=== PATIENT | male | born 1945 | race Caucasian/White ===

== ENCOUNTER 2016-11-12 22:33 | Inpatient (IN) | payer MEDICARE, MEDICAID ==
[~2016-11-12] VITALS: Ht 182.9 cm; Wt 73.9 kg
[~2016-11-12 22:33] MED LIST: ASCORBIC ACID500 MG ORAL; ASPIR 8181 MG ORAL; BISACODYL5 MG RECTAL; CEPACOL SORE T1 EAC5 MM; COUMADIN2 MG ORAL; CRANBERRY500 M3 PO; CYCLOBENZAPRINE10 MG ORAL; DUONEB 0.5-3(2.53 ML HHN; FLOMAX0.4 MG ORAL; FLONASE1 SPRAYS NASAL; IBUPROFEN600 MG ORAL; IMODIUM2 MG ORAL; KLONOPIN0.5 MG ORAL; MIRALAX17 G2 ORAL; MOM30 ML ORAL; MYLANTA30 M1 PO; NIACIN ER500 M1 PO; NITROGLYCERIN0.4 MG SL; NORCO 5-325 TA1 EACH ORAL; OMEPRAZOLE20 M2 ORAL; PROSCAR5 MG ORAL; PROSTATE SR SO1 EAC1 PO; PROZAC20 MG ORAL; SENNA8.8 MG/5 M PO; SENOKOT1 TAB ORAL; SIMVASTATIN10 MG ORAL; SINGULAIR10 MG ORAL; TEMAZEPAM15 MG ORAL; THERA-M1 EACH PO; TYLENOL650 MG/20. ORAL; WARFARIN SODIUM1 MG ORAL
[2016-11-12 22:53] VITALS: BP 104/74
[2016-11-12 23:06] LABS: BASOPHILS % (AUTO) 1.7 % (0.0-2.0); EOSINOPHILS % (AUTO) 2.3 % (0.0-3.0); LYMPHOCYTES % (AUTO) 17.3 % (20.0-45.0); MEAN CORPUSCULAR HEMOGLOBIN 28.7 PG (27.0-31.0); MEAN CORPUSCULAR VOLUME 89 FL (80-99); MEAN PLATELET VOLUME 7.2 FL (6.5-10.1); MONOCYTES % (AUTO) 12.7 % (1.0-10.0); PLATELET COUNT 229 K/UL (150-450); RED BLOOD COUNT 4.85 M/UL (4.70-6.10); RED CELL DISTRIBUTION WIDTH 12.1 % (11.6-14.8); WHITE BLOOD COUNT 7.6 K/UL (4.8-10.8)
[2016-11-12 23:14] LABS: INR 2.4 (0.9-1.1); PROTHROMBIN TIME 24.7 SEC (9.30-11.50)
[2016-11-12 23:21] LABS: TROPONIN I < 0.30 ng/mL (<=0.30)
[2016-11-12 23:25] LABS: ALANINE AMINOTRANSFERASE 16 U/L (3-41); ALBUMIN/GLOBULIN RATIO 1.3 (1.0-2.7); ANION GAP 14 (5-15); ASPARTATE AMINO TRANSFERASE 20 U/L (5-40); CALCIUM 9.5 mg/dL (8.6-10.2); CARBON DIOXIDE 28 mEQ/L (20-30); CHLORIDE 96 mEQ/L (98-107); CREATININE 0.9 mg/dL (0.7-1.2); GLOMERULAR FILTRATION RATE > 60 mL/min (>60); HEMOLYSIS 8; LIPASE 36 U/L (< 60); POTASSIUM 3.9 mEQ/L (3.4-4.9); SODIUM 138 mEQ/L (135-145); TOTAL PROTEIN 7.4 g/dL (6.6-8.7)
[2016-11-12] MEDS ORDERED: ARTIFICIAL TEA1 EAC2 OP (23:28)
[2016-11-12] MEDS ORDERED: BENGAY113 GM TP (23:28)
[2016-11-12 23:35] LABS: CKMB 1.7 ng/mL (< 6.7)
--- NOTE | 2016-11-12 23:46 | Emergency Room Report ---
History of Present Illness General Chief Complaint: Chest Pain Source: Patient Present Illness HPI Patient presents with complaints of chest pain midsternal Denies any vomiting or diarrhea Denies any headache Denies any visual changes Her course the pain was earlier 10/30 heaviness midsternal At this time is pain-free Denies any fall or trauma denies any back or flank pain Allergies: Coded Allergies: NO KNOWN DRUG ALLERGIES (Unverified Allergy, Unknown, 11/12/14) Uncoded Allergies: Coconut (Allergy, Intermediate, Hives, 08/07/15) Patient History Past Medical History: see triage record Past Surgical History: none Reviewed Nursing Documentation: PMH: Agreed, PSxH: Agreed Nursing Documentation-PMH Hx Cardiac Problems: Yes - Chronic ischemic disease Hx Hypertension: Yes Hx Cancer: Yes - BPH Hx Gastrointestinal Problems: Yes - GERD Hx Neurological Problems: Yes - depression,anxiety Hx Cerebrovascular Accident: Yes - Left CVA Hx Dizziness: Yes Hx Headaches: Yes Hx Weakness: Yes Review of Systems All Other Systems: negative except mentioned in HPI Physical Exam Vital Signs Date Time Temp Pulse Resp B/P Pulse Ox O2 Delivery O2 Flow Rate FiO2 11/12/16 22:25 98.1 45 16 113/71 98 Room Air Sp02 EP Interpretation: reviewed, normal General Appearance: well appearing, no apparent distress Head: normocephalic, atraumatic Eyes: bilateral eye EOMI, bilateral eye PERRL ENT: hearing grossly normal, normal pharynx Neck: supple, thyroid normal Respiratory: chest non-tender, lungs clear Cardiovascular #1: regular rate, rhythm, no edema Gastrointestinal: non tender, soft Musculoskeletal: other - Patient appears chronically ill, there is no obvious focal deficit in the upper extremities Neurologic: alert, responsive Skin: no rash Lymphatic: no adenopathy Medical Decision Making Diagnostic Impression: Primary Impression: ACS (acute coronary syndrome) ER Course Patient is a fairly complex patient with multiple differential to consideration including but not limited to cardiac cardiopulmonary and vascular emergencies Patient's blood work and imaging is appropriate as far review of records shows the patient has coagulopathy Is on INR is unclear the specific reason for coagulation therapy however it does appear to be therapeutic at this time Labs Test 11/12/16 22:48 White Blood Count 7.6 K/UL (4.8-10.8) Red Blood Count 4.85 M/UL (4.70-6.10) Hemoglobin 13.9 G/DL (14.2-18.0) Hematocrit 43.4 % (42.0-52.0) Mean Corpuscular Volume 89 FL (80-99) Mean Corpuscular Hemoglobin 28.7 PG (27.0-31.0) Mean Corpuscular Hemoglobin Concent 32.0 G/DL (32.0-36.0) Red Cell Distribution Width 12.1 % (11.6-14.8) Platelet Count 229 K/UL (150-450) Mean Platelet Volume 7.2 FL (6.5-10.1) Neutrophils (%) (Auto) 66.0 % (45.0-75.0) Lymphocytes (%) (Auto) 17.3 % (20.0-45.0) Monocytes (%) (Auto) 12.7 % (1.0-10.0) Eosinophils (%) (Auto) 2.3 % (0.0-3.0) Basophils (%) (Auto) 1.7 % (0.0-2.0) Prothrombin Time 24.7 SEC (9.30-11.50) Prothromb Time International Ratio 2.4 (0.9-1.1) Activated Partial Thromboplast Time 36 SEC (23-33) Sodium Level 138 mEQ/L (135-145) Potassium Level 3.9 mEQ/L (3.4-4.9) Chloride Level 96 mEQ/L (98-107) Carbon Dioxide Level 28 mEQ/L (20-30) Anion Gap 14 (5-15) Blood Urea Nitrogen 8 mg/dL (7-23) Creatinine 0.9 mg/dL (0.7-1.2) Estimat Glomerular Filtration Rate > 60 mL/min (>60) Glucose Level 85 mg/dL (74-106) Calcium Level 9.5 mg/dL (8.6-10.2) Total Bilirubin 0.5 mg/dL (0.0-1.2) Aspartate Amino Transf (AST/SGOT) 20 U/L (5-40) Alanine Aminotransferase (ALT/SGPT) 16 U/L (3-41) Alkaline Phosphatase 77 U/L (40-129) Total Creatine Kinase 84 U/L (38-174) Creatine Kinase MB 1.7 ng/mL (< 6.7) Creatine Kinase MB Relative Index 2.0 Troponin I < 0.30 ng/mL (<=0.30) Total Protein 7.4 g/dL (6.6-8.7) Albumin 4.2 g/dL (3.5-5.2) Globulin 3.2 g/dL Albumin/Globulin Ratio 1.3 (1.0-2.7) Lipase 36 U/L (< 60) EKG Diagnostic Results Rate: normal Rhythm: NSR ST Segments: no acute changes Rhythm Strip Diag. Results EP Interpretation: yes Rate: 60 Rhythm: NSR, no PVC's, no ectopy Chest X-Ray Diagnostic Results EP Interpretation: Yes Findings: no pneumothorax, other - Left lower lobe scarring/effusion/ atelectasis, similar to previous x-ray, no acute bony abnormalities Number of Views: 1 Last Vital Signs Date Time Temp Pulse Resp B/P Pulse Ox O2 Delivery O2 Flow Rate FiO2 11/12/16 22:56 45 16 Room Air 11/12/16 22:53 98.1 104/74 100 Status: improved Disposition: ADMITTED INPATIENT Condition: Serious Referrals: DEENA BRAR (PCP) EMIL NELSON D.O. Nov 12, 2016 23:46
[2016-11-12] MEDS ORDERED: COUMADIN7.5 MG ORAL (23:48)
[2016-11-12] MEDS ORDERED: VITAMIN C500 M1 ORAL (23:48)
[2016-11-12] MEDS ORDERED: IBUPROFEN400 M1 PO (23:48)
[2016-11-12] MEDS ORDERED: CALCIUM CARBON200 M1 PO (23:48)
[2016-11-13] MEDS ORDERED: Miralax 17gm pkt ORAL PRN
[2016-11-13] MEDS ORDERED: Loperamide 2mg cap ORAL PRN
[2016-11-13] MEDS ORDERED: Ketorolac 30mg Inj IV PRN
[2016-11-13] MEDS ORDERED: Enalaprilat 2.5mg/2ml Inj IV PRN
[2016-11-13] MEDS ORDERED: DuoNeb 0.5-3(2.5)mg/3ml neb HHN PRN
[2016-11-13] MEDS ORDERED: Nitroglycerin Subl 0.4mg tab (Bottle Of 25) SL PRN
[2016-11-13] MEDS ORDERED: Diltiazem 25mg/5ml IV PRN
[2016-11-13] MEDS ORDERED: Morphine Sulfate 2mg/ml Inj IVP PRN
[2016-11-13] MEDS: Cyclobenzaprine 10mg Tab ORAL SCH ×5 (00:56→23:45)
[2016-11-13 02:18] VITALS: BP 94/61
[2016-11-13 04:59] VITALS: BP 106/67
[2016-11-13 06:36] VITALS: BP 108/68
[2016-11-13 07:15] LABS: INR 2.5 (0.9-1.1); PROTHROMBIN TIME 26.3 SEC (9.30-11.50)
[2016-11-13 07:19] LABS: BASOPHILS % (AUTO) 0.9 % (0.0-2.0); EOSINOPHILS % (AUTO) 3.1 % (0.0-3.0); LYMPHOCYTES % (AUTO) 19.3 % (20.0-45.0); MEAN CORPUSCULAR HEMOGLOBIN 28.9 PG (27.0-31.0); MEAN CORPUSCULAR HGB CONC 33.9 G/DL (32.0-36.0); MEAN CORPUSCULAR VOLUME 85 FL (80-99); MEAN PLATELET VOLUME 7.7 FL (6.5-10.1); MONOCYTES % (AUTO) 13.8 % (1.0-10.0); PLATELET COUNT 228 K/UL (150-450); RED BLOOD COUNT 5.06 M/UL (4.70-6.10); RED CELL DISTRIBUTION WIDTH 12.1 % (11.6-14.8); WHITE BLOOD COUNT 5.1 K/UL (4.8-10.8)
[2016-11-13 07:21] LABS: CHOLESTEROL 193 mg/dL (< 200); CHOLESTEROL/HDL RATIO 4.4 (3.3-4.4); CRP QUANT < 0.3 mg/dL (< 0.5); HEMOLYSIS 5; LDL CHOLESTEROL (CALC.) 133 mg/dL (60-99)
[2016-11-13] MEDS ORDERED: FLUOXETINE HCL10 MG ORAL (08:16)
[2016-11-13 08:28] VITALS: BP 109/58
[2016-11-13] MEDS: Tamsulosin 0.4mg cap ORAL SCH ×2 (08:47→17:47)
[2016-11-13] MEDS: FLUoxetine 10mg cap ORAL SCH (08:48)
[2016-11-13] MEDS: clonazePAM 0.5mg tab ORAL SCH ×3 (08:48→17:47)
[2016-11-13] MEDS: Aspirin EC 81mg tab ORAL SCH (08:50)
[2016-11-13] MEDS ORDERED: Norco 5mg/325mg tab ORAL PRN (09:00)
[2016-11-13] MEDS ORDERED: Heparin 5000 units/ml inj SUBQ SCH (09:00)
[2016-11-13] MEDS ORDERED: Aspirin Baby 81mg ORAL SCH (09:00)
--- NOTE | 2016-11-13 11:22 | Diagnostic Imaging Report ---
Indication: Chest pain Technique: One view of the chest Comparison: 11/13/2014 Findings: Patient is slightly rotated to the right. There is some crowding of vascular markings at the left lung base. There is slight blunting of left costophrenic sulcus appears unchanged from the prior exam, suspect chronic. Lungs and pleural spaces otherwise clear.. Impression: Stable left costophrenic angle blunting, may reflect scarring or trace left pleural fluid. No definite acute process otherwise. Findings as noted This agrees with the preliminary interpretation provided by the emergency room physician
[2016-11-13 11:33] VITALS: BP 105/71
--- NOTE | 2016-11-13 15:30 | Consultation ---
History of Present Illness General Date patient seen: Nov 13, 2016 Chief Complaint: Chest Pain Referring physician: Dr. Mackenzie Reason for Consultation: chest pain Present Illness Allergies: Coded Allergies: MONTELUKAST (Unverified Allergy, Unknown, 11/13/16) Uncoded Allergies: Coconut (Allergy, Intermediate, Hives, 08/07/15) Medication History Scheduled Al Hydroxide/mg Hydroxide (Mag-Al Liquid), 30 ML PO Q4HR, (Reported) Ascorbic Acid* (Ascorbic Acid*), 500 MG ORAL BID, (Reported) Ascorbic Acid* (Vitamin C*), 500 MG ORAL TWICE A DAY, (Reported) Aspirin* (Aspir 81*), 81 MG ORAL DAILY, (Reported) Benzocaine/Menthol (Cepacol Sore Throat Lozenge), 1 EACH MM PRN, (Reported) Bisacodyl* (Dulcolax*), 10 MG RECTAL DAILY, (Reported) Clonazepam* (Klonopin*), 0.5 MG ORAL TID, (Reported) Cranberry Fruit (Cranberry), 500 MG PO BID, (Reported) Cyclobenzaprine Hcl* (Flexeril*), 10 MG ORAL Q6HR, (Reported) Finasteride* (Proscar*), 5 MG ORAL DAILY, (Reported) Fluoxetine Hcl* (Fluoxetine Hcl*), 10 MG ORAL DAILY, (Reported) Fluticasone Propionate (Fluticasone Propionate), 2 SPRAYS NASAL DAILY, (Reported ) Magnesium Hydroxide (Milk of Magnesia), 30 ML ORAL Q6HR, (Reported) Montelukast Sodium* (Singulair*), 10 MG ORAL DAILY, (Reported) Multivits,-,Other Min (Thera-M), 1 EACH PO DAILY, (Reported) Niacin (Niacin ER), 500 MG PO QHS, (Reported) Omeprazole (Omeprazole), 20 MG ORAL DAILY, (Reported) Sennosides (Senna), 17.2 MG PO DAILY, (Reported) Sennosides (Senna-Gen), 2 TAB ORAL DAILY, (Reported) Simvastatin (Zocor), 10 MG ORAL BEDTIME, (Reported) Tamsulosin HCl (Flomax), 0.4 MG ORAL DAILY, (Reported) Tamsulosin HCl (Flomax), 0.4 MG ORAL BID, (Reported) Warfarin Sod (Coumadin*), 1.5 MG ORAL DAILY, (Reported) Warfarin Sod* (Warfarin Sod*), 1 MG ORAL DAILY Scheduled PRN Acetaminophen (Acetaminophen), 650 MG ORAL EVERY 4 HOURS PRN for Prn Headache/ Temp > 101, (Reported) Hydrocodone Bit/Acetaminophen 5-325* ([place] 5-325*), 1 TAB ORAL Q8HR PRN for For Pain, (Reported) Ibuprofen* (Motrin*), 600 MG ORAL Q8H PRN for For Pain, (Reported) Ipratropium/Albuterol Sulfate (DuoNeb 0.5-3(2.5)mg/3ml), 3 ML HHN EVERY 4 HOURS PRN for Shortness of Breath, (Reported) Nitroglycerin (Nitroglycerin), 0.4 MG SL Q5M X 3 DOSES PRN for CHEST PAIN AND NOTIFY MD, (Reported) Polyethylene Glycol 3350* (Miralax*), 17 GM ORAL BEDTIME PRN for CONSTIPATION, ( Reported) Temazepam (Temazepam*), 15 MG ORAL BEDTIME PRN for INSOMNIA, (Reported) Warfarin Sod* (Coumadin*), 2 MG ORAL DAILY PRN for PHARMACY TO DOSE, (Reported) Miscellaneous Medications Calcium Carbonate (Calcium Carbonate), 200 MG PO, (Reported) Dextran 70/Hypromellose (Artificial Tears), 1 EACH OP, (Reported) Ibuprofen (Ibuprofen), 400 MG PO, (Reported) Loperamide HCl (Loperamide), 2 MG ORAL, (Reported) Menthol (Bengay), 113 GM TP, (Reported) Saw [place] Xt/Phytosterol #2 (Prostate Sr Softgel), 1 EACH PO, (Reported) Discontinued Medications Fluoxetine Hcl* (Prozac*), 20 MG ORAL DAILY, (Reported) Discontinued Reason: Prescription changed Patient History Healthcare decision maker Resuscitation status Advanced Directive on File Past Medical/Surgical History Past Medical/Surgical History: (1) Cerebrovascular accident (CVA) (2) PE (pulmonary embolism) Review of Systems All Other Systems: negative except mentioned in HPI Physical Exam General Appearance: WD/WN Lines, tubes and drains: peripheral HEENT: normocephalic Neck: non-tender, normal alignment Respiratory/Chest: chest wall non-tender, lungs clear Cardiovascular/Chest: normal peripheral pulses, normal rate Abdomen: normal bowel sounds Genitourinary/Rectal: normal genital exam Extremities: normal range of motion Last 24 Hour Vital Signs Date Time Temp Pulse Resp B/P Pulse Ox O2 Delivery O2 Flow Rate FiO2 11/13/16 12:00 60 11/13/16 11:33 97.7 62 20 105/71 95 Room Air 11/13/16 08:28 97.3 62 18 109/58 95 Room Air 11/13/16 08:00 66 11/13/16 07:47 98.1 49 14 108/68 97 Room Air 11/13/16 07:35 98.1 11/13/16 07:08 98.1 49 14 108/68 97 Room Air 11/13/16 06:36 49 14 108/68 97 Room Air 11/13/16 04:59 98.1 54 13 106/67 95 Room Air 11/13/16 02:18 51 13 94/61 95 Room Air 11/12/16 22:56 45 16 Room Air 11/12/16 22:53 98.1 46 17 104/74 100 Room Air 11/12/16 22:25 98.1 45 16 113/71 98 Room Air Intake and Output 11/12/16 11/13/16 19:00 07:00 Intake Total 150 ml Output Total 350 ml Balance -200 ml Intake Oral 150 ml Output Urine Total 350 ml Laboratory Tests Test 11/12/16 22:48 11/13/16 06:36 White Blood Count 7.6 K/UL (4.8-10.8) 5.1 K/UL (4.8-10.8) Red Blood Count 4.85 M/UL (4.70-6.10) 5.06 M/UL (4.70-6.10) Hemoglobin 13.9 G/DL (14.2-18.0) L 14.6 G/DL (14.2-18.0) Hematocrit 43.4 % (42.0-52.0) 43.1 % (42.0-52.0) Mean Corpuscular Volume 89 FL (80-99) 85 FL (80-99) Mean Corpuscular Hemoglobin 28.7 PG (27.0-31.0) 28.9 PG (27.0-31.0) Mean Corpuscular Hemoglobin Concent 32.0 G/DL (32.0-36.0) 33.9 G/DL (32.0-36.0) Red Cell Distribution Width 12.1 % (11.6-14.8) 12.1 % (11.6-14.8) Platelet Count 229 K/UL (150-450) 228 K/UL (150-450) Mean Platelet Volume 7.2 FL (6.5-10.1) 7.7 FL (6.5-10.1) Neutrophils (%) (Auto) 66.0 % (45.0-75.0) 63.0 % (45.0-75.0) Lymphocytes (%) (Auto) 17.3 % (20.0-45.0) L 19.3 % (20.0-45.0) L Monocytes (%) (Auto) 12.7 % (1.0-10.0) H 13.8 % (1.0-10.0) H Eosinophils (%) (Auto) 2.3 % (0.0-3.0) 3.1 % (0.0-3.0) H Basophils (%) (Auto) 1.7 % (0.0-2.0) 0.9 % (0.0-2.0) Prothrombin Time 24.7 SEC (9.30-11.50) H 26.3 SEC (9.30-11.50) H Prothromb Time International Ratio 2.4 (0.9-1.1) H 2.5 (0.9-1.1) H Activated Partial Thromboplast Time 36 SEC (23-33) H 36 SEC (23-33) H Sodium Level 138 mEQ/L (135-145) Potassium Level 3.9 mEQ/L (3.4-4.9) Chloride Level 96 mEQ/L (98-107) L Carbon Dioxide Level 28 mEQ/L (20-30) Anion Gap 14 (5-15) Blood Urea Nitrogen 8 mg/dL (7-23) Creatinine 0.9 mg/dL (0.7-1.2) Estimat Glomerular Filtration Rate > 60 mL/min (>60) Glucose Level 85 mg/dL (74-106) Calcium Level 9.5 mg/dL (8.6-10.2) Total Bilirubin 0.5 mg/dL (0.0-1.2) Aspartate Amino Transf (AST/SGOT) 20 U/L (5-40) Alanine Aminotransferase (ALT/SGPT) 16 U/L (3-41) Alkaline Phosphatase 77 U/L (40-129) Total Creatine Kinase 84 U/L (38-174) Creatine Kinase MB 1.7 ng/mL (< 6.7) Creatine Kinase MB Relative Index 2.0 Troponin I < 0.30 ng/mL (<=0.30) Total Protein 7.4 g/dL (6.6-8.7) Albumin 4.2 g/dL (3.5-5.2) Globulin 3.2 g/dL Albumin/Globulin Ratio 1.3 (1.0-2.7) Lipase 36 U/L (< 60) C-Reactive Protein, Quantitative < 0.3 mg/dL (< 0.5) Triglycerides Level 79 mg/dL (< 150) Cholesterol Level 193 mg/dL (< 200) LDL Cholesterol 133 mg/dL (60-99) H HDL Cholesterol 44 mg/dL (> 60) Cholesterol/HDL Ratio 4.4 (3.3-4.4) Thyroid Stimulating Hormone (TSH) 1.700 uIU/mL (0.300-4.500) Height (Feet): 6 Height (Inches): 0.00 Weight (Pounds): 163 Medications Current Medications Medications (Trade) Dose Ordered Sig/Vadim Route PRN Reason Start Time Stop Time Status Last Admin Dose Admin Acetaminophen (Tylenol) 650 mg Q4H PRN ORAL FEVER 11/13/16 00:00 12/13/16 00:00 Acetaminophen/ Hydrocodone Bitart ([place] 5/325) 1 tab Q8H PRN ORAL Moderate Pain (Pain Scale 4-6) 11/13/16 09:00 11/20/16 08:59 Albuterol/ Ipratropium (DuoNeb 0.5-3(2.5)mg/3ml) 3 ml Q4H PRN HHN Shortness of Breath 11/13/16 00:00 11/18/16 00:00 Aspirin (Ecotrin) 81 mg DAILY ORAL 11/13/16 09:00 12/13/16 08:59 11/13/16 08:50 Clonazepam (KlonoPIN) 0.5 mg TID ORAL 11/13/16 09:00 11/20/16 08:59 11/13/16 12:13 Cyclobenzaprine HCl (Flexeril) 10 mg Q6HR ORAL 11/13/16 00:00 12/13/16 00:00 11/13/16 12:13 Diltiazem HCl (Cardizem) 10 mg Q1H PRN IV heart rate more than 120, 11/13/16 00:00 12/13/16 00:00 Enalaprilat (Vasotec) 2.5 mg Q6H PRN IV sbp more than 160 11/13/16 00:00 12/13/16 00:00 Finasteride (Proscar) 5 mg DAILY ORAL 11/13/16 09:00 12/13/16 08:59 11/13/16 08:47 Fluoxetine HCl (PROzac) 10 mg DAILY ORAL 11/13/16 09:00 12/13/16 08:59 11/13/16 08:48 Loperamide HCl (Imodium) 2 mg DAILY PRN ORAL Diarrhea 11/13/16 00:00 12/13/16 00:00 Morphine Sulfate (Morphine Sulfate) 2 mg Q4H PRN IVP severe Pain (Pain Scale 7-10) 11/13/16 00:00 11/20/16 00:00 Nitroglycerin (Ntg) 0.4 mg Q5M PRN SL Prn Chest Pain 11/13/16 00:00 12/13/16 00:00 Ondansetron HCl (Zofran) 4 mg Q6H PRN IVP Nausea & Vomiting 11/13/16 00:00 12/13/16 00:00 Pantoprazole (Protonix) 40 mg DAILY ORAL 11/13/16 09:00 12/13/16 08:59 11/13/16 08:48 Polyethylene Glycol (Miralax) 17 gm DAILYPRN PRN ORAL Constipation 11/13/16 00:00 12/13/16 00:00 Sennosides (Senokot) 17.2 mg DAILY ORAL 11/14/16 09:00 12/14/16 08:59 Tamsulosin HCl (Flomax) 0.4 mg BID ORAL 11/13/16 09:00 12/13/16 08:59 11/13/16 08:47 Temazepam (Restoril) 15 mg HSPRN PRN ORAL Insomnia 11/13/16 00:00 11/20/16 00:00 Warfarin Sodium (Coumadin per pharmacy) 1 ea DAILY PRN MISC PER RX PROTOCOL 11/13/16 10:45 12/13/16 10:44 Warfarin Sodium (Coumadin) 1.5 mg COUMADIN ORAL 11/13/16 17:00 11/18/16 16:59 Assessment/Plan Problem List: (1) ACS (acute coronary syndrome) ICD Codes: I24.9 - Acute ischemic heart disease, unspecified SNOMED: 608063303 (2) Costochondritis ICD Codes: M94.0 - Chondrocostal junction syndrome [[place]] SNOMED: 36497534 (3) GERD (gastroesophageal reflux disease) ICD Codes: K21.9 - Gastro-esophageal reflux disease without esophagitis SNOMED: 013350959 Assessment/Plan serial ekg troponin echo cardio evaluation continue coumadin for hx of PE. Pharmacy to follow inr ED MANRIQUE Nov 13, 2016 15:30
[2016-11-13 16:00] VITALS: BP 102/63
[2016-11-13] MEDS: Warfarin Sodium 3mg ORAL SCH (17:47)
[2016-11-14 00:30] VITALS: BP 96/58
[2016-11-14 04:00] VITALS: BP 106/77
[2016-11-14] MEDS: Cyclobenzaprine 10mg Tab ORAL SCH ×4 (05:28→23:42)
--- NOTE | 2016-11-14 05:48 | Consultation ---
DATE OF CONSULTATION: 11/13/2016 NOTE: BAD AUDIO. CONSULTING PHYSICIAN: Reji Ricardo M.D. ATTENDING PHYSICIAN: Jaime Mackenzie M.D. REFERRING PHYSICIAN: Jaime Mackenzie M.D. HISTORY OF PRESENT ILLNESS: The patient is a 70-year-old male with coronary syndrome. The patient states that he has a history of anxiety, does take psychotropic medications for his anxiety. At this time, he denies suicidal or homicidal thoughts of ideation. Denies auditory or visual hallucinations. He is about how his chest pain . He reports . PAST MEDICAL HISTORY: History of pulmonary embolism and CVA. ALLERGIES: The patient is allergic to montelukast and . SUBSTANCE ABUSE HISTORY: The patient denies any history of alcohol or illicit drug use. PSYCHIATRIC HISTORY: The patient has been taking Prozac. The patient states that he medications of anxiety. SOCIAL HISTORY: The patient is a 70-year-old male. The patient is facility. Financially sustained through Medicare. MENTAL STATUS EXAMINATION: The patient is alert and oriented to person. Mood is anxious. Affect is congruent. Thought process is disorganized. Thought content . The patient has poor attention and concentration. Poor insight, judgment, and impulse control. Denies suicidal or homicidal ideation. Denies auditory or visual hallucinations. PLAN: This clinician assessed the patient and provided the patient with supportive psychotherapy and reality orientation and coping skills. Continue with medication management and behavioral management. This clinician has reviewed the patient's chart. Discussed the treatment with nursing staff. Reji Ricardo PsyD. DR: BARRON JOB#: [id number] CC:
[2016-11-14 06:50] LABS: INR 2.6 (0.9-1.1); PROTHROMBIN TIME 26.9 SEC (9.30-11.50)
[2016-11-14 06:56] LABS: ANION GAP 12 (5-15); CALCIUM 8.9 mg/dL (8.6-10.2); CARBON DIOXIDE 29 mEQ/L (20-30); CHLORIDE 101 mEQ/L (98-107); CREATININE 0.9 mg/dL (0.7-1.2); GLOMERULAR FILTRATION RATE > 60 mL/min (>60); HEMOLYSIS 5; POTASSIUM 3.8 mEQ/L (3.4-4.9); SODIUM 142 mEQ/L (135-145)
[2016-11-14 07:03] LABS: BASOPHILS % (AUTO) 0.9 % (0.0-2.0); EOSINOPHILS % (AUTO) 2.2 % (0.0-3.0); LYMPHOCYTES % (AUTO) 17.6 % (20.0-45.0); MEAN CORPUSCULAR HEMOGLOBIN 28.2 PG (27.0-31.0); MEAN CORPUSCULAR HGB CONC 32.5 G/DL (32.0-36.0); MEAN CORPUSCULAR VOLUME 87 FL (80-99); MEAN PLATELET VOLUME 7.8 FL (6.5-10.1); MONOCYTES % (AUTO) 13.1 % (1.0-10.0); NEUTROPHILS % (AUTO) 66.3 % (45.0-75.0); PLATELET COUNT 255 K/UL (150-450); RED BLOOD COUNT 4.98 M/UL (4.70-6.10); RED CELL DISTRIBUTION WIDTH 12.7 % (11.6-14.8); WHITE BLOOD COUNT 5.8 K/UL (4.8-10.8)
[2016-11-14] MEDS: Aspirin EC 81mg tab ORAL SCH (08:28)
[2016-11-14] MEDS: clonazePAM 0.5mg tab ORAL SCH ×3 (08:29→17:58)
[2016-11-14] MEDS: FLUoxetine 10mg cap ORAL SCH (08:30)
[2016-11-14] MEDS: Tamsulosin 0.4mg cap ORAL SCH ×2 (08:30→17:59)
--- NOTE | 2016-11-14 08:40 | General Progress Note ---
Assessment/Plan Problem List: (1) HTN (hypertension) ICD Codes: I10 - Essential (primary) hypertension SNOMED: 87469284 (2) BPH (benign prostatic hyperplasia) ICD Codes: N40.0 - Benign prostatic hyperplasia without lower urinary tract symptoms SNOMED: 188785328, 485198217 (3) Anxiety ICD Codes: F41.9 - Anxiety disorder, unspecified SNOMED: 29772373 (4) Constipation ICD Codes: K59.00 - Constipation, unspecified SNOMED: 40508930 (5) ACS (acute coronary syndrome) ICD Codes: I24.9 - Acute ischemic heart disease, unspecified SNOMED: 902068236 (6) PE (pulmonary embolism) ICD Codes: I26.99 - Other pulmonary embolism without acute cor pulmonale SNOMED: 48802531 Status: stable, progressing, tolerating diet Assessment/Plan ot pt diet cardio f/u cbc bmp am Subjective Constitutional: Reports: weakness Allergies: Coded Allergies: MONTELUKAST (Unverified Allergy, Unknown, 11/13/16) Uncoded Allergies: Coconut (Allergy, Intermediate, Hives, 08/07/15) All Systems: reviewed and negative except above Subjective calm in bed eating Objective Last 24 Hour Vital Signs Date Time Temp Pulse Resp B/P Pulse Ox O2 Delivery O2 Flow Rate FiO2 11/14/16 04:30 96 11/14/16 04:00 98.0 96 20 106/77 Room Air 11/14/16 03:59 48 11/14/16 00:30 97.0 53 20 96/58 94 Room Air 11/13/16 23:43 57 11/13/16 20:00 67 16 Room Air 11/13/16 19:56 51 11/13/16 16:00 56 11/13/16 16:00 97.3 55 18 102/63 94 Room Air 11/13/16 12:00 60 11/13/16 11:33 97.7 62 20 105/71 95 Room Air Intake and Output 11/13/16 11/14/16 19:00 07:00 Intake Total 120 ml Output Total 450 ml 550 ml Balance -330 ml -550 ml Intake Oral 120 ml Output Urine Total 450 ml 550 ml Laboratory Tests 11/14/16 05:10: White Blood Count 5.8, Red Blood Count 4.98, Hemoglobin 14.1L, Hematocrit 43.3, Mean Corpuscular Volume 87, Mean Corpuscular Hemoglobin 28.2, Mean Corpuscular Hemoglobin Concent 32.5, Red Cell Distribution Width 12.7, Platelet Count 255, Mean Platelet Volume 7.8, Neutrophils (%) (Auto) 66.3, Lymphocytes (%) (Auto) 17.6L, Monocytes (%) (Auto) 13.1H, Eosinophils (%) (Auto) 2.2, Basophils (%) ( Auto) 0.9, Prothrombin Time 26.9H, Prothromb Time International Ratio 2.6H, Sodium Level 142, Potassium Level 3.8, Chloride Level 101, Carbon Dioxide Level 29, Anion Gap 12, Blood Urea Nitrogen 9, Creatinine 0.9, Estimat Glomerular Filtration Rate > 60, Glucose Level 94, Calcium Level 8.9 Height (Feet): 6 Height (Inches): 0.00 Weight (Pounds): 163 General Appearance: alert EENT: normal ENT inspection Neck: normal alignment Cardiovascular: normal peripheral pulses, normal rate, regular rhythm Respiratory/Chest: chest wall non-tender, lungs clear, normal breath sounds Abdomen: normal bowel sounds, non tender, soft Extremities: normal inspection Edema: no edema noted Arm (L), no edema noted Arm (R), no edema noted Leg (L), no edema noted Leg (R), no edema noted Pedal (L), no edema noted Pedal (R), no edema noted Generalized Neurologic: responsive, motor weakness Skin: normal pigmentation, warm/dry DEENA BRAR Nov 14, 2016 08:40
--- NOTE | 2016-11-14 11:38 | Pulmonology Progress Note ---
Assessment/Plan Problems: (1) ACS (acute coronary syndrome) (2) Costochondritis (3) GERD (gastroesophageal reflux disease) Assessment/Plan echo noted, EF 55% awaiting Cardio consult serial enzymes optimize cardiac meds. Subjective ROS Limited/Unobtainable: No Interval Events: asymptomatic Allergies: Coded Allergies: MONTELUKAST (Unverified Allergy, Unknown, 11/13/16) Uncoded Allergies: Coconut (Allergy, Intermediate, Hives, 08/07/15) Objective Last 24 Hour Vital Signs Date Time Temp Pulse Resp B/P Pulse Ox O2 Delivery O2 Flow Rate FiO2 11/14/16 09:55 72 16 Room Air 11/14/16 08:00 51 11/14/16 04:30 96 11/14/16 04:00 98.0 96 20 106/77 Room Air 11/14/16 03:59 48 11/14/16 00:30 97.0 53 20 96/58 94 Room Air 11/13/16 23:43 57 11/13/16 20:00 67 16 Room Air 11/13/16 19:56 51 11/13/16 16:00 56 11/13/16 16:00 97.3 55 18 102/63 94 Room Air 11/13/16 12:00 60 Intake and Output 11/13/16 11/14/16 19:00 07:00 Intake Total 120 ml Output Total 450 ml 550 ml Balance -330 ml -550 ml Intake Oral 120 ml Output Urine Total 450 ml 550 ml General Appearance: cachetic HEENT: normocephalic, atraumatic Respiratory/Chest: chest wall non-tender, lungs clear Cardiovascular: normal peripheral pulses, normal rate Abdomen: normal bowel sounds, soft, non tender Genitourinary: normal external genitalia 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 Lymphatic: no neck adenopathy Laboratory Tests 11/14/16 05:10: White Blood Count 5.8, Red Blood Count 4.98, Hemoglobin 14.1L, Hematocrit 43.3, Mean Corpuscular Volume 87, Mean Corpuscular Hemoglobin 28.2, Mean Corpuscular Hemoglobin Concent 32.5, Red Cell Distribution Width 12.7, Platelet Count 255, Mean Platelet Volume 7.8, Neutrophils (%) (Auto) 66.3, Lymphocytes (%) (Auto) 17.6L, Monocytes (%) (Auto) 13.1H, Eosinophils (%) (Auto) 2.2, Basophils (%) ( Auto) 0.9, Prothrombin Time 26.9H, Prothromb Time International Ratio 2.6H, Sodium Level 142, Potassium Level 3.8, Chloride Level 101, Carbon Dioxide Level 29, Anion Gap 12, Blood Urea Nitrogen 9, Creatinine 0.9, Estimat Glomerular Filtration Rate > 60, Glucose Level 94, Calcium Level 8.9 Current Medications Medications (Trade) Dose Ordered Sig/Vadim Route PRN Reason Start Time Stop Time Status Last Admin Dose Admin Acetaminophen (Tylenol) 650 mg Q4H PRN ORAL FEVER 11/13/16 00:00 12/13/16 00:00 Acetaminophen/ Hydrocodone Bitart ([place] 5/325) 1 tab Q8H PRN ORAL Moderate Pain (Pain Scale 4-6) 11/13/16 09:00 11/20/16 08:59 Albuterol/ Ipratropium (DuoNeb 0.5-3(2.5)mg/3ml) 3 ml Q4H PRN HHN Shortness of Breath 11/13/16 00:00 11/18/16 00:00 Aspirin (Ecotrin) 81 mg DAILY ORAL 11/13/16 09:00 12/13/16 08:59 11/14/16 08:28 Clonazepam (KlonoPIN) 0.5 mg TID ORAL 11/13/16 09:00 11/20/16 08:59 11/14/16 08:29 Cyclobenzaprine HCl (Flexeril) 10 mg Q6HR ORAL 11/13/16 00:00 12/13/16 00:00 11/14/16 05:28 Diltiazem HCl (Cardizem) 10 mg Q1H PRN IV heart rate more than 120, 11/13/16 00:00 12/13/16 00:00 Enalaprilat (Vasotec) 2.5 mg Q6H PRN IV sbp more than 160 11/13/16 00:00 12/13/16 00:00 Finasteride (Proscar) 5 mg DAILY ORAL 11/13/16 09:00 12/13/16 08:59 11/14/16 08:29 Fluoxetine HCl (PROzac) 10 mg DAILY ORAL 11/13/16 09:00 12/13/16 08:59 11/14/16 08:30 Loperamide HCl (Imodium) 2 mg DAILY PRN ORAL Diarrhea 11/13/16 00:00 12/13/16 00:00 Morphine Sulfate (Morphine Sulfate) 2 mg Q4H PRN IVP severe Pain (Pain Scale 7-10) 11/13/16 00:00 11/20/16 00:00 Nitroglycerin (Ntg) 0.4 mg Q5M PRN SL Prn Chest Pain 11/13/16 00:00 12/13/16 00:00 Ondansetron HCl (Zofran) 4 mg Q6H PRN IVP Nausea & Vomiting 11/13/16 00:00 12/13/16 00:00 Pantoprazole (Protonix) 40 mg DAILY ORAL 11/13/16 09:00 12/13/16 08:59 11/14/16 08:29 Polyethylene Glycol (Miralax) 17 gm DAILYPRN PRN ORAL Constipation 11/13/16 00:00 12/13/16 00:00 Sennosides (Senokot) 17.2 mg DAILY ORAL 11/14/16 09:00 12/14/16 08:59 11/14/16 08:29 Tamsulosin HCl (Flomax) 0.4 mg BID ORAL 11/13/16 09:00 12/13/16 08:59 11/14/16 08:30 Temazepam (Restoril) 15 mg HSPRN PRN ORAL Insomnia 11/13/16 00:00 11/20/16 00:00 Warfarin Sodium (Coumadin per pharmacy) 1 ea DAILY PRN MISC PER RX PROTOCOL 11/13/16 10:45 12/13/16 10:44 Warfarin Sodium (Coumadin) 1.5 mg COUMADIN ORAL 11/13/16 17:00 11/18/16 16:59 11/13/16 17:47 ED [facility] Nov 14, 2016 11:38
[2016-11-14 12:00] VITALS: BP 103/61
[2016-11-14] MEDS ORDERED: Sorbitol Solution UD 30ml ORAL ONE (12:55)
[2016-11-14 15:01] LABS: TROPONIN I < 0.30 ng/mL (<=0.30)
[2016-11-14 16:00] VITALS: BP 95/65
[2016-11-14] MEDS: Warfarin Sodium 3mg ORAL SCH (17:58)
--- NOTE | 2016-11-14 18:22 | Cardiology Report ---
APPROVED REPORT EXAM: Two-dimensional and M-mode echocardiogram with Doppler and color Doppler. INDICATION Left Ventricular Function M-Mode DIMENSIONS IVSd1.0 (0.7-1.1cm)Left Atrium (MM)3.0 (1.6-4.0cm) LVDd4.7 (3.5-5.6cm)Aortic Root2.9 (2.0-3.7cm) PWd0.8 (0.7-1.1cm)Aortic Cusp Exc.2.0 (1.5-2.0cm) LVDs2.4 (2.5-4.0cm) PWs1.2 cm Technically difficult study due to poor acoustic windows. Study quality precludes accurate assessment of regional wall motion. Normal left ventricular chamber size, systolic function and wall motion. Left ventricular ejection fraction estimated to be 55 %. No evidence of left ventricular hypertrophy. Anterior Echo-free space, may be due to pericardial fat or effusion. All other cardiac chamber sizes are within normal limits. Mild focal aortic valve sclerosis with adequate cusp excursion. Mildly thickened mitral valve leaflets with normal excursion. Mild mitral annulus and aortic root calcification. Pulmonic valve not well visualized. Normal tricuspid valve structure. IVC dilated at 2.0 cm with physiologic collapse. A color flow and spectral Doppler study was performed and revealed: No aortic regurgitation. Trace mitral regurgitation. Mitral diastolic velocities suggest normal left ventricular diastolic function. Trace tricuspid regurgitation. Tricuspid systolic velocities suggests peak right ventricular systolic pressure of 15 mmHg. Trace pulmonic regurgitation present.
--- NOTE | 2016-11-14 18:51 | Cardiology Report ---
APPROVED REPORT EKG Measurement Heart [id number] Sinus bradycardia Otherwise normal ECG
[2016-11-14 20:00] VITALS: BP 112/68
[2016-11-14] MEDS ORDERED: Magnesium Citrate Liq Btl ORAL PRN (22:15)
[2016-11-14] MEDS ORDERED: Fleet's Enema 133ml RECTAL PRN (22:15)
--- NOTE | 2016-11-14 23:28 | Consultation ---
DATE OF CONSULTATION: 11/14/2016 NOTE: BAD AUDIO GASTROENTEROLOGY CONSULTATION: CONSULTING PHYSICIAN: Julio Colvin M.D. REFERRING PHYSICIAN: Jaime Mackenzie M.D. CHIEF COMPLAINT: I was asked to see this patient for evaluation for chest pain. HISTORY OF PRESENT ILLNESS: The patient is a pleasant 70-year-old chest pain . The patient does complain of constipation and has not had a bowel movement for two days. He also has poor appetite and complained of in the hospital. The patient wants to have a laxative on a trial basis. He has not had any significant . PAST MEDICAL HISTORY: History of stroke with left-sided hemiparesis, history of benign prostatic hypertrophy, history of thrombotic stroke, history of pulmonary embolism, costochondritis, gastroesophageal reflux disease, constipation, anxiety, and hypertension. SOCIAL HISTORY: The patient lives in [facility] and denies smoking or drinking. FAMILY HISTORY: Noncontributory. REVIEW OF SYSTEMS: Otherwise negative. PHYSICAL EXAMINATION: GENERAL: Anxious white man, seen in his room. HEENT: Normocephalic and atraumatic. Sclerae are anicteric. Oropharynx is clear. NECK: Supple. CHEST: Clear to auscultation. CARDIOVASCULAR: Revealed regular rate. ABDOMEN: Soft with good bowel sounds. There were no masses. EXTREMITIES: No edema. LABORATORY DATA: Noted. ASSESSMENT: This patient presents with constipation and symptoms of gastroesophageal reflux disease. He does have some atypical chest pain evaluate from a cardiac status. I will give the patient a bowel regimen to have constipated stools. Should his gastrointestinal symptoms are persistent then further workup with endoscopy and colonoscopy can be considered. RECOMMENDATIONS: 1. Laxative trial. 2. Histamine-2 timur . 3. Follow laboratory parameters and symptoms. 4. Cardiology workup. Thank you for asking me to participate in the care of this patient. Julio Colvin M.D. DR: ALF/harleen JOB#: [id number] CC:
[2016-11-15] VITALS: BP 113/71
--- NOTE | 2016-11-15 00:18 | Consultation ---
DATE OF CONSULTATION: 11/14/2016 CARDIOLOGY CONSULTATION CONSULTING PHYSICIAN: Miko Quiroz M.D. REFERRING PHYSICIAN: Jaime Mackenzie D.O. REASON FOR CONSULTATION: Management of chest pain. HISTORY OF PRESENT ILLNESS: The patient is a very pleasant 70-year-old gentleman resident of , who [facility] for evaluation of chest pain. Pain is felt in the upper left precordial with radiation to the midsternal, sharp, constant, and reproducible to palpation. The patient states that the pain has gotten better ever since his arrival. According to the emergency department physician, the patient's pain was 3/10 in the emergency department. The patient did not have any shortness of breath. He had a few steps with the physical therapist today. He did not have any exertional chest pain or shortness of breath. At the time of arrival to the hospital, his blood pressure was 113/71 and his heart rate was 45. He denies any complaints of dizziness, lightheadedness, fatigue or nausea. PAST MEDICAL HISTORY: 1. Hypertension. 2. History of gastroesophageal reflux disease. 3. History of depression. 4. History of anxiety. 5. History of cerebrovascular accident with left hemiparesis. 6. History of chronic coronary artery disease, the detail of which is unknown. 7. History of pulmonary embolism. PAST SURGICAL HISTORY: None. LIST OF MEDICATIONS: 1. Acetaminophen 600 mg q.4 hours. p.r.n. headache and temperature above 101. 2. Mylanta 30 mL p.o. q.4 hours. 3. Ascorbic acid 500 mg twice daily. 4. Aspirin 81 mg daily. 5. Bisacodyl 10 mg subcutaneous daily. 6. Calcium carbonate 200 mg p.o. daily. 7. Clonazepam 0.5 mg three times daily. 8. Cranberry 500 mg p.o. twice daily. 9. Flexeril 10 mg p.o. q.6 hours p.r.n. muscle spasm. 10. Artificial Tears. 11. Proscar 5 mg p.o. daily. 12. Fluoxetine 10 mg p.o. daily. 13. Fluticasone propionate 2 sprays nasal. 14. Perkins 5/325 mg one tablet q.8 hours p.r.n. pain. 15. Ibuprofen 400 mg p.o. q.8 hours p.r.n. pain. 16. DuoNeb 3 mL HHN every four hours. p.r.n. shortness of breath. 17. Loperamide 2 mg p.o. daily. 18. Magnesium hydroxide 30 mL q.6 hours p.r.n. constipation. 19. Menthol 113 g TP. 20. Singular 10 mg p.o. daily. 21. Multivitamin 1000 mg p.o. daily. 22. Niacin ER 500 mg at bedtime. 23. Nitroglycerin 0.4 mg subcutaneous every five minutes p.r.n. chest pain. 24. Omeprazole 20 mg p.o. daily. 25. MiraLAX 17 g at bedtime p.r.n. constipation. 26. Prostate SR softgel one tablet daily. 27. Senna 17.2 mg p.o. daily. 28. Simvastatin 10 mg p.o. at bedtime. 29. Flomax 0.4 mg twice daily. 30. Temazepam 10 mg at bedtime. 31. Warfarin 2 mg/1 mg alternate basis. REVIEW OF SYSTEMS: HEENT: Denies any headache, diplopia, or blurred vision. Constitutional: Denies any fever, chills, night sweats, or weight loss. Cardiovascular: Chest pain as mentioned above. No associated shortness of breath. No PND, orthopnea, or leg swelling. Pulmonary: Denies any cough, hemoptysis, or wheezing. Gastrointestinal: Denies any nausea, vomiting, diarrhea, constipation, abdominal pain, or GI bleed. Genitourinary: Denies any hematuria, dysuria, or incontinence. Neurology: There is some weakness in the left upper and lower extremities. LABORATORY FINDINGS: WBC 7.6, hemoglobin of 13.9, hematocrit of 43.4, and platelet count is 229,000. Sodium is 138, potassium is 3.9, chloride 96, bicarbonate 28, BUN of 18, creatinine 0.9, glucose is 85 and calcium is 9.5. Troponin I was less than 0.3. Lipid panel, triglycerides 79, cholesterol is 193, LDL is 133, and HDL is 44. INR is 2.4. Chest x-ray showed stable left costophrenic angle blunting reflect scarring with trace left pleural fluid. No acute cardiopulmonary disease. A 12-lead electrocardiogram shows sinus rhythm at a rate of 60 with occasional single ventricular premature complexes. No ST and T-wave abnormalities. 2D echocardiography reviewed essentially shows normal LV systolic function with LVEF of about 65% to 70%. There is grade 1 LV diastolic dysfunction. Right ventricle systolic pressure measured about 15 mmHg. ASSESSMENT AND PLAN: The patient is a very unfortunate 70-year-old gentleman, who is a resident of [facility] seen in Cardiology consultation at request of Dr. Mackenzie. 1. Chest pain, per history is noncardiac in origin, reproducible, sharp and not associated with any shortness of breath. A 12-lead electrocardiogram shows no evidence of ischemia. A 2D echocardiography is extensively reviewed and shows normal LV systolic function and LVEF of about 55%. In view of the nature of the chest pain reproducibility with palpation is considered to be noncardiac, the patient would not require any further cardiac testing. 2. Sinus bradycardia, which is reactive. The patient's heart rate with minimal exertion and that shirley to 58. The patient in fact does not have any symptoms of dizziness or lightheadedness with this heart rate. 3. History of CVA with left hemiparesis. I would consider continuation of aspirin. 4. History of pulmonary embolism, on warfarin. INR is in intermittent therapeutic level 5. Psychiatric disorder. I would like to thank, Dr. Mackenzie for allowing me to participate in care of this patient. Miko Quiroz M.D. DR: NIKHIL JOB#: [id number] CC:
[2016-11-15 04:00] VITALS: BP 127/66
[2016-11-15] MEDS: Cyclobenzaprine 10mg Tab ORAL SCH ×3 (05:52→17:23)
[2016-11-15 07:34] LABS: BASOPHILS % (AUTO) 0.8 % (0.0-2.0); EOSINOPHILS % (AUTO) 1.8 % (0.0-3.0); LYMPHOCYTES % (AUTO) 14.2 % (20.0-45.0); MEAN CORPUSCULAR HEMOGLOBIN 29.4 PG (27.0-31.0); MEAN CORPUSCULAR HGB CONC 33.6 G/DL (32.0-36.0); MEAN CORPUSCULAR VOLUME 87 FL (80-99); MEAN PLATELET VOLUME 7.4 FL (6.5-10.1); MONOCYTES % (AUTO) 11.4 % (1.0-10.0); NEUTROPHILS % (AUTO) 71.8 % (45.0-75.0); PLATELET COUNT 232 K/UL (150-450); RED CELL DISTRIBUTION WIDTH 12.5 % (11.6-14.8); WHITE BLOOD COUNT 6.7 K/UL (4.8-10.8)
[2016-11-15 07:50] LABS: ANION GAP 9 (5-15); CALCIUM 8.9 mg/dL (8.6-10.2); CARBON DIOXIDE 31 mEQ/L (20-30); CHLORIDE 101 mEQ/L (98-107); CREATININE 0.8 mg/dL (0.7-1.2); GLOMERULAR FILTRATION RATE > 60 mL/min (>60); HEMOLYSIS 3; POTASSIUM 4.1 mEQ/L (3.4-4.9); SODIUM 141 mEQ/L (135-145)
[2016-11-15 07:52] LABS: INR 3.1 (0.9-1.1); PROTHROMBIN TIME 32.8 SEC (9.30-11.50)
--- NOTE | 2016-11-15 08:13 | General Progress Note ---
Assessment/Plan Problem List: (1) HTN (hypertension) ICD Codes: I10 - Essential (primary) hypertension SNOMED: 76414736 (2) BPH (benign prostatic hyperplasia) ICD Codes: N40.0 - Benign prostatic hyperplasia without lower urinary tract symptoms SNOMED: 159456010, 039648920 (3) Anxiety ICD Codes: F41.9 - Anxiety disorder, unspecified SNOMED: 31857144 (4) Constipation ICD Codes: K59.00 - Constipation, unspecified SNOMED: 98756449 (5) ACS (acute coronary syndrome) ICD Codes: I24.9 - Acute ischemic heart disease, unspecified SNOMED: 060763541 (6) PE (pulmonary embolism) ICD Codes: I26.99 - Other pulmonary embolism without acute cor pulmonale SNOMED: 58125235 Status: stable, progressing, tolerating diet Assessment/Plan ot pt diet cardio f/u dc plan Subjective Constitutional: Reports: weakness Allergies: Coded Allergies: MONTELUKAST (Unverified Allergy, Unknown, 11/13/16) Uncoded Allergies: Coconut (Allergy, Intermediate, Hives, 08/07/15) All Systems: reviewed and negative except above Subjective calm in bed eating Objective Last 24 Hour Vital Signs Date Time Temp Pulse Resp B/P Pulse Ox O2 Delivery O2 Flow Rate FiO2 11/15/16 04:00 97.0 77 18 127/66 99 2.0 11/15/16 00:00 97.9 58 16 113/71 95 Room Air 11/14/16 20:00 97.5 68 21 112/68 95 Room Air 11/14/16 19:55 62 16 Room Air 11/14/16 16:00 97.7 55 21 95/65 98 Room Air 11/14/16 12:00 51 11/14/16 12:00 97.0 53 17 103/61 97 Room Air 11/14/16 09:55 72 16 Room Air Intake and Output 11/14/16 11/15/16 19:00 07:00 Intake Total 640 ml 300 ml Output Total 680 ml 500 ml Balance -40 ml -200 ml Intake Oral 640 ml 300 ml Output Urine Total 680 ml 500 ml # Voids 3 Laboratory Tests 11/14/16 14:30: Troponin I < 0.30 11/15/16 06:35: White Blood Count 6.7, Red Blood Count 4.90, Hemoglobin 14.4, Hematocrit 42.8, Mean Corpuscular Volume 87, Mean Corpuscular Hemoglobin 29.4, Mean Corpuscular Hemoglobin Concent 33.6, Red Cell Distribution Width 12.5, Platelet Count 232, Mean Platelet Volume 7.4, Neutrophils (%) (Auto) 71.8, Lymphocytes (%) (Auto) 14.2L, Monocytes (%) (Auto) 11.4H, Eosinophils (%) (Auto) 1.8, Basophils (%) ( Auto) 0.8, Prothrombin Time 32.8H, Prothromb Time International Ratio 3.1H, Sodium Level 141, Potassium Level 4.1, Chloride Level 101, Carbon Dioxide Level 31H, Anion Gap 9, Blood Urea Nitrogen 7, Creatinine 0.8, Estimat Glomerular Filtration Rate > 60, Glucose Level 91, Calcium Level 8.9 Height (Feet): 6 Height (Inches): 0.00 Weight (Pounds): 163 General Appearance: alert EENT: normal ENT inspection Neck: normal alignment Cardiovascular: normal peripheral pulses, normal rate, regular rhythm Respiratory/Chest: chest wall non-tender, lungs clear, normal breath sounds Abdomen: normal bowel sounds, non tender, soft Extremities: normal inspection Edema: no edema noted Arm (L), no edema noted Arm (R), no edema noted Leg (L), no edema noted Leg (R), no edema noted Pedal (L), no edema noted Pedal (R), no edema noted Generalized Neurologic: responsive, motor weakness Skin: normal pigmentation, warm/dry DEENA BRAR Nov 15, 2016 08:13
[2016-11-15] MEDS: Tamsulosin 0.4mg cap ORAL SCH ×2 (08:20→17:23)
[2016-11-15] MEDS: FLUoxetine 10mg cap ORAL SCH (08:21)
[2016-11-15] MEDS: Aspirin EC 81mg tab ORAL SCH (08:21)
[2016-11-15] MEDS: clonazePAM 0.5mg tab ORAL SCH ×3 (08:21→17:23)
[2016-11-15 12:00] VITALS: BP 110/70
[2016-11-15] MEDS ORDERED: Sorbitol Solution UD 30ml ORAL ONE (12:30)
[2016-11-15 16:00] VITALS: BP 104/56
--- NOTE | 2016-11-15 16:55 | General Progress Note ---
Assessment/Plan Assessment/Plan Assessment/Plan Problem List: (1) HTN (hypertension) ICD Codes: I10 - Essential (primary) hypertension SNOMED: 31370119 (2) BPH (benign prostatic hyperplasia) ICD Codes: N40.0 - Benign prostatic hyperplasia without lower urinary tract symptoms SNOMED: 686830136, 680367254 (3) Anxiety ICD Codes: F41.9 - Anxiety disorder, unspecified SNOMED: 62298375 (4) Constipation ICD Codes: K59.00 - Constipation, unspecified SNOMED: 67517001 (5) ACS (acute coronary syndrome) ICD Codes: I24.9 - Acute ischemic heart disease, unspecified SNOMED: 555488940 (6) PE (pulmonary embolism) ICD Codes: I26.99 - Other pulmonary embolism without acute cor pulmonale SNOMED: 92974148 Status: stable, progressing, tolerating diet Assessment/Plan more laxative push po d.c planning Subjective Allergies: Coded Allergies: MONTELUKAST (Unverified Allergy, Unknown, 11/13/16) Uncoded Allergies: Coconut (Allergy, Intermediate, Hives, 08/07/15) Subjective feels OK no BM yet no chest pain or abd pain Objective Last 24 Hour Vital Signs Date Time Temp Pulse Resp B/P Pulse Ox O2 Delivery O2 Flow Rate FiO2 11/15/16 16:00 97.7 59 20 104/56 96 Room Air 11/15/16 12:00 96.4 56 17 110/70 98 Room Air 11/15/16 07:35 51 16 Room Air 11/15/16 04:00 97.0 77 18 127/66 99 2.0 11/15/16 00:00 97.9 58 16 113/71 95 Room Air 11/14/16 20:00 97.5 68 21 112/68 95 Room Air 11/14/16 19:55 62 16 Room Air Intake and Output 11/14/16 11/15/16 19:00 07:00 Intake Total 640 ml 300 ml Output Total 680 ml 500 ml Balance -40 ml -200 ml Intake Oral 640 ml 300 ml Output Urine Total 680 ml 500 ml # Voids 3 Laboratory Tests 11/15/16 06:35: White Blood Count 6.7, Red Blood Count 4.90, Hemoglobin 14.4, Hematocrit 42.8, Mean Corpuscular Volume 87, Mean Corpuscular Hemoglobin 29.4, Mean Corpuscular Hemoglobin Concent 33.6, Red Cell Distribution Width 12.5, Platelet Count 232, Mean Platelet Volume 7.4, Neutrophils (%) (Auto) 71.8, Lymphocytes (%) (Auto) 14.2L, Monocytes (%) (Auto) 11.4H, Eosinophils (%) (Auto) 1.8, Basophils (%) ( Auto) 0.8, Prothrombin Time 32.8H, Prothromb Time International Ratio 3.1H, Sodium Level 141, Potassium Level 4.1, Chloride Level 101, Carbon Dioxide Level 31H, Anion Gap 9, Blood Urea Nitrogen 7, Creatinine 0.8, Estimat Glomerular Filtration Rate > 60, Glucose Level 91, Calcium Level 8.9 Height (Feet): 6 Height (Inches): 0.00 Weight (Pounds): 163 Objective WDWN WM NCAT supple CTA RRR Soft NT ND no edema ISSA FITZPATRICK Nov 15, 2016 16:55
--- NOTE | 2016-11-15 18:48 | Cardiology Report ---
APPROVED REPORT EKG Measurement Heart [id number] Sinus bradycardia Otherwise normal ECG
[2016-11-15 20:00] VITALS: BP 96/58
--- NOTE | 2016-11-15 22:25 | Pulmonology Progress Note ---
Assessment/Plan Problems: (1) ACS (acute coronary syndrome) (2) Costochondritis (3) GERD (gastroesophageal reflux disease) Assessment/Plan echo noted, EF 55% awaiting Cardio consult serial enzymes optimize cardiac meds. Subjective ROS Limited/Unobtainable: No Constitutional: Reports: anorexia, fatigue Respiratory: Reports: dry cough, shortness of breath Cardiovascular: Reports: chest pain Allergies: Coded Allergies: MONTELUKAST (Unverified Allergy, Unknown, 11/13/16) Uncoded Allergies: Coconut (Allergy, Intermediate, Hives, 08/07/15) Objective Last 24 Hour Vital Signs Date Time Temp Pulse Resp B/P Pulse Ox O2 Delivery O2 Flow Rate FiO2 11/15/16 21:10 61 16 Room Air 11/15/16 20:00 97.8 61 21 96/58 97 Room Air 11/15/16 16:00 97.7 59 20 104/56 96 Room Air 11/15/16 12:00 96.4 56 17 110/70 98 Room Air 11/15/16 07:35 51 16 Room Air 11/15/16 04:00 97.0 77 18 127/66 99 2.0 11/15/16 00:00 97.9 58 16 113/71 95 Room Air Intake and Output 11/14/16 11/15/16 19:00 07:00 Intake Total 640 ml 300 ml Output Total 680 ml 500 ml Balance -40 ml -200 ml Intake Oral 640 ml 300 ml Output Urine Total 680 ml 500 ml # Voids 3 General Appearance: no acute distress HEENT: normocephalic, atraumatic, PERRL Respiratory/Chest: chest wall tender, decreased breath sounds, accessory muscle use Cardiovascular: normal peripheral pulses, normal rate, regular rhythm, no JVD Abdomen: normal bowel sounds, soft, non tender, no organomegaly Genitourinary: normal external genitalia Extremities: no cyanosis Skin: lesions Neurologic/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 Complete 11/13/16 06:36 Rectum VRE Culture - Final Complete Laboratory Tests 11/15/16 06:35: White Blood Count 6.7, Red Blood Count 4.90, Hemoglobin 14.4, Hematocrit 42.8, Mean Corpuscular Volume 87, Mean Corpuscular Hemoglobin 29.4, Mean Corpuscular Hemoglobin Concent 33.6, Red Cell Distribution Width 12.5, Platelet Count 232, Mean Platelet Volume 7.4, Neutrophils (%) (Auto) 71.8, Lymphocytes (%) (Auto) 14.2L, Monocytes (%) (Auto) 11.4H, Eosinophils (%) (Auto) 1.8, Basophils (%) ( Auto) 0.8, Prothrombin Time 32.8H, Prothromb Time International Ratio 3.1H, Sodium Level 141, Potassium Level 4.1, Chloride Level 101, Carbon Dioxide Level 31H, Anion Gap 9, Blood Urea Nitrogen 7, Creatinine 0.8, Estimat Glomerular Filtration Rate > 60, Glucose Level 91, Calcium Level 8.9 Current Medications Medications (Trade) Dose Ordered Sig/Vadim Route PRN Reason Start Time Stop Time Status Last Admin Dose Admin Acetaminophen (Tylenol) 650 mg Q4H PRN ORAL FEVER 11/13/16 00:00 12/13/16 00:00 Acetaminophen/ Hydrocodone Bitart ([place] 5/325) 1 tab Q8H PRN ORAL Moderate Pain (Pain Scale 4-6) 11/13/16 09:00 11/20/16 08:59 Albuterol/ Ipratropium (DuoNeb 0.5-3(2.5)mg/3ml) 3 ml Q4H PRN HHN Shortness of Breath 11/13/16 00:00 11/18/16 00:00 Aspirin (Ecotrin) 81 mg DAILY ORAL 11/13/16 09:00 12/13/16 08:59 11/15/16 08:21 Clonazepam (KlonoPIN) 0.5 mg TID ORAL 11/13/16 09:00 11/20/16 08:59 11/15/16 17:23 Cyclobenzaprine HCl (Flexeril) 10 mg Q6HR ORAL 11/13/16 00:00 12/13/16 00:00 11/15/16 17:23 Diltiazem HCl (Cardizem) 10 mg Q1H PRN IV heart rate more than 120, 11/13/16 00:00 12/13/16 00:00 Enalaprilat (Vasotec) 2.5 mg Q6H PRN IV sbp more than 160 11/13/16 00:00 12/13/16 00:00 Finasteride (Proscar) 5 mg DAILY ORAL 11/13/16 09:00 12/13/16 08:59 11/15/16 08:21 Fluoxetine HCl (PROzac) 10 mg DAILY ORAL 11/13/16 09:00 12/13/16 08:59 11/15/16 08:21 Loperamide HCl (Imodium) 2 mg DAILY PRN ORAL Diarrhea 11/13/16 00:00 12/13/16 00:00 Magnesium Citrate (Citrate Of Magnesia) 300 ml BID PRN ORAL CONSTIPATION 11/14/16 22:15 12/14/16 22:14 11/14/16 23:45 Morphine Sulfate (Morphine Sulfate) 2 mg Q4H PRN IVP severe Pain (Pain Scale 7-10) 11/13/16 00:00 11/20/16 00:00 Nitroglycerin (Ntg) 0.4 mg Q5M PRN SL Prn Chest Pain 11/13/16 00:00 12/13/16 00:00 Ondansetron HCl (Zofran) 4 mg Q6H PRN IVP Nausea & Vomiting 11/13/16 00:00 12/13/16 00:00 Pantoprazole (Protonix) 40 mg DAILY ORAL 11/13/16 09:00 12/13/16 08:59 11/15/16 08:21 Polyethylene Glycol (Miralax) 17 gm DAILYPRN PRN ORAL Constipation 11/13/16 00:00 12/13/16 00:00 11/14/16 19:11 Sennosides (Senokot) 17.2 mg DAILY ORAL 11/14/16 09:00 12/14/16 08:59 11/15/16 08:21 Sodium Phosphate (Fleet's Sodium Phosl Enema) 133 ml BID PRN RECTAL CONSTIPATION 11/14/16 22:15 12/14/16 22:14 Tamsulosin HCl (Flomax) 0.4 mg BID ORAL 11/13/16 09:00 12/13/16 08:59 11/15/16 08:20 Temazepam (Restoril) 15 mg HSPRN PRN ORAL Insomnia 11/13/16 00:00 11/20/16 00:00 Warfarin Sodium (Coumadin per pharmacy) 1 ea DAILY PRN MISC PER RX PROTOCOL 11/13/16 10:45 12/13/16 10:44 Warfarin Sodium (Coumadin) 1.5 mg COUMADIN ORAL 11/16/16 17:00 11/21/16 16:59 ED MANRIQUE Nov 15, 2016 22:25
--- NOTE | 2016-11-15 23:50 | Cardiology Progress Note ---
Assessment/Plan Assessment/Plan 1. Non-cardiac chest pain, reproducible, sharp and not associated with any shortness of breath. A 12-lead electrocardiogram shows no evidence of ischemia. A 2D echocardiography is extensively reviewed and shows normal LV systolic function and LVEF of about 55%. 2. Sinus bradycardia, which is reactive. The patient's heart rate with minimal exertion and that shirley to 58. The patient in fact does not have any symptoms of dizziness or lightheadedness with this heart rate. 3. History of CVA with left hemiparesis. I would consider continuation of aspirin. 4. History of pulmonary embolism, on warfarin. INR is in within the therapeutic level 5. Psychiatric disorder. Subjective Subjective Sinus rhythm at 62. Objective Last 24 Hour Vital Signs Date Time Temp Pulse Resp B/P Pulse Ox O2 Delivery O2 Flow Rate FiO2 11/15/16 21:10 61 16 Room Air 11/15/16 20:00 97.8 61 21 96/58 97 Room Air 11/15/16 16:00 97.7 59 20 104/56 96 Room Air 11/15/16 12:00 96.4 56 17 110/70 98 Room Air 11/15/16 07:35 51 16 Room Air 11/15/16 04:00 97.0 77 18 127/66 99 2.0 11/15/16 00:00 97.9 58 16 113/71 95 Room Air Intake and Output 11/14/16 11/15/16 19:00 07:00 Intake Total 640 ml 300 ml Output Total 680 ml 500 ml Balance -40 ml -200 ml Intake Oral 640 ml 300 ml Output Urine Total 680 ml 500 ml # Voids 3 2D Echo: EF 55%, Grade I LVDD Laboratory Tests Test 11/15/16 06:35 White Blood Count 6.7 K/UL (4.8-10.8) Red Blood Count 4.90 M/UL (4.70-6.10) Hemoglobin 14.4 G/DL (14.2-18.0) Hematocrit 42.8 % (42.0-52.0) Mean Corpuscular Volume 87 FL (80-99) Mean Corpuscular Hemoglobin 29.4 PG (27.0-31.0) Mean Corpuscular Hemoglobin Concent 33.6 G/DL (32.0-36.0) Red Cell Distribution Width 12.5 % (11.6-14.8) Platelet Count 232 K/UL (150-450) Mean Platelet Volume 7.4 FL (6.5-10.1) Neutrophils (%) (Auto) 71.8 % (45.0-75.0) Lymphocytes (%) (Auto) 14.2 % (20.0-45.0) L Monocytes (%) (Auto) 11.4 % (1.0-10.0) H Eosinophils (%) (Auto) 1.8 % (0.0-3.0) Basophils (%) (Auto) 0.8 % (0.0-2.0) Prothrombin Time 32.8 SEC (9.30-11.50) H Prothromb Time International Ratio 3.1 (0.9-1.1) H Sodium Level 141 mEQ/L (135-145) Potassium Level 4.1 mEQ/L (3.4-4.9) Chloride Level 101 mEQ/L (98-107) Carbon Dioxide Level 31 mEQ/L (20-30) H Anion Gap 9 (5-15) Blood Urea Nitrogen 7 mg/dL (7-23) Creatinine 0.8 mg/dL (0.7-1.2) Estimat Glomerular Filtration Rate > 60 mL/min (>60) Glucose Level 91 mg/dL (74-106) Calcium Level 8.9 mg/dL (8.6-10.2) Microbiology Date/Time Source Procedure Growth Status 11/13/16 06:36 Nasal Nares MRSA Culture - Final NO METHICILLIN RESISTANT STAPH AUREUS... Complete 11/13/16 06:36 Rectum VRE Culture - Final Complete Objective HEENT: Normocephalic and atraumatic. Sclerae are anicteric, PERRLA, EOMI NECK: No JVD, carotid upstroke 2+ B/L with no bruit CHEST: Clear to auscultation. CARDIOVASCULAR: Regular, rate, rhythm, normal S1S2, no murmur, gallops or rubs. ABDOMEN: Soft with good bowel sounds. no hepatosplenomegaly, there were no masses. EXTREMITIES: No edema, clubbing or cyanosis. YENI SORTO Nov 15, 2016 23:50
[2016-11-16] VITALS: BP 106/67
[2016-11-16] MEDS: Cyclobenzaprine 10mg Tab ORAL SCH ×3 (00:42→12:00)
[2016-11-16] MEDS ORDERED: Nitroglycerin Subl 0.4mg tab (Bottle Of 25) SL PRN (01:45)
[2016-11-16] MEDS ORDERED: Diltiazem 25mg/5ml IV PRN (02:00)
[2016-11-16 04:00] VITALS: BP 109/67
[2016-11-16] MEDS ORDERED: Morphine Sulfate 2mg/ml Inj IVP PRN (04:00)
[2016-11-16] MEDS ORDERED: DuoNeb 0.5-3(2.5)mg/3ml neb HHN PRN (04:00)
[2016-11-16 06:00] VITALS: BP 104/62
[2016-11-16] MEDS ORDERED: Enalaprilat 2.5mg/2ml Inj IV PRN (06:00)
[2016-11-16 08:00] VITALS: BP 114/67
[2016-11-16] MEDS ORDERED: Aspirin EC 81mg tab ORAL SCH (09:00)
[2016-11-16] MEDS ORDERED: Tamsulosin 0.4mg cap ORAL SCH (09:00)
[2016-11-16] MEDS ORDERED: Norco 5mg/325mg tab ORAL PRN (09:00)
[2016-11-16] MEDS ORDERED: Fleet's Enema 133ml RECTAL PRN (09:00)
[2016-11-16] MEDS ORDERED: Loperamide 2mg cap ORAL PRN (09:00)
[2016-11-16] MEDS ORDERED: Magnesium Citrate Liq Btl ORAL PRN (09:00)
[2016-11-16] MEDS ORDERED: FLUoxetine 10mg cap ORAL SCH (09:00)
[2016-11-16] MEDS ORDERED: clonazePAM 0.5mg tab ORAL SCH (09:00)
[2016-11-16 09:04] LABS: BASOPHILS % (AUTO) 1.7 % (0.0-2.0); EOSINOPHILS % (AUTO) 2.5 % (0.0-3.0); LYMPHOCYTES % (AUTO) 16.9 % (20.0-45.0); MEAN CORPUSCULAR HEMOGLOBIN 28.9 PG (27.0-31.0); MEAN CORPUSCULAR VOLUME 88 FL (80-99); MEAN PLATELET VOLUME 7.6 FL (6.5-10.1); MONOCYTES % (AUTO) 8.9 % (1.0-10.0); NEUTROPHILS % (AUTO) 69.9 % (45.0-75.0); PLATELET COUNT 239 K/UL (150-450); RED BLOOD COUNT 5.11 M/UL (4.70-6.10); RED CELL DISTRIBUTION WIDTH 12.6 % (11.6-14.8)
[2016-11-16 09:19] LABS: PROTHROMBIN TIME 31.4 SEC (9.30-11.50)
[2016-11-16 09:42] LABS: ALANINE AMINOTRANSFERASE 16 U/L (3-41); ALBUMIN/GLOBULIN RATIO 1.3 (1.0-2.7); ANION GAP 10 (5-15); ASPARTATE AMINO TRANSFERASE 19 U/L (5-40); CALCIUM 9.1 mg/dL (8.6-10.2); CARBON DIOXIDE 30 mEQ/L (20-30); CHLORIDE 99 mEQ/L (98-107); CREATININE 0.9 mg/dL (0.7-1.2); GLOMERULAR FILTRATION RATE > 60 mL/min (>60); HEMOLYSIS 4; POTASSIUM 4.1 mEQ/L (3.4-4.9); SODIUM 139 mEQ/L (135-145); TOTAL PROTEIN 6.8 g/dL (6.6-8.7)
--- NOTE | 2016-11-16 10:08 | History and Physical Report ---
DATE OF ADMISSION: 11/12/2016 TIME: 1 p.m. CONSULTANTS: 1. Ancelmo Ghosh M.D. 2. Miko Quiroz M.D. 3. Sean Sterling M.D. 4. Eleni Winston M.D. CHIEF COMPLAINT: Constipation, ACS, and shortness of breath. BRIEF HISTORY: This is a 70-year-old male from presenting with increasing shortness of breath and slight chest pain x2 days, substernal, no radiation, no loss of consciousness. The patient came to [place] and diagnosed with ACS and admitted to telemetry for further care. Currently, calm, resting in bed, feeling better, no complaint otherwise. PAST MEDICAL HISTORY: History of hypertension, anxiety, and PE. PAST SURGICAL HISTORY: Unknown. MEDICATIONS: Benicar, Coumadin, Ecotrin, Klonopin, Proscar, Prozac, Grahn, Flomax, Flexeril, Duo-Neb, and nitroglycerin. ALLERGIES: Montelukast. SOCIAL HISTORY: No smoking, no alcohol, and no intravenous drug use. FAMILY HISTORY: Noncontributory. REVIEW OF SYSTEMS: Slight chest pain. Slight shortness of breath. No nausea, vomiting, or diarrhea. PHYSICAL EXAMINATION: GENERAL: The patient is calm in bed, alert and oriented x3, no acute distress. VITAL SIGNS: Temperature 97 degrees, pulse 62, respiratory rate 20, and blood pressure 105/71. CARDIOVASCULAR: No murmur. LUNGS: Distant and clear. ABDOMEN: Positive bowel sounds. Nontender. Nondistended. EXTREMITIES: No cyanosis, clubbing, or edema. NEUROLOGIC: The patient moves all extremities with slight lower extremity weakness noted. LABORATORY AND DIAGNOSTIC DATA: CBC is normal. BMP shows chloride 96, otherwise normal. Troponin less than 0.3. INR is 2.5. ASSESSMENT: 1. Acute coronary syndrome. 2. Constipation. 3. History of pulmonary embolism. 4. Hypertension. 5. Anxiety. 6. Benign prostatic hypertrophy. PLAN: Continue pre-medications. Troponin q.8 h. x3. EKG in the morning. Pain control. Blood pressure control. Resume home medications. OT/PT and dietary evaluation. CBC and BMP in the morning. Dr. Quiroz, Dr. Ghosh, Dr. Winston, and Dr. Sterling to consult. Jaime Mackenzie D.O. DR: KIRSTEN JOB#: [id number] CC:
--- NOTE | 2016-11-16 13:05 | General Progress Note ---
Assessment/Plan Problem List: (1) BPH (benign prostatic hyperplasia) ICD Codes: N40.0 - Benign prostatic hyperplasia without lower urinary tract symptoms SNOMED: 092909986, 501002382 (2) HTN (hypertension) ICD Codes: I10 - Essential (primary) hypertension SNOMED: 64125904 (3) Anxiety ICD Codes: F41.9 - Anxiety disorder, unspecified SNOMED: 99110160 (4) Constipation ICD Codes: K59.00 - Constipation, unspecified SNOMED: 38510992 (5) GERD (gastroesophageal reflux disease) ICD Codes: K21.9 - Gastro-esophageal reflux disease without esophagitis SNOMED: 496971220 Assessment/Plan laxatives doing better pending dc Subjective ROS Limited/Unobtainable: Yes Allergies: Coded Allergies: MONTELUKAST (Unverified Allergy, Unknown, 11/13/16) Uncoded Allergies: Coconut (Allergy, Intermediate, Hives, 08/07/15) Subjective no event Objective Last 24 Hour Vital Signs Date Time Temp Pulse Resp B/P Pulse Ox O2 Delivery O2 Flow Rate FiO2 11/16/16 10:20 60 16 Room Air 11/16/16 08:00 97.0 62 20 114/67 98 Room Air 11/16/16 06:00 98.0 53 20 104/62 96 Room Air 11/16/16 04:00 96.8 50 18 109/67 94 Room Air 11/16/16 01:41 97.9 11/16/16 00:00 97.9 81 20 106/67 96 Room Air 11/15/16 21:10 61 16 Room Air 11/15/16 20:00 97.8 61 21 96/58 97 Room Air 11/15/16 16:00 97.7 59 20 104/56 96 Room Air Intake and Output 11/15/16 11/16/16 19:00 07:00 Intake Total 680 ml 380 ml Output Total 860 ml 700 ml Balance -180 ml -320 ml Intake Oral 680 ml 380 ml Output Urine Total 860 ml 700 ml # Voids 6 3 # Bowel Movements 2 Laboratory Tests 11/16/16 08:20: White Blood Count 6.0, Red Blood Count 5.11, Hemoglobin 14.8, Hematocrit 44.8, Mean Corpuscular Volume 88, Mean Corpuscular Hemoglobin 28.9, Mean Corpuscular Hemoglobin Concent 33.0, Red Cell Distribution Width 12.6, Platelet Count 239, Mean Platelet Volume 7.6, Neutrophils (%) (Auto) 69.9, Lymphocytes (%) (Auto) 16.9L, Monocytes (%) (Auto) 8.9, Eosinophils (%) (Auto) 2.5, Basophils (%) (Auto ) 1.7, Prothrombin Time 31.4H, Prothromb Time International Ratio 3.0H, Sodium Level 139, Potassium Level 4.1, Chloride Level 99, Carbon Dioxide Level 30, Anion Gap 10, Blood Urea Nitrogen 7, Creatinine 0.9, Estimat Glomerular Filtration Rate > 60, Glucose Level 130H, Calcium Level 9.1, Total Bilirubin 0.6 , Aspartate Amino Transf (AST/SGOT) 19, Alanine Aminotransferase (ALT/SGPT) 16, Alkaline Phosphatase 75, Pro-B-Type Natriuretic Peptide 33, Total Protein 6.8, Albumin 3.9, Globulin 2.9, Albumin/Globulin Ratio 1.3 Height (Feet): 6 Height (Inches): 0.00 Weight (Pounds): 163 General Appearance: alert EENT: normal ENT inspection Neck: supple Cardiovascular: normal rate Respiratory/Chest: decreased breath sounds Abdomen: normal bowel sounds, non tender, soft Extremities: non-tender SMITH NIELSON Nov 16, 2016 13:05
--- NOTE | 2016-11-16 13:33 | Diagnostic Imaging Report ---
Indication: DYSPNEA Technique: One view of the chest Comparison: 10/15/2016 Findings: Patient's chin through the upper mediastinum. There is some atelectasis at the left lateral lung base. Triangular opacity the right lung base may reflect hazy infiltrate, atelectasis, overlying soft tissue opacity. There may be some blunting of left costophrenic angle, also evident previously. The right costophrenic angle is clear. The heart size is upper limits of normal Impression: Triangular opacity at the right lung base, may reflect infiltrate, atelectasis, or overlying soft tissue artifact Increasing left basilar atelectasis
[2016-11-16] MEDS ORDERED: Warfarin Sodium 1mg ORAL SCH (17:00)
[2016-11-16] MEDS ORDERED: Warfarin Sodium 3mg ORAL SCH ×2 (17:00)
[2016-11-17] MEDS ORDERED: Miralax 17gm pkt ORAL PRN
--- NOTE | 2016-11-18 11:52 | Discharge Summary ---
Discharge Summary Hospital Course Date of Admission Nov 12, 2016 at 23:30 Date of Discharge Nov 16, 2016 at 12:48 Admitting Diagnosis acute coronary syndrome HPI Agusto Mansfield is a 70 year old male who was admitted on Nov 12, 2016 at 23: 30 for Acute Coronary Syndrome Hospital Course dc summary #[id number] Discharge Medications Continued Medications: Acetaminophen (Acetaminophen) 650 Mg/20.3 Ml Soln 650 MG ORAL EVERY 4 HOURS PRN for Prn Headache/Temp > 101, ML 0 Refills Al Hydroxide/mg Hydroxide (Mag-Al Liquid) 30 Ml Susp 30 ML PO Q4HR for GI distress prn Ascorbic Acid* (Vitamin C*) 500 Mg Tablet 500 MG ORAL TWICE A DAY, TAB Aspirin* (Aspir 81*) 81 Mg Tablet.dr 81 MG ORAL DAILY, TAB Bisacodyl* (Dulcolax*) 5 Mg Tablet.dr 10 MG RECTAL DAILY, #10 TAB 0 Refills daily prn constipation Calcium Carbonate (Calcium Carbonate) 200 Mg Tab.chew 200 MG PO, TAB Clonazepam* (Klonopin*) 0.5 Mg Tablet 0.5 MG ORAL TID, #15 TAB 0 Refills Cranberry Fruit (Cranberry) 500 Mg Tab.chew 500 MG PO BID, TAB Cyclobenzaprine Hcl* (Flexeril*) 10 Mg Tablet 10 MG ORAL Q6HR, TAB q6hrs prn muscle spasm Dextran 70/Hypromellose (Artificial Tears) 1 Each Droperette 1 EACH OP Finasteride* (Proscar*) 5 Mg Tablet 5 MG ORAL DAILY, #30 TAB 0 Refills Fluoxetine Hcl* (Fluoxetine Hcl*) 10 Mg Capsule 10 MG ORAL DAILY, CAP Fluticasone Propionate (Fluticasone Propionate) 1 Sprays Naspr 2 SPRAYS NASAL DAILY, #16 GM per nostril Hydrocodone Bit/Acetaminophen 5-325* ([place] 5-325*) 1 Each Tablet 1 TAB ORAL Q8HR PRN for For Pain, TAB 0 Refills Ibuprofen* (Motrin*) 600 Mg Tablet 600 MG ORAL Q8H PRN for For Pain, #30 TAB 0 Refills Ipratropium/Albuterol Sulfate (DuoNeb 0.5-3(2.5)mg/3ml) 3 Ml Ampul.neb 3 ML HHN EVERY 4 HOURS PRN for Shortness of Breath, EA Loperamide HCl (Loperamide) 2 Mg Cap 2 MG ORAL, #20 CAP 0 Refills Magnesium Hydroxide (Milk of Magnesia) 30 Ml Susp 30 ML ORAL Q6HR for prn constipation Menthol (Bengay) 113 Gm Gel..gram. 113 GM TP, GM Montelukast Sodium* (Singulair*) 10 Mg Tablet 10 MG ORAL DAILY, TAB Multivits,Th W-Fe,Other Min (Thera-M) 1 Each Tablet 1 EACH PO DAILY, TAB Niacin (Niacin ER) 500 Mg Tab.er.24h 500 MG PO QHS, TAB Nitroglycerin (Nitroglycerin) 0.4 Mg Tab.subl 0.4 MG SL Q5M X 3 DOSES PRN for CHEST PAIN AND NOTIFY MD, TAB Omeprazole (Omeprazole) 20 Mg Capsule.dr 20 MG ORAL DAILY, CAP Polyethylene Glycol 3350* (Miralax*) 17 Gm Powd.pack 17 GM ORAL BEDTIME PRN for CONSTIPATION, PACKET Saw [place] Xt/Phytosterol #2 (Prostate Sr Softgel) 1 Each Capsule 1 EACH PO, CAP Sennosides (Senna) 8.8 Mg/5 Ml Syrup 17.2 MG PO DAILY, ML hold for loose stool Simvastatin (Zocor) 10 Mg Tablet 10 MG ORAL BEDTIME, TAB Tamsulosin HCl (Flomax) 0.4 Mg Cap 0.4 MG ORAL DAILY, CAP Temazepam (Temazepam*) 15 Mg Capsule 15 MG ORAL BEDTIME PRN for INSOMNIA, #30 CAP 0 Refills Warfarin Sod (Coumadin*) 7.5 Mg Tablet 1.5 MG ORAL DAILY, TAB Discharge Condition Upon Discharge: stable Discharge Disposition Patient was discharged to SNF/Subacute Facility(03) Discharge Diagnoses: Discharge Instructions Discharge Instructions Special Instructions I have been assigned to complete a D/C Summary on this account. I was not involved in the patient management Yaa Ruiz NP (Vanchtein) Nov 18, 2016 11:52
--- NOTE | 2016-11-19 06:02 | Discharge Summary 2 SIG ---
DATE OF ADMISSION: 11/12/2016 DATE OF DISCHARGE: 11/16/2016 REASON FOR ADMISSION: 60-year-old male presented to emergency room from retirement facility with complaint of substernal chest pain. No shortness of breath. No palpitations. No dizziness. No lightheadedness. No blackouts. He denied headaches. Denied visual changes. No nausea. No vomiting. No diarrhea. No history of bleeding. The patient with a history of CVA with left-sided hemiparesis, hypertension, history of pulmonary emboli (on Coumadin), and anxiety disorder. First troponin was negative. EKG revealed sinus bradycardia. No ischemic changes.. Laboratory workup unremarkable. Chest x- ray revealed stable left costophrenic angle blunting, possibly scarring versus trace left pleural fluid, but no definite acute process otherwise. ADMITTING DIAGNOSES: Chest pain Rule out acute coronary syndrome Sinus bradycardia. HISTORY OF STAY: The patient was admitted on telemetry floor. Cardiology consults was requested. Per Cardiology, chest pain was noncardiac. It was reproducible on palpation and not associated with shortness of breath. Per Cardiology, no further cardiac testing was necessary. Serial troponin were negative. EKG showed sinus bradycardia, no ischemic changes. Thus, the patient was ruled out for acute coronary syndrome. Echocardiogram revealed ejection fraction of 55%, left ventricular systolic pressure of 15. Again, chest pain was noncardiac, possibly combination of costochondritis and GERD. GI consult was requested. Bowel regimen instituted. PPI added to existing regimen. Coumadin was resumed to keep INR in therapeutic range 2 to 3. INR is 3 prior to discharge. The patient with a history of CVA with left-sided hemiparesis. Continue antiplatelet therapy. No evidence of urinary retention. Proscar and Flomax were continued. The patient with evidence of psychiatric disorder. Resume psychiatric medications from the retirement facility. The patient was stable for discharge. DISCHARGE DIAGNOSES: 1. Costochondritis. 2. Gastroesophageal reflux disease. 3. Sinus bradycardia. 4. Hypertension. 5. History of PE. 6. History of cerebrovascular accident with left hemiparesis. 7. Benign prostatic hypertrophy. 8. Anxiety disorder. 9. Constipation. DISCHARGE MEDICATIONS: See medication reconciliation list. DISCHARGE INSTRUCTIONS: The patient was discharged to retirement facility.Follow up with medical doctor at the facility. Jaime Mackenzie D.O. I have been assigned to dictate discharge summary on this account and I was not involved in the patient's management. Yaa Rioslenny NAustinPAustin DR: CATHERINE JOB#: [id number] CC: HAO
== END 2016-11-16 12:48 | DRG 206 ==
LOC: EDBD 22:33 → EMR 22:45 → 2E 23:30 → EDBEDREQ 11-13 06:04 → 3E 11-16 01:22
DX: M94.0 Chondrocostal junction syndrome [Tietze] (principal); I69.354 Hemiplegia and hemiparesis following cerebral infarction affecting left non-dominant side; K21.9 Gastro-esophageal reflux disease without esophagitis; F99 Mental disorder, not otherwise specified; R00.1 Bradycardia, unspecified; I10 Essential (primary) hypertension; Z86.711 Personal history of pulmonary embolism; N40.0 Benign prostatic hyperplasia without lower urinary tract symptoms; F41.9 Anxiety disorder, unspecified; K59.00 Constipation, unspecified; Z88.8 Allergy status to other drugs, medicaments and biological substances; Z79.01 Long term (current) use of anticoagulants
CPT/HCPCS: 36415; 71010; 80048; 80053; 80061; 82550; 82553; 83690; 83880; 84443; 84484; 85025; 85610; 85730; 86140; 87081; 93005; 93306; 94664

== ENCOUNTER 2017-09-26 22:31 | Inpatient (IN) | payer MEDICARE, MEDICAID ==
[~2017-09-26] VITALS: Ht 182.9 cm; Wt 72.6 kg
[~2017-09-26 22:31] MED LIST changes: +ARTIFICIAL TEA1 EAC2 OP; +BENGAY113 GM TP; +CALCIUM CARBON200 M1 PO; +COUMADIN7.5 MG ORAL; +FLUOXETINE HCL10 MG ORAL; +IBUPROFEN400 M1 PO; +VITAMIN C500 M1 ORAL
--- NOTE | 2017-09-26 22:59 | Emergency Room Report ---
History of Present Illness General Chief Complaint: Multiple Trauma/Fall Source: Patient, Medical Record, EMS Present Illness HPI Is a 71-year-old male who resides in a retirement. He has a history of CVA with left-sided weakness. Also left foot drop. He uses a wheelchair. He is able to transfer himself to the bathroom. Tonight as he was transferred himself to use the restroom, he fell and hurt both ankles. No head injury. No nausea no vomiting. Does have some mild increasing urination. Denies any other complaint. Allergies: Coded Allergies: MONTELUKAST (Unverified Allergy, Unknown, 11/13/16) Uncoded Allergies: Coconut (Allergy, Intermediate, Hives, 08/07/15) Patient History Past Medical History: see triage record, old chart reviewed, CVA/TIA Past Surgical History: other Pertinent Family History: none Social History: Denies: smoking Immunizations: other Reviewed Nursing Documentation: PMH: Agreed, PSxH: Agreed Nursing Documentation-PMH Hx Cardiac Problems: Yes - Chronic ischemic disease Hx Hypertension: Yes Hx Cancer: No Hx Gastrointestinal Problems: Yes - GERD Hx Neurological Problems: Yes Hx Cerebrovascular Accident: Yes - CVA Hx Dizziness: Yes Hx Headaches: Yes Hx Weakness: Yes Review of Systems Eye: Denies: eye pain, blurred vision ENT: Denies: ear pain, nose congestion, throat swelling Respiratory: Denies: cough, shortness of breath Cardiovascular: Denies: chest pain, palpitations Gastrointestinal: Denies: abdominal pain, diarrhea, nausea, vomiting Musculoskeletal: Reports: joint pain, Denies: back pain Skin: Denies: rash Neurological: Denies: headache, numbness Endocrine: Denies: increased thirst, increased urine Hematologic/Lymphatic: Denies: easy bruising All Other Systems: negative except mentioned in HPI Physical Exam Vital Signs Date Time Temp Pulse Resp B/P (MAP) Pulse Ox O2 Delivery O2 Flow Rate FiO2 09/26/17 22:40 99.5 89 20 120/64 93 Room Air vitals with low-grade fever Sp02 EP Interpretation: reviewed, normal General Appearance: well appearing, no apparent distress, alert Head: normocephalic, atraumatic Eyes: bilateral eye PERRL, bilateral eye EOMI ENT: hearing grossly normal, normal pharynx Neck: full range of motion, supple, no meningismus Respiratory: chest non-tender, lungs clear, normal breath sounds Cardiovascular #1: regular rate, rhythm, no murmur Gastrointestinal: normal bowel sounds, non tender, no mass, no organomegaly, no bruit, non-distended Musculoskeletal: back normal, other - No deformity to the ankles. Left foot drop. Neurologic: alert, oriented x3, other - Left-sided weakness, chronic Psychiatric: mood/affect normal Skin: warm/dry, other - Warm to the touch Medical Decision Making Diagnostic Impression: Primary Impression: Sepsis Qualified Codes: A41.9 - Sepsis, unspecified organism Additional Impressions: UTI (urinary tract infection) Qualified Codes: N30.00 - Acute cystitis without hematuria Ankle sprain Qualified Codes: S93.409A - Sprain of unspecified ligament of unspecified ankle, initial encounter ER Course Patient initially presents with a fall with ankle injury. No fracture to the ankle. I noticed that he felt hot to the touch. Rectal temperature was 102. He does have a urinary tract infection. His been saying that he has urinary frequency and urgency for about a week now. No nausea no vomiting. Will admit for IV antibiotics and fluids. Sepsis recheck Time: 1:18 AM Vitals: Temperature 98, heart rate 78, respiratory rate 16, blood pressure 99/49 , oxygenation 93% on room air. Mental status: Alert oriented x3 Cardiovascular: Regular rate and rhythm, Cap refill less than 2 seconds Lungs: Clear Abdomen: Soft Extremity: No edema Skin: No mottling Lab Results Impression labs with high white count Rhythm Strip Diag. Results Rhythm Strip Time: 01:19 EP Interpretation: yes Rate: 79 Rhythm: NSR, no PVC's, no ectopy Chest X-Ray Diagnostic Results Chest X-Ray Diagnostic Results : Chest X-Ray Ordered: Yes # of Views/Limited/Complete: 1 View Indication: Shortness of Breath EP Interpretation: Yes Interpretation: no consolidation, no effusion, no pneumothorax, no acute cardiopulmonary disease Impression: No acute disease Electronically Signed by: Ernie Love MD Last Vital Signs Date Time Temp Pulse Resp B/P (MAP) Pulse Ox O2 Delivery O2 Flow Rate FiO2 09/26/17 22:40 99.5 89 20 120/64 93 Room Air Status: improved Disposition: ADMITTED INPATIENT Condition: Serious ERNIE LOVE M.D. Sep 26, 2017 22:59
[2017-09-26 23:00] VITALS: BP 120/64
[2017-09-26 23:35] LABS: BILIRUBIN, URINE NEGATIVE (NEGATIVE); COLOR,URINE PALE YELLOW; GLUCOSE, URINE (UA) NEGATIVE (NEGATIVE); KETONES,URINE NEGATIVE (NEGATIVE); LEUKOCYTE ESTERASE ,URINE 3+ (NEGATIVE); NITRITE,URINE NEGATIVE (NEGATIVE); PH,URINE 7 (4.5-8.0); PROTEIN,URINE NEGATIVE (NEGATIVE); UROBILINOGEN,URINE NORMAL MG/DL (0.0-1.0)
[2017-09-26 23:37] LABS: HEMOGLOBIN 15.3 G/DL (14.2-18.0); MEAN CORPUSCULAR VOLUME 85 FL (80-99); PLATELET COUNT 203 K/UL (150-450); RED BLOOD COUNT 5.15 M/UL (4.70-6.10); WHITE BLOOD COUNT 19.5 K/UL (4.8-10.8)
[2017-09-26 23:40] VITALS: BP_SYST 122; BP_SYST 22; BP_DIAS 55
[2017-09-26 23:47] LABS: APPEARANCE,URINE SLIGHTLY CLOUDY
[2017-09-26 23:49] LABS: ANION GAP 6 mmol/L (5-15); BLOOD UREA NITROGEN 7 mg/dL (7-18); CALCIUM 8.9 MG/DL (8.5-10.1); CARBON DIOXIDE 28 MMOL/L (21-32); CHLORIDE 101 MMOL/L (98-107); CREATININE 1.1 MG/DL (0.55-1.30); POTASSIUM 3.4 MMOL/L (3.5-5.1); SODIUM 135 MMOL/L (136-145)
[2017-09-26 23:54] LABS: ALANINE AMINOTRANSFERASE 7 U/L (12-78); ALBUMIN 3.5 G/DL (3.4-5.0); ALBUMIN/GLOBULIN RATIO 0.9 (1.0-2.7); ALKALINE PHOSPHATASE 82 U/L (46-116); ASPARTATE AMINO TRANSFERASE 17 U/L (15-37); BILIRUBIN,TOTAL 0.8 MG/DL (0.2-1.0)
[2017-09-27] VITALS (9 sets, daily range): BP systolic 88–106; BP diastolic 51–96
[2017-09-27] MEDS ORDERED: cefTRIAXone 1 GM in NS 55 ML IVPB ONE (00:30)
--- NOTE | 2017-09-27 08:53 | Diagnostic Imaging Report ---
Indication: Chest pain Technique: One view of the chest Comparison: 11/16/2016 Findings: Again demonstrated is slight blunting of left costophrenic sulcus. Similarity to the prior exam suggests this could be chronic. The remainder the lungs and pleural spaces are clear. Heart size is upper limits of normal. Impression: Left costophrenic angle blunting; suspect chronic but small effusion not completely excludable. No acute process otherwise
--- NOTE | 2017-09-27 08:59 | Diagnostic Imaging Report ---
Indication: Reason For Exam: TRAUMA Technique: 3 views of the right ankle Comparison: none Findings: Bones are osteoporotic. No acute fractures. No dislocations. Joint spaces are preserved. There are vascular calcifications Impression: No acute process
--- NOTE | 2017-09-27 09:23 | Diagnostic Imaging Report ---
Indication: Reason For Exam: TRAUMA Technique: 3 views of the left ankle Comparison: none Findings: Positioning is suboptimal. There is an osseous fragment seen at the anterior aspect of the tibiotalar joint on the lateral view, equivocally corticated. No other evidence of fracture or dislocation. There are vascular calcifications. Impression: Ossific density projected at the anterior aspect of the tibiotalar joint on the lateral view. Could represent a fracture fragment of indeterminate age, versus accessory ossicle. Correlate with clinical findings Findings discussed by phone with Dr. Jaime Mackenzie
[2017-09-27] MEDS ORDERED: Miralax 17gm pkt ORAL PRN (10:00)
[2017-09-27] MEDS ORDERED: Morphine Sulfate 2mg/ml Inj IVP PRN (10:00)
[2017-09-27] MEDS ORDERED: Albuterol/Ipratropium 3ml neb HHN PRN (10:00)
[2017-09-27 10:23] LABS: INR 4.7 (0.9-1.1)
[2017-09-27] MEDS ORDERED: Vancomycin 1gm in D5W 275ml IVPB ONE (11:00)
[2017-09-27] MEDS: clonazePAM 0.5mg tab ORAL SCH ×2 (13:07→18:00)
[2017-09-27] MEDS ORDERED: Piperacillin/Tazobactam 3.375 GM in NS 110 ML IVPB SCH (14:00)
[2017-09-27] MEDS: Piperacillin/Tazobactam 3.375 GM in NS 110 ML IVPB SCH (16:09)
[2017-09-27 18:16] LABS: APPEARANCE,URINE CLEAR; BILIRUBIN, URINE NEGATIVE (NEGATIVE); COLOR,URINE BROWN; GLUCOSE, URINE (UA) NEGATIVE (NEGATIVE); KETONES,URINE 2+ (NEGATIVE); LEUKOCYTE ESTERASE ,URINE 3+ (NEGATIVE); NITRITE,URINE POSITIVE (NEGATIVE); PH,URINE 6 (4.5-8.0); PROTEIN,URINE 2+ (NEGATIVE); UROBILINOGEN,URINE 1 MG/DL (0.0-1.0)
--- NOTE | 2017-09-27 18:56 | Consultation ---
History of Present Illness General Date patient seen: Sep 27, 2017 Chief Complaint: Multiple Trauma/Fall Present Illness HPI 71-year-old male with hx of psychosis, anxiety, PE, COPD, CVA with left-sided weakness, intermediate resident. Also left foot drop. He uses a wheelchair. he was transferring himself to use the restroom, he fell and hurt both ankles. No head injury. No nausea no vomiting. He brought in to intractable pain. I was asked to evaluate his COPD and hx of pulmonary embolism Allergies: Coded Allergies: MONTELUKAST (Unverified Allergy, Unknown, 11/13/16) Uncoded Allergies: Coconut (Allergy, Intermediate, Hives, 08/07/15) Medication History Scheduled Al Hydroxide/mg Hydroxide (Mag-Al Liquid), 30 ML PO Q4HR, (Reported) Ascorbic Acid* (Vitamin C*), 500 MG ORAL TWICE A DAY, (Reported) Aspirin* (Aspir 81*), 81 MG ORAL DAILY, (Reported) Bisacodyl* (Dulcolax*), 10 MG RECTAL DAILY, (Reported) Clonazepam* (Klonopin*), 0.5 MG ORAL TID, (Reported) Cranberry Fruit (Cranberry), 500 MG PO BID, (Reported) Cyclobenzaprine Hcl* (Flexeril*), 10 MG ORAL Q6HR, (Reported) Finasteride* (Proscar*), 5 MG ORAL DAILY, (Reported) Fluoxetine Hcl* (Fluoxetine Hcl*), 10 MG ORAL DAILY, (Reported) Fluticasone Propionate (Fluticasone Propionate), 2 SPRAYS NASAL DAILY, (Reported ) Magnesium Hydroxide (Milk of Magnesia), 30 ML ORAL Q6HR, (Reported) Montelukast Sodium* (Singulair*), 10 MG ORAL DAILY, (Reported) Multivits, W-,Other Min (Thera-M), 1 EACH PO DAILY, (Reported) Niacin (Niacin ER), 500 MG PO QHS, (Reported) Omeprazole (Omeprazole), 20 MG ORAL DAILY, (Reported) Sennosides (Senna), 17.2 MG PO DAILY, (Reported) Simvastatin (Zocor), 10 MG ORAL BEDTIME, (Reported) Tamsulosin HCl (Flomax), 0.4 MG ORAL DAILY, (Reported) Warfarin Sod (Coumadin*), 1.5 MG ORAL DAILY, (Reported) Scheduled PRN Acetaminophen (Acetaminophen), 650 MG ORAL EVERY 4 HOURS PRN for Prn Headache/ Temp > 101, (Reported) Hydrocodone Bit/Acetaminophen 5-325* ([place] 5-325*), 1 TAB ORAL Q8HR PRN for For Pain, (Reported) Ibuprofen* (Motrin*), 600 MG ORAL Q8H PRN for For Pain, (Reported) Ipratropium/Albuterol Sulfate (DuoNeb 0.5-3(2.5)mg/3ml), 3 ML HHN EVERY 4 HOURS PRN for Shortness of Breath, (Reported) Nitroglycerin (Nitroglycerin), 0.4 MG SL Q5M X 3 DOSES PRN for CHEST PAIN AND NOTIFY MD, (Reported) Polyethylene Glycol 3350* (Miralax*), 17 GM ORAL BEDTIME PRN for CONSTIPATION, ( Reported) Temazepam (Temazepam*), 15 MG ORAL BEDTIME PRN for INSOMNIA, (Reported) Miscellaneous Medications Calcium Carbonate (Calcium Carbonate), 200 MG PO, (Reported) Dextran 70/Hypromellose (Artificial Tears), 1 EACH OP, (Reported) Loperamide HCl (Loperamide), 2 MG ORAL, (Reported) Menthol (Bengay), 113 GM TP, (Reported) Saw Felt Xt/Phytosterol #2 (Prostate Sr Softgel), 1 EACH PO, (Reported) Patient History Healthcare decision maker Resuscitation status Advanced Directive on File No Past Medical/Surgical History Past Medical/Surgical History: (1) BPH (benign prostatic hyperplasia) (2) HTN (hypertension) (3) Anxiety (4) GERD (gastroesophageal reflux disease) (5) Cerebrovascular accident (CVA) (6) PE (pulmonary embolism) Review of Systems All Other Systems: negative except mentioned in HPI Physical Exam General Appearance: cachetic Lines, tubes and drains: peripheral HEENT: normocephalic, atraumatic Neck: non-tender, normal alignment Respiratory/Chest: chest wall non-tender, lungs clear Breasts: no masses Cardiovascular/Chest: normal peripheral pulses Abdomen: normal bowel sounds Genitourinary/Rectal: normal genital exam Extremities: normal range of motion, non-tender Skin Exam: normal pigmentation, warm/dry 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, no motor/sensory deficits Last 24 Hour Vital Signs Date Time Temp Pulse Resp B/P (MAP) Pulse Ox O2 Delivery O2 Flow Rate FiO2 09/27/17 16:26 98.2 76 18 106/52 93 Room Air 09/27/17 14:43 98.2 09/27/17 13:44 98.2 09/27/17 12:12 102.2 94 18 99/54 95 Room Air 09/27/17 12:12 Room Air 09/27/17 11:00 76 18 Room Air 21 09/27/17 10:12 102.0 09/27/17 08:24 98.2 79 18 104/64 96 Room Air 09/27/17 04:00 98.2 76 18 105/64 95 09/27/17 04:00 98.2 76 18 105/64 95 Room Air 09/27/17 04:00 98.2 76 18 105/64 95 09/27/17 03:10 98.3 78 17 98/96 96 Room Air 09/27/17 02:07 98.2 76 17 101/51 94 Room Air 09/27/17 01:00 98.1 92 20 104/55 95 Room Air 09/27/17 00:31 98.1 09/26/17 23:40 100.1 92 20 122/55 95 Room Air 09/26/17 23:00 102.6 88 20 120/64 94 Room Air 09/26/17 22:40 99.5 89 20 120/64 93 Room Air Intake and Output 09/26/17 09/27/17 19:00 07:00 Intake Total 1055 ml Output Total 250 ml Balance 805 ml IV Total 1055 ml Output Urine Total 250 ml Laboratory Tests Test 09/26/17 23:15 09/27/17 00:25 09/27/17 09:35 09/27/17 16:30 White Blood Count 19.5 K/UL (4.8-10.8) H Red Blood Count 5.15 M/UL (4.70-6.10) Hemoglobin 15.3 G/DL (14.2-18.0) Hematocrit 44.0 % (42.0-52.0) Mean Corpuscular Volume 85 FL (80-99) Mean Corpuscular Hemoglobin 29.8 PG (27.0-31.0) Mean Corpuscular Hemoglobin Concent 34.9 G/DL (32.0-36.0) Red Cell Distribution Width 12.0 % (11.6-14.8) Platelet Count 203 K/UL (150-450) Mean Platelet Volume 7.0 FL (6.5-10.1) Neutrophils (%) (Auto) % (45.0-75.0) Lymphocytes (%) (Auto) % (20.0-45.0) Monocytes (%) (Auto) % (1.0-10.0) Eosinophils (%) (Auto) % (0.0-3.0) Basophils (%) (Auto) % (0.0-2.0) Urine Color Pale yellow Brown Urine Appearance Slightly cloudy Clear Urine pH 7 (4.5-8.0) 6 (4.5-8.0) Urine Specific [place] 1.010 (1.005-1.035) 1.010 (1.005-1.035) Urine Protein Negative (NEGATIVE) 2+ (NEGATIVE) H Urine Glucose (UA) Negative (NEGATIVE) Negative (NEGATIVE) Urine Ketones Negative (NEGATIVE) 2+ (NEGATIVE) H Urine Occult Blood 2+ (NEGATIVE) H 2+ (NEGATIVE) H Urine Nitrite Negative (NEGATIVE) Positive (NEGATIVE) H Urine Bilirubin Negative (NEGATIVE) Negative (NEGATIVE) Urine Urobilinogen Normal MG/DL (0.0-1.0) 1 MG/DL (0.0-1.0) H Urine Leukocyte Esterase 3+ (NEGATIVE) H 3+ (NEGATIVE) H Urine RBC 2-4 /HPF (0 - 0) H 5-10 /HPF (0 - 0) H Urine WBC Tntc /HPF (0 - 0) H 20-30 /HPF (0 - 0) H Urine Squamous Epithelial Cells None /LPF (NONE/OCC) None /LPF (NONE/OCC) Urine Bacteria Many /HPF (NONE) H Moderate /HPF (NONE) H Sodium Level 135 MMOL/L (136-145) L Potassium Level 3.4 MMOL/L (3.5-5.1) L Chloride Level 101 MMOL/L (98-107) Carbon Dioxide Level 28 MMOL/L (21-32) Anion Gap 6 mmol/L (5-15) Blood Urea Nitrogen 7 mg/dL (7-18) Creatinine 1.1 MG/DL (0.55-1.30) Estimat Glomerular Filtration Rate > 60 mL/min (>60) Glucose Level 112 MG/DL (74-106) H Lactic Acid Level 2.20 mmol/L (0.66-2.22) 1.30 mmol/L (0.66-2.22) Calcium Level 8.9 MG/DL (8.5-10.1) Total Bilirubin 0.8 MG/DL (0.2-1.0) Aspartate Amino Transf (AST/SGOT) 17 U/L (15-37) Alanine Aminotransferase (ALT/SGPT) 7 U/L (12-78) L Alkaline Phosphatase 82 U/L (46-116) Total Protein 7.2 G/DL (6.4-8.2) Albumin 3.5 G/DL (3.4-5.0) Globulin 3.7 g/dL Albumin/Globulin Ratio 0.9 (1.0-2.7) L Prothrombin Time 50.3 SEC (9.30-11.50) H Prothromb Time International Ratio 4.7 (0.9-1.1) H Activated Partial Thromboplast Time 44 SEC (23-33) H Urine Amorphous Sediment Few /LPF (NONE) H Microbiology Date/Time Source Procedure Growth Status 09/26/17 23:15 Nasal Nares Influenza Types A,B Antigen ([place]) - Final Complete Height (Feet): 6 Height (Inches): 0.00 Weight (Pounds): 160 Medications Current Medications Medications (Trade) Dose Ordered Sig/Vadim Route PRN Reason Start Time Stop Time Status Last Admin Dose Admin Acetaminophen (Tylenol) 650 mg Q4H PRN ORAL fever>100.5 09/27/17 10:00 10/27/17 09:59 09/27/17 10:13 Albuterol/ Ipratropium (Albuterol/ Ipratropium) 3 ml Q4H PRN HHN Shortness of Breath 09/27/17 10:00 10/02/17 09:59 Aspirin (Ecotrin) 81 mg DAILY ORAL 09/28/17 09:00 10/28/17 08:59 Clonazepam (KlonoPIN) 0.5 mg TID ORAL 09/27/17 13:00 10/04/17 12:59 09/27/17 13:07 Fluoxetine HCl (PROzac) 10 mg DAILY ORAL 09/28/17 09:00 10/28/17 08:59 Morphine Sulfate (Morphine Sulfate) 2 mg Q4H PRN IVP Moderate Pain (Pain Scale 4-6) 09/27/17 10:00 10/04/17 09:59 Ondansetron HCl (Zofran) 4 mg Q6H PRN IVP Nausea & Vomiting 09/27/17 10:00 10/27/17 09:59 Phenazopyridine HCl (Pyridium) 100 mg DAILY PRN ORAL dysuria 09/27/17 10:00 10/27/17 09:59 Piperacillin Sod/ Tazobactam Sod 3.375 gm/Sodium Chloride 110 ml @ 27.5 mls/hr Q8HR@0000,0800,1600 IVPB 09/27/17 16:15 10/04/17 16:14 09/27/17 16:09 Polyethylene Glycol (Miralax) 17 gm DAILYPRN PRN ORAL Constipation 09/27/17 10:00 10/27/17 09:59 Tamsulosin HCl (Flomax) 0.4 mg DAILY ORAL 09/28/17 09:00 10/28/17 08:59 Temazepam (Restoril) 15 mg HSPRN PRN ORAL Insomnia 09/27/17 21:00 10/04/17 20:59 Warfarin Sodium (Coumadin per pharmacy) 1 ea DAILY PRN MISC Per RX Protocol 09/27/17 16:15 10/27/17 16:14 Assessment/Plan Problem List: (1) PE (pulmonary embolism) ICD Codes: I26.99 - Other pulmonary embolism without acute cor pulmonale SNOMED: 59707856 (2) COPD (chronic obstructive pulmonary disease) ICD Codes: J44.9 - Chronic obstructive pulmonary disease, unspecified SNOMED: 95426602 (3) Cerebrovascular accident (CVA) ICD Codes: I63.9 - Cerebral infarction, unspecified SNOMED: 481667646 (4) BPH (benign prostatic hyperplasia) ICD Codes: N40.0 - Benign prostatic hyperplasia without lower urinary tract symptoms SNOMED: 417495049, 732231089 (5) GERD (gastroesophageal reflux disease) ICD Codes: K21.9 - Gastro-esophageal reflux disease without esophagitis SNOMED: 640088365 (6) HTN (hypertension) ICD Codes: I10 - Essential (primary) hypertension SNOMED: 61524511 Assessment/Plan pain management venous doppler of legs obtain records from previous hospitalization coumadin by pharmacy ED MANRIQUE Sep 27, 2017 18:55
--- NOTE | 2017-09-27 19:30 | History and Physical Report ---
DATE OF ADMISSION: 09/27/2017 TIME: 1 p.m. CONSULTANTS: 1. Ancelmo Ghosh M.D. 2. Dr. Gilliland. 3. Dr. Fernández. 4. Eleni Winston M.D. CHIEF COMPLAINT: Fever, weakness, lethargy, UTI and sepsis. BRIEF HISTORY: This is a 71-year-old male from [facility] presented with above-mentioned diagnosis, fever up to 102, and lethargic. The patient in the ER was diagnosed UTI, sepsis, admitted to medical floor for further treatment. Currently, slightly anxious in bed, oriented x2, no acute distress. PAST MEDICAL HISTORY: Hypertension, PE, CVA, GERD and BPH. PAST SURGICAL HISTORY: None. MEDICATIONS: Ecotrin, Prozac, Flomax, Coumadin, Restoril, Zosyn, Klonopin, albuterol, Tylenol, morphine, MiraLAX, Zofran and Pyridium. ALLERGIES: Montelukast. SOCIAL HISTORY: No smoking. No alcohol. No intravenous drug abuse. FAMILY HISTORY: Noncontributory. REVIEW OF SYSTEMS: No chest pain. Slight short of breath. No nausea, vomiting, or diarrhea. PHYSICAL EXAMINATION: GENERAL: Slightly anxious in bed, oriented x2, no acute distress. VITAL SIGNS: Temperature is 102.3 degrees, pulse 94, respiratory rate 18, blood pressure 99/54. CARDIOVASCULAR: No murmur. LUNGS: Poor air exchange. ABDOMEN: Bowel sounds distant. EXTREMITIES: No cyanosis, clubbing or edema. NEUROLOGIC: The patient moves all extremities slightly weak. LABORATORY AND DIAGNOSTIC DATA: White count 19, otherwise CBC is normal. BMP shows sodium 135, potassium 3.4 and glucose 112, otherwise normal. INR is 1.7 and PTT is 44. Urinalysis, 3+ leukocyte esterase. ASSESSMENT: 1. Urinary tract infection. 2. Sepsis. 3. Fever. 4. Leukocytosis. 5. Hypertension. 6. Gastroesophageal reflux disease. 7. Benign prostatic hypertrophy. 8. Weakness. 9. Pulmonary emboli history and cerebrovascular accident. 10. Possible left ankle fracture. PLAN: 1. OT/PT. 2. Dietary evaluation. 3. Hematology evaluation. 4. Dr. Morgan to titrate INR. 5. Dr. Ghosh, Dr. Gilliland, Dr. Fernández and Dr. Winston to consult. 6. CBC and BMP in the morning. 7. Resume home medications. 8. Antibiotics per Infectious Disease. Jaime Mackenzie D.O. DR: KIRSTEN JOB#: [id number] CC:
--- NOTE | 2017-09-27 19:30 | Consultation ---
DATE OF CONSULTATION: 09/27/2017 INFECTIOUS DISEASE CONSULTATION PRIMARY ATTENDING PHYSICIAN: Jaime Mackenzie D.O. REASON FOR CONSULT: Sepsis, UTI. HISTORY OF PRESENT ILLNESS: This 71-year-old white male who is a intermediate resident, admitted today after having a fall from wheelchair. He had pain in the ankle. In hospital, it was noticed the patient had fever and leukocytosis, T-max was 102.6 degrees. The patient did not have any other symptoms. PAST MEDICAL HISTORY: Significant for CVA and left-sided hemiplegia, hypertension, prostatic hypertrophy, contracture of left upper and lower extremity, and pulmonary emboli. SOCIAL HISTORY: [facility] resident. No history of alcohol, drug abuse or smoking. Single. ALLERGIES: Allergic to . MEDICATIONS: Getting aspirin, Flomax, Coumadin, vancomycin, cefepime, Zosyn, albuterol, ipratropium, Tylenol, morphine, MiraLAX, Zofran and Pyridium. REVIEW OF SYSTEMS: Fever. No nausea. No vomiting. No diarrhea. No coughing. Denies any problem passing urine. PHYSICAL EXAMINATION: VITAL SIGNS: Temperature 102.2, pulse 94, and blood pressure 99/54. GENERAL APPEARANCE: No acute distress. Awake, alert and oriented. HEAD AND NECK: [place] conjunctivae. HEART: S1 and S2. Regular. Normal rate. LUNGS: Clear. ABDOMEN: Soft and nontender. EXTREMITIES: He has very mild ankle edema. No open wounds. LABORATORY AND DIAGNOSTIC DATA: UA showed wbc too numerous to count. Sodium 135, potassium 3.4, chloride 101, bicarbonate 28, BUN 7, creatinine 1.1 and glucose 112. WBC 19.5, hemoglobin 15.3, hematocrit 44 and platelets 203. IMPRESSION: Sepsis likely secondary to urinary tract infection. The patient has a history of prostatic hypertrophy, pulmonary emboli, history of cerebrovascular accident with left hemiplegia. RECOMMENDATION: We will continue with Zosyn. We will discontinue vancomycin and cefepime. We will follow up the cultures. At the end of my exam, I thank Dr. Jaime Mackenzie, for involving me in the care of this patient. Seun Royal M.D. DR: HECTOR JOB#: [id number] CC: HAO
[2017-09-27] MEDS ORDERED: Cefepime HCl 2 GM in NS 110 ML IV SCH (21:00)
[2017-09-27] MEDS ORDERED: Vancomycin 750mg/NS 250ml IVPB SCH (23:00)
[2017-09-27] MEDS ORDERED: Zosyn 3.375gm inj ONE (23:51)
[2017-09-28] VITALS (8 sets, daily range): BP systolic 81–123; BP diastolic 30–72
[2017-09-28] MEDS ORDERED: Vancomycin 1 GM in D5W 275 ML IV SCH (00:30)
[2017-09-28] MEDS: clonazePAM 0.5mg tab ORAL SCH ×3 (00:50→17:33)
[2017-09-28] MEDS: Piperacillin/Tazobactam 3.375 GM in NS 110 ML IVPB SCH ×3 (00:51→16:25)
[2017-09-28] MEDS ORDERED: LORazepam 1mg tab ORAL PRN ×2 (04:00→19:30)
[2017-09-28 07:27] LABS: HEMATOCRIT 36.8 % (42.0-52.0); HEMOGLOBIN 12.6 G/DL (14.2-18.0); MEAN CORPUSCULAR VOLUME 87 FL (80-99); PLATELET COUNT 175 K/UL (150-450); RED BLOOD COUNT 4.21 M/UL (4.70-6.10); RED CELL DISTRIBUTION WIDTH 12.8 % (11.6-14.8)
[2017-09-28 07:40] LABS: PHOSPHORUS 2.1 MG/DL (2.5-4.9)
[2017-09-28 07:43] LABS: WHITE BLOOD COUNT 25.6 K/UL (4.8-10.8)
[2017-09-28 07:59] LABS: ALANINE AMINOTRANSFERASE 18 U/L (12-78); ALBUMIN 2.5 G/DL (3.4-5.0); ALBUMIN/GLOBULIN RATIO 0.7 (1.0-2.7); ALKALINE PHOSPHATASE 66 U/L (46-116); ANION GAP 10 mmol/L (5-15); ASPARTATE AMINO TRANSFERASE 27 U/L (15-37); BLOOD UREA NITROGEN 11 mg/dL (7-18); CALCIUM 8.1 MG/DL (8.5-10.1); CARBON DIOXIDE 22 MMOL/L (21-32); CHLORIDE 105 MMOL/L (98-107); CREATININE 0.9 MG/DL (0.55-1.30); POTASSIUM 3.5 MMOL/L (3.5-5.1); SODIUM 137 MMOL/L (136-145)
[2017-09-28 08:05] LABS: INR 3.7 (0.9-1.1)
[2017-09-28] MEDS ORDERED: Warfarin Sodium 7.5mg ORAL SCH (09:00)
[2017-09-28] MEDS ORDERED: Aspirin EC 81mg tab ORAL SCH (09:00)
[2017-09-28] MEDS ORDERED: FLUoxetine 10mg cap ORAL SCH (09:00)
[2017-09-28] MEDS ORDERED: Tamsulosin 0.4mg cap ORAL SCH (09:00)
--- NOTE | 2017-09-28 10:53 | Pulmonology Progress Note ---
Assessment/Plan Problems: (1) Sepsis (2) COPD (chronic obstructive pulmonary disease) (3) PE (pulmonary embolism) (4) Cerebrovascular accident (CVA) (5) BPH (benign prostatic hyperplasia) (6) GERD (gastroesophageal reflux disease) (7) HTN (hypertension) (8) UTI (urinary tract infection) Assessment/Plan IV abx BP better with NS check urine cultures start IV fluids to support BP afebrile now on Coumadin for hx of PE. Subjective ROS Limited/Unobtainable: No Interval Events: pt was transferred to ANT because of persistent hypotension Allergies: Coded Allergies: MONTELUKAST (Unverified Allergy, Unknown, 11/13/16) Uncoded Allergies: Coconut (Allergy, Intermediate, Hives, 08/07/15) Objective Last 24 Hour Vital Signs Date Time Temp Pulse Resp B/P (MAP) Pulse Ox O2 Delivery O2 Flow Rate FiO2 09/28/17 08:00 73 09/28/17 08:00 97.2 71 20 100/38 95 09/28/17 05:50 98.1 66 20 121/30 95 09/28/17 05:00 69 09/28/17 04:26 98.2 62 18 81/43 94 09/28/17 00:07 98.2 70 18 85/51 94 09/27/17 20:30 79 18 Room Air 21 09/27/17 20:22 98.0 71 18 88/56 94 09/27/17 18:30 72 88/53 09/27/17 16:26 98.2 76 18 106/52 93 Room Air 09/27/17 14:43 98.2 09/27/17 13:44 98.2 09/27/17 12:12 102.2 94 18 99/54 95 Room Air 09/27/17 12:12 Room Air 09/27/17 11:00 76 18 Room Air 21 Intake and Output 09/27/17 09/28/17 19:00 07:00 Intake Total 600 ml Output Total 125 ml Balance 600 ml -125 ml Intake Oral 600 ml Output Urine Total 125 ml # Voids 5 2 General Appearance: cachetic HEENT: normocephalic Respiratory/Chest: chest wall non-tender, normal breath sounds Cardiovascular: normal peripheral pulses Abdomen: normal bowel sounds, soft, non tender Genitourinary: normal external genitalia Extremities: no cyanosis Skin: no rash 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, no motor/sensory deficits Lymphatic: no neck adenopathy Microbiology Date/Time Source Procedure Growth Status 09/26/17 23:15 Blood Blood Culture - Preliminary NO GROWTH AFTER 24 HOURS Resulted 09/26/17 23:00 Blood Blood Culture - Preliminary NO GROWTH AFTER 24 HOURS Resulted 09/26/17 23:15 Nasal Nares Influenza Types A,B Antigen ([place]) - Final Complete 09/27/17 16:30 Urine,Clean Catch Urine Culture - Preliminary NO GROWTH Resulted 09/26/17 23:15 Urine,Clean Catch Urine Culture - Preliminary Gram Negative Bacillus 1 Resulted Laboratory Tests 09/27/17 16:30: Urine Color Brown, Urine Appearance Clear, Urine pH 6, Urine Specific [place] 1.010, Urine Protein 2+H, Urine Glucose (UA) Negative, Urine Ketones 2+H, Urine Occult Blood 2+H, Urine Nitrite PositiveH, Urine Bilirubin Negative, Urine Urobilinogen 1H, Urine Leukocyte Esterase 3+H, Urine RBC 5-10H, Urine WBC 20-30H , Urine Squamous Epithelial Cells None, Urine Amorphous Sediment FewH, Urine Bacteria ModerateH 09/28/17 06:45: White Blood Count 25.6*H, Red Blood Count 4.21L, Hemoglobin 12.6L, Hematocrit 36.8L, Mean Corpuscular Volume 87, Mean Corpuscular Hemoglobin 29.9, Mean Corpuscular Hemoglobin Concent 34.2, Red Cell Distribution Width 12.8, Platelet Count 175, Mean Platelet Volume 7.6, Neutrophils (%) (Auto) , Lymphocytes (%) ( Auto) , Monocytes (%) (Auto) , Eosinophils (%) (Auto) , Basophils (%) (Auto) , Differential Total Cells Counted 100, Neutrophils % (Manual) 90H, Lymphocytes % (Manual) 3L, Monocytes % (Manual) 6, Eosinophils % (Manual) 0, Basophils % ( Manual) 0, Band Neutrophils 1, Platelet Estimate Adequate, Platelet Morphology Normal, Red Blood Cell Morphology Normal, Prothrombin Time 39.6H, Prothromb Time International Ratio 3.7H, Activated Partial Thromboplast Time 45H, Sodium Level 137, Potassium Level 3.5, Chloride Level 105, Carbon Dioxide Level 22, Anion Gap 10, Blood Urea Nitrogen 11, Creatinine 0.9, Estimat Glomerular Filtration Rate > 60, Glucose Level 83, Calcium Level 8.1L, Phosphorus Level 2.1L, Magnesium Level 1.7L, Total Bilirubin 1.0, Aspartate Amino Transf (AST/ SGOT) 27, Alanine Aminotransferase (ALT/SGPT) 18, Alkaline Phosphatase 66, Total Protein 6.0L, Albumin 2.5L, Globulin 3.5, Albumin/Globulin Ratio 0.7L Current Medications Medications (Trade) Dose Ordered Sig/Vadim Route PRN Reason Start Time Stop Time Status Last Admin Dose Admin Acetaminophen (Tylenol) 650 mg Q4H PRN ORAL fever>100.5 09/27/17 10:00 10/27/17 09:59 09/27/17 10:13 Albuterol/ Ipratropium (Albuterol/ Ipratropium) 3 ml Q4H PRN HHN Shortness of Breath 09/27/17 10:00 10/02/17 09:59 Aspirin (Ecotrin) 81 mg DAILY ORAL 09/28/17 09:00 10/28/17 08:59 09/28/17 08:55 Clonazepam (KlonoPIN) 0.5 mg TID ORAL 09/27/17 13:00 10/04/17 12:59 09/28/17 00:50 Fluoxetine HCl (PROzac) 10 mg DAILY ORAL 09/28/17 09:00 10/28/17 08:59 09/28/17 08:55 Lorazepam (Ativan) 1 mg Q6H PRN ORAL For Anxiety 09/28/17 04:00 10/05/17 03:59 Morphine Sulfate (Morphine Sulfate) 2 mg Q4H PRN IVP Moderate Pain (Pain Scale 4-6) 09/27/17 10:00 10/04/17 09:59 Ondansetron HCl (Zofran) 4 mg Q6H PRN IVP Nausea & Vomiting 09/27/17 10:00 10/27/17 09:59 Phenazopyridine HCl (Pyridium) 100 mg DAILY PRN ORAL dysuria 09/27/17 10:00 10/27/17 09:59 Piperacillin Sod/ Tazobactam Sod 3.375 gm/Sodium Chloride 110 ml @ 27.5 mls/hr Q8HR@0000,0800,1600 IVPB 09/27/17 16:15 10/04/17 16:14 09/28/17 09:40 Polyethylene Glycol (Miralax) 17 gm DAILYPRN PRN ORAL Constipation 09/27/17 10:00 10/27/17 09:59 Tamsulosin HCl (Flomax) 0.4 mg DAILY ORAL 09/28/17 09:00 10/28/17 08:59 09/28/17 08:55 Temazepam (Restoril) 15 mg HSPRN PRN ORAL Insomnia 09/27/17 21:00 10/04/17 20:59 Warfarin Sodium (Coumadin per pharmacy) 1 ea DAILY PRN MISC Per RX Protocol 09/27/17 16:15 10/27/17 16:14 ED MANRIQUE Sep 28, 2017 10:52
--- NOTE | 2017-09-28 11:54 | Infectious Diseases Prog Note ---
Assessment/Plan Assessment/Plan A; Sepsis UTI BPH s/p CVA & left hemiplegia P; Continue Zosyn Will f/u cultures Subjective ROS Limited/Unobtainable: Yes Constitutional: Reports: no symptoms, other - afebrile since yesterday Respiratory: Reports: no symptoms Gastrointestinal/Abdominal: Reports: no symptoms Genitourinary: Reports: no symptoms Allergies: Coded Allergies: MONTELUKAST (Unverified Allergy, Unknown, 11/13/16) Uncoded Allergies: Coconut (Allergy, Intermediate, Hives, 08/07/15) Objective Vital Signs Last 24 Hour Vital Signs Date Time Temp Pulse Resp B/P (MAP) Pulse Ox O2 Delivery O2 Flow Rate FiO2 09/28/17 08:00 73 09/28/17 08:00 97.2 71 20 100/38 95 09/28/17 05:50 98.1 66 20 121/30 95 09/28/17 05:00 69 09/28/17 04:26 98.2 62 18 81/43 94 09/28/17 00:07 98.2 70 18 85/51 94 09/27/17 20:30 79 18 Room Air 21 09/27/17 20:22 98.0 71 18 88/56 94 09/27/17 18:30 72 88/53 09/27/17 16:26 98.2 76 18 106/52 93 Room Air 09/27/17 14:43 98.2 09/27/17 13:44 98.2 09/27/17 12:12 102.2 94 18 99/54 95 Room Air 09/27/17 12:12 Room Air Height (Feet): 6 Height (Inches): 0.00 Weight (Pounds): 160 General Appearance: no acute distress HEENT: mucous membranes moist Respiratory/Chest: lungs clear Cardiovascular: normal rate Abdomen: soft, non tender Extremities: no edema Neurologic/Psychiatric: alert, oriented x 3, responsive, other - left hemiplegia Microbiology Date/Time Source Procedure Growth Status 09/26/17 23:15 Blood Blood Culture - Preliminary NO GROWTH AFTER 24 HOURS Resulted 09/26/17 23:00 Blood Blood Culture - Preliminary NO GROWTH AFTER 24 HOURS Resulted 09/26/17 23:15 Nasal Nares Influenza Types A,B Antigen ([place]) - Final Complete 09/27/17 16:30 Urine,Clean Catch Urine Culture - Preliminary NO GROWTH Resulted 09/26/17 23:15 Urine,Clean Catch Urine Culture - Preliminary Gram Negative Bacillus 1 Resulted Laboratory Tests Test 09/27/17 16:30 09/28/17 06:45 Urine Color Brown Urine Appearance Clear Urine pH 6 (4.5-8.0) Urine Specific [place] 1.010 (1.005-1.035) Urine Protein 2+ (NEGATIVE) H Urine Glucose (UA) Negative (NEGATIVE) Urine Ketones 2+ (NEGATIVE) H Urine Occult Blood 2+ (NEGATIVE) H Urine Nitrite Positive (NEGATIVE) H Urine Bilirubin Negative (NEGATIVE) Urine Urobilinogen 1 MG/DL (0.0-1.0) H Urine Leukocyte Esterase 3+ (NEGATIVE) H Urine RBC 5-10 /HPF (0 - 0) H Urine WBC 20-30 /HPF (0 - 0) H Urine Squamous Epithelial Cells None /LPF (NONE/OCC) Urine Amorphous Sediment Few /LPF (NONE) H Urine Bacteria Moderate /HPF (NONE) H White Blood Count 25.6 K/UL (4.8-10.8) *H Red Blood Count 4.21 M/UL (4.70-6.10) L Hemoglobin 12.6 G/DL (14.2-18.0) L Hematocrit 36.8 % (42.0-52.0) L Mean Corpuscular Volume 87 FL (80-99) Mean Corpuscular Hemoglobin 29.9 PG (27.0-31.0) Mean Corpuscular Hemoglobin Concent 34.2 G/DL (32.0-36.0) Red Cell Distribution Width 12.8 % (11.6-14.8) Platelet Count 175 K/UL (150-450) Mean Platelet Volume 7.6 FL (6.5-10.1) Neutrophils (%) (Auto) % (45.0-75.0) Lymphocytes (%) (Auto) % (20.0-45.0) Monocytes (%) (Auto) % (1.0-10.0) Eosinophils (%) (Auto) % (0.0-3.0) Basophils (%) (Auto) % (0.0-2.0) Differential Total Cells Counted 100 Neutrophils % (Manual) 90 % (45-75) H Lymphocytes % (Manual) 3 % (20-45) L Monocytes % (Manual) 6 % (1-10) Eosinophils % (Manual) 0 % (0-3) Basophils % (Manual) 0 % (0-2) Band Neutrophils 1 % (0-8) Platelet Estimate Adequate Platelet Morphology Normal Red Blood Cell Morphology Normal Prothrombin Time 39.6 SEC (9.30-11.50) H Prothromb Time International Ratio 3.7 (0.9-1.1) H Activated Partial Thromboplast Time 45 SEC (23-33) H Sodium Level 137 MMOL/L (136-145) Potassium Level 3.5 MMOL/L (3.5-5.1) Chloride Level 105 MMOL/L (98-107) Carbon Dioxide Level 22 MMOL/L (21-32) Anion Gap 10 mmol/L (5-15) Blood Urea Nitrogen 11 mg/dL (7-18) Creatinine 0.9 MG/DL (0.55-1.30) Estimat Glomerular Filtration Rate > 60 mL/min (>60) Glucose Level 83 MG/DL (74-106) Calcium Level 8.1 MG/DL (8.5-10.1) L Phosphorus Level 2.1 MG/DL (2.5-4.9) L Magnesium Level 1.7 MG/DL (1.8-2.4) L Total Bilirubin 1.0 MG/DL (0.2-1.0) Aspartate Amino Transf (AST/SGOT) 27 U/L (15-37) Alanine Aminotransferase (ALT/SGPT) 18 U/L (12-78) Alkaline Phosphatase 66 U/L (46-116) Total Protein 6.0 G/DL (6.4-8.2) L Albumin 2.5 G/DL (3.4-5.0) L Globulin 3.5 g/dL Albumin/Globulin Ratio 0.7 (1.0-2.7) L Current Medications Medications (Trade) Dose Ordered Sig/Vadim Route PRN Reason Start Time Stop Time Status Last Admin Dose Admin Acetaminophen (Tylenol) 650 mg Q4H PRN ORAL fever>100.5 09/27/17 10:00 10/27/17 09:59 09/27/17 10:13 Albuterol/ Ipratropium (Albuterol/ Ipratropium) 3 ml Q4H PRN HHN Shortness of Breath 09/27/17 10:00 10/02/17 09:59 Aspirin (Ecotrin) 81 mg DAILY ORAL 09/28/17 09:00 10/28/17 08:59 09/28/17 08:55 Clonazepam (KlonoPIN) 0.5 mg TID ORAL 09/27/17 13:00 10/04/17 12:59 09/28/17 00:50 Fluoxetine HCl (PROzac) 10 mg DAILY ORAL 09/28/17 09:00 10/28/17 08:59 09/28/17 08:55 Lorazepam (Ativan) 1 mg Q6H PRN ORAL For Anxiety 09/28/17 04:00 10/05/17 03:59 Morphine Sulfate (Morphine Sulfate) 2 mg Q4H PRN IVP Moderate Pain (Pain Scale 4-6) 09/27/17 10:00 10/04/17 09:59 Ondansetron HCl (Zofran) 4 mg Q6H PRN IVP Nausea & Vomiting 09/27/17 10:00 10/27/17 09:59 Phenazopyridine HCl (Pyridium) 100 mg DAILY PRN ORAL dysuria 09/27/17 10:00 10/27/17 09:59 Piperacillin Sod/ Tazobactam Sod 3.375 gm/Sodium Chloride 110 ml @ 27.5 mls/hr Q8HR@0000,0800,1600 IVPB 09/27/17 16:15 10/04/17 16:14 09/28/17 09:40 Polyethylene Glycol (Miralax) 17 gm DAILYPRN PRN ORAL Constipation 09/27/17 10:00 10/27/17 09:59 Potassium Chloride 20 meq/ Dextrose/Sodium Chloride 1,010 ml @ 75 mls/hr [id number] IV 09/28/17 12:00 10/28/17 11:59 Tamsulosin HCl (Flomax) 0.4 mg DAILY ORAL 09/28/17 09:00 10/28/17 08:59 09/28/17 08:55 Temazepam (Restoril) 15 mg HSPRN PRN ORAL Insomnia 09/27/17 21:00 10/04/17 20:59 Warfarin Sodium (Coumadin per pharmacy) 1 ea DAILY PRN MISC Per RX Protocol 09/27/17 16:15 10/27/17 16:14 LILY SMILEYb 6, 2018 11:54
--- NOTE | 2017-09-28 13:08 | General Progress Note ---
Assessment/Plan Problem List: (1) Supratherapeutic INR ICD Codes: R79.1 - Abnormal coagulation profile SNOMED: 005881099 (2) UTI (urinary tract infection) ICD Codes: N39.0 - Urinary tract infection, site not specified SNOMED: 85334113 Qualifiers: Qualified Codes: N30.00 - Acute cystitis without hematuria (3) Sepsis ICD Codes: A41.9 - Sepsis, unspecified organism SNOMED: 55047723 Qualifiers: Qualified Codes: A41.9 - Sepsis, unspecified organism (4) Cerebrovascular accident (CVA) ICD Codes: I63.9 - Cerebral infarction, unspecified SNOMED: 634765647 (5) HTN (hypertension) ICD Codes: I10 - Essential (primary) hypertension SNOMED: 87150966 (6) GERD (gastroesophageal reflux disease) ICD Codes: K21.9 - Gastro-esophageal reflux disease without esophagitis SNOMED: 341659395 (7) PE (pulmonary embolism) ICD Codes: I26.99 - Other pulmonary embolism without acute cor pulmonale SNOMED: 20213651 (8) Anxiety ICD Codes: F41.9 - Anxiety disorder, unspecified SNOMED: 97424586 Status: unchanged Assessment/Plan ot pt fdiet abx anticoag cbc bmp am hrmr f/u Subjective Constitutional: Reports: weakness Allergies: Coded Allergies: MONTELUKAST (Unverified Allergy, Unknown, 11/13/16) Uncoded Allergies: Coconut (Allergy, Intermediate, Hives, 08/07/15) All Systems: reviewed and negative except above Subjective sl agitated in bed Objective Last 24 Hour Vital Signs Date Time Temp Pulse Resp B/P (MAP) Pulse Ox O2 Delivery O2 Flow Rate FiO2 09/28/17 12:00 97.7 70 20 123/52 97 09/28/17 08:00 73 09/28/17 08:00 97.2 71 20 100/38 95 09/28/17 05:50 98.1 66 20 121/30 95 09/28/17 05:00 69 09/28/17 04:26 98.2 62 18 81/43 94 09/28/17 00:07 98.2 70 18 85/51 94 09/27/17 20:30 79 18 Room Air 21 09/27/17 20:22 98.0 71 18 88/56 94 09/27/17 18:30 72 88/53 09/27/17 16:26 98.2 76 18 106/52 93 Room Air 09/27/17 14:43 98.2 09/27/17 13:44 98.2 Intake and Output 09/27/17 09/28/17 19:00 07:00 Intake Total 600 ml Output Total 125 ml Balance 600 ml -125 ml Intake Oral 600 ml Output Urine Total 125 ml # Voids 5 2 Laboratory Tests 09/27/17 16:30: Urine Color Brown, Urine Appearance Clear, Urine pH 6, Urine Specific [place] 1.010, Urine Protein 2+H, Urine Glucose (UA) Negative, Urine Ketones 2+H, Urine Occult Blood 2+H, Urine Nitrite PositiveH, Urine Bilirubin Negative, Urine Urobilinogen 1H, Urine Leukocyte Esterase 3+H, Urine RBC 5-10H, Urine WBC 20-30H , Urine Squamous Epithelial Cells None, Urine Amorphous Sediment FewH, Urine Bacteria ModerateH 09/28/17 06:45: White Blood Count 25.6*H, Red Blood Count 4.21L, Hemoglobin 12.6L, Hematocrit 36.8L, Mean Corpuscular Volume 87, Mean Corpuscular Hemoglobin 29.9, Mean Corpuscular Hemoglobin Concent 34.2, Red Cell Distribution Width 12.8, Platelet Count 175, Mean Platelet Volume 7.6, Neutrophils (%) (Auto) , Lymphocytes (%) ( Auto) , Monocytes (%) (Auto) , Eosinophils (%) (Auto) , Basophils (%) (Auto) , Differential Total Cells Counted 100, Neutrophils % (Manual) 90H, Lymphocytes % (Manual) 3L, Monocytes % (Manual) 6, Eosinophils % (Manual) 0, Basophils % ( Manual) 0, Band Neutrophils 1, Platelet Estimate Adequate, Platelet Morphology Normal, Red Blood Cell Morphology Normal, Prothrombin Time 39.6H, Prothromb Time International Ratio 3.7H, Activated Partial Thromboplast Time 45H, Sodium Level 137, Potassium Level 3.5, Chloride Level 105, Carbon Dioxide Level 22, Anion Gap 10, Blood Urea Nitrogen 11, Creatinine 0.9, Estimat Glomerular Filtration Rate > 60, Glucose Level 83, Calcium Level 8.1L, Phosphorus Level 2.1L, Magnesium Level 1.7L, Total Bilirubin 1.0, Aspartate Amino Transf (AST/ SGOT) 27, Alanine Aminotransferase (ALT/SGPT) 18, Alkaline Phosphatase 66, Total Protein 6.0L, Albumin 2.5L, Globulin 3.5, Albumin/Globulin Ratio 0.7L Height (Feet): 6 Height (Inches): 0.00 Weight (Pounds): 160 General Appearance: confused EENT: normal ENT inspection Neck: normal alignment Cardiovascular: normal peripheral pulses, normal rate, regular rhythm Respiratory/Chest: chest wall non-tender, lungs clear, normal breath sounds Abdomen: normal bowel sounds, non tender, soft Extremities: normal inspection Edema: no edema noted Arm (L), no edema noted Arm (R), no edema noted Leg (L), no edema noted Leg (R), no edema noted Pedal (L), no edema noted Pedal (R), no edema noted Generalized Neurologic: motor weakness Skin: normal pigmentation, warm/dry DEENA BRAR Sep 28, 2017 13:08
[2017-09-28] MEDS ORDERED: Morphine Sulfate 2mg/ml Inj IVP PRN (19:30)
[2017-09-28] MEDS ORDERED: Miralax 17gm pkt ORAL PRN (19:30)
[2017-09-28] MEDS ORDERED: Albuterol/Ipratropium 3ml neb HHN PRN (19:30)
--- NOTE | 2017-09-28 22:00 | Consultation ---
DATE OF CONSULTATION: 09/28/2017 NOTE: POOR AUDIO INITIAL PSYCHIATRIC EVALUATION CONSULTING PHYSICIAN: Eleni Winston M.D. REQUESTING PHYSICIAN: Jaime Mackenzie D.O. HISTORY OF PRESENT ILLNESS: This is a 71-year-old male patient, who was admitted to [facility] for the reasons of weakness, lethargy, urinary tract infection, and sepsis. He is transferred from his skilled nursing because he had his medical illnesses, his cognition has declined below baseline and that is why there was a psychiatric consultation requested for this patient. He was seen and assessed at bedside. At bedside, he was very anxious and irritable. He lot of mood liability, wants psychotropic medication regimen, which is Klonopin 0.5 mg two times a day and Prozac 10 mg daily. He started yelling out "they don't know what they are doing or what they talking about." Apparently, his cognition has declined below his baseline, secondary to the progression of his medical illness, attending has requested daily psychiatric consultation. MEDICAL HISTORY: Hypertension, status post pulmonary emboli, CVA, GERD, and BPH. ALLERGIES: To montelukast. SOCIAL HISTORY: He lives in [facility]. Financially supported by [employer] and Medicare. SUBSTANCE ABUSE HISTORY: Denies drug or alcohol use. MENTAL STATUS EXAMINATION: This is a 71-year-old male with psychomotor retardation. Mood is irritable and agitated. Affect is guarded and restricted. Thought process is disorganized and illogical. No signs of any suicidal or homicidal thoughts. Insight and judgment is poor. He has paranoid delusions. Orientation x2. Speech is loud and pressured. DIAGNOSIS: Major depressive disorder, severe, recurrent, rule out bipolar II. Medical stressors include hypertension, leukocytosis, fever, sepsis, GERD, BPH, status post pulmonary emboli with CVA, psychosocial stressors, financial stressors. PLAN: Plan for this patient, I am going to continue 10 mg daily and Klonopin 0.5 mg three times a day. Provide 15 to 20 minutes of supportive therapy. In addition to that, I am also going to add Ativan a dose of 1 mg every six hours p.r.n. anxiety and agitation and encourage him to interact appropriately with staff and other patients. Chart was reviewed and discussed with staff. The patient was seen and assessed at bedside. I am also going to get a consult with Dr. Ricardo to see this patient for psychology consult. I would like to thank, Dr. Jaime Mackenzie, for this interesting consultation. I will be happy to follow this patient with you throughout his hospital course. Eleni Winston M.D. DR: MARK JOB#: [id number] CC:
--- NOTE | 2017-09-28 22:00 | Consultation ---
DATE OF CONSULTATION: 09/27/2017 HEMATOLOGY/ONCOLOGY CONSULTATION CONSULTING PHYSICIAN: Aren Morgan M.D. REQUESTING PHYSICIAN: Jaime Mackenzie D.O. REASON FOR CONSULTATION: Evaluation of coagulopathy. IDENTIFICATION: Dear Dr. Jaime Mackenzie, The patient is a pleasant 71-year-old male with past medical history significant for chronic obstructive pulmonary disease, pulmonary embolism, anxiety, psychosis, [facility] resident, wheelchair bound, left foot drop, transferring himself to the rest room. No head injury. No nausea. No vomiting. The patient has been seen by Pulmonary team, noted to be with coagulopathy. Therefore, Hematology Service consulted for further evaluation and treatment. PAST MEDICAL HISTORY: As noted above, chronic obstructive pulmonary disease, CVA, PE, [facility] resident. ALLERGIES: Montelukast. MEDICATIONS: , multivitamin, , Zocor, . REVIEW OF SYSTEMS: A 12-point review of systems was completed and is otherwise negative. PHYSICAL EXAMINATION: GENERAL: No acute distress. VITAL SIGNS: Reviewed. PULMONARY: Decreased breath sounds. CARDIOVASCULAR: Regular rate. No S3 or S4. ABDOMEN: Soft, nontender, and nondistended. EXTREMITIES: No cyanosis, swelling, or edema. LABORATORY AND DIAGNOSTIC DATA: WBC is 19.5, hemoglobin , and platelet count 230,000. Imaging, chest x-ray no acute process noted. . ASSESSMENT AND PLAN: 1. Coagulopathy due to underlying use of Coumadin, likely the patient is supratherapeutic, decreasing the dose. Continue to closely monitor. Will need to have INR between 2 and 3. 2. Pulmonary embolism. Maintain INR between 2 and 3. 3. Cerebrovascular accident history with left-sided hemiplegia. Continue the patient on at this time. 4. Benign prostatic hypertrophy. Closely monitor. 5. Urinary tract infection and sepsis. Continue to trend broad-spectrum antibiotics. He has been seen by Infectious Disease Service. Aren Morgan M.D. DR: FARAZ JOB#: [id number] CC:
--- NOTE | 2017-09-28 23:44 | General Progress Note ---
Assessment/Plan Assessment/Plan #. Coagulopathy due to underlying use of Coumadin, --> likely the patient is supratherapeutic, recommend decreasing the dose to decrease INR. --> Continue to closely monitor. --> Will need to have INR between 2 and 3, currently 3.7 #. Pulmonary embolism. --> Maintain INR between 2 and 3. #. Leukocytosis, likely due to infection and sepsis. --> On antibiotics, ID following. --> Monitor closely. #. Urinary tract infection and sepsis. --> Continue to trend broad-spectrum antibiotics. --> He has been seen by Infectious Disease Service. #. Cerebrovascular accident history with left-sided hemiplegia. #. Benign prostatic hypertrophy. Closely monitor. Subjective Date patient seen: Sep 28, 2017 Constitutional: Denies: no symptoms, chills, diaphoresis, fever, malaise, weakness, other HEENT: Denies: no symptoms, eye pain, blurred vision, tearing, double vision, ear pain, ear discharge, nose pain, nose congestion, throat pain, throat swelling, mouth pain, mouth swelling, other Cardiovascular: Denies: no symptoms, chest pain, edema, irregular heart rate, lightheadedness, palpitations, syncope, other Respiratory: Denies: no symptoms, cough, orthopnea, shortness of breath, SOB with excertion, SOB at rest, sputum, stridor, wheezing, other Gastrointestinal/Abdominal: Denies: no symptoms, abdomen distended, abdominal pain, black stools, tarry stools, blood in stool, constipated, diarrhea, difficulty swallowing, nausea, poor appetite, poor fluid intake, rectal bleeding , vomiting, other Genitourinary: Denies: no symptoms, burning, discharge, frequency, flank pain, hematuria, incontinence, pain, urgency, other Hematologic/Lymphatic: Reports: anemia, other - leukocytosis. Allergies: Coded Allergies: MONTELUKAST (Unverified Allergy, Unknown, 11/13/16) Uncoded Allergies: Coconut (Allergy, Intermediate, Hives, 08/07/15) Subjective On anticoagulation measures and abx. Leukocytosis. Objective Last 24 Hour Vital Signs Date Time Temp Pulse Resp B/P (MAP) Pulse Ox O2 Delivery O2 Flow Rate FiO2 09/28/17 20:41 75 18 Room Air 21 09/28/17 20:16 Room Air 09/28/17 20:03 98.8 73 18 115/58 95 09/28/17 16:25 69 09/28/17 16:00 98.8 63 20 123/72 95 09/28/17 12:00 71 09/28/17 12:00 97.7 70 20 123/52 97 09/28/17 08:00 73 09/28/17 08:00 97.2 71 20 100/38 95 09/28/17 05:50 98.1 66 20 121/30 95 09/28/17 05:00 69 09/28/17 04:26 98.2 62 18 81/43 94 09/28/17 00:07 98.2 70 18 85/51 94 Intake and Output 09/27/17 09/28/17 19:00 07:00 Intake Total 600 ml Output Total 125 ml Balance 600 ml -125 ml Intake Oral 600 ml Output Urine Total 125 ml # Voids 5 2 Laboratory Tests 09/28/17 06:45: White Blood Count 25.6*H, Red Blood Count 4.21L, Hemoglobin 12.6L, Hematocrit 36.8L, Mean Corpuscular Volume 87, Mean Corpuscular Hemoglobin 29.9, Mean Corpuscular Hemoglobin Concent 34.2, Red Cell Distribution Width 12.8, Platelet Count 175, Mean Platelet Volume 7.6, Neutrophils (%) (Auto) , Lymphocytes (%) ( Auto) , Monocytes (%) (Auto) , Eosinophils (%) (Auto) , Basophils (%) (Auto) , Differential Total Cells Counted 100, Neutrophils % (Manual) 90H, Lymphocytes % (Manual) 3L, Monocytes % (Manual) 6, Eosinophils % (Manual) 0, Basophils % ( Manual) 0, Band Neutrophils 1, Platelet Estimate Adequate, Platelet Morphology Normal, Red Blood Cell Morphology Normal, Prothrombin Time 39.6H, Prothromb Time International Ratio 3.7H, Activated Partial Thromboplast Time 45H, Sodium Level 137, Potassium Level 3.5, Chloride Level 105, Carbon Dioxide Level 22, Anion Gap 10, Blood Urea Nitrogen 11, Creatinine 0.9, Estimat Glomerular Filtration Rate > 60, Glucose Level 83, Calcium Level 8.1L, Phosphorus Level 2.1L, Magnesium Level 1.7L, Total Bilirubin 1.0, Aspartate Amino Transf (AST/ SGOT) 27, Alanine Aminotransferase (ALT/SGPT) 18, Alkaline Phosphatase 66, Total Protein 6.0L, Albumin 2.5L, Globulin 3.5, Albumin/Globulin Ratio 0.7L Height (Feet): 6 Height (Inches): 0.00 Weight (Pounds): 160 General Appearance: confused Respiratory/Chest: decreased breath sounds Abdomen: soft Edema: trace edema Skin: warm/dry Aren Morgan Sep 28, 2017 23:44
[2017-09-29] VITALS: BP 115/59
[2017-09-29] MEDS: Piperacillin/Tazobactam 3.375 GM in NS 110 ML IVPB SCH ×2 (00:34→08:39)
[2017-09-29 04:00] VITALS: BP 128/76
--- NOTE | 2017-09-29 04:00 | Consultation ---
DATE OF CONSULTATION: 09/28/2017 ORTHOPEDIC CONSULTATION CONSULTING PHYSICIAN: Cheikh Fernández M.D. CHIEF COMPLAINT: Right ankle pain. HISTORY OF PRESENT ILLNESS: This is a pleasant gentleman, who reportedly has complaints of right ankle pain, although he was having initial complaints of bilateral ankle pain. The patient reports primarily pain in the right ankle. He had imaging studies, both the right and left ankle, which showed a possible nondisplaced fracture along the left ankle. He has pain mostly on the right ankle on examination. Denies numbness or tingling. He does have some underlying stroke. PAST MEDICAL HISTORY: Reviewed from the intake chart. PAST SURGICAL HISTORY: Reviewed from the intake chart. MEDICATIONS: Reviewed from the intake chart. PHYSICAL EXAMINATION: EXTREMITIES: Right ankle, which is symptomatic shows no ecchymosis, no swelling. Neurovascular is normal. Dorsalis pedis +2. Left ankle examination shows tenderness over the medial malleolus. No ecchymosis, no swelling. DIAGNOSTIC DATA: Three views of right ankle reviewed and showed mild osteopenia, but no obvious fracture or dislocation no soft tissue abnormalities. Three views of the left ankle reviewed and showed a possible fracture on the lateral view along the anterior tibia-fibular joint consistent with possible ossification of loose bodies. ASSESSMENT: Right ankle sprain. DISCUSSION: At this point, the patient reports that his primary complaint is right ankle issue. His left ankle is fine. The imaging studies of the left ankle showed a possible fracture where I think this is incidental finding. He does not have any obvious injury to the medial lateral malleolus. Joint space is well maintained. At this point, we recommend pt with weightbearing as tolerated, although he still has underlying stroke and some functional issues as a result of that. Thank you for allowing me to participate in your patient. Cheikh Fernández M.D. DR: CLIF JOB#: [id number] CC: HAO
[2017-09-29 08:00] VITALS: BP 144/79
[2017-09-29] MEDS: Aspirin EC 81mg tab ORAL SCH (08:39)
[2017-09-29] MEDS: clonazePAM 0.5mg tab ORAL SCH ×3 (08:39→17:28)
[2017-09-29] MEDS: Tamsulosin 0.4mg cap ORAL SCH (08:40)
[2017-09-29] MEDS: FLUoxetine 10mg cap ORAL SCH (08:41)
--- NOTE | 2017-09-29 11:00 | Progress Note ---
DATE: 09/29/2017 SUBJECTIVE: This is a 71-year-old male patient. The patient has a history of sepsis and he urinary tract infection, but as a result of that his cognition continues to decline below baseline. He continued to have mood lability. That is why, his attending physician has requested daily psychiatric consultation for this patient. Seen and assessed at bedside. He is still confused and disorganized. Cognition continues to have declined below baseline. That is why, his attending continues to require daily psychiatric consultation for this patient. MENTAL STATUS EXAMINATION: This is a 71-year-old male. He is very irritable, psychomotor agitation. Mood is irritable and agitated. Affect is guarded and restricted. Thought process is disorganized and illogical. No signs of any suicidal or homicidal thoughts. His insight and judgment is poor. DIAGNOSIS: Major depressive disorder, severe, recurrent without psychotic features. PLAN: I am going to continue on Prozac 10 mg daily to reduce impulsivity and anxiety and Ativan 1 mg every 6 hours p.r.n. anxiety and encouraged him to interact appropriately with staff and other patients. He also continue on Klonopin 0.5 mg three times a day to reduce anxiety and agitation as well. A 15 and 20 minutes supportive therapy provided. Chart reviewed. Discussed with staff. Seen and assessed at bedside. Eleni Winston M.D. DR: PARTHA JOB#: [id number] CC:
[2017-09-29 11:20] LABS: HEMOGLOBIN 13.2 G/DL (14.2-18.0); MEAN CORPUSCULAR VOLUME 87 FL (80-99); PLATELET COUNT 210 K/UL (150-450); RED BLOOD COUNT 4.47 M/UL (4.70-6.10); RED CELL DISTRIBUTION WIDTH 12.5 % (11.6-14.8); WHITE BLOOD COUNT 11.3 K/UL (4.8-10.8)
[2017-09-29 11:33] LABS: INR 1.7 (0.9-1.1)
[2017-09-29 11:37] LABS: ALANINE AMINOTRANSFERASE 19 U/L (12-78); ALBUMIN 2.8 G/DL (3.4-5.0); ALBUMIN/GLOBULIN RATIO 0.7 (1.0-2.7); ALKALINE PHOSPHATASE 63 U/L (46-116); ANION GAP 8 mmol/L (5-15); ASPARTATE AMINO TRANSFERASE 23 U/L (15-37); BILIRUBIN,TOTAL 0.8 MG/DL (0.2-1.0); BLOOD UREA NITROGEN 8 mg/dL (7-18); CALCIUM 8.6 MG/DL (8.5-10.1); CARBON DIOXIDE 26 MMOL/L (21-32); CHLORIDE 107 MMOL/L (98-107); CREATININE 0.8 MG/DL (0.55-1.30); PHOSPHORUS 1.7 MG/DL (2.5-4.9); POTASSIUM 3.4 MMOL/L (3.5-5.1); SODIUM 141 MMOL/L (136-145)
[2017-09-29 11:39] VITALS: BP 122/72
--- NOTE | 2017-09-29 11:48 | Infectious Diseases Prog Note ---
Assessment/Plan Assessment/Plan A; Sepsis UTI with E.coli BPH s/p CVA & left hemiplegia Ankle sprain P; Change Zosyn to Rocephin Will f/u cultures Subjective ROS Limited/Unobtainable: No Constitutional: Reports: no symptoms Respiratory: Reports: no symptoms Cardiovascular: Reports: no symptoms Gastrointestinal/Abdominal: Reports: no symptoms Genitourinary: Reports: no symptoms Allergies: Coded Allergies: MONTELUKAST (Unverified Allergy, Unknown, 11/13/16) Uncoded Allergies: Coconut (Allergy, Intermediate, Hives, 08/07/15) Objective Vital Signs Last 24 Hour Vital Signs Date Time Temp Pulse Resp B/P (MAP) Pulse Ox O2 Delivery O2 Flow Rate FiO2 09/29/17 11:39 97.7 61 19 122/72 95 09/29/17 08:20 73 18 Room Air 21 09/29/17 08:00 97.0 73 20 144/79 97 09/29/17 04:34 Room Air 09/29/17 04:00 97.7 61 16 128/76 95 09/29/17 00:48 Room Air 09/29/17 00:00 98.0 65 18 115/59 95 09/28/17 20:41 75 18 Room Air 21 09/28/17 20:16 Room Air 09/28/17 20:03 98.8 73 18 115/58 95 09/28/17 16:25 69 09/28/17 16:00 98.8 63 20 123/72 95 09/28/17 12:00 71 09/28/17 12:00 97.7 70 20 123/52 97 Height (Feet): 6 Height (Inches): 0.00 Weight (Pounds): 160 General Appearance: no acute distress HEENT: mucous membranes moist Respiratory/Chest: lungs clear Cardiovascular: normal rate Abdomen: soft, non tender Extremities: no edema Neurologic/Psychiatric: alert, responsive Microbiology Date/Time Source Procedure Growth Status 09/27/17 09:50 Blood Blood Culture - Preliminary NO GROWTH AFTER 24 HOURS Resulted 09/27/17 09:35 Blood Blood Culture - Preliminary NO GROWTH AFTER 24 HOURS Resulted 09/26/17 23:15 Blood Blood Culture - Preliminary NO GROWTH AFTER 48 HOURS Resulted 09/26/17 23:00 Blood Blood Culture - Preliminary NO GROWTH AFTER 48 HOURS Resulted 09/26/17 23:18 Nasal Nares MRSA Culture - Final NO METHICILLIN RESISTANT STAPH AUREUS... Complete 09/26/17 23:15 Nasal Nares Influenza Types A,B Antigen ([place]) - Final Complete 09/27/17 16:30 Urine,Clean Catch Urine Culture - Preliminary NO GROWTH AFTER 24 HOURS Resulted 09/26/17 23:15 Urine,Clean Catch Urine Culture - Final Escherichia Coli Complete 09/26/17 23:18 Rectum VRE Culture - Final NO VANCOMYCIN RESISTANT ENTEROCOCCUS ... Complete Laboratory Tests Test 09/29/17 10:20 White Blood Count 11.3 K/UL (4.8-10.8) #H Red Blood Count 4.47 M/UL (4.70-6.10) L Hemoglobin 13.2 G/DL (14.2-18.0) L Hematocrit 39.0 % (42.0-52.0) L Mean Corpuscular Volume 87 FL (80-99) Mean Corpuscular Hemoglobin 29.6 PG (27.0-31.0) Mean Corpuscular Hemoglobin Concent 33.9 G/DL (32.0-36.0) Red Cell Distribution Width 12.5 % (11.6-14.8) Platelet Count 210 K/UL (150-450) Mean Platelet Volume 7.8 FL (6.5-10.1) Neutrophils (%) (Auto) % (45.0-75.0) Lymphocytes (%) (Auto) % (20.0-45.0) Monocytes (%) (Auto) % (1.0-10.0) Eosinophils (%) (Auto) % (0.0-3.0) Basophils (%) (Auto) % (0.0-2.0) Neutrophils % (Manual) Pending Lymphocytes % (Manual) Pending Platelet Estimate Pending Platelet Morphology Pending Erythrocyte Sedimentation Rate Pending Prothrombin Time 18.3 SEC (9.30-11.50) H Prothromb Time International Ratio 1.7 (0.9-1.1) H Sodium Level 141 MMOL/L (136-145) Potassium Level 3.4 MMOL/L (3.5-5.1) L Chloride Level 107 MMOL/L (98-107) Carbon Dioxide Level 26 MMOL/L (21-32) Anion Gap 8 mmol/L (5-15) Blood Urea Nitrogen 8 mg/dL (7-18) Creatinine 0.8 MG/DL (0.55-1.30) Estimat Glomerular Filtration Rate > 60 mL/min (>60) Glucose Level 107 MG/DL (74-106) H Calcium Level 8.6 MG/DL (8.5-10.1) Phosphorus Level 1.7 MG/DL (2.5-4.9) L Magnesium Level 1.9 MG/DL (1.8-2.4) Total Bilirubin 0.8 MG/DL (0.2-1.0) Aspartate Amino Transf (AST/SGOT) 23 U/L (15-37) Alanine Aminotransferase (ALT/SGPT) 19 U/L (12-78) Alkaline Phosphatase 63 U/L (46-116) C-Reactive Protein, Quantitative 12.6 mg/dL (0.00-0.90) H Total Protein 6.6 G/DL (6.4-8.2) Albumin 2.8 G/DL (3.4-5.0) L Globulin 3.8 g/dL Albumin/Globulin Ratio 0.7 (1.0-2.7) L Current Medications Medications (Trade) Dose Ordered Sig/Vadim Route PRN Reason Start Time Stop Time Status Last Admin Dose Admin Acetaminophen (Tylenol) 650 mg Q4H PRN ORAL fever>100.5 09/28/17 19:30 10/27/17 19:29 Albuterol/ Ipratropium (Albuterol/ Ipratropium) 3 ml Q4H PRN HHN Shortness of Breath 09/28/17 19:30 10/02/17 19:29 Aspirin (Ecotrin) 81 mg DAILY ORAL 09/29/17 09:00 10/28/17 08:59 09/29/17 08:39 Clonazepam (KlonoPIN) 0.5 mg TID ORAL 09/29/17 09:00 10/04/17 12:59 09/29/17 08:39 Fluoxetine HCl (PROzac) 10 mg DAILY ORAL 09/29/17 09:00 10/28/17 08:59 Lorazepam (Ativan) 1 mg Q6H PRN ORAL For Anxiety 09/28/17 19:30 10/05/17 19:29 Morphine Sulfate (Morphine Sulfate) 2 mg Q4H PRN IVP Moderate Pain (Pain Scale 4-6) 09/28/17 19:30 10/04/17 19:29 Ondansetron HCl (Zofran) 4 mg Q6H PRN IVP Nausea & Vomiting 09/28/17 19:30 10/27/17 19:29 Phenazopyridine HCl (Pyridium) 100 mg DAILYPRN PRN ORAL dysuria 09/28/17 19:30 10/28/17 19:29 Piperacillin Sod/ Tazobactam Sod 3.375 gm/Sodium Chloride 110 ml @ 27.5 mls/hr Q8HR@0000,0800,1600 IVPB 09/29/17 00:00 10/05/17 23:59 09/29/17 08:39 Polyethylene Glycol (Miralax) 17 gm DAILYPRN PRN ORAL Constipation 09/28/17 19:30 10/28/17 19:29 Potassium Chloride 20 meq/ Dextrose/Sodium Chloride 1,010 ml @ 75 mls/hr [id number] IV 09/28/17 19:30 10/28/17 19:29 09/29/17 05:36 Tamsulosin HCl (Flomax) 0.4 mg DAILY ORAL 09/29/17 09:00 10/28/17 08:59 09/29/17 08:40 Temazepam (Restoril) 15 mg HSPRN PRN ORAL Insomnia 09/28/17 21:00 10/04/17 20:59 Warfarin Sodium (Coumadin per pharmacy) 1 ea DAILY PRN MISC Per RX Protocol 09/28/17 19:30 10/28/17 19:29 LILY SMILEY Sep 29, 2017 11:48
--- NOTE | 2017-09-29 12:39 | General Progress Note ---
Assessment/Plan Problem List: (1) Supratherapeutic INR ICD Codes: R79.1 - Abnormal coagulation profile SNOMED: 524589642 (2) UTI (urinary tract infection) ICD Codes: N39.0 - Urinary tract infection, site not specified SNOMED: 68891098 Qualifiers: Qualified Codes: N30.00 - Acute cystitis without hematuria (3) Sepsis ICD Codes: A41.9 - Sepsis, unspecified organism SNOMED: 07952364 Qualifiers: Qualified Codes: A41.9 - Sepsis, unspecified organism (4) Cerebrovascular accident (CVA) ICD Codes: I63.9 - Cerebral infarction, unspecified SNOMED: 828518712 (5) HTN (hypertension) ICD Codes: I10 - Essential (primary) hypertension SNOMED: 99591870 (6) GERD (gastroesophageal reflux disease) ICD Codes: K21.9 - Gastro-esophageal reflux disease without esophagitis SNOMED: 495745962 (7) PE (pulmonary embolism) ICD Codes: I26.99 - Other pulmonary embolism without acute cor pulmonale SNOMED: 52812191 (8) Anxiety ICD Codes: F41.9 - Anxiety disorder, unspecified SNOMED: 72106324 Status: stable, progressing, tolerating diet Assessment/Plan ot pt fdiet abx anticoag cbc bmp am dc plan Subjective Constitutional: Reports: weakness Allergies: Coded Allergies: MONTELUKAST (Unverified Allergy, Unknown, 11/13/16) Uncoded Allergies: Coconut (Allergy, Intermediate, Hives, 08/07/15) All Systems: reviewed and negative except above Subjective sl agitated in bed Objective Last 24 Hour Vital Signs Date Time Temp Pulse Resp B/P (MAP) Pulse Ox O2 Delivery O2 Flow Rate FiO2 09/29/17 11:39 97.7 61 19 122/72 95 09/29/17 08:20 73 18 Room Air 21 09/29/17 08:00 97.0 73 20 144/79 97 09/29/17 04:34 Room Air 09/29/17 04:00 97.7 61 16 128/76 95 09/29/17 00:48 Room Air 09/29/17 00:00 98.0 65 18 115/59 95 09/28/17 20:41 75 18 Room Air 21 09/28/17 20:16 Room Air 09/28/17 20:03 98.8 73 18 115/58 95 09/28/17 16:25 69 09/28/17 16:00 98.8 63 20 123/72 95 Intake and Output 09/28/17 09/29/17 19:00 07:00 Intake Total 540 ml 335.0 ml Output Total 210 ml Balance 330 ml 335.0 ml Intake Oral 540 ml IV Total 335.0 ml Output Urine Total 210 ml # Voids 4 Laboratory Tests 09/29/17 10:20: White Blood Count 11.3#H, Red Blood Count 4.47L, Hemoglobin 13.2L, Hematocrit 39.0L, Mean Corpuscular Volume 87, Mean Corpuscular Hemoglobin 29.6, Mean Corpuscular Hemoglobin Concent 33.9, Red Cell Distribution Width 12.5, Platelet Count 210, Mean Platelet Volume 7.8, Neutrophils (%) (Auto) , Lymphocytes (%) ( Auto) , Monocytes (%) (Auto) , Eosinophils (%) (Auto) , Basophils (%) (Auto) , Differential Total Cells Counted 100, Neutrophils % (Manual) 88H, Lymphocytes % (Manual) 5L, Monocytes % (Manual) 6, Eosinophils % (Manual) 1, Basophils % ( Manual) 0, Band Neutrophils 0, Platelet Estimate Adequate, Platelet Morphology Normal, Red Blood Cell Morphology Normal, Erythrocyte Sedimentation Rate 57H, Prothrombin Time 18.3H, Prothromb Time International Ratio 1.7H, Sodium Level 141, Potassium Level 3.4L, Chloride Level 107, Carbon Dioxide Level 26, Anion Gap 8, Blood Urea Nitrogen 8, Creatinine 0.8, Estimat Glomerular Filtration Rate > 60, Glucose Level 107H, Calcium Level 8.6, Phosphorus Level 1.7L, Magnesium Level 1.9, Total Bilirubin 0.8, Aspartate Amino Transf (AST/SGOT) 23, Alanine Aminotransferase (ALT/SGPT) 19, Alkaline Phosphatase 63, C-Reactive Protein, Quantitative 12.6H, Total Protein 6.6, Albumin 2.8L, Globulin 3.8, Albumin/Globulin Ratio 0.7L Height (Feet): 6 Height (Inches): 0.00 Weight (Pounds): 160 General Appearance: alert EENT: normal ENT inspection Neck: normal alignment Cardiovascular: normal peripheral pulses, normal rate, regular rhythm Respiratory/Chest: chest wall non-tender, lungs clear, normal breath sounds Abdomen: normal bowel sounds, non tender, soft Extremities: normal inspection Edema: no edema noted Arm (L), no edema noted Arm (R), no edema noted Leg (L), no edema noted Leg (R), no edema noted Pedal (L), no edema noted Pedal (R), no edema noted Generalized Neurologic: responsive, motor weakness Skin: normal pigmentation, warm/dry DEENA BRAR Sep 29, 2017 12:39
[2017-09-29] MEDS: cefTRIAXone 1 GM in NS 55 ML IVPB SCH (14:12)
[2017-09-29 16:00] VITALS: BP 132/75
[2017-09-29] MEDS ORDERED: Warfarin Sodium 1mg ORAL ONE (17:00)
--- NOTE | 2017-09-29 17:16 | Pulmonology Progress Note ---
Assessment/Plan Problems: (1) Sepsis (2) COPD (chronic obstructive pulmonary disease) (3) PE (pulmonary embolism) (4) Cerebrovascular accident (CVA) (5) BPH (benign prostatic hyperplasia) (6) GERD (gastroesophageal reflux disease) (7) HTN (hypertension) (8) UTI (urinary tract infection) Assessment/Plan IV abx BP better with NS check urine cultures start IV fluids to support BP afebrile now on Coumadin for hx of PE. on Rocephine now dc planning Subjective ROS Limited/Unobtainable: No Interval Events: comfortable Allergies: Coded Allergies: MONTELUKAST (Unverified Allergy, Unknown, 11/13/16) Uncoded Allergies: Coconut (Allergy, Intermediate, Hives, 08/07/15) Objective Last 24 Hour Vital Signs Date Time Temp Pulse Resp B/P (MAP) Pulse Ox O2 Delivery O2 Flow Rate FiO2 09/29/17 16:00 98.1 60 19 132/75 97 09/29/17 11:39 97.7 61 19 122/72 95 09/29/17 08:20 73 18 Room Air 21 09/29/17 08:00 97.0 73 20 144/79 97 09/29/17 04:34 Room Air 09/29/17 04:00 97.7 61 16 128/76 95 09/29/17 00:48 Room Air 09/29/17 00:00 98.0 65 18 115/59 95 09/28/17 20:41 75 18 Room Air 21 09/28/17 20:16 Room Air 09/28/17 20:03 98.8 73 18 115/58 95 Intake and Output 09/28/17 09/29/17 19:00 07:00 Intake Total 540 ml 335.0 ml Output Total 210 ml Balance 330 ml 335.0 ml Intake Oral 540 ml IV Total 335.0 ml Output Urine Total 210 ml # Voids 4 Objective General Appearance: WD/WN HEENT: normocephalic, atraumatic Respiratory/Chest: chest wall non-tender, lungs clear Cardiovascular: normal peripheral pulses, normal rate Genitourinary: normal external genitalia Extremities: no clubbing Neurologic/Psychiatric: director II-XII grossly normal, abnormal gait Microbiology Date/Time Source Procedure Growth Status 09/27/17 09:50 Blood Blood Culture - Preliminary NO GROWTH AFTER 24 HOURS Resulted 09/27/17 09:35 Blood Blood Culture - Preliminary NO GROWTH AFTER 24 HOURS Resulted 09/26/17 23:15 Blood Blood Culture - Preliminary NO GROWTH AFTER 48 HOURS Resulted 09/26/17 23:00 Blood Blood Culture - Preliminary NO GROWTH AFTER 48 HOURS Resulted 09/26/17 23:18 Nasal Nares MRSA Culture - Final NO METHICILLIN RESISTANT STAPH AUREUS... Complete 09/26/17 23:15 Nasal Nares Influenza Types A,B Antigen ([place]) - Final Complete 09/27/17 16:30 Urine,Clean Catch Urine Culture - Preliminary NO GROWTH AFTER 24 HOURS Resulted 09/26/17 23:15 Urine,Clean Catch Urine Culture - Final Escherichia Coli Complete 09/26/17 23:18 Rectum VRE Culture - Final NO VANCOMYCIN RESISTANT ENTEROCOCCUS ... Complete Laboratory Tests 09/29/17 10:20: White Blood Count 11.3#H, Red Blood Count 4.47L, Hemoglobin 13.2L, Hematocrit 39.0L, Mean Corpuscular Volume 87, Mean Corpuscular Hemoglobin 29.6, Mean Corpuscular Hemoglobin Concent 33.9, Red Cell Distribution Width 12.5, Platelet Count 210, Mean Platelet Volume 7.8, Neutrophils (%) (Auto) , Lymphocytes (%) ( Auto) , Monocytes (%) (Auto) , Eosinophils (%) (Auto) , Basophils (%) (Auto) , Differential Total Cells Counted 100, Neutrophils % (Manual) 88H, Lymphocytes % (Manual) 5L, Monocytes % (Manual) 6, Eosinophils % (Manual) 1, Basophils % ( Manual) 0, Band Neutrophils 0, Platelet Estimate Adequate, Platelet Morphology Normal, Red Blood Cell Morphology Normal, Erythrocyte Sedimentation Rate 57H, Prothrombin Time 18.3H, Prothromb Time International Ratio 1.7H, Sodium Level 141, Potassium Level 3.4L, Chloride Level 107, Carbon Dioxide Level 26, Anion Gap 8, Blood Urea Nitrogen 8, Creatinine 0.8, Estimat Glomerular Filtration Rate > 60, Glucose Level 107H, Calcium Level 8.6, Phosphorus Level 1.7L, Magnesium Level 1.9, Total Bilirubin 0.8, Aspartate Amino Transf (AST/SGOT) 23, Alanine Aminotransferase (ALT/SGPT) 19, Alkaline Phosphatase 63, C-Reactive Protein, Quantitative 12.6H, Total Protein 6.6, Albumin 2.8L, Globulin 3.8, Albumin/Globulin Ratio 0.7L Current Medications Medications (Trade) Dose Ordered Sig/Vadim Route PRN Reason Start Time Stop Time Status Last Admin Dose Admin Acetaminophen (Tylenol) 650 mg Q4H PRN ORAL fever>100.5 09/28/17 19:30 10/27/17 19:29 Albuterol/ Ipratropium (Albuterol/ Ipratropium) 3 ml Q4H PRN HHN Shortness of Breath 09/28/17 19:30 10/02/17 19:29 Aspirin (Ecotrin) 81 mg DAILY ORAL 09/29/17 09:00 10/28/17 08:59 09/29/17 08:39 Ceftriaxone Sodium 1 gm/ Sodium Chloride 55 ml @ 110 mls/hr Q24H IVPB 09/29/17 14:00 10/06/17 13:59 09/29/17 14:12 Clonazepam (KlonoPIN) 0.5 mg TID ORAL 09/29/17 09:00 10/04/17 12:59 09/29/17 14:12 Fluoxetine HCl (PROzac) 10 mg DAILY ORAL 09/29/17 09:00 10/28/17 08:59 Lorazepam (Ativan) 1 mg Q6H PRN ORAL For Anxiety 09/28/17 19:30 10/05/17 19:29 Morphine Sulfate (Morphine Sulfate) 2 mg Q4H PRN IVP Moderate Pain (Pain Scale 4-6) 09/28/17 19:30 10/04/17 19:29 Ondansetron HCl (Zofran) 4 mg Q6H PRN IVP Nausea & Vomiting 09/28/17 19:30 10/27/17 19:29 Phenazopyridine HCl (Pyridium) 100 mg DAILYPRN PRN ORAL dysuria 09/28/17 19:30 10/28/17 19:29 Polyethylene Glycol (Miralax) 17 gm DAILYPRN PRN ORAL Constipation 09/28/17 19:30 10/28/17 19:29 Potassium Chloride 20 meq/ Dextrose/Sodium Chloride 1,010 ml @ 75 mls/hr [id number] IV 09/28/17 19:30 10/28/17 19:29 09/29/17 05:36 Tamsulosin HCl (Flomax) 0.4 mg DAILY ORAL 09/29/17 09:00 3/8/18 08:59 09/29/17 08:40 Temazepam (Restoril) 15 mg HSPRN PRN ORAL Insomnia 09/28/17 21:00 10/04/17 20:59 Warfarin Sodium (Coumadin per pharmacy) 1 ea DAILY PRN MISC Per RX Protocol 09/28/17 19:30 10/28/17 19:29 ED MANRIQUE Sep 29, 2017 17:16
[2017-09-29] MEDS ORDERED: Potassium Phosphate 30 MM in NS 275 ML IV ONE (19:30)
[2017-09-29 20:36] VITALS: BP 122/72
--- NOTE | 2017-09-29 22:21 | Wound Care Consultation ---
Wound Assessment Wound Assessment : Wound Number: 1 Wound Present on Admission: Yes New Wound: No Status Change of Wound: No Wound Location Body Site: perineal area Wound Type: chemical burn Varsha Test: Does not Varsha Percent of Wound [place]/Red: 100 Wound Drainage Amount: None Wound Drainage Odor: None/Absent Tissue Surrounding Wound: Erythemic Wound General Appearance: Reddened Wound Comment #1 Perineal area chemical burn Recommendation -Local wound care per protocol -Keep clean and dry -Turn and reposition -Offload both heels -Heel protector on both heels -Optimize nutrition -Assess and f/u accordingly for any changes CHARO TEE RN Sep 29, 2017 22:21
--- NOTE | 2017-09-29 23:46 | General Progress Note ---
Assessment/Plan Assessment/Plan #. Coagulopathy due to underlying use of Coumadin, --> likely the patient is supratherapeutic, recommend decreasing the dose to decrease INR. --> Continue to closely monitor. --> Will need to have INR between 2 and 3, Improved, now at 1.7. #. Pulmonary embolism. --> Maintain INR between 2 and 3. --> Monitor closely, INR currently at 1.7 #. Leukocytosis, likely due to infection and sepsis. --> On antibiotics, ID following. --> Monitor closely. --> Improved. #. Urinary tract infection and sepsis. --> Continue to trend broad-spectrum antibiotics. --> He has been seen by Infectious Disease Service. #. Cerebrovascular accident history with left-sided hemiplegia. #. Benign prostatic hypertrophy. Closely monitor. Subjective Date patient seen: Sep 29, 2017 Constitutional: Denies: no symptoms, chills, diaphoresis, fever, malaise, weakness, other HEENT: Denies: no symptoms, eye pain, blurred vision, tearing, double vision, ear pain, ear discharge, nose pain, nose congestion, throat pain, throat swelling, mouth pain, mouth swelling, other Cardiovascular: Denies: no symptoms, chest pain, edema, irregular heart rate, lightheadedness, palpitations, syncope, other Respiratory: Denies: no symptoms, cough, orthopnea, shortness of breath, SOB with excertion, SOB at rest, sputum, stridor, wheezing, other Gastrointestinal/Abdominal: Denies: no symptoms, abdomen distended, abdominal pain, black stools, tarry stools, blood in stool, constipated, diarrhea, difficulty swallowing, nausea, poor appetite, poor fluid intake, rectal bleeding , vomiting, other Genitourinary: Denies: no symptoms, burning, discharge, frequency, flank pain, hematuria, incontinence, pain, urgency, other Hematologic/Lymphatic: Reports: anemia Allergies: Coded Allergies: MONTELUKAST (Unverified Allergy, Unknown, 11/13/16) Uncoded Allergies: Coconut (Allergy, Intermediate, Hives, 08/07/15) Subjective Leukocytosis improved. Patient on coumadin. Feeling better. Objective Last 24 Hour Vital Signs Date Time Temp Pulse Resp B/P (MAP) Pulse Ox O2 Delivery O2 Flow Rate FiO2 09/29/17 20:36 98.1 60 20 122/72 96 Room Air 09/29/17 16:00 98.1 60 19 132/75 97 09/29/17 11:39 97.7 61 19 122/72 95 09/29/17 08:20 73 18 Room Air 21 09/29/17 08:00 97.0 73 20 144/79 97 09/29/17 04:34 Room Air 09/29/17 04:00 97.7 61 16 128/76 95 09/29/17 00:48 Room Air 09/29/17 00:00 98.0 65 18 115/59 95 Intake and Output 09/28/17 09/29/17 19:00 07:00 Intake Total 540 ml 335.0 ml Output Total 210 ml Balance 330 ml 335.0 ml Intake Oral 540 ml IV Total 335.0 ml Output Urine Total 210 ml # Voids 4 Laboratory Tests 09/29/17 10:20: White Blood Count 11.3#H, Red Blood Count 4.47L, Hemoglobin 13.2L, Hematocrit 39.0L, Mean Corpuscular Volume 87, Mean Corpuscular Hemoglobin 29.6, Mean Corpuscular Hemoglobin Concent 33.9, Red Cell Distribution Width 12.5, Platelet Count 210, Mean Platelet Volume 7.8, Neutrophils (%) (Auto) , Lymphocytes (%) ( Auto) , Monocytes (%) (Auto) , Eosinophils (%) (Auto) , Basophils (%) (Auto) , Differential Total Cells Counted 100, Neutrophils % (Manual) 88H, Lymphocytes % (Manual) 5L, Monocytes % (Manual) 6, Eosinophils % (Manual) 1, Basophils % ( Manual) 0, Band Neutrophils 0, Platelet Estimate Adequate, Platelet Morphology Normal, Red Blood Cell Morphology Normal, Erythrocyte Sedimentation Rate 57H, Prothrombin Time 18.3H, Prothromb Time International Ratio 1.7H, Sodium Level 141, Potassium Level 3.4L, Chloride Level 107, Carbon Dioxide Level 26, Anion Gap 8, Blood Urea Nitrogen 8, Creatinine 0.8, Estimat Glomerular Filtration Rate > 60, Glucose Level 107H, Calcium Level 8.6, Phosphorus Level 1.7L, Magnesium Level 1.9, Total Bilirubin 0.8, Aspartate Amino Transf (AST/SGOT) 23, Alanine Aminotransferase (ALT/SGPT) 19, Alkaline Phosphatase 63, C-Reactive Protein, Quantitative 12.6H, Total Protein 6.6, Albumin 2.8L, Globulin 3.8, Albumin/Globulin Ratio 0.7L Height (Feet): 6 Height (Inches): 0.00 Weight (Pounds): 160 General Appearance: confused Cardiovascular: normal rate Respiratory/Chest: decreased breath sounds Aren Morgan Sep 29, 2017 23:46
[2017-09-30] MEDS ORDERED: Sodium Phosphate 20 MM in NS 275 ML IVPB ONE (01:30)
[2017-09-30 07:56] LABS: BASOPHILS % (AUTO) 0.5 % (0.0-2.0); EOSINOPHILS % (AUTO) 2.4 % (0.0-3.0); HEMATOCRIT 38.2 % (42.0-52.0); HEMOGLOBIN 13.5 G/DL (14.2-18.0); LYMPHOCYTES % (AUTO) 14.6 % (20.0-45.0); MEAN CORPUSCULAR VOLUME 87 FL (80-99); MONOCYTES % (AUTO) 9.1 % (1.0-10.0); NEUTROPHILS % (AUTO) 73.4 % (45.0-75.0); PLATELET COUNT 258 K/UL (150-450); RED BLOOD COUNT 4.37 M/UL (4.70-6.10); RED CELL DISTRIBUTION WIDTH 12.8 % (11.6-14.8); WHITE BLOOD COUNT 7.2 K/UL (4.8-10.8)
[2017-09-30 08:00] VITALS: BP_SYST 106; BP_SYST 158; BP_DIAS 60; BP_DIAS 76
[2017-09-30 08:08] LABS: INR 1.4 (0.9-1.1)
[2017-09-30 08:27] LABS: ANION GAP 10 mmol/L (5-15); BLOOD UREA NITROGEN 5 mg/dL (7-18); CALCIUM 8.7 MG/DL (8.5-10.1); CARBON DIOXIDE 25 MMOL/L (21-32); CHLORIDE 106 MMOL/L (98-107); CREATININE 0.8 MG/DL (0.55-1.30); POTASSIUM 3.5 MMOL/L (3.5-5.1); SODIUM 141 MMOL/L (136-145)
[2017-09-30] MEDS: Tamsulosin 0.4mg cap ORAL SCH (08:45)
[2017-09-30] MEDS: FLUoxetine 10mg cap ORAL SCH ×2 (08:45→08:52)
[2017-09-30] MEDS: clonazePAM 0.5mg tab ORAL SCH ×3 (08:45→17:20)
[2017-09-30] MEDS: Aspirin EC 81mg tab ORAL SCH (08:45)
--- NOTE | 2017-09-30 12:25 | Infectious Diseases Prog Note ---
Assessment/Plan Assessment/Plan A; Sepsis UTI with E.coli BPH s/p CVA & left hemiplegia Ankle sprain P; Change Zosyn to Rocephin Will f/u cultures Subjective ROS Limited/Unobtainable: No Constitutional: Reports: no symptoms Respiratory: Reports: no symptoms Cardiovascular: Reports: no symptoms Gastrointestinal/Abdominal: Reports: no symptoms Genitourinary: Reports: no symptoms Allergies: Coded Allergies: MONTELUKAST (Unverified Allergy, Unknown, 11/13/16) Uncoded Allergies: Coconut (Allergy, Intermediate, Hives, 08/07/15) Objective Vital Signs Last 24 Hour Vital Signs Date Time Temp Pulse Resp B/P (MAP) Pulse Ox O2 Delivery O2 Flow Rate FiO2 09/30/17 08:00 98.1 107 20 106/60 99 09/30/17 08:00 97.1 67 20 158/76 96 09/29/17 20:36 98.1 60 20 122/72 96 Room Air 09/29/17 19:24 71 20 Room Air 21 09/29/17 16:00 98.1 60 19 132/75 97 Height (Feet): 6 Height (Inches): 0.00 Weight (Pounds): 160 General Appearance: no acute distress HEENT: mucous membranes moist Respiratory/Chest: lungs clear Cardiovascular: normal rate Abdomen: soft, non tender Extremities: no edema Neurologic/Psychiatric: alert, responsive Microbiology Date/Time Source Procedure Growth Status 09/27/17 16:30 Urine,Clean Catch Urine Culture - Final NO GROWTH AFTER 48 HOURS Complete Laboratory Tests Test 09/30/17 05:45 White Blood Count 7.2 K/UL (4.8-10.8) Red Blood Count 4.37 M/UL (4.70-6.10) L Hemoglobin 13.5 G/DL (14.2-18.0) L Hematocrit 38.2 % (42.0-52.0) L Mean Corpuscular Volume 87 FL (80-99) Mean Corpuscular Hemoglobin 30.8 PG (27.0-31.0) Mean Corpuscular Hemoglobin Concent 35.3 G/DL (32.0-36.0) Red Cell Distribution Width 12.8 % (11.6-14.8) Platelet Count 258 K/UL (150-450) Mean Platelet Volume 7.5 FL (6.5-10.1) Neutrophils (%) (Auto) 73.4 % (45.0-75.0) Lymphocytes (%) (Auto) 14.6 % (20.0-45.0) L Monocytes (%) (Auto) 9.1 % (1.0-10.0) Eosinophils (%) (Auto) 2.4 % (0.0-3.0) Basophils (%) (Auto) 0.5 % (0.0-2.0) Prothrombin Time 14.7 SEC (9.30-11.50) H Prothromb Time International Ratio 1.4 (0.9-1.1) H Sodium Level 141 MMOL/L (136-145) Potassium Level 3.5 MMOL/L (3.5-5.1) Chloride Level 106 MMOL/L (98-107) Carbon Dioxide Level 25 MMOL/L (21-32) Anion Gap 10 mmol/L (5-15) Blood Urea Nitrogen 5 mg/dL (7-18) L Creatinine 0.8 MG/DL (0.55-1.30) Estimat Glomerular Filtration Rate > 60 mL/min (>60) Glucose Level 76 MG/DL (74-106) Calcium Level 8.7 MG/DL (8.5-10.1) Current Medications Medications (Trade) Dose Ordered Sig/Vadim Route PRN Reason Start Time Stop Time Status Last Admin Dose Admin Acetaminophen (Tylenol) 650 mg Q4H PRN ORAL fever>100.5 09/28/17 19:30 10/27/17 19:29 Albuterol/ Ipratropium (Albuterol/ Ipratropium) 3 ml Q4H PRN HHN Shortness of Breath 09/28/17 19:30 10/02/17 19:29 Aspirin (Ecotrin) 81 mg DAILY ORAL 09/29/17 09:00 10/28/17 08:59 09/30/17 08:45 Ceftriaxone Sodium 1 gm/ Sodium Chloride 55 ml @ 110 mls/hr Q24H IVPB 09/29/17 14:00 10/06/17 13:59 09/29/17 14:12 Clonazepam (KlonoPIN) 0.5 mg TID ORAL 09/29/17 09:00 10/04/17 12:59 2/8/18 08:45 Fluoxetine HCl (PROzac) 10 mg DAILY ORAL 09/29/17 09:00 10/28/17 08:59 09/30/17 08:45 Lorazepam (Ativan) 1 mg Q6H PRN ORAL For Anxiety 09/28/17 19:30 10/05/17 19:29 Morphine Sulfate (Morphine Sulfate) 2 mg Q4H PRN IVP Moderate Pain (Pain Scale 4-6) 09/28/17 19:30 10/04/17 19:29 Ondansetron HCl (Zofran) 4 mg Q6H PRN IVP Nausea & Vomiting 09/28/17 19:30 10/27/17 19:29 Phenazopyridine HCl (Pyridium) 100 mg DAILYPRN PRN ORAL dysuria 09/28/17 19:30 10/28/17 19:29 Polyethylene Glycol (Miralax) 17 gm DAILYPRN PRN ORAL Constipation 09/28/17 19:30 10/28/17 19:29 Potassium Chloride 20 meq/ Dextrose/Sodium Chloride 1,010 ml @ 75 mls/hr [id number] IV 09/28/17 19:30 10/28/17 19:29 09/29/17 05:36 Tamsulosin HCl (Flomax) 0.4 mg DAILY ORAL 09/29/17 09:00 10/28/17 08:59 09/30/17 08:45 Temazepam (Restoril) 15 mg HSPRN PRN ORAL Insomnia 09/28/17 21:00 10/04/17 20:59 Warfarin Sodium (Coumadin per pharmacy) 1 ea DAILY PRN MISC Per RX Protocol 09/28/17 19:30 10/28/17 19:29 Warfarin Sodium (Coumadin) 2 mg COUMADIN ONCE ORAL 09/30/17 17:00 09/30/17 17:01 LILY SMILEY Sep 30, 2017 12:25
[2017-09-30] MEDS: cefTRIAXone 1 GM in NS 55 ML IVPB SCH (13:26)
--- NOTE | 2017-09-30 13:48 | General Progress Note ---
Assessment/Plan Problem List: (1) Supratherapeutic INR ICD Codes: R79.1 - Abnormal coagulation profile SNOMED: 688663344 (2) UTI (urinary tract infection) ICD Codes: N39.0 - Urinary tract infection, site not specified SNOMED: 48879300 Qualifiers: Qualified Codes: N30.00 - Acute cystitis without hematuria (3) Sepsis ICD Codes: A41.9 - Sepsis, unspecified organism SNOMED: 87065106 Qualifiers: Qualified Codes: A41.9 - Sepsis, unspecified organism (4) Cerebrovascular accident (CVA) ICD Codes: I63.9 - Cerebral infarction, unspecified SNOMED: 106716117 (5) HTN (hypertension) ICD Codes: I10 - Essential (primary) hypertension SNOMED: 47128140 (6) GERD (gastroesophageal reflux disease) ICD Codes: K21.9 - Gastro-esophageal reflux disease without esophagitis SNOMED: 839287223 (7) PE (pulmonary embolism) ICD Codes: I26.99 - Other pulmonary embolism without acute cor pulmonale SNOMED: 72316129 (8) Anxiety ICD Codes: F41.9 - Anxiety disorder, unspecified SNOMED: 11520446 Status: stable Assessment/Plan ot pt fdiet abx anticoag dc if clear Subjective Allergies: Coded Allergies: MONTELUKAST (Unverified Allergy, Unknown, 11/13/16) Uncoded Allergies: Coconut (Allergy, Intermediate, Hives, 08/07/15) All Systems: reviewed and negative except above Subjective sl agitated in bed Objective Last 24 Hour Vital Signs Date Time Temp Pulse Resp B/P (MAP) Pulse Ox O2 Delivery O2 Flow Rate FiO2 09/30/17 08:00 98.1 107 20 106/60 99 09/30/17 08:00 97.1 67 20 158/76 96 09/29/17 20:36 98.1 60 20 122/72 96 Room Air 09/29/17 19:24 71 20 Room Air 21 09/29/17 16:00 98.1 60 19 132/75 97 Intake and Output 09/29/17 09/30/17 19:00 07:00 Intake Total 720 ml 425.832 ml Output Total 1550 ml Balance -830 ml 425.832 ml Intake Oral 720 ml IV Total 425.832 ml Output Urine Total 1550 ml # Voids 3 Laboratory Tests 2/8/18 05:45: White Blood Count 7.2, Red Blood Count 4.37L, Hemoglobin 13.5L, Hematocrit 38.2L , Mean Corpuscular Volume 87, Mean Corpuscular Hemoglobin 30.8, Mean Corpuscular Hemoglobin Concent 35.3, Red Cell Distribution Width 12.8, Platelet Count 258, Mean Platelet Volume 7.5, Neutrophils (%) (Auto) 73.4, Lymphocytes (% ) (Auto) 14.6L, Monocytes (%) (Auto) 9.1, Eosinophils (%) (Auto) 2.4, Basophils (%) (Auto) 0.5, Prothrombin Time 14.7H, Prothromb Time International Ratio 1.4H , Sodium Level 141, Potassium Level 3.5, Chloride Level 106, Carbon Dioxide Level 25, Anion Gap 10, Blood Urea Nitrogen 5L, Creatinine 0.8, Estimat Glomerular Filtration Rate > 60, Glucose Level 76, Calcium Level 8.7 Height (Feet): 6 Height (Inches): 0.00 Weight (Pounds): 160 General Appearance: alert EENT: normal ENT inspection Neck: normal alignment Cardiovascular: normal peripheral pulses, normal rate, regular rhythm Respiratory/Chest: chest wall non-tender, lungs clear, normal breath sounds Abdomen: normal bowel sounds, non tender, soft Extremities: normal inspection Edema: no edema noted Arm (L), no edema noted Arm (R), no edema noted Leg (L), no edema noted Leg (R), no edema noted Pedal (L), no edema noted Pedal (R), no edema noted Generalized Neurologic: responsive, motor weakness Skin: normal pigmentation, warm/dry DEENA BRAR Sep 30, 2017 13:48
[2017-09-30] MEDS ORDERED: ATIVAN1 MG ORAL (14:52)
[2017-09-30] MEDS ORDERED: ZOFRAN4 M3 ORAL (14:53)
[2017-09-30] MEDS ORDERED: PHENAZOPYRIDIN100 MG ORAL (14:54)
[2017-09-30] MEDS ORDERED: MIRALAX17 G2 ORAL (14:55)
[2017-09-30] MEDS ORDERED: BACTRIM DS TAB1 EAC1 ORAL (14:58)
[2017-09-30 16:00] VITALS: BP 151/72
[2017-09-30] MEDS ORDERED: Tubing IV Secondary IV ONE ×2 (16:49→17:10)
[2017-09-30] MEDS ORDERED: NS 275ml ONE (16:49)
[2017-09-30] MEDS ORDERED: Warfarin Sodium 2mg ORAL ONE (17:00)
--- NOTE | 2017-09-30 18:47 | Pulmonology Progress Note ---
Assessment/Plan Problems: (1) Sepsis (2) COPD (chronic obstructive pulmonary disease) (3) PE (pulmonary embolism) (4) Cerebrovascular accident (CVA) (5) BPH (benign prostatic hyperplasia) (6) GERD (gastroesophageal reflux disease) (7) HTN (hypertension) (8) UTI (urinary tract infection) Assessment/Plan IV abx BP better with NS check urine cultures start IV fluids to support BP afebrile now on Coumadin for hx of PE. on Rocephine now dc planning Subjective Allergies: Coded Allergies: MONTELUKAST (Unverified Allergy, Unknown, 11/13/16) Uncoded Allergies: Coconut (Allergy, Intermediate, Hives, 08/07/15) Objective Last 24 Hour Vital Signs Date Time Temp Pulse Resp B/P (MAP) Pulse Ox O2 Delivery O2 Flow Rate FiO2 09/30/17 16:00 97.5 62 20 151/72 95 09/30/17 14:21 67 18 Room Air 21 09/30/17 08:00 98.1 107 20 106/60 99 09/30/17 08:00 97.1 67 20 158/76 96 09/29/17 20:36 98.1 60 20 122/72 96 Room Air 09/29/17 19:24 71 20 Room Air 21 Intake and Output 09/29/17 09/30/17 19:00 07:00 Intake Total 720 ml 425.832 ml Output Total 1550 ml Balance -830 ml 425.832 ml Intake Oral 720 ml IV Total 425.832 ml Output Urine Total 1550 ml # Voids 3 Objective General Appearance: WD/WN HEENT: normocephalic, atraumatic Respiratory/Chest: chest wall non-tender, lungs clear Cardiovascular: normal peripheral pulses, normal rate Genitourinary: normal external genitalia Extremities: no clubbing 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, abnormal gait Laboratory Tests 09/30/17 05:45: White Blood Count 7.2, Red Blood Count 4.37L, Hemoglobin 13.5L, Hematocrit 38.2L , Mean Corpuscular Volume 87, Mean Corpuscular Hemoglobin 30.8, Mean Corpuscular Hemoglobin Concent 35.3, Red Cell Distribution Width 12.8, Platelet Count 258, Mean Platelet Volume 7.5, Neutrophils (%) (Auto) 73.4, Lymphocytes (% ) (Auto) 14.6L, Monocytes (%) (Auto) 9.1, Eosinophils (%) (Auto) 2.4, Basophils (%) (Auto) 0.5, Prothrombin Time 14.7H, Prothromb Time International Ratio 1.4H , Sodium Level 141, Potassium Level 3.5, Chloride Level 106, Carbon Dioxide Level 25, Anion Gap 10, Blood Urea Nitrogen 5L, Creatinine 0.8, Estimat Glomerular Filtration Rate > 60, Glucose Level 76, Calcium Level 8.7 Current Medications Medications (Trade) Dose Ordered Sig/Vadim Route PRN Reason Start Time Stop Time Status Last Admin Dose Admin Acetaminophen (Tylenol) 650 mg Q4H PRN ORAL fever>100.5 09/28/17 19:30 10/27/17 19:29 Albuterol/ Ipratropium (Albuterol/ Ipratropium) 3 ml Q4H PRN HHN Shortness of Breath 09/28/17 19:30 10/02/17 19:29 Aspirin (Ecotrin) 81 mg DAILY ORAL 09/29/17 09:00 10/28/17 08:59 09/30/17 08:45 Clonazepam (KlonoPIN) 0.5 mg TID ORAL 09/29/17 09:00 10/04/17 12:59 09/30/17 17:20 Fluoxetine HCl (PROzac) 10 mg DAILY ORAL 09/29/17 09:00 10/28/17 08:59 09/30/17 08:45 Lorazepam (Ativan) 1 mg Q6H PRN ORAL For Anxiety 09/28/17 19:30 10/05/17 19:29 Morphine Sulfate (Morphine Sulfate) 2 mg Q4H PRN IVP Moderate Pain (Pain Scale 4-6) 09/28/17 19:30 10/04/17 19:29 Ondansetron HCl (Zofran) 4 mg Q6H PRN IVP Nausea & Vomiting 09/28/17 19:30 10/27/17 19:29 Phenazopyridine HCl (Pyridium) 100 mg DAILYPRN PRN ORAL dysuria 09/28/17 19:30 10/28/17 19:29 Polyethylene Glycol (Miralax) 17 gm DAILYPRN PRN ORAL Constipation 09/28/17 19:30 10/28/17 19:29 09/30/17 16:42 Potassium Chloride 20 meq/ Dextrose/Sodium Chloride 1,010 ml @ 75 mls/hr [id number] IV 09/28/17 19:30 10/28/17 19:29 09/30/17 12:50 Tamsulosin HCl (Flomax) 0.4 mg DAILY ORAL 09/29/17 09:00 10/28/17 08:59 09/30/17 08:45 Temazepam (Restoril) 15 mg HSPRN PRN ORAL Insomnia 09/28/17 21:00 10/04/17 20:59 Trimethoprim/ Sulfamethoxazole (Bactrim-DS) 1 tab Q12HR ORAL 09/30/17 21:00 10/07/17 20:59 Warfarin Sodium (Coumadin per pharmacy) 1 ea DAILY PRN MISC Per RX Protocol 09/28/17 19:30 10/28/17 19:29 ED MANRIQUE Sep 30, 2017 18:47
[2017-09-30] MEDS ORDERED: D5NS 1000ml IV ONE (19:34)
[2017-09-30] MEDS ORDERED: Bactrim-DS 1 tab ORAL SCH (21:00)
--- NOTE | 2017-09-30 23:38 | General Progress Note ---
Assessment/Plan Assessment/Plan #. Coagulopathy due to underlying use of Coumadin, --> likely the patient is supratherapeutic, recommend decreasing the dose to decrease INR. --> Continue to closely monitor. --> Will need to have INR between 2 and 3, has improved. #. Pulmonary embolism. --> Maintain INR between 2 and 3. --> Monitor closely, INR currently at 1.7 #. Leukocytosis, likely due to infection and sepsis. --> On antibiotics, ID following. --> Monitor closely. --> Resolved. #. Urinary tract infection and sepsis. --> Continue to trend broad-spectrum antibiotics. --> He has been seen by Infectious Disease Service. #. Cerebrovascular accident history with left-sided hemiplegia. #. Benign prostatic hypertrophy. Closely monitor. Subjective Date patient seen: Sep 30, 2017 Constitutional: Denies: no symptoms, chills, diaphoresis, fever, malaise, weakness, other HEENT: Denies: no symptoms, eye pain, blurred vision, tearing, double vision, ear pain, ear discharge, nose pain, nose congestion, throat pain, throat swelling, mouth pain, mouth swelling, other Cardiovascular: Denies: no symptoms, chest pain, edema, irregular heart rate, lightheadedness, palpitations, syncope, other Respiratory: Denies: no symptoms, cough, orthopnea, shortness of breath, SOB with excertion, SOB at rest, sputum, stridor, wheezing, other Gastrointestinal/Abdominal: Denies: no symptoms, abdomen distended, abdominal pain, black stools, tarry stools, blood in stool, constipated, diarrhea, difficulty swallowing, nausea, poor appetite, poor fluid intake, rectal bleeding , vomiting, other Genitourinary: Denies: no symptoms, burning, discharge, frequency, flank pain, hematuria, incontinence, pain, urgency, other Allergies: Coded Allergies: MONTELUKAST (Unverified Allergy, Unknown, 11/13/16) Uncoded Allergies: Coconut (Allergy, Intermediate, Hives, 08/07/15) Subjective On anticoag. No major events. Stable. Objective Last 24 Hour Vital Signs Date Time Temp Pulse Resp B/P (MAP) Pulse Ox O2 Delivery O2 Flow Rate FiO2 09/30/17 16:00 97.5 62 20 151/72 95 09/30/17 14:21 67 18 Room Air 21 09/30/17 08:00 98.1 107 20 106/60 99 09/30/17 08:00 97.1 67 20 158/76 96 Intake and Output 09/29/17 09/30/17 19:00 07:00 Intake Total 720 ml 425.832 ml Output Total 1550 ml Balance -830 ml 425.832 ml Intake Oral 720 ml IV Total 425.832 ml Output Urine Total 1550 ml # Voids 3 Laboratory Tests 09/30/17 05:45: White Blood Count 7.2, Red Blood Count 4.37L, Hemoglobin 13.5L, Hematocrit 38.2L , Mean Corpuscular Volume 87, Mean Corpuscular Hemoglobin 30.8, Mean Corpuscular Hemoglobin Concent 35.3, Red Cell Distribution Width 12.8, Platelet Count 258, Mean Platelet Volume 7.5, Neutrophils (%) (Auto) 73.4, Lymphocytes (% ) (Auto) 14.6L, Monocytes (%) (Auto) 9.1, Eosinophils (%) (Auto) 2.4, Basophils (%) (Auto) 0.5, Prothrombin Time 14.7H, Prothromb Time International Ratio 1.4H , Sodium Level 141, Potassium Level 3.5, Chloride Level 106, Carbon Dioxide Level 25, Anion Gap 10, Blood Urea Nitrogen 5L, Creatinine 0.8, Estimat Glomerular Filtration Rate > 60, Glucose Level 76, Calcium Level 8.7 Height (Feet): 6 Height (Inches): 0.00 Weight (Pounds): 160 General Appearance: no apparent distress Neck: supple Respiratory/Chest: decreased breath sounds Abdomen: non tender, soft Aren Morgan Sep 30, 2017 23:38
--- NOTE | 2017-10-01 01:45 | Progress Note ---
DATE: 09/30/2017 NOTE: POOR AUDIO SUBJECTIVE: The patient is a 71-year-old male with sepsis and urinary tract infection. He is very irritable, confused, and disorganized. He has got no logical plan for self-care, but he has also had no insight. He states "people don't know interview. Very irritable, unpredictable, makes nonsensical statements, and his cognition has declined below baseline. sepsis, urinary tract infection, and decline in cognition. That is why the attending has requested daily psychiatric consultation. MENTAL STATUS EXAMINATION: This is a 71-year-old male with psychomotor agitation. Mood is irritable and agitated. Affect is guarded and restricted. Intellect poor. Mood is depressed and anxious. Motor activity, psychomotor agitation. Attention span is poor. Orientation x2. Speech is pressured. Insight and judgment is poor. DIAGNOSIS: Paranoid schizophrenia with acute exacerbation, rule out depression with psychotic features. PLAN: Continue titrating up on his medications to reduce agitation and irritability. A 15 to 20 minutes of supportive therapy. Seen and assessed at bedtime. Chart was reviewed and discussed with staff. Eleni Winston M.D. : PARTHA JOB#: [id number] CC:
--- NOTE | 2017-10-01 12:32 | Discharge Summary ---
Discharge Summary Hospital Course Date of Admission Sep 27, 2017 at 01:05 Date of Discharge Sep 30, 2017 at 19:35 Admitting Diagnosis SEPSIS, UTI HPI Agusto Mansfield is a 71 year old male who was admitted on Sep 27, 2017 at 01:05 for Sepsis/Urinary Tract Infection Hospital Course [id number] Discharge Discharge Disposition Patient was discharged to SNF/Subacute Facility(03) Discharge Diagnoses: Enid Brand NP Oct 01, 2017 12:32
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
--- NOTE | 2017-10-05 13:17 | Diagnostic Imaging Report ---
APPROVED REPORT CPT Code: 37723 Present Symptoms Comments: R/O DVT BILATERAL: Imaging reveals a patent deep venous system bilaterally. There is no evidence of thrombus within the femoral, popliteal or tibial segments. The greater saphenous veins are also within normal limits. Doppler indicates normal spontaneous flow within these segments.
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
== END 2017-09-30 19:35 | DRG 872 ==
LOC: EDUNIT# 22:31 → EDBD 22:31 → EMR 22:50 → 4W 09-27 01:05 → EDBEDREQ 09-27 01:57 → 4W 09-27 12:44 → 2W 09-28 05:17 → 4W 09-28 18:57
DX: A41.9 Sepsis, unspecified organism (principal); D68.9 Coagulation defect, unspecified; I69.354 Hemiplegia and hemiparesis following cerebral infarction affecting left non-dominant side; N39.0 Urinary tract infection, site not specified; F33.9 Major depressive disorder, recurrent, unspecified; S93.401A Sprain of unspecified ligament of right ankle, initial encounter; W19.XXXA Unspecified fall, initial encounter; Y92.121 Bathroom in nursing home as the place of occurrence of the external cause; I10 Essential (primary) hypertension; K21.9 Gastro-esophageal reflux disease without esophagitis; N40.0 Benign prostatic hyperplasia without lower urinary tract symptoms; Z79.01 Long term (current) use of anticoagulants; B96.20 Unspecified Escherichia coli [E. coli] as the cause of diseases classified elsewhere; Z88.8 Allergy status to other drugs, medicaments and biological substances; Z86.711 Personal history of pulmonary embolism; I69.398 Other sequelae of cerebral infarction; M21.372 Foot drop, left foot; I25.9 Chronic ischemic heart disease, unspecified
CPT/HCPCS: 36415; 71045; 80048; 80053; 81001; 81003; 83605; 83735; 84100; 85007; 85025; 85610; 85651; 85730; 86140; 86710; 87040; 87081; 87086; 87181; 93970; 94664; 97803; 99285

== ENCOUNTER 2018-11-03 21:40 | Inpatient (IN) | payer MEDICARE, MEDICAID ==
[~2018-11-03] VITALS: Ht 182.9 cm; Wt 77.8 kg
[~2018-11-03 21:40] MED LIST changes: +ATIVAN1 MG ORAL; +BACTRIM DS TAB1 EAC1 ORAL; +PHENAZOPYRIDIN100 MG ORAL; +ZOFRAN4 M3 ORAL
[2018-11-03 21:45] VITALS: BP 120/72
--- NOTE | 2018-11-03 21:45 | NUR ---
ED Nurse Note: Pt BIBA for abnormal lab results taken in SNF. Pt is A/Ox4, has history of stroke in 1994 and anxiety. Pt unable to recall any other medical hx. VSS. Will continue to monitor.
--- NOTE | 2018-11-03 21:51 | Emergency Room Report ---
History of Present Illness General Chief Complaint: Abnormal Labs Source: Patient Present Illness HPI Patient is a 72-year-old male sent in by primary care physician for elevated INR. Patient had prior history of anticoagulant use. Patient was noted to have INR greater than 5.Patient prior history of DVT as well as prior stroke with left-sided weakness. He was noted to have persistent elevated INR despite holding his Coumadin. Patient was noted to have some prior generalized weakness to his left upper and lower extremities. He had stated he had prior CVA. He denies prior history of atrial fibrillation. Allergies: Uncoded Allergies: Coconut (Allergy, Intermediate, Hives, 08/07/15) Patient History Reviewed Nursing Documentation: PMH: Agreed; PSxH: Agreed Nursing Documentation-PMH Hx Cardiac Problems: No Hx Hypertension: Yes Hx Cancer: No Hx Gastrointestinal Problems: Yes - GERD Hx Neurological Problems: No Hx Cerebrovascular Accident: Yes - CVA Hx Dizziness: Yes Hx Headaches: Yes Hx Weakness: Yes Review of Systems All Other Systems: negative except mentioned in HPI Physical Exam Vital Signs Date Time Temp Pulse Resp B/P (MAP) Pulse Ox O2 Delivery O2 Flow Rate FiO2 11/03/18 21:43 97.5 60 18 120/72 96 Room Air Sp02 EP Interpretation: reviewed, normal General Appearance: normal inspection, alert, GCS 15, Chronically Ill Head: atraumatic ENT: normal ENT inspection, hearing grossly normal, normal voice Neck: normal inspection, full range of motion, supple, no bony tend Respiratory: normal inspection, lungs clear, normal breath sounds, no respiratory distress, no retraction, no wheezing Cardiovascular #1: regular rate, rhythm, no edema Gastrointestinal: normal inspection, normal bowel sounds, non tender, soft, no guarding, no hernia Genitourinary: no CVA tenderness Musculoskeletal: normal inspection, back normal, normal range of motion Neurologic: normal inspection, alert, responsive, no Babinski, motor weakness - left upper and lower extremity Psychiatric: normal inspection, judgement/insight normal, mood/affect normal Skin: normal inspection, normal color, no rash Medical Decision Making Diagnostic Impression: Primary Impression: Supratherapeutic INR 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 Patient presented for elevated INR. Differential diagnosis include was not limited to liver disease, malnutrition, dietary indiscretion among others. Because of complexity of patient's case laboratory testing and imaging studies were ordered. Patient was noted to have normal mental status and denies any active bleeding. He was noted to have INR greater than 5. Patient states his Coumadin has been held. He is being anticoagulated for DVT. Patient had prior left-sided weakness from CVA and patient states he has been doing well in this regard. Patient is able to pilot with his left hand and is also able to move his left foot.Dr. Jaime Mackenzie was contacted for inpatient management. Labs Test 11/03/18 22:10 White Blood Count 6.4 K/UL (4.8-10.8) Red Blood Count 4.62 M/UL (4.70-6.10) Hemoglobin 14.1 G/DL (14.2-18.0) Hematocrit 41.8 % (42.0-52.0) Mean Corpuscular Volume 90 FL (80-99) Mean Corpuscular Hemoglobin 30.4 PG (27.0-31.0) Mean Corpuscular Hemoglobin Concent 33.7 G/DL (32.0-36.0) Red Cell Distribution Width 11.9 % (11.6-14.8) Platelet Count 272 K/UL (150-450) Mean Platelet Volume 5.7 FL (6.5-10.1) Neutrophils (%) (Auto) 61.5 % (45.0-75.0) Lymphocytes (%) (Auto) 20.9 % (20.0-45.0) Monocytes (%) (Auto) 14.0 % (1.0-10.0) Eosinophils (%) (Auto) 2.1 % (0.0-3.0) Basophils (%) (Auto) 1.6 % (0.0-2.0) Prothrombin Time 33.7 SEC (9.30-11.50) Prothromb Time International Ratio 3.4 (0.9-1.1) Activated Partial Thromboplast Time 45 SEC (23-33) Sodium Level 138 MMOL/L (136-145) Potassium Level 4.1 MMOL/L (3.5-5.1) Chloride Level 104 MMOL/L (98-107) Carbon Dioxide Level 31 MMOL/L (21-32) Anion Gap 3 mmol/L (5-15) Blood Urea Nitrogen 14 mg/dL (7-18) Creatinine 1.0 MG/DL (0.55-1.30) Estimat Glomerular Filtration Rate mL/min (>60) Glucose Level 88 MG/DL (74-106) Calcium Level 9.4 MG/DL (8.5-10.1) Total Bilirubin 0.5 MG/DL (0.2-1.0) Aspartate Amino Transf (AST/SGOT) 22 U/L (15-37) Alanine Aminotransferase (ALT/SGPT) 24 U/L (12-78) Alkaline Phosphatase 64 U/L (46-116) Troponin I 0.000 ng/mL (0.000-0.056) Total Protein 7.8 G/DL (6.4-8.2) Albumin 4.0 G/DL (3.4-5.0) Globulin 3.8 g/dL Albumin/Globulin Ratio 1.1 (1.0-2.7) Thyroid Stimulating Hormone (TSH) 2.390 uiU/mL (0.358-3.740) EKG Diagnostic Results Rate: bradycardiac - 50 Rhythm: NSR ST Segments: no acute changes Rhythm Strip Diag. Results EP Interpretation: yes Rhythm: NSR, no PVC's, no ectopy Last Vital Signs Date Time Temp Pulse Resp B/P (MAP) Pulse Ox O2 Delivery O2 Flow Rate FiO2 11/03/18 21:43 97.5 60 18 120/72 96 Room Air Status: improved Disposition: ADMITTED INPATIENT Condition: Jake Chow MD Nov 03, 2018 21:51
[2018-11-03 22:23] LABS: BASOPHILS % (AUTO) 1.6 % (0.0-2.0); EOSINOPHILS % (AUTO) 2.1 % (0.0-3.0); HEMATOCRIT 41.8 % (42.0-52.0); HEMOGLOBIN 14.1 G/DL (14.2-18.0); LYMPHOCYTES % (AUTO) 20.9 % (20.0-45.0); MEAN CORPUSCULAR VOLUME 90 FL (80-99); NEUTROPHILS % (AUTO) 61.5 % (45.0-75.0); PLATELET COUNT 272 K/UL (150-450); RED BLOOD COUNT 4.62 M/UL (4.70-6.10); RED CELL DISTRIBUTION WIDTH 11.9 % (11.6-14.8); WHITE BLOOD COUNT 6.4 K/UL (4.8-10.8)
[2018-11-03 22:36] LABS: ANION GAP 3 mmol/L (5-15); BLOOD UREA NITROGEN 14 mg/dL (7-18); CALCIUM 9.4 MG/DL (8.5-10.1); CARBON DIOXIDE 31 MMOL/L (21-32); CHLORIDE 104 MMOL/L (98-107); POTASSIUM 4.1 MMOL/L (3.5-5.1); SODIUM 138 MMOL/L (136-145)
[2018-11-03 22:43] LABS: INR 3.4 (0.9-1.1)
[2018-11-03 22:49] LABS: ALANINE AMINOTRANSFERASE 24 U/L (12-78); ALBUMIN/GLOBULIN RATIO 1.1 (1.0-2.7); ALKALINE PHOSPHATASE 64 U/L (46-116); ASPARTATE AMINO TRANSFERASE 22 U/L (15-37); BILIRUBIN,TOTAL 0.5 MG/DL (0.2-1.0)
[2018-11-03] MEDS ORDERED: VITAMIN C500 M1 ORAL (23:12)
--- NOTE | 2018-11-04 00:50 | NUR ---
ED Nurse Note: Pt transferred to Med/Surg unit. All belongings taken with patient to floor. VSS. Shows no signs of distress.
[2018-11-04 01:31] VITALS: BP 134/82
--- NOTE | 2018-11-04 02:22 | NUR ---
NURSE NOTES: Pt is admitted from ER with Dx of coagulopathy. Pt is in stable condition, vitals are stable. Pt is awake, alert and oriented. Report received from Eden BOGGS RN. Pt is on room air. Pt complaints of no pain. No bleeding noted. Pt's current INR 3.4 and PT 33.7. Pt has a small bulge in the umbilical region, pt states no pain there. Bowel sounds present in all quadrants. No SOB. Pt's belongings checked. Pt oriented to the unit. Physical assessment done. Skin intact. Pt states that he ambulate with walker. Bed low in position,side rails up and call light within reach. Pt is instructed to call before getting out of bed. Dr. Mackenzie's exchange is called for admission order, spoke to Stacey. Awaiting call back.
--- NOTE | 2018-11-04 02:40 | NUR ---
NURSE NOTES: Pt states he is not allergic to Montelukast, allergy list updated.
[2018-11-04 04:00] VITALS: BP 108/62
[2018-11-04] MEDS ORDERED: LORazepam 1mg tab ORAL PRN ×2 (04:45→06:45)
[2018-11-04] MEDS ORDERED: HYDROcodone/Acetamin 5/325 tab ORAL PRN ×2 (04:45→06:45)
[2018-11-04] MEDS ORDERED: Nitroglycerin Subl 0.4mg tab SL PRN (04:45)
[2018-11-04] MEDS ORDERED: Acetaminophen 650mg/20.3ml ORAL PRN (04:45)
[2018-11-04] MEDS ORDERED: Milk of Magnesia 30ml Ud ORAL SCH (06:00)
--- NOTE | 2018-11-04 06:00 | NUR ---
NURSE NOTES: Dr. Mackenzie called back with admission orders, orders acknowledged. Dr. Winston saw the patient.
[2018-11-04] MEDS: D5 1/2NS 1,000 ML IV SCH ×2 (06:23→20:22)
[2018-11-04 06:32] LABS: BASOPHILS % (AUTO) 1.5 % (0.0-2.0); EOSINOPHILS % (AUTO) 3.1 % (0.0-3.0); HEMATOCRIT 40.9 % (42.0-52.0); HEMOGLOBIN 13.8 G/DL (14.2-18.0); LYMPHOCYTES % (AUTO) 22.7 % (20.0-45.0); MEAN CORPUSCULAR VOLUME 91 FL (80-99); MONOCYTES % (AUTO) 12.8 % (1.0-10.0); NEUTROPHILS % (AUTO) 59.9 % (45.0-75.0); PLATELET COUNT 255 K/UL (150-450); RED BLOOD COUNT 4.48 M/UL (4.70-6.10); RED CELL DISTRIBUTION WIDTH 12.4 % (11.6-14.8); WHITE BLOOD COUNT 5.4 K/UL (4.8-10.8)
[2018-11-04 06:48] LABS: ANION GAP 3 mmol/L (5-15); BLOOD UREA NITROGEN 14 mg/dL (7-18); CALCIUM 9.1 MG/DL (8.5-10.1); CARBON DIOXIDE 30 MMOL/L (21-32); CHLORIDE 106 MMOL/L (98-107); CREATININE 0.9 MG/DL (0.55-1.30); POTASSIUM 3.9 MMOL/L (3.5-5.1); SODIUM 139 MMOL/L (136-145)
[2018-11-04 06:56] LABS: INR 2.6 (0.9-1.1)
[2018-11-04] MEDS ORDERED: Milk of Magnesia 30ml Ud ORAL PRN (07:00)
--- NOTE | 2018-11-04 07:20 | NUR ---
HAND-OFF: Report given to WALTER Givens.
--- NOTE | 2018-11-04 07:30 | NUR ---
NURSE NOTES: Received pt from RN RICHELLE. Pt is alert and orient x4. Pt is in RA, No SOB or acute respiratory distress noted. pt has intact iv access LAC 20g is running well. all needs attended, bed is locked and is in the lowest position, call light within easy reach. will continue to monitor.
[2018-11-04 08:00] VITALS: BP 124/64
--- NOTE | 2018-11-04 08:22 | NUR ---
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
[2018-11-04] MEDS: clonazePAM 0.5mg tab ORAL SCH ×3 (09:40→17:44)
[2018-11-04] MEDS: Tamsulosin 0.4mg cap ORAL SCH (09:41)
[2018-11-04] MEDS: Ascorbic Acid 500mg tab ORAL SCH ×2 (09:41→17:44)
[2018-11-04] MEDS: Sennosides 8.6mg tab ORAL SCH (09:41)
[2018-11-04] MEDS: Montelukast 10mg tablet ORAL SCH (09:41)
[2018-11-04] MEDS: Aspirin EC 81mg tab ORAL SCH (09:41)
[2018-11-04] MEDS: Multivitamin w/Minerals tab ORAL SCH (09:41)
[2018-11-04] MEDS: Flonase Nasal Inhaler 16gm NASAL SCH (09:56)
[2018-11-04] MEDS: Artificial Tears 1.4% Op Soln BOTH EYES SCH ×2 (11:03→17:58)
[2018-11-04 12:00] VITALS: BP 104/61
--- NOTE | 2018-11-04 15:01 | Consultation ---
History of Present Illness General Date patient seen: Nov 04, 2018 Chief Complaint: Abnormal Labs Present Illness HPI 72-year-old male with prior hx of CVA, HTN, PE on Coumadin sent in from [facility] by primary care physician for elevated INR. He had an INR greater than 5.Patient prior history of DVT as well as prior stroke with left- sided weakness. He was noted to have persistent elevated INR despite holding his Coumadin. Pt is admitted for further treatment. Allergies: Uncoded Allergies: Coconut (Allergy, Intermediate, Hives, 08/07/15) Medication History Scheduled Al Hydroxide/mg Hydroxide (Mag-Al Liquid), 30 ML PO Q4HR, (Reported) Ascorbic Acid* (Vitamin C*), 500 MG ORAL TWICE A DAY, (Reported) Ascorbic Acid* (Vitamin C*), 500 MG ORAL DAILY, (Reported) Aspirin* (Aspir 81*), 81 MG ORAL DAILY, (Reported) Bisacodyl* (Dulcolax*), 10 MG RECTAL DAILY, (Reported) Clonazepam* (Klonopin*), 0.5 MG ORAL TID, (Reported) Cranberry Fruit (Cranberry), 500 MG PO BID, (Reported) Cyclobenzaprine Hcl* (Flexeril*), 10 MG ORAL Q6HR, (Reported) Finasteride* (Proscar*), 5 MG ORAL DAILY, (Reported) Fluoxetine Hcl* (Fluoxetine Hcl*), 10 MG ORAL DAILY, (Reported) Fluticasone Propionate (Fluticasone Propionate), 2 SPRAYS NASAL DAILY, (Reported ) Magnesium Hydroxide (Milk of Magnesia), 30 ML ORAL Q6HR, (Reported) Montelukast Sodium* (Singulair*), 10 MG ORAL DAILY, (Reported) Multivits,-,Other Min (Thera-M), 1 EACH PO DAILY, (Reported) Niacin (Niacin ER), 500 MG PO QHS, (Reported) Omeprazole (Omeprazole), 20 MG ORAL DAILY, (Reported) Sennosides (Senna), 17.2 MG PO DAILY, (Reported) Simvastatin (Zocor), 10 MG ORAL BEDTIME, (Reported) Tamsulosin HCl (Flomax), 0.4 MG ORAL DAILY, (Reported) Trimethoprim/Sulfamethoxazole 160/800* (Bactrim Ds Tablet*), 1 TAB ORAL Q12HR, ( Reported) Warfarin Sod (Coumadin*), 1.5 MG ORAL DAILY, (Reported) Scheduled PRN Acetaminophen (Acetaminophen), 650 MG ORAL EVERY 4 HOURS PRN for Prn Headache/ Temp > 101, (Reported) Hydrocodone Bit/Acetaminophen 5-325* ([place] 5-325*), 1 TAB ORAL Q8HR PRN for For Pain, (Reported) Ibuprofen* (Motrin*), 600 MG ORAL Q8H PRN for For Pain, (Reported) Ipratropium/Albuterol Sulfate (DuoNeb 0.5-3(2.5)mg/3ml), 3 ML HHN EVERY 4 HOURS PRN for Shortness of Breath, (Reported) Lorazepam* (Ativan*), 1 MG ORAL Q6HR PRN for prn, (Reported) Nitroglycerin (Nitroglycerin), 0.4 MG SL Q5M X 3 DOSES PRN for CHEST PAIN AND NOTIFY MD, (Reported) Ondansetron* (Zofran*), 4 MG ORAL Q6H PRN for Nausea & Vomiting, (Reported) Phenazopyridine Hcl* (Pyridium*), 100 MG ORAL DAILY PRN for prn, (Reported) Polyethylene Glycol 3350* (Miralax*), 17 GM ORAL BEDTIME PRN for CONSTIPATION, ( Reported) Polyethylene Glycol 3350* (Miralax*), 17 GM ORAL DAILY PRN for prn, (Reported) Temazepam (Temazepam*), 15 MG ORAL BEDTIME PRN for INSOMNIA, (Reported) Miscellaneous Medications Calcium Carbonate (Calcium Carbonate), 200 MG PO, (Reported) Dextran 70/Hypromellose (Artificial Tears), 1 EACH OP, (Reported) Loperamide HCl (Loperamide), 2 MG ORAL, (Reported) Menthol (Bengay), 113 GM TP, (Reported) Saw [place] Xt/Phytosterol #2 (Prostate Sr Softgel), 1 EACH PO, (Reported) Patient History Healthcare decision maker Resuscitation status Full Code Advanced Directive on File Past Medical/Surgical History Past Medical/Surgical History: (1) COPD (chronic obstructive pulmonary disease) (2) Cerebrovascular accident (CVA) (3) BPH (benign prostatic hyperplasia) (4) GERD (gastroesophageal reflux disease) (5) HTN (hypertension) (6) Anxiety (7) PE (pulmonary embolism) Review of Systems All Other Systems: negative except mentioned in HPI Physical Exam General Appearance: WD/WN Lines, tubes and drains: peripheral HEENT: normocephalic, mucous membranes moist Neck: non-tender, normal inspection Respiratory/Chest: chest wall non-tender, lungs clear Breasts: no masses Cardiovascular/Chest: normal rate Abdomen: normal bowel sounds, non tender Genitourinary/Rectal: normal genital exam Extremities: no calf tenderness Neurologic: warp dyeing vat tender II-XII grossly normal Last 24 Hour Vital Signs Date Time Temp Pulse Resp B/P (MAP) Pulse Ox O2 Delivery O2 Flow Rate FiO2 11/04/18 12:00 98.8 51 17 104/61 (75) 96 11/04/18 11:37 98.5 11/04/18 08:00 98.5 60 14 124/64 (84) 96 11/04/18 04:00 97.8 52 16 108/62 (77) 94 11/04/18 02:13 Room Air 11/04/18 01:31 97.2 59 16 134/82 (99) 98 11/04/18 00:50 98.4 60 16 149/98 99 Room Air 11/03/18 21:45 97.5 60 18 120/72 96 Room Air 11/03/18 21:43 97.5 60 18 120/72 96 Room Air Intake and Output 11/03/18 11/04/18 19:00 07:00 Intake Total 240 ml Balance 240 ml Intake Oral 240 ml # Voids 2 # Bowel Movements 1 Laboratory Tests Test 11/03/18 22:10 11/04/18 06:17 White Blood Count 6.4 K/UL (4.8-10.8) 5.4 K/UL (4.8-10.8) Red Blood Count 4.62 M/UL (4.70-6.10) L 4.48 M/UL (4.70-6.10) L Hemoglobin 14.1 G/DL (14.2-18.0) L 13.8 G/DL (14.2-18.0) L Hematocrit 41.8 % (42.0-52.0) L 40.9 % (42.0-52.0) L Mean Corpuscular Volume 90 FL (80-99) 91 FL (80-99) Mean Corpuscular Hemoglobin 30.4 PG (27.0-31.0) 30.7 PG (27.0-31.0) Mean Corpuscular Hemoglobin Concent 33.7 G/DL (32.0-36.0) 33.6 G/DL (32.0-36.0) Red Cell Distribution Width 11.9 % (11.6-14.8) 12.4 % (11.6-14.8) Platelet Count 272 K/UL (150-450) 255 K/UL (150-450) Mean Platelet Volume 5.7 FL (6.5-10.1) L 6.6 FL (6.5-10.1) Neutrophils (%) (Auto) 61.5 % (45.0-75.0) 59.9 % (45.0-75.0) Lymphocytes (%) (Auto) 20.9 % (20.0-45.0) 22.7 % (20.0-45.0) Monocytes (%) (Auto) 14.0 % (1.0-10.0) H 12.8 % (1.0-10.0) H Eosinophils (%) (Auto) 2.1 % (0.0-3.0) 3.1 % (0.0-3.0) H Basophils (%) (Auto) 1.6 % (0.0-2.0) 1.5 % (0.0-2.0) Prothrombin Time 33.7 SEC (9.30-11.50) H 25.7 SEC (9.30-11.50) H Prothromb Time International Ratio 3.4 (0.9-1.1) H 2.6 (0.9-1.1) H Activated Partial Thromboplast Time 45 SEC (23-33) H Sodium Level 138 MMOL/L (136-145) 139 MMOL/L (136-145) Potassium Level 4.1 MMOL/L (3.5-5.1) 3.9 MMOL/L (3.5-5.1) Chloride Level 104 MMOL/L (98-107) 106 MMOL/L (98-107) Carbon Dioxide Level 31 MMOL/L (21-32) 30 MMOL/L (21-32) Anion Gap 3 mmol/L (5-15) L 3 mmol/L (5-15) L Blood Urea Nitrogen 14 mg/dL (7-18) 14 mg/dL (7-18) Creatinine 1.0 MG/DL (0.55-1.30) 0.9 MG/DL (0.55-1.30) Estimat Glomerular Filtration Rate mL/min (>60) mL/min (>60) Glucose Level 88 MG/DL (74-106) 82 MG/DL (74-106) Calcium Level 9.4 MG/DL (8.5-10.1) 9.1 MG/DL (8.5-10.1) Total Bilirubin 0.5 MG/DL (0.2-1.0) Aspartate Amino Transf (AST/SGOT) 22 U/L (15-37) Alanine Aminotransferase (ALT/SGPT) 24 U/L (12-78) Alkaline Phosphatase 64 U/L (46-116) Troponin I 0.000 ng/mL (0.000-0.056) Total Protein 7.8 G/DL (6.4-8.2) Albumin 4.0 G/DL (3.4-5.0) Globulin 3.8 g/dL Albumin/Globulin Ratio 1.1 (1.0-2.7) Thyroid Stimulating Hormone (TSH) 2.390 uiU/mL (0.358-3.740) Height (Feet): 6 Height (Inches): 0.00 Weight (Pounds): 168 Medications Current Medications Medications (Trade) Dose Ordered Sig/Vadim Route PRN Reason Start Time Stop Time Status Last Admin Dose Admin Acetaminophen (Tylenol) 650 mg Q4H PRN ORAL Mild Pain/Temp > 100.5 11/04/18 10:45 12/04/18 10:44 11/04/18 11:07 Acetaminophen/ Hydrocodone Bitart ([place] 5/325) 1 tab Q8H PRN ORAL Severe Pain (Pain Scale 7-10) 11/04/18 06:45 11/11/18 06:44 Artificial Tears (Akwa-Tears) 1 drop BID BOTH EYES 11/04/18 11:00 12/04/18 10:59 11/04/18 11:03 Ascorbic Acid (Vitamin C) 500 mg TWICE A DAY ORAL 11/04/18 09:00 12/04/18 08:59 11/04/18 09:41 Aspirin (Ecotrin) 81 mg DAILY ORAL 11/04/18 09:00 12/04/18 08:59 11/04/18 09:41 Clonazepam (KlonoPIN) 0.5 mg TID ORAL 11/04/18 09:00 11/11/18 08:59 11/04/18 14:03 Dextrose/Sodium Chloride 1,000 ml @ 60 mls/hr [id number] IV 11/04/18 04:30 12/04/18 04:29 11/04/18 06:23 Escitalopram Oxalate (Lexapro) 10 mg DAILY ORAL 11/04/18 09:00 12/04/18 08:59 11/04/18 09:40 Finasteride (Proscar) 5 mg DAILY ORAL 11/04/18 09:00 12/04/18 08:59 11/04/18 09:41 Fluticasone Propionate (Flonase) 1 spray DAILY NASAL 11/04/18 09:00 12/04/18 08:59 11/04/18 09:56 Gabapentin (Neurontin) 300 mg THREE TIMES A DAY ORAL 11/04/18 09:00 12/04/18 08:59 11/04/18 14:04 Ibuprofen (Advil) 600 mg Q8H PRN ORAL Pain Scale (3-5) 11/04/18 12:45 12/04/18 04:44 Lorazepam (Ativan) 1 mg Q6H PRN ORAL For Anxiety 11/04/18 06:45 11/11/18 06:44 Magnesium Hydroxide (Mom) 30 ml DAILY PRN ORAL Constipation 11/04/18 07:00 12/04/18 05:59 Montelukast Sodium (Singulair) 10 mg DAILY ORAL 11/04/18 09:00 12/04/18 08:59 11/04/18 09:41 Multivitamins Therapeutic (Therapeutic Multivitamin) 1 ea DAILY ORAL 11/04/18 09:00 12/04/18 08:59 11/04/18 09:41 Nitroglycerin (Ntg) 0.4 mg ADJUST PER PROTOCOL PRN SL CHEST PAIN AND NOTIFY 11/04/18 04:45 12/04/18 04:44 Sennosides (Senokot) 17.2 mg DAILY ORAL 11/04/18 09:00 12/04/18 08:59 11/04/18 09:41 Tamsulosin HCl (Flomax) 0.4 mg DAILY ORAL 11/04/18 09:00 12/04/18 08:59 11/04/18 09:41 Assessment/Plan Problem List: (1) Coagulopathy ICD Codes: D68.9 - Coagulation defect, unspecified SNOMED: 76096365 (2) COPD (chronic obstructive pulmonary disease) ICD Codes: J44.9 - Chronic obstructive pulmonary disease, unspecified SNOMED: 38594028 (3) Cerebrovascular accident (CVA) ICD Codes: I63.9 - Cerebral infarction, unspecified SNOMED: 666880837 (4) BPH (benign prostatic hyperplasia) ICD Codes: N40.0 - Benign prostatic hyperplasia without lower urinary tract symptoms SNOMED: 173947599, 868161339 (5) HTN (hypertension) ICD Codes: I10 - Essential (primary) hypertension SNOMED: 56007835 (6) GERD (gastroesophageal reflux disease) ICD Codes: K21.9 - Gastro-esophageal reflux disease without esophagitis SNOMED: 635266017 (7) Anxiety ICD Codes: F41.9 - Anxiety disorder, unspecified SNOMED: 63585660 Assessment/Plan [facility]FP prn check INR daily respiratory treatment symptomatic treatment check electrolytes dvt prophylaxis. Ancelmo Ghosh MD Nov 04, 2018 15:00
[2018-11-04 16:00] VITALS: BP 102/56
--- NOTE | 2018-11-04 16:43 | Consultation ---
History of Present Illness General Chief Complaint: Abnormal Labs Present Illness Allergies: Uncoded Allergies: Coconut (Allergy, Intermediate, Hives, 08/07/15) Medication History Scheduled Al Hydroxide/mg Hydroxide (Mag-Al Liquid), 30 ML PO Q4HR, (Reported) Ascorbic Acid* (Vitamin C*), 500 MG ORAL TWICE A DAY, (Reported) Ascorbic Acid* (Vitamin C*), 500 MG ORAL DAILY, (Reported) Aspirin* (Aspir 81*), 81 MG ORAL DAILY, (Reported) Bisacodyl* (Dulcolax*), 10 MG RECTAL DAILY, (Reported) Clonazepam* (Klonopin*), 0.5 MG ORAL TID, (Reported) Cranberry Fruit (Cranberry), 500 MG PO BID, (Reported) Cyclobenzaprine Hcl* (Flexeril*), 10 MG ORAL Q6HR, (Reported) Finasteride* (Proscar*), 5 MG ORAL DAILY, (Reported) Fluoxetine Hcl* (Fluoxetine Hcl*), 10 MG ORAL DAILY, (Reported) Fluticasone Propionate (Fluticasone Propionate), 2 SPRAYS NASAL DAILY, (Reported ) Magnesium Hydroxide (Milk of Magnesia), 30 ML ORAL Q6HR, (Reported) Montelukast Sodium* (Singulair*), 10 MG ORAL DAILY, (Reported) Multivits,,Other Min (Thera-M), 1 EACH PO DAILY, (Reported) Niacin (Niacin ER), 500 MG PO QHS, (Reported) Omeprazole (Omeprazole), 20 MG ORAL DAILY, (Reported) Sennosides (Senna), 17.2 MG PO DAILY, (Reported) Simvastatin (Zocor), 10 MG ORAL BEDTIME, (Reported) Tamsulosin HCl (Flomax), 0.4 MG ORAL DAILY, (Reported) Trimethoprim/Sulfamethoxazole 160/800* (Bactrim Ds Tablet*), 1 TAB ORAL Q12HR, ( Reported) Warfarin Sod (Coumadin*), 1.5 MG ORAL DAILY, (Reported) Scheduled PRN Acetaminophen (Acetaminophen), 650 MG ORAL EVERY 4 HOURS PRN for Prn Headache/ Temp > 101, (Reported) Hydrocodone Bit/Acetaminophen 5-325* ([place] 5-325*), 1 TAB ORAL Q8HR PRN for For Pain, (Reported) Ibuprofen* (Motrin*), 600 MG ORAL Q8H PRN for For Pain, (Reported) Ipratropium/Albuterol Sulfate (DuoNeb 0.5-3(2.5)mg/3ml), 3 ML HHN EVERY 4 HOURS PRN for Shortness of Breath, (Reported) Lorazepam* (Ativan*), 1 MG ORAL Q6HR PRN for prn, (Reported) Nitroglycerin (Nitroglycerin), 0.4 MG SL Q5M X 3 DOSES PRN for CHEST PAIN AND NOTIFY MD, (Reported) Ondansetron* (Zofran*), 4 MG ORAL Q6H PRN for Nausea & Vomiting, (Reported) Phenazopyridine Hcl* (Pyridium*), 100 MG ORAL DAILY PRN for prn, (Reported) Polyethylene Glycol 3350* (Miralax*), 17 GM ORAL BEDTIME PRN for CONSTIPATION, ( Reported) Polyethylene Glycol 3350* (Miralax*), 17 GM ORAL DAILY PRN for prn, (Reported) Temazepam (Temazepam*), 15 MG ORAL BEDTIME PRN for INSOMNIA, (Reported) Miscellaneous Medications Calcium Carbonate (Calcium Carbonate), 200 MG PO, (Reported) Dextran 70/Hypromellose (Artificial Tears), 1 EACH OP, (Reported) Loperamide HCl (Loperamide), 2 MG ORAL, (Reported) Menthol (Bengay), 113 GM TP, (Reported) Saw [place] Xt/Phytosterol #2 (Prostate Sr Softgel), 1 EACH PO, (Reported) Patient History Healthcare decision maker Resuscitation status Full Code Advanced Directive on File Physical Exam Last 24 Hour Vital Signs Date Time Temp Pulse Resp B/P (MAP) Pulse Ox O2 Delivery O2 Flow Rate FiO2 11/04/18 16:00 99.1 53 17 102/56 (71) 96 11/04/18 12:00 98.8 51 17 104/61 (75) 96 11/04/18 11:37 98.5 11/04/18 09:00 Room Air 11/04/18 08:00 98.5 60 14 124/64 (84) 96 11/04/18 04:00 97.8 52 16 108/62 (77) 94 3/15/19 02:13 Room Air 11/04/18 01:31 97.2 59 16 134/82 (99) 98 11/04/18 00:50 98.4 60 16 149/98 99 Room Air 11/03/18 21:45 97.5 60 18 120/72 96 Room Air 11/03/18 21:43 97.5 60 18 120/72 96 Room Air Intake and Output 11/03/18 11/04/18 19:00 07:00 Intake Total 240 ml Balance 240 ml Intake Oral 240 ml # Voids 2 # Bowel Movements 1 Laboratory Tests Test 11/03/18 22:10 11/04/18 06:17 White Blood Count 6.4 K/UL (4.8-10.8) 5.4 K/UL (4.8-10.8) Red Blood Count 4.62 M/UL (4.70-6.10) L 4.48 M/UL (4.70-6.10) L Hemoglobin 14.1 G/DL (14.2-18.0) L 13.8 G/DL (14.2-18.0) L Hematocrit 41.8 % (42.0-52.0) L 40.9 % (42.0-52.0) L Mean Corpuscular Volume 90 FL (80-99) 91 FL (80-99) Mean Corpuscular Hemoglobin 30.4 PG (27.0-31.0) 30.7 PG (27.0-31.0) Mean Corpuscular Hemoglobin Concent 33.7 G/DL (32.0-36.0) 33.6 G/DL (32.0-36.0) Red Cell Distribution Width 11.9 % (11.6-14.8) 12.4 % (11.6-14.8) Platelet Count 272 K/UL (150-450) 255 K/UL (150-450) Mean Platelet Volume 5.7 FL (6.5-10.1) L 6.6 FL (6.5-10.1) Neutrophils (%) (Auto) 61.5 % (45.0-75.0) 59.9 % (45.0-75.0) Lymphocytes (%) (Auto) 20.9 % (20.0-45.0) 22.7 % (20.0-45.0) Monocytes (%) (Auto) 14.0 % (1.0-10.0) H 12.8 % (1.0-10.0) H Eosinophils (%) (Auto) 2.1 % (0.0-3.0) 3.1 % (0.0-3.0) H Basophils (%) (Auto) 1.6 % (0.0-2.0) 1.5 % (0.0-2.0) Prothrombin Time 33.7 SEC (9.30-11.50) H 25.7 SEC (9.30-11.50) H Prothromb Time International Ratio 3.4 (0.9-1.1) H 2.6 (0.9-1.1) H Activated Partial Thromboplast Time 45 SEC (23-33) H Sodium Level 138 MMOL/L (136-145) 139 MMOL/L (136-145) Potassium Level 4.1 MMOL/L (3.5-5.1) 3.9 MMOL/L (3.5-5.1) Chloride Level 104 MMOL/L (98-107) 106 MMOL/L (98-107) Carbon Dioxide Level 31 MMOL/L (21-32) 30 MMOL/L (21-32) Anion Gap 3 mmol/L (5-15) L 3 mmol/L (5-15) L Blood Urea Nitrogen 14 mg/dL (7-18) 14 mg/dL (7-18) Creatinine 1.0 MG/DL (0.55-1.30) 0.9 MG/DL (0.55-1.30) Estimat Glomerular Filtration Rate mL/min (>60) mL/min (>60) Glucose Level 88 MG/DL (74-106) 82 MG/DL (74-106) Calcium Level 9.4 MG/DL (8.5-10.1) 9.1 MG/DL (8.5-10.1) Total Bilirubin 0.5 MG/DL (0.2-1.0) Aspartate Amino Transf (AST/SGOT) 22 U/L (15-37) Alanine Aminotransferase (ALT/SGPT) 24 U/L (12-78) Alkaline Phosphatase 64 U/L (46-116) Troponin I 0.000 ng/mL (0.000-0.056) Total Protein 7.8 G/DL (6.4-8.2) Albumin 4.0 G/DL (3.4-5.0) Globulin 3.8 g/dL Albumin/Globulin Ratio 1.1 (1.0-2.7) Thyroid Stimulating Hormone (TSH) 2.390 uiU/mL (0.358-3.740) Height (Feet): 6 Height (Inches): 0.00 Weight (Pounds): 168 Medications Current Medications Medications (Trade) Dose Ordered Sig/Vadim Route PRN Reason Start Time Stop Time Status Last Admin Dose Admin Acetaminophen (Tylenol) 650 mg Q4H PRN ORAL Mild Pain/Temp > 100.5 11/04/18 10:45 12/04/18 10:44 11/04/18 11:07 Acetaminophen/ Hydrocodone Bitart ([place] 5/325) 1 tab Q8H PRN ORAL Severe Pain (Pain Scale 7-10) 11/04/18 06:45 11/11/18 06:44 Artificial Tears ([place]-Tears) 1 drop BID BOTH EYES 11/04/18 11:00 12/04/18 10:59 11/04/18 11:03 Ascorbic Acid (Vitamin C) 500 mg TWICE A DAY ORAL 11/04/18 09:00 12/04/18 08:59 11/04/18 09:41 Aspirin (Ecotrin) 81 mg DAILY ORAL 11/04/18 09:00 12/04/18 08:59 11/04/18 09:41 Clonazepam (KlonoPIN) 0.5 mg TID ORAL 11/04/18 09:00 11/11/18 08:59 11/04/18 14:03 Dextrose/Sodium Chloride 1,000 ml @ 60 mls/hr [id number] IV 11/04/18 04:30 12/04/18 04:29 11/04/18 06:23 Escitalopram Oxalate (Lexapro) 10 mg DAILY ORAL 11/04/18 09:00 12/04/18 08:59 11/04/18 09:40 Finasteride (Proscar) 5 mg DAILY ORAL 11/04/18 09:00 12/04/18 08:59 11/04/18 09:41 Fluticasone Propionate (Flonase) 1 spray DAILY NASAL 11/04/18 09:00 12/04/18 08:59 11/04/18 09:56 Gabapentin (Neurontin) 300 mg THREE TIMES A DAY ORAL 11/04/18 09:00 12/04/18 08:59 11/04/18 14:04 Ibuprofen (Advil) 600 mg Q8H PRN ORAL Pain Scale (3-5) 11/04/18 12:45 12/04/18 04:44 Lorazepam (Ativan) 1 mg Q6H PRN ORAL For Anxiety 11/04/18 06:45 11/11/18 06:44 Magnesium Hydroxide (Mom) 30 ml DAILY PRN ORAL Constipation 11/04/18 07:00 12/04/18 05:59 Montelukast Sodium (Singulair) 10 mg DAILY ORAL 11/04/18 09:00 12/04/18 08:59 11/04/18 09:41 Multivitamins Therapeutic (Therapeutic Multivitamin) 1 ea DAILY ORAL 11/04/18 09:00 12/04/18 08:59 11/04/18 09:41 Nitroglycerin (Ntg) 0.4 mg ADJUST PER PROTOCOL PRN SL CHEST PAIN AND NOTIFY MD 11/04/18 04:45 12/04/18 04:44 Sennosides (Senokot) 17.2 mg DAILY ORAL 11/04/18 09:00 12/04/18 08:59 11/04/18 09:41 Tamsulosin HCl (Flomax) 0.4 mg DAILY ORAL 11/04/18 09:00 12/04/18 08:59 11/04/18 09:41 Assessment/Plan Assessment/Plan Hematology Oncology Consultation REQ MD: Gurdeep Islas Chief Complaint: Abnormal Labs RFC: DVT and coagulopathy DOS: 11/04/18 HPI Patient is a 72-year-old male sent in by primary care physician for elevated INR. Patient had prior history of anticoagulant use. Patient was noted to have INR greater than 5.Patient prior history of DVT as well as prior stroke with left-sided weakness. He was noted to have persistent elevated INR despite holding his Coumadin. Patient was noted to have some prior generalized weakness to his left upper and lower extremities. He had stated he had prior CVA. He denies prior history of atrial fibrillation. Allergies: Uncoded Allergies: Coconut (Allergy, Intermediate, Hives, 08/07/15) Patient History Reviewed Nursing Documentation: PMH: Agreed; PSxH: Agreed Nursing Documentation-PMH Hx Cardiac Problems: No Hx Hypertension: Yes Hx Cancer: No Hx Gastrointestinal Problems: Yes - GERD Hx Neurological Problems: No Hx Cerebrovascular Accident: Yes - CVA Hx Dizziness: Yes Hx Headaches: Yes Hx Weakness: Yes Review of Systems All Other Systems: negative except mentioned in HPI Physical Exam Vital Signs Date Time Temp Pulse Resp B/P (MAP) Pulse Ox O2 Delivery O2 Flow Rate FiO2 11/03/18 21:43 97.5 60 18 120/72 96 Room Air ROS: Constitutional: No fever, no chills, no night sweats, no fatigue Skin: No rashes, lumps, itchiness, dryness HEENT: No AVILA, ear ache, visual changes, double vision, nosebleeds, sore throat, lumps, swollen glands Breasts: No lumps, pain, discharge Pulmonary: No cough, sputum, shortness of breath, coughing up blood, hemoptysis Cardiovascular: No chest pain, tightness, palpitations, syncope, claudication, orthopnea, PND GI: No nausea, vomiting, diarrhea, melena, hematochezia, change in appetite, abdominal pain : No dysuria, frequency, urgency, urinary incontinence, foamy urine Musculoskeletal: No joint swelling or muscle pain, trauma, back pain Neurologic: No dizziness, fainting, seizures, changes in smell or taste Psychiatric: No nervousness, stress, or depression, anxiety, hallucinations Endocrine: No weight change, heat or cold intolerance, tremor, insomnia Physical Exam General Appearance: A+O x3, NAD HEENT: normocephalic, atraumatic Neck: non-tender, normal alignment Respiratory/Chest: chest wall non-tender, lungs clear Cardiovascular/Chest: normal peripheral pulses, normal rate Abdomen: normal bowel sounds, non tender Extremities: normal range of motion Labs Test 11/03/18 22:10 White Blood Count 6.4 K/UL (4.8-10.8) Red Blood Count 4.62 M/UL (4.70-6.10) Hemoglobin 14.1 G/DL (14.2-18.0) Hematocrit 41.8 % (42.0-52.0) Mean Corpuscular Volume 90 FL (80-99) Mean Corpuscular Hemoglobin 30.4 PG (27.0-31.0) Mean Corpuscular Hemoglobin Concent 33.7 G/DL (32.0-36.0) Red Cell Distribution Width 11.9 % (11.6-14.8) Platelet Count 272 K/UL (150-450) Mean Platelet Volume 5.7 FL (6.5-10.1) Neutrophils (%) (Auto) 61.5 % (45.0-75.0) Lymphocytes (%) (Auto) 20.9 % (20.0-45.0) Monocytes (%) (Auto) 14.0 % (1.0-10.0) Eosinophils (%) (Auto) 2.1 % (0.0-3.0) Basophils (%) (Auto) 1.6 % (0.0-2.0) Prothrombin Time 33.7 SEC (9.30-11.50) Prothromb Time International Ratio 3.4 (0.9-1.1) Activated Partial Thromboplast Time 45 SEC (23-33) Sodium Level 138 MMOL/L (136-145) Potassium Level 4.1 MMOL/L (3.5-5.1) Chloride Level 104 MMOL/L (98-107) Carbon Dioxide Level 31 MMOL/L (21-32) Anion Gap 3 mmol/L (5-15) Blood Urea Nitrogen 14 mg/dL (7-18) Creatinine 1.0 MG/DL (0.55-1.30) Estimat Glomerular Filtration Rate mL/min (>60) Glucose Level 88 MG/DL (74-106) Calcium Level 9.4 MG/DL (8.5-10.1) Total Bilirubin 0.5 MG/DL (0.2-1.0) Aspartate Amino Transf (AST/SGOT) 22 U/L (15-37) Alanine Aminotransferase (ALT/SGPT) 24 U/L (12-78) Alkaline Phosphatase 64 U/L (46-116) Troponin I 0.000 ng/mL (0.000-0.056) Total Protein 7.8 G/DL (6.4-8.2) Albumin 4.0 G/DL (3.4-5.0) Globulin 3.8 g/dL Albumin/Globulin Ratio 1.1 (1.0-2.7) Thyroid Stimulating Hormone (TSH) 2.390 uiU/mL (0.358-3.740) Assessment and Recs #. Supertherapeutic INR -- presents with Coagulopathy due to underlying use of Coumadin, INR >5, but most likely is due to patient not taking the right dose of coumadin, as in the past I have seen him and he has been subtherapeutic --> likely the patient is supratherapeutic, recommend decreasing the dose to decrease INR. per pharmacy dosing --> Continue to closely monitor VITK and FFP if doesn't improve --> Will need to have INR between 2 and 3 #. Pulmonary embolism. --> Maintain INR between 2 and 3. --> Monitor closely, INR currently at 2.4 #. Leukocytosis, likely due to infection and sepsis. --> On antibiotics, ID following. --> Monitor closely. --> Resolved. #. Urinary tract infection and sepsis. --> historical, review cultures and imaging --> He has been seen by Infectious Disease Service. #. Cerebrovascular accident history with left-sided hemiplegia. #. Benign prostatic hypertrophy. Closely monitor. Greatly appreciate consultation! Aren Morgan MD Nov 04, 2018 16:43
--- NOTE | 2018-11-04 17:00 | Consultation ---
DATE OF CONSULTATION: 11/04/2018 CONSULTING PHYSICIAN: Eleni Winston M.D. HISTORY OF PRESENT ILLNESS: This is a 72-year-old male patient who has coagulopathy, hypertension, GERD, BPH, but he was also complaining of high levels of anxiety and mood lability worsened by stress of his medical illness. That is why, his attending has requested daily psychiatric consultation. I saw and assessed this patient in his room today. He states he has multiple panic attacks of anxiety. It is very severe and difficult for him to control. MEDICAL PROBLEMS: He has a history of hypertension, GERD, BPH. ALLERGIES: No known drug allergies. MEDICATIONS: Psychotropic medications on admission, normally takes Klonopin 0.5 mg 3 times a day, Ativan 1 mg every 6 hours p.r.n. He also takes Lexapro 10 mg daily. SUBSTANCE ABUSE HISTORY: Denies drug and alcohol use. PAIN ASSESSMENT: 10/30 pain. DEVELOPMENTAL PROBLEMS: Denies. SOCIAL HISTORY: This patient is currently living at [facility]. Financially supported by [facility] and Medicare. PSYCHIATRIC HISTORY: Major depressive disorder, mild, recurrent, rule out generalized anxiety disorder. STRENGTHS: He is motivated to get better. He is healthy. WEAKNESSES: He is impulsive and no support system. MENTAL STATUS EXAMINATION: This is a 72-year-old male. Appearance is disheveled. Attitude, irritable and agitated. Affect, guarded and restricted. Intellect poor. Mood depressed and anxious. Motor activity, psychomotor agitation. Attention span is poor. Orientation x2. Speech is low, volume slow. Thought process, disorganized and illogical. Insight and judgment is poor. DIAGNOSES: 1. Major depressive disorder, severe, recurrent without psychotic features. 2. Medical includes coagulopathy, hypertension, GERD, BPH. 3. Psychosocial stressors, financial. 4. Functional impairment is moderate. PLAN: My plan for this patient is add Lexapro 10 mg daily to reduce depression, anxiety and also Neurontin 300 mg 3 times a day for thoughts to help him with reduction of anxiety in addition to the Klonopin 0.5 mg 3 times a day and Ativan 1 every 6 hours p.r.n. anxiety and agitation. Provide him with 20 minutes of reality-based supportive psychotherapy. Chart reviewed. Discussed with staff. 20 minutes of cognitive behavioral therapy session for the patient to identify his automatic negative thoughts help him convert those negative thoughts to more positive thinking to reduce depression, anxiety, mood lability, and help him have more adaptive behavior pattern. Thank you, Dr. Jaime Mackenzie, for this interesting consultation. Eleni Winston M.D. DR: DAYNA JOB#: [id number] CC:
--- NOTE | 2018-11-04 19:49 | NUR ---
NURSE NOTES: Pt is in bed, awake and alert. No acute distress noted. D5 1/2 NS running at 60ml/hr. Bed low in position,side rails up and call light within reach.
--- NOTE | 2018-11-04 19:54 | NUR ---
HAND-OFF: Report given to RN RICHELLE.
[2018-11-04 20:00] VITALS: BP 93/64
--- NOTE | 2018-11-04 20:15 | History and Physical Report ---
DATE OF ADMISSION: 11/03/2018 CONSULTANTS: 1. Ancelmo Ghosh M.D. 2. Aren Morgan M.D. 3. Eleni Winston M.D. CHIEF COMPLAINT: Hyper-anticoagulable anxiety. BRIEF HISTORY: This is a 72-year-old male from [facility] presents with hyper-anticoagulable. Over the past 3 days, his INR has increased from 4 to 4.5 to 5 despite holding Coumadin. The patient became very anxious insisting on coming to [place], diagnosed with the above, and admitted to medical floor for further treatment. Currently, feeling better, in bed. No complaints. REVIEW OF SYSTEMS: No chest pain. No shortness of breath. No nausea, vomiting, or diarrhea. PAST MEDICAL HISTORY: Cerebrovascular accident with left-sided weakness, anxiety, gastroesophageal reflux disease, chronic obstructive pulmonary disease, and hypertension. PAST SURGICAL HISTORY: None. MEDICATIONS: Advil, ascorbic acid, aspirin, clonazepam, finasteride, fluticasone, montelukast, tamsulosin, and gabapentin. ALLERGIES: None. SOCIAL HISTORY: No smoking. No alcohol. No intravenous drug abuse. FAMILY HISTORY: Noncontributory. PHYSICAL EXAMINATION: GENERAL: Calm in bed, oriented x3, and in no acute distress. VITAL SIGNS: Temperature is 98 degrees, pulse 51, respirations 17, and blood pressure 104/61. CARDIOVASCULAR: No murmurs. LUNGS: Distant and clear. ABDOMEN: Bowel sounds positive. Nontender. Nondistended. EXTREMITIES: No cyanosis, clubbing, or edema. NEUROLOGIC: The patient moves all extremities, slightly weak. LABORATORY AND DIAGNOSTIC DATA: Labs, at this time, show hemoglobin 13.8, otherwise CBC is normal. BMP is normal. INR is 2.6 today and PTT is 45. ASSESSMENT: 1. Hyper-anticoagulable anxiety. 2. Gastroesophageal reflux disease. 3. Chronic obstructive pulmonary disease. 4. Cerebrovascular accident with left-sided weakness. 5. Hypertension. PLAN: 1. Titrate INR. 2. Blood pressure control. 3. PT and dietary evaluation. 4. Resume home medications. 5. CBC and BMP in the morning. 6. We will continue to follow this patient. Jaime Mackenzie D.O. DR: CARON JOB#: [id number] CC:
[2018-11-05] VITALS: BP 94/54
[2018-11-05 04:00] VITALS: BP 106/58
[2018-11-05 07:13] LABS: BASOPHILS % (AUTO) 1.3 % (0.0-2.0); EOSINOPHILS % (AUTO) 2.5 % (0.0-3.0); HEMATOCRIT 40.5 % (42.0-52.0); HEMOGLOBIN 13.4 G/DL (14.2-18.0); LYMPHOCYTES % (AUTO) 19.3 % (20.0-45.0); MEAN CORPUSCULAR VOLUME 92 FL (80-99); MONOCYTES % (AUTO) 13.5 % (1.0-10.0); NEUTROPHILS % (AUTO) 63.4 % (45.0-75.0); PLATELET COUNT 237 K/UL (150-450); RED BLOOD COUNT 4.42 M/UL (4.70-6.10); RED CELL DISTRIBUTION WIDTH 12.7 % (11.6-14.8); WHITE BLOOD COUNT 6.7 K/UL (4.8-10.8)
[2018-11-05 07:22] LABS: ANION GAP 4 mmol/L (5-15); BLOOD UREA NITROGEN 11 mg/dL (7-18); CALCIUM 8.5 MG/DL (8.5-10.1); CARBON DIOXIDE 28 MMOL/L (21-32); CHLORIDE 106 MMOL/L (98-107); CREATININE 0.8 MG/DL (0.55-1.30); POTASSIUM 3.8 MMOL/L (3.5-5.1); SODIUM 138 MMOL/L (136-145)
--- NOTE | 2018-11-05 07:30 | NUR ---
HAND-OFF: Report given to Leesa Romero RN.
[2018-11-05 08:00] VITALS: BP 111/67
--- NOTE | 2018-11-05 08:17 | NUR ---
NURSE NOTES: Pt eating breakfast. Able to verbalize known needs. Current plan of care will be followed
--- NOTE | 2018-11-05 08:29 | General Progress Note ---
Assessment/Plan Problem List: (1) Anxiety ICD Codes: F41.9 - Anxiety disorder, unspecified SNOMED: 94407130 (2) GERD (gastroesophageal reflux disease) ICD Codes: K21.9 - Gastro-esophageal reflux disease without esophagitis SNOMED: 288812391 (3) HTN (hypertension) ICD Codes: I10 - Essential (primary) hypertension SNOMED: 22752458 (4) Cerebrovascular accident (CVA) ICD Codes: I63.9 - Cerebral infarction, unspecified SNOMED: 757917336 (5) Supratherapeutic INR ICD Codes: R79.1 - Abnormal coagulation profile SNOMED: 296368082 Status: stable, progressing Assessment/Plan pt diet psyc tx heme f/u cbc bmp am Subjective Constitutional: Reports: weakness Allergies: Uncoded Allergies: Coconut (Allergy, Intermediate, Hives, 08/07/15) All Systems: reviewed and negative except above Subjective sl anxious, no bleeding or bruizing Objective Last 24 Hour Vital Signs Date Time Temp Pulse Resp B/P (MAP) Pulse Ox O2 Delivery O2 Flow Rate FiO2 11/05/18 04:00 98.3 74 18 106/58 (74) 98 11/05/18 00:00 98.6 62 18 94/54 (67) 96 11/04/18 21:00 Room Air 11/04/18 20:00 99.1 60 18 93/64 (74) 96 11/04/18 16:00 99.1 53 17 102/56 (71) 96 11/04/18 12:00 98.8 51 17 104/61 (75) 96 11/04/18 11:37 98.5 11/04/18 09:00 Room Air Intake and Output 11/04/18 11/05/18 19:00 07:00 Intake Total 1200 ml 720 ml Output Total 650 ml 600 ml Balance 550 ml 120 ml Intake Oral 480 ml IV Total 720 ml 720 ml Output Urine Total 650 ml 600 ml # Bowel Movements 1 Laboratory Tests 11/05/18 06:35: White Blood Count 6.7, Red Blood Count 4.42L, Hemoglobin 13.4L, Hematocrit 40.5L , Mean Corpuscular Volume 92, Mean Corpuscular Hemoglobin 30.3, Mean Corpuscular Hemoglobin Concent 33.1, Red Cell Distribution Width 12.7, Platelet Count 237, Mean Platelet Volume 6.8, Neutrophils (%) (Auto) 63.4, Lymphocytes (% ) (Auto) 19.3L, Monocytes (%) (Auto) 13.5H, Eosinophils (%) (Auto) 2.5, Basophils (%) (Auto) 1.3, Sodium Level 138, Potassium Level 3.8, Chloride Level 106, Carbon Dioxide Level 28, Anion Gap 4L, Blood Urea Nitrogen 11, Creatinine 0.8, Estimat Glomerular Filtration Rate , Glucose Level 88, Calcium Level 8.5 Height (Feet): 6 Height (Inches): 0.00 Weight (Pounds): 168 General Appearance: lethargic EENT: normal ENT inspection Neck: normal alignment Cardiovascular: normal peripheral pulses, normal rate, regular rhythm Respiratory/Chest: chest wall non-tender, lungs clear, normal breath sounds Abdomen: normal bowel sounds, non tender, soft Extremities: normal inspection Edema: no edema noted Arm (L), no edema noted Arm (R), no edema noted Leg (L), no edema noted Leg (R), no edema noted Pedal (L), no edema noted Pedal (R), no edema noted Generalized Neurologic: responsive, motor weakness Skin: normal pigmentation, warm/dry Jaime Mackenzie DO Nov 05, 2018 08:29
[2018-11-05] MEDS: Artificial Tears 1.4% Op Soln BOTH EYES SCH ×2 (09:36→17:13)
[2018-11-05] MEDS: clonazePAM 0.5mg tab ORAL SCH ×3 (09:36→17:13)
[2018-11-05] MEDS: Flonase Nasal Inhaler 16gm NASAL SCH (09:36)
[2018-11-05] MEDS: Multivitamin w/Minerals tab ORAL SCH (09:37)
[2018-11-05] MEDS: Montelukast 10mg tablet ORAL SCH (09:37)
[2018-11-05] MEDS: Ascorbic Acid 500mg tab ORAL SCH ×2 (09:37→17:13)
[2018-11-05] MEDS: Sennosides 8.6mg tab ORAL SCH (09:37)
[2018-11-05] MEDS: Tamsulosin 0.4mg cap ORAL SCH (09:37)
[2018-11-05] MEDS: Aspirin EC 81mg tab ORAL SCH (09:38)
[2018-11-05 10:29] LABS: INR 1.4 (0.9-1.1)
[2018-11-05 12:00] VITALS: BP 110/59
[2018-11-05] MEDS: D5 1/2NS 1,000 ML IV SCH (12:53)
[2018-11-05] MEDS ORDERED: D5 1/2NS 1000ml IV ONE ×2 (15:47→15:56)
[2018-11-05 16:00] VITALS: BP 112/62
--- NOTE | 2018-11-05 17:22 | Pulmonology Progress Note ---
Assessment/Plan Problems: (1) Coagulopathy (2) COPD (chronic obstructive pulmonary disease) (3) Cerebrovascular accident (CVA) (4) BPH (benign prostatic hyperplasia) (5) HTN (hypertension) (6) GERD (gastroesophageal reflux disease) (7) Anxiety Assessment/Plan feeling better monitor BP check INR check electroltyes titrate fio2 to sat of 92% Subjective ROS Limited/Unobtainable: No Constitutional: Reports: no symptoms Allergies: Uncoded Allergies: Coconut (Allergy, Intermediate, Hives, 08/07/15) Objective Last 24 Hour Vital Signs Date Time Temp Pulse Resp B/P (MAP) Pulse Ox O2 Delivery O2 Flow Rate FiO2 11/05/18 16:00 98.0 77 18 112/62 (79) 98 11/05/18 12:00 98.6 61 16 110/59 (76) 95 11/05/18 09:00 Room Air 11/05/18 08:00 98.2 78 16 111/67 (82) 97 11/05/18 04:00 98.3 74 18 106/58 (74) 98 11/05/18 00:00 98.6 62 18 94/54 (67) 96 11/04/18 21:00 Room Air 11/04/18 20:00 99.1 60 18 93/64 (74) 96 Intake and Output 11/04/18 11/05/18 19:00 07:00 Intake Total 1200 ml 720 ml Output Total 650 ml 600 ml Balance 550 ml 120 ml Intake Oral 480 ml IV Total 720 ml 720 ml Output Urine Total 650 ml 600 ml # Bowel Movements 1 General Appearance: WD/WN HEENT: normocephalic, atraumatic Respiratory/Chest: chest wall non-tender, lungs clear Cardiovascular: normal peripheral pulses, normal rate Abdomen: normal bowel sounds, soft, non tender, no organomegaly Genitourinary: normal external genitalia Extremities: no clubbing 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 normal Lymphatic: no neck adenopathy Musculoskeletal: normal muscle bulk Laboratory Tests 11/05/18 06:35: White Blood Count 6.7, Red Blood Count 4.42L, Hemoglobin 13.4L, Hematocrit 40.5L , Mean Corpuscular Volume 92, Mean Corpuscular Hemoglobin 30.3, Mean Corpuscular Hemoglobin Concent 33.1, Red Cell Distribution Width 12.7, Platelet Count 237, Mean Platelet Volume 6.8, Neutrophils (%) (Auto) 63.4, Lymphocytes (% ) (Auto) 19.3L, Monocytes (%) (Auto) 13.5H, Eosinophils (%) (Auto) 2.5, Basophils (%) (Auto) 1.3, Sodium Level 138, Potassium Level 3.8, Chloride Level 106, Carbon Dioxide Level 28, Anion Gap 4L, Blood Urea Nitrogen 11, Creatinine 0.8, Estimat Glomerular Filtration Rate , Glucose Level 88, Calcium Level 8.5 11/05/18 09:30: Prothrombin Time 14.2H, Prothromb Time International Ratio 1.4H Current Medications Medications (Trade) Dose Ordered Sig/Vadim Route PRN Reason Start Time Stop Time Status Last Admin Dose Admin Acetaminophen (Tylenol) 650 mg Q4H PRN ORAL Mild Pain/Temp > 100.5 11/04/18 10:45 12/04/18 10:44 11/05/18 10:41 Acetaminophen/ Hydrocodone Bitart (Golconda 5/325) 1 tab Q8H PRN ORAL Severe Pain (Pain Scale 7-10) 11/04/18 06:45 11/11/18 06:44 Artificial Tears (Akwa-Tears) 1 drop BID BOTH EYES 11/04/18 11:00 12/04/18 10:59 11/05/18 17:13 Ascorbic Acid (Vitamin C) 500 mg TWICE A DAY ORAL 11/04/18 09:00 12/04/18 08:59 11/05/18 17:13 Aspirin (ASA) 81 mg DAILY GT 11/06/18 09:00 12/04/18 08:59 Clonazepam (KlonoPIN) 0.5 mg TID ORAL 11/04/18 09:00 11/11/18 08:59 11/05/18 17:13 Dextrose/Sodium Chloride 1,000 ml @ 60 mls/hr [id number] IV 11/04/18 04:30 12/04/18 04:29 11/05/18 12:53 Escitalopram Oxalate (Lexapro) 10 mg DAILY ORAL 11/04/18 09:00 12/04/18 08:59 11/05/18 09:36 Finasteride (Proscar) 5 mg DAILY ORAL 11/04/18 09:00 12/04/18 08:59 11/05/18 09:38 Fluticasone Propionate (Flonase) 1 spray DAILY NASAL 11/04/18 09:00 12/04/18 08:59 11/05/18 09:36 Gabapentin (Neurontin) 300 mg THREE TIMES A DAY ORAL 11/04/18 09:00 12/04/18 08:59 11/05/18 17:13 Ibuprofen (Advil) 600 mg Q8H PRN ORAL Pain Scale (3-5) 11/04/18 12:45 12/04/18 04:44 Lorazepam (Ativan) 1 mg Q6H PRN ORAL For Anxiety 11/04/18 06:45 11/11/18 06:44 Magnesium Hydroxide (Mom) 30 ml DAILY PRN ORAL Constipation 11/04/18 07:00 12/04/18 05:59 Montelukast Sodium (Singulair) 10 mg DAILY ORAL 11/04/18 09:00 12/04/18 08:59 11/05/18 09:37 Multivitamins Therapeutic (Therapeutic Multivitamin) 1 ea DAILY ORAL 11/04/18 09:00 12/04/18 08:59 11/05/18 09:37 Nitroglycerin (Ntg) 0.4 mg ADJUST PER PROTOCOL PRN SL CHEST PAIN AND NOTIFY 11/04/18 04:45 12/04/18 04:44 Sennosides (Senokot) 17.2 mg DAILY ORAL 11/04/18 09:00 12/04/18 08:59 11/05/18 09:37 Tamsulosin HCl (Flomax) 0.4 mg DAILY ORAL 11/04/18 09:00 12/04/18 08:59 11/05/18 09:37 Ancelmo Ghosh MD Nov 05, 2018 17:22
--- NOTE | 2018-11-05 19:30 | NUR ---
NURSE NOTES: Received patient on bed awake, no s/s of any distress, IV line intact with IV fluids running well.Bed in low position and locked, call light within reach, will continue to monitor.
[2018-11-05 20:00] VITALS: BP 103/53
--- NOTE | 2018-11-05 20:15 | Progress Note ---
DATE: 11/05/2018 NOTE: "POOR AUDIO QUALITY" SUBJECTIVE: The patient is a 72-year-old male with coagulopathy and possible Coumadin overdose. Very confused and disorganized male patient anxious, depressed, irritable. MENTAL STATUS EXAMINATION: A 72-year-old male. Appearance is disheveled. Attitude, irritable and agitated. Affect, guarded and restricted. Intellect poor. Mood, depressed and anxious. Motor activity, psychomotor agitation. Attention span is poor. Orientation x2. Speech is low volume and slurred. Thought process, disorganized and illogical. Insight and judgment is poor. DIAGNOSIS: Major depressive disorder, mild, recurrent with psychotic features, rule out bipolar 2. PLAN: Continue treating this patient with medications to reduce anxiety, depression, and mood lability. Provided him with 20 minutes of cognitive behavioral therapy to help him identify his automatic negative thoughts and to help him convert those negative thoughts to more positive thoughts to reduce depression, anxiety, and suicidality. Chart was reviewed. Discussed with staff. Seen and assessed in his room. Eleni Winston M.D. DR: Daniel JOB#: [id number] CC:
[2018-11-06] VITALS: BP 99/55
[2018-11-06 04:00] VITALS: BP 100/60
--- NOTE | 2018-11-06 04:15 | Consultation ---
DATE OF CONSULTATION: 11/05/2018 NOTE: POOR AUDIO. ATTENDING PHYSICIAN: Jaime Mackenzie D.O. HISTORY OF PRESENT ILLNESS: The patient is a 72-year-old male patient. This patient is from nursing facility. He was brought into the hospital with hyperanticoagulable disorder. He became very anxious. For these reasons, he was referred for psychotherapeutic services. The clinician assessed this patient. The patient states that he has been feeling anxious and restless. He was complaining of agitation and irritability. He states that he becomes very frustrated quickly. He is very confused, disorganized, difficult to redirect. Denies suicidal or homicidal thoughts of ideation. Denies auditory or visual hallucinations. The patient was complaining of severe anxiety. He states sometimes his anxiety becomes intolerable and he takes medications for this to reduce his anxiety and he has been regimen. PAST MEDICAL HISTORY: Includes a history of cerebrovascular accident with left-sided weakness, anxiety, gastroesophageal reflux, COPD, and hypertension. ALLERGIES: The patient has no known drug allergies. SUBSTANCE ABUSE HISTORY: The patient denies history of alcohol use, illicit substance use, or smoking cigarettes. PSYCHIATRIC HISTORY: The patient states that he has a significant history of anxiety and possible depression. He states that he has been depressed as well. However, he does not know if he has been treated for depression, he cannot recall. SOCIAL HISTORY: The patient is a 72-year-old male. The patient went to . Financially sustained through [employer]. MENTAL STATUS EXAMINATION: The patient is alert and oriented to person and place. His mood is irritable. Affect is congruent. Thought process, disorganized. Thought content, confused. He has poor attention and concentration. Poor insight, judgment, and impulse control. This clinician assessed this patient reality orientation with improving cognitive functioning. The patient is confused and disoriented to person, place, time, and situation. Providing him with supportive psychotherapy, which provided for the patient emotional outlet and means to cope with emotional distress and address the patient's feelings of distress and anxiety and depression. Today, also provided the patient with cognitive behavioral therapy, which can help with the range of problems that may involve patterns of thinking or acting that ere problematic, addressing the patient's anxiety and restlessness. Today, discussing with rationale and reality-based thoughts that he states that he becomes very anxious and catastrophizes his current situation, then working on reducing his anxiety, providing with positive thinking strategies, positive coping skills and relaxation exercises. Encouraging the patient to participate in treatment as well as with medication regimen. Plans to maintain medication compliance with the progression of reality-based thoughts, discussing for positive coping skills, and stabilizing the thoughts and behavior.. DIAGNOSIS: Generalized anxiety disorder and major depressive disorder, moderate to severe without psychotic features. PLAN: This clinician has reviewed the patient's chart. Discussed the treatment with treatment team. psychotherapy was provided, 15 minutes. Reji Ricardo PsyD. DR: Yareli JOB#: [id number] CC:
[2018-11-06] MEDS: D5 1/2NS 1,000 ML IV SCH ×2 (05:29→21:17)
--- NOTE | 2018-11-06 07:33 | NUR ---
HAND-OFF: Report given to Leesa WATSON.
[2018-11-06 07:43] LABS: BASOPHILS % (AUTO) 0.9 % (0.0-2.0); EOSINOPHILS % (AUTO) 2.3 % (0.0-3.0); HEMATOCRIT 39.8 % (42.0-52.0); HEMOGLOBIN 13.2 G/DL (14.2-18.0); MEAN CORPUSCULAR VOLUME 91 FL (80-99); MONOCYTES % (AUTO) 12.7 % (1.0-10.0); NEUTROPHILS % (AUTO) 68.1 % (45.0-75.0); PLATELET COUNT 241 K/UL (150-450); RED BLOOD COUNT 4.37 M/UL (4.70-6.10); RED CELL DISTRIBUTION WIDTH 12.5 % (11.6-14.8); WHITE BLOOD COUNT 5.8 K/UL (4.8-10.8)
[2018-11-06 07:57] LABS: ANION GAP 6 mmol/L (5-15); BLOOD UREA NITROGEN 10 mg/dL (7-18); CALCIUM 8.4 MG/DL (8.5-10.1); CARBON DIOXIDE 27 MMOL/L (21-32); CHLORIDE 105 MMOL/L (98-107); CREATININE 0.8 MG/DL (0.55-1.30); POTASSIUM 3.6 MMOL/L (3.5-5.1); SODIUM 138 MMOL/L (136-145)
[2018-11-06 08:00] VITALS: BP 106/68
--- NOTE | 2018-11-06 08:07 | NUR ---
NURSE NOTES: Late entry 11/05/18 hand off given to Newton WATSON
--- NOTE | 2018-11-06 08:36 | General Progress Note ---
Assessment/Plan Problem List: (1) Anxiety ICD Codes: F41.9 - Anxiety disorder, unspecified SNOMED: 34766851 (2) GERD (gastroesophageal reflux disease) ICD Codes: K21.9 - Gastro-esophageal reflux disease without esophagitis SNOMED: 022089913 (3) HTN (hypertension) ICD Codes: I10 - Essential (primary) hypertension SNOMED: 31519748 (4) Cerebrovascular accident (CVA) ICD Codes: I63.9 - Cerebral infarction, unspecified SNOMED: 030365726 (5) Supratherapeutic INR ICD Codes: R79.1 - Abnormal coagulation profile SNOMED: 525299963 Status: stable, progressing Assessment/Plan pt diet psyc tx heme f/u cbc bmp am dc plan Subjective Constitutional: Reports: weakness Allergies: Uncoded Allergies: Coconut (Allergy, Intermediate, Hives, 08/07/15) All Systems: reviewed and negative except above Subjective sl anxious Objective Last 24 Hour Vital Signs Date Time Temp Pulse Resp B/P (MAP) Pulse Ox O2 Delivery O2 Flow Rate FiO2 11/06/18 04:00 98.6 60 16 100/60 (73) 94 11/06/18 00:00 98.2 53 18 99/55 (70) 93 11/05/18 21:00 Room Air 11/05/18 20:00 98.7 62 18 103/53 (70) 95 11/05/18 16:00 98.0 77 18 112/62 (79) 98 11/05/18 12:00 98.6 61 16 110/59 (76) 95 11/05/18 09:00 Room Air Intake and Output 11/05/18 11/06/18 19:00 07:00 Intake Total 710 ml Output Total 700 ml Balance 10 ml IV Total 60 ml Other 650 ml Output Urine Total 700 ml # Bowel Movements 1 Laboratory Tests 11/05/18 09:30: Prothrombin Time 14.2H, Prothromb Time International Ratio 1.4H 11/06/18 06:45: White Blood Count 5.8, Red Blood Count 4.37L, Hemoglobin 13.2L, Hematocrit 39.8L , Mean Corpuscular Volume 91, Mean Corpuscular Hemoglobin 30.3, Mean Corpuscular Hemoglobin Concent 33.2, Red Cell Distribution Width 12.5, Platelet Count 241, Mean Platelet Volume 6.6, Neutrophils (%) (Auto) 68.1, Lymphocytes (% ) (Auto) 16.0L, Monocytes (%) (Auto) 12.7H, Eosinophils (%) (Auto) 2.3, Basophils (%) (Auto) 0.9, Sodium Level 138, Potassium Level 3.6, Chloride Level 105, Carbon Dioxide Level 27, Anion Gap 6, Blood Urea Nitrogen 10, Creatinine 0.8, Estimat Glomerular Filtration Rate , Glucose Level 88, Calcium Level 8.4L Height (Feet): 6 Height (Inches): 0.00 Weight (Pounds): 168 General Appearance: lethargic EENT: normal ENT inspection Neck: normal alignment Cardiovascular: normal peripheral pulses, normal rate, regular rhythm Respiratory/Chest: chest wall non-tender, lungs clear, normal breath sounds Abdomen: normal bowel sounds, non tender, soft Extremities: normal inspection Edema: no edema noted Arm (L), no edema noted Arm (R), no edema noted Leg (L), no edema noted Leg (R), no edema noted Pedal (L), no edema noted Pedal (R), no edema noted Generalized Neurologic: motor weakness Skin: normal pigmentation, warm/dry Jaime Mackenzie DO Nov 06, 2018 08:36
--- NOTE | 2018-11-06 08:41 | NUR ---
NURSE NOTES: Current paln of care will be followed. Pt remains in stable condition
[2018-11-06] MEDS ORDERED: Aspirin Baby 81mg GT SCH (09:00)
[2018-11-06] MEDS: Sennosides 8.6mg tab ORAL SCH (09:12)
[2018-11-06] MEDS: Artificial Tears 1.4% Op Soln BOTH EYES SCH ×2 (09:13→17:24)
[2018-11-06] MEDS: Ascorbic Acid 500mg tab ORAL SCH ×2 (09:13→17:25)
[2018-11-06] MEDS: Tamsulosin 0.4mg cap ORAL SCH (09:13)
[2018-11-06] MEDS: clonazePAM 0.5mg tab ORAL SCH ×3 (09:13→17:24)
[2018-11-06] MEDS: Multivitamin w/Minerals tab ORAL SCH (09:13)
[2018-11-06] MEDS: Montelukast 10mg tablet ORAL SCH (09:13)
[2018-11-06] MEDS: Flonase Nasal Inhaler 16gm NASAL SCH (09:13)
--- NOTE | 2018-11-06 11:15 | NUR ---
PT Note Acknowledged order for physical therapy. Attempted to see patient for PT eval but patient states that he does not need or want any physical therapy. RN was notified.
[2018-11-06 12:00] VITALS: BP 110/65
--- NOTE | 2018-11-06 13:00 | Progress Note ---
DATE: 11/06/2018 SUBJECTIVE: The patient is a 72-year-old male with coagulopathy, Coumadin overdose. This patient has confusion, disorganized thought process, and mood lability, worsened by stress of his medical illness. That is why, his attending has requested daily psychiatric consultation for this patient. MENTAL STATUS EXAMINATION: This is a 72-year-old male. Appearance is disheveled. Attitude, irritable and agitated. Affect, guarded and restricted. Intellect poor. Mood, depressed and anxious. Motor activity, psychomotor agitation. Attention span is poor. Orientation x2. Speech is pressured. Thought process disorganized and illogical. Insight and judgment is poor. DIAGNOSIS: Bipolar 2, rule out schizoaffective, bipolar type. PLAN: Continue treatment with medications to stabilize his mood. Provided him with 20 minutes of reality-based supportive psychotherapy. I encouraged him to interact appropriate with staff and other patients. Chart reviewed. Discussed with staff. Seen and assessed in his room. Cognitive behavioral therapy for 20 minutes provided this patient negative thoughts and to help him convert his negative thoughts to more positive thoughts to reduce depression, anxiety, and suicidality. A 20 minutes to cognitive behavioral therapy provided. Eleni Winston M.D. DR: PARTHA JOB#: [id number] CC:
--- NOTE | 2018-11-06 14:37 | NUR ---
NURSE NOTES: Dr Mackenzie phoned in regards to route of ASA . Dr kennedy gave okay to clarify route to PO. Okay to keep order as baby asa chewable
[2018-11-06 16:00] VITALS: BP 110/65
--- NOTE | 2018-11-06 17:05 | Pulmonology Progress Note ---
Assessment/Plan Problems: (1) Coagulopathy (2) COPD (chronic obstructive pulmonary disease) (3) Cerebrovascular accident (CVA) (4) BPH (benign prostatic hyperplasia) (5) HTN (hypertension) (6) GERD (gastroesophageal reflux disease) (7) Anxiety Assessment/Plan feeling better monitor BP check INR check electroltyes titrate fio2 to sat of 92% Subjective ROS Limited/Unobtainable: No Constitutional: Reports: no symptoms HEENT: Repors: no symptoms Allergies: Uncoded Allergies: Coconut (Allergy, Intermediate, Hives, 08/07/15) Objective Last 24 Hour Vital Signs Date Time Temp Pulse Resp B/P (MAP) Pulse Ox O2 Delivery O2 Flow Rate FiO2 11/06/18 16:00 97.5 64 16 110/65 (80) 11/06/18 12:00 98.6 78 16 110/65 (80) 97 11/06/18 09:00 Room Air 11/06/18 08:00 98.5 62 16 106/68 (81) 97 11/06/18 04:00 98.6 60 16 100/60 (73) 94 11/06/18 00:00 98.2 53 18 99/55 (70) 93 11/05/18 21:00 Room Air 11/05/18 20:00 98.7 62 18 103/53 (70) 95 Intake and Output 11/05/18 11/06/18 19:00 07:00 Intake Total 600 ml 710 ml Output Total 700 ml Balance 600 ml 10 ml IV Total 600 ml 60 ml Other 650 ml Output Urine Total 700 ml # Bowel Movements 1 Objective General Appearance: WD/WN HEENT: normocephalic, atraumatic Respiratory/Chest: chest wall non-tender, normal breath sounds Breasts: no masses Cardiovascular: normal peripheral pulses Abdomen: soft, non tender, no organomegaly Genitourinary: normal external genitalia rash on left arm elbow Laboratory Tests 11/06/18 06:45: White Blood Count 5.8, Red Blood Count 4.37L, Hemoglobin 13.2L, Hematocrit 39.8L , Mean Corpuscular Volume 91, Mean Corpuscular Hemoglobin 30.3, Mean Corpuscular Hemoglobin Concent 33.2, Red Cell Distribution Width 12.5, Platelet Count 241, Mean Platelet Volume 6.6, Neutrophils (%) (Auto) 68.1, Lymphocytes (% ) (Auto) 16.0L, Monocytes (%) (Auto) 12.7H, Eosinophils (%) (Auto) 2.3, Basophils (%) (Auto) 0.9, Sodium Level 138, Potassium Level 3.6, Chloride Level 105, Carbon Dioxide Level 27, Anion Gap 6, Blood Urea Nitrogen 10, Creatinine 0.8, Estimat Glomerular Filtration Rate , Glucose Level 88, Calcium Level 8.4L Current Medications Medications (Trade) Dose Ordered Sig/Vadim Route PRN Reason Start Time Stop Time Status Last Admin Dose Admin Acetaminophen (Tylenol) 650 mg Q4H PRN ORAL Mild Pain/Temp > 100.5 11/04/18 10:45 12/04/18 10:44 11/06/18 13:57 Acetaminophen/ Hydrocodone Bitart ([place] 5/325) 1 tab Q8H PRN ORAL Severe Pain (Pain Scale 7-10) 11/04/18 06:45 11/11/18 06:44 Artificial Tears (Akwa-Tears) 1 drop BID BOTH EYES 11/04/18 11:00 12/04/18 10:59 11/06/18 09:13 Ascorbic Acid (Vitamin C) 500 mg TWICE A DAY ORAL 11/04/18 09:00 12/04/18 08:59 11/06/18 09:13 Aspirin (ASA) 81 mg DAILY ORAL 11/07/18 09:00 12/04/18 08:59 Clonazepam (KlonoPIN) 0.5 mg TID ORAL 11/04/18 09:00 11/11/18 08:59 11/06/18 13:56 Dextrose/Sodium Chloride 1,000 ml @ 60 mls/hr [id number] IV 11/04/18 04:30 12/04/18 04:29 11/06/18 05:29 Escitalopram Oxalate (Lexapro) 10 mg DAILY ORAL 11/04/18 09:00 12/04/18 08:59 11/06/18 09:13 Finasteride (Proscar) 5 mg DAILY ORAL 11/04/18 09:00 12/04/18 08:59 11/06/18 09:13 Fluticasone Propionate (Flonase) 1 spray DAILY NASAL 11/04/18 09:00 12/04/18 08:59 11/06/18 09:13 Gabapentin (Neurontin) 300 mg THREE TIMES A DAY ORAL 11/04/18 09:00 12/04/18 08:59 11/06/18 13:56 Ibuprofen (Advil) 600 mg Q8H PRN ORAL Pain Scale (3-5) 11/04/18 12:45 12/04/18 04:44 Lorazepam (Ativan) 1 mg Q6H PRN ORAL For Anxiety 11/04/18 06:45 11/11/18 06:44 Magnesium Hydroxide (Mom) 30 ml DAILY PRN ORAL Constipation 11/04/18 07:00 12/04/18 05:59 Montelukast Sodium (Singulair) 10 mg DAILY ORAL 11/04/18 09:00 12/04/18 08:59 11/06/18 09:13 Multivitamins Therapeutic (Therapeutic Multivitamin) 1 ea DAILY ORAL 11/04/18 09:00 12/04/18 08:59 11/06/18 09:13 Nitroglycerin (Ntg) 0.4 mg ADJUST PER PROTOCOL PRN SL CHEST PAIN AND NOTIFY 11/04/18 04:45 12/04/18 04:44 Sennosides (Senokot) 17.2 mg DAILY ORAL 11/04/18 09:00 12/04/18 08:59 11/06/18 09:12 Tamsulosin HCl (Flomax) 0.4 mg DAILY ORAL 11/04/18 09:00 12/04/18 08:59 11/06/18 09:13 Ancelmo Ghosh MD Nov 06, 2018 17:05
--- NOTE | 2018-11-06 17:13 | General Progress Note ---
Assessment/Plan Assessment/Plan Assessment and Recs #. Supertherapeutic INR -- presents with Coagulopathy due to underlying use of Coumadin, INR >5, but most likely is due to patient not taking the right dose of coumadin, as in the past I have seen him and he has been subtherapeutic --> likely the patient is supratherapeutic, recommend decreasing the dose to decrease INR. per pharmacy dosing --> Continue to closely monitor VITK and FFP if doesn't improve --> Will need to have INR between 2 and 3 --> coumadin restarted, though in theory can use a NOAC as well #. Pulmonary embolism. --> Maintain INR between 2 and 3. --> Monitor closely, INR currently at 2.4-->1.7 #. Leukocytosis, likely due to infection and sepsis. --> On antibiotics, ID following. --> Monitor closely. --> Resolved. #. Urinary tract infection and sepsis. --> historical, review cultures and imaging --> He has been seen by Infectious Disease Service. #. Cerebrovascular accident history with left-sided hemiplegia. #. Benign prostatic hypertrophy. Closely monitor. Greatly appreciate consultation! Subjective Constitutional: Denies: no symptoms, chills, diaphoresis, fever, malaise, weakness, other HEENT: Denies: no symptoms, eye pain, blurred vision, tearing, double vision, ear pain, ear discharge, nose pain, nose congestion, throat pain, throat swelling, mouth pain, mouth swelling, other Gastrointestinal/Abdominal: Denies: no symptoms, abdomen distended, abdominal pain, black stools, tarry stools, blood in stool, constipated, diarrhea, difficulty swallowing, nausea, poor appetite, poor fluid intake, rectal bleeding , vomiting, other Genitourinary: Denies: no symptoms, burning, discharge, frequency, flank pain, hematuria, incontinence, pain, urgency, other Neurologic/Psychiatric: Denies: no symptoms, anxiety, depressed, emotional problems, headache, numbness, paresthesia, pre-existing deficit, seizure, tingling, tremors, weakness, other Endocrine: Denies: no symptoms, excessive sweating, flushing, intolerance to cold, intolerance to heat, increased hunger, increased thirst, increased urine, unexplained weight gain, unexplained weight loss, other Hematologic/Lymphatic: Denies: no symptoms, anemia, easy bleeding, easy bruising, other Allergies: Uncoded Allergies: Coconut (Allergy, Intermediate, Hives, 08/07/15) Subjective 11/06: inr to be recheck this am, no fevers or chills Objective Last 24 Hour Vital Signs Date Time Temp Pulse Resp B/P (MAP) Pulse Ox O2 Delivery O2 Flow Rate FiO2 11/06/18 16:00 97.5 64 16 110/65 (80) 11/06/18 12:00 98.6 78 16 110/65 (80) 97 11/06/18 09:00 Room Air 11/06/18 08:00 98.5 62 16 106/68 (81) 97 11/06/18 04:00 98.6 60 16 100/60 (73) 94 11/06/18 00:00 98.2 53 18 99/55 (70) 93 11/05/18 21:00 Room Air 11/05/18 20:00 98.7 62 18 103/53 (70) 95 Intake and Output 11/05/18 11/06/18 19:00 07:00 Intake Total 600 ml 710 ml Output Total 700 ml Balance 600 ml 10 ml IV Total 600 ml 60 ml Other 650 ml Output Urine Total 700 ml # Bowel Movements 1 Laboratory Tests 11/06/18 06:45: White Blood Count 5.8, Red Blood Count 4.37L, Hemoglobin 13.2L, Hematocrit 39.8L , Mean Corpuscular Volume 91, Mean Corpuscular Hemoglobin 30.3, Mean Corpuscular Hemoglobin Concent 33.2, Red Cell Distribution Width 12.5, Platelet Count 241, Mean Platelet Volume 6.6, Neutrophils (%) (Auto) 68.1, Lymphocytes (% ) (Auto) 16.0L, Monocytes (%) (Auto) 12.7H, Eosinophils (%) (Auto) 2.3, Basophils (%) (Auto) 0.9, Sodium Level 138, Potassium Level 3.6, Chloride Level 105, Carbon Dioxide Level 27, Anion Gap 6, Blood Urea Nitrogen 10, Creatinine 0.8, Estimat Glomerular Filtration Rate , Glucose Level 88, Calcium Level 8.4L Height (Feet): 6 Height (Inches): 0.00 Weight (Pounds): 168 Objective Physical Exam General Appearance: A+O x3, NAD HEENT: normocephalic, atraumatic Neck: non-tender, normal alignment Respiratory/Chest: chest wall non-tender, lungs clear Cardiovascular/Chest: normal peripheral pulses, normal rate Abdomen: normal bowel sounds, non tender Extremities: normal range of motion Aren Morgan MD Nov 06, 2018 17:13
[2018-11-06 19:07] LABS: INR 1.2 (0.9-1.1)
[2018-11-06 20:00] VITALS: BP 102/61
[2018-11-06] MEDS ORDERED: Warfarin Sodium 1mg ORAL SCH (20:00)
--- NOTE | 2018-11-06 20:00 | NUR ---
NURSE NOTES: PATIENT'S IV ACCESS ON LEFT AC PUFFY, PUNK/RED, TENDER, IV REMOVED. PATIENT REFUSED ICE PACK WHEN NURSE EXPLAINED PURPOSE, PATIENT STILL REFUSED STATING "LATER". Addendum: 11/07/18 at 0429 by YINKA GAMBOA RN RN OLD IV ACCESS WAGON DRILLER TO TOUCH AND RED/PINK AND SWOLLEN, PATIENT FINALLY AGREED TO ICE PACK AND LEFT ARM KEPT ELEVATED WITH PILLOW.
--- NOTE | 2018-11-06 20:28 | NUR ---
NURSE NOTES: Current plan. of care followed Pt verbalizes concerns. Extremely concerned with plan of care. Pt appears to be AO x 4 but does have episodes of forgetfulness. Pt is belligerent, and demanding required verbal redirection through out shift for complex emotions. Endorsed to oncoming nurse pt bx. Refused physical therapy. Risk and benefits explained
--- NOTE | 2018-11-06 20:31 | NUR ---
HAND-OFF: Report given to Alice WATSON.
--- NOTE | 2018-11-06 20:50 | NUR ---
NURSE NOTES: PATIENT IN BED, AOX4. HAD COMPLAINTS OF TOOTH PAIN AND REQUESTED FOR TYLENOL. TYLENOL PRN WAS GIVEN ORDERED. NO S/S DISTRESS NOTED. BED IN LOW POSITION, CALL LIGHT WITHIN REACH, BED ALARM ON. WILL CONTINUE TO MONITOR.
--- NOTE | 2018-11-06 21:00 | NUR ---
NURSE NOTES: NEW IV ACCESS LEFT HAND 20 GAUGE, PATENT.
[2018-11-07 04:33] VITALS: BP 115/63
--- NOTE | 2018-11-07 07:00 | NUR ---
NURSE NOTES: PATIENT'S ARM STILL RED, WARM, SWOLLEN, NOW WITH YELLOW DRAINAGE EVEN WITH ICE PACK AND PILLOW. IV ACCESS ON LEFT HAND STILL INTACT AND PATENT. CALLED AND LEFT MESSAGE FOR DR. BRAR REGARDING PATIENT COMPLAINING OF BURNING SENSATION UPON URINATION AND LEFT ARM BEING RED, WARM, SWOLLEN, WITH YELLOW DRAINAGE WHERE OLD IV ACCESS WAS LOCATED. CHARGE NURSE AWARE. WILL CONTINUE TO MONITOR.
[2018-11-07 07:26] LABS: BASOPHILS % (AUTO) 1.3 % (0.0-2.0); HEMATOCRIT 40.5 % (42.0-52.0); HEMOGLOBIN 13.5 G/DL (14.2-18.0); LYMPHOCYTES % (AUTO) 11.3 % (20.0-45.0); MEAN CORPUSCULAR VOLUME 91 FL (80-99); MONOCYTES % (AUTO) 11.6 % (1.0-10.0); NEUTROPHILS % (AUTO) 74.8 % (45.0-75.0); PLATELET COUNT 223 K/UL (150-450); RED BLOOD COUNT 4.43 M/UL (4.70-6.10); RED CELL DISTRIBUTION WIDTH 12.2 % (11.6-14.8); WHITE BLOOD COUNT 8.7 K/UL (4.8-10.8)
--- NOTE | 2018-11-07 07:29 | NUR ---
HAND-OFF: Report given to GILBERTO CHAMPAGNE RN. ENDORSED TO AM NURSE REGARDING DR. BRAR BEING CALLED ABOUT PATIENT COMPLAINING OF BURNING SENSASATION UPON URINATION AND LEFT ARM BEING RED, WARM, SWOLLEN, WITH YELLOW DRAINAGE WHERE OLD IV ACCESS WAS LOCATED.
[2018-11-07 07:37] LABS: INR 1.1 (0.9-1.1)
[2018-11-07 07:45] LABS: ANION GAP 9 mmol/L (5-15); BLOOD UREA NITROGEN 10 mg/dL (7-18); CALCIUM 8.6 MG/DL (8.5-10.1); CARBON DIOXIDE 26 MMOL/L (21-32); CHLORIDE 104 MMOL/L (98-107); CREATININE 0.9 MG/DL (0.55-1.30); POTASSIUM 3.8 MMOL/L (3.5-5.1); SODIUM 139 MMOL/L (136-145)
[2018-11-07 08:00] VITALS: BP 121/65
--- NOTE | 2018-11-07 08:11 | NUR ---
NURSE NOTES: Dr Mackenzie phoned in regards to left arm swelling at IV site with some drainage as well as pt complaints of symptoms of UTI. Dr Mackenzie gave orders to call Dr Tavarez. Dr Tavarez paged. awaiting for return phone call at this time
[2018-11-07] MEDS: clonazePAM 0.5mg tab ORAL SCH ×3 (09:56→17:26)
[2018-11-07] MEDS: Sennosides 8.6mg tab ORAL SCH (09:56)
[2018-11-07] MEDS: Tamsulosin 0.4mg cap ORAL SCH (09:56)
[2018-11-07] MEDS: Multivitamin w/Minerals tab ORAL SCH (09:56)
[2018-11-07] MEDS: Montelukast 10mg tablet ORAL SCH (09:56)
[2018-11-07] MEDS: Aspirin Baby 81mg ORAL SCH (09:57)
[2018-11-07] MEDS: Ascorbic Acid 500mg tab ORAL SCH ×2 (09:57→17:26)
[2018-11-07] MEDS: Artificial Tears 1.4% Op Soln BOTH EYES SCH ×2 (10:01→17:27)
[2018-11-07] MEDS: Flonase Nasal Inhaler 16gm NASAL SCH (10:01)
[2018-11-07 12:00] VITALS: BP 118/66
--- NOTE | 2018-11-07 13:11 | Pulmonology Progress Note ---
Assessment/Plan Problems: (1) Coagulopathy (2) COPD (chronic obstructive pulmonary disease) (3) Cerebrovascular accident (CVA) (4) BPH (benign prostatic hyperplasia) (5) HTN (hypertension) (6) GERD (gastroesophageal reflux disease) (7) Anxiety Assessment/Plan no new complains all reviewed feeling better monitor BP check INR check electroltyes titrate fio2 to sat of 92% Subjective ROS Limited/Unobtainable: No Constitutional: Reports: no symptoms HEENT: Repors: no symptoms Allergies: Uncoded Allergies: Coconut (Allergy, Intermediate, Hives, 08/07/15) Objective Last 24 Hour Vital Signs Date Time Temp Pulse Resp B/P (MAP) Pulse Ox O2 Delivery O2 Flow Rate FiO2 11/07/18 12:00 98.7 64 118/66 (83) 11/07/18 09:00 Room Air 11/07/18 08:00 98.3 61 121/65 (83) 11/07/18 04:33 99.5 59 18 115/63 (80) 11/06/18 23:19 Room Air 11/06/18 20:28 97.5 11/06/18 20:00 99.0 61 18 102/61 (75) 94 11/06/18 16:00 97.5 64 16 110/65 (80) Intake and Output 11/06/18 11/07/18 19:00 07:00 Intake Total 780 ml 1460 ml Balance 780 ml 1460 ml Intake Oral 120 ml IV Total 780 ml 540 ml Other 800 ml # Voids 9 Objective General Appearance: WD/WN HEENT: normocephalic, atraumatic Respiratory/Chest: chest wall non-tender, normal breath sounds Breasts: no masses Cardiovascular: normal peripheral pulses Abdomen: soft, non tender, no organomegaly Genitourinary: normal external genitalia Laboratory Tests 11/06/18 17:40: Prothrombin Time 12.1H, Prothromb Time International Ratio 1.2H 11/07/18 06:48: Prothrombin Time 11.3, Prothromb Time International Ratio 1.1, White Blood Count 8.7, Red Blood Count 4.43L, Hemoglobin 13.5L, Hematocrit 40.5L, Mean Corpuscular Volume 91, Mean Corpuscular Hemoglobin 30.5, Mean Corpuscular Hemoglobin Concent 33.4, Red Cell Distribution Width 12.2, Platelet Count 223, Mean Platelet Volume 6.8, Neutrophils (%) (Auto) 74.8, Lymphocytes (%) (Auto) 11.3L, Monocytes (%) (Auto) 11.6H, Eosinophils (%) (Auto) 1.0, Basophils (%) ( Auto) 1.3, Sodium Level 139, Potassium Level 3.8, Chloride Level 104, Carbon Dioxide Level 26, Anion Gap 9, Blood Urea Nitrogen 10, Creatinine 0.9, Estimat Glomerular Filtration Rate , Glucose Level 84, Calcium Level 8.6 Current Medications Medications (Trade) Dose Ordered Sig/Vadim Route PRN Reason Start Time Stop Time Status Last Admin Dose Admin Acetaminophen (Tylenol) 650 mg Q4H PRN ORAL Mild Pain/Temp > 100.5 11/04/18 10:45 12/04/18 10:44 11/07/18 10:02 Acetaminophen/ Hydrocodone Bitart ([place] 5/325) 1 tab Q8H PRN ORAL Severe Pain (Pain Scale 7-10) 11/04/18 06:45 11/11/18 06:44 Artificial Tears (Akwa-Tears) 1 drop BID BOTH EYES 11/04/18 11:00 12/04/18 10:59 11/07/18 10:01 Ascorbic Acid (Vitamin C) 500 mg TWICE A DAY ORAL 11/04/18 09:00 12/04/18 08:59 11/07/18 09:57 Aspirin (ASA) 81 mg DAILY ORAL 11/07/18 09:00 12/04/18 08:59 11/07/18 09:57 Clonazepam (KlonoPIN) 0.5 mg TID ORAL 11/04/18 09:00 11/11/18 08:59 11/07/18 09:56 Dextrose/Sodium Chloride 1,000 ml @ 60 mls/hr [id number] IV 11/04/18 04:30 12/04/18 04:29 11/06/18 21:17 Escitalopram Oxalate (Lexapro) 10 mg DAILY ORAL 11/04/18 09:00 12/04/18 08:59 11/07/18 09:55 Finasteride (Proscar) 5 mg DAILY ORAL 11/04/18 09:00 12/04/18 08:59 11/07/18 09:55 Fluticasone Propionate (Flonase) 1 spray DAILY NASAL 11/04/18 09:00 12/04/18 08:59 11/07/18 10:01 Gabapentin (Neurontin) 300 mg THREE TIMES A DAY ORAL 11/04/18 09:00 12/04/18 08:59 11/07/18 09:57 Ibuprofen (Advil) 600 mg Q8H PRN ORAL Pain Scale (3-5) 11/04/18 12:45 12/04/18 04:44 Lorazepam (Ativan) 1 mg Q6H PRN ORAL For Anxiety 11/04/18 06:45 11/11/18 06:44 Magnesium Hydroxide (Mom) 30 ml DAILY PRN ORAL Constipation 11/04/18 07:00 12/04/18 05:59 Montelukast Sodium (Singulair) 10 mg DAILY ORAL 11/04/18 09:00 12/04/18 08:59 11/07/18 09:56 Multivitamins Therapeutic (Therapeutic Multivitamin) 1 ea DAILY ORAL 11/04/18 09:00 12/04/18 08:59 11/07/18 09:56 Nitroglycerin (Ntg) 0.4 mg ADJUST PER PROTOCOL PRN SL CHEST PAIN AND NOTIFY 11/04/18 04:45 12/04/18 04:44 Sennosides (Senokot) 17.2 mg DAILY ORAL 11/04/18 09:00 12/04/18 08:59 11/07/18 09:56 Tamsulosin HCl (Flomax) 0.4 mg DAILY ORAL 11/04/18 09:00 12/04/18 08:59 11/07/18 09:56 Warfarin Sodium (Coumadin per pharmacy) 1 ea DAILY PRN MISC Per rx protocol 11/06/18 17:15 12/06/18 17:14 Warfarin Sodium (Coumadin) 2.5 mg COUMADIN ORAL 11/07/18 17:00 11/07/18 18:00 Ancelmo Ghosh MD Nov 07, 2018 13:11
--- NOTE | 2018-11-07 14:36 | General Progress Note ---
Assessment/Plan Problem List: (1) Anxiety ICD Codes: F41.9 - Anxiety disorder, unspecified SNOMED: 37035380 (2) GERD (gastroesophageal reflux disease) ICD Codes: K21.9 - Gastro-esophageal reflux disease without esophagitis SNOMED: 232568841 (3) HTN (hypertension) ICD Codes: I10 - Essential (primary) hypertension SNOMED: 53155577 (4) Cerebrovascular accident (CVA) ICD Codes: I63.9 - Cerebral infarction, unspecified SNOMED: 954596647 (5) Supratherapeutic INR ICD Codes: R79.1 - Abnormal coagulation profile SNOMED: 587031212 (6) Left arm cellulitis ICD Codes: L03.114 - Cellulitis of left upper limb SNOMED: 612175080 Assessment/Plan pt abc per id t psyc tx heme f/u cbc bmp am dc plan Subjective Constitutional: Reports: weakness Allergies: Uncoded Allergies: Coconut (Allergy, Intermediate, Hives, 08/07/15) All Systems: reviewed and negative except above Subjective sl anxious Objective Last 24 Hour Vital Signs Date Time Temp Pulse Resp B/P (MAP) Pulse Ox O2 Delivery O2 Flow Rate FiO2 11/07/18 12:00 98.7 64 118/66 (83) 11/07/18 09:00 Room Air 11/07/18 08:00 98.3 61 121/65 (83) 11/07/18 04:33 99.5 59 18 115/63 (80) 11/06/18 23:19 Room Air 11/06/18 20:28 97.5 11/06/18 20:00 99.0 61 18 102/61 (75) 94 11/06/18 16:00 97.5 64 16 110/65 (80) Intake and Output 11/06/18 11/07/18 19:00 07:00 Intake Total 780 ml 1460 ml Balance 780 ml 1460 ml Intake Oral 120 ml IV Total 780 ml 540 ml Other 800 ml # Voids 9 Laboratory Tests 11/06/18 17:40: Prothrombin Time 12.1H, Prothromb Time International Ratio 1.2H 11/07/18 06:48: Prothrombin Time 11.3, Prothromb Time International Ratio 1.1, White Blood Count 8.7, Red Blood Count 4.43L, Hemoglobin 13.5L, Hematocrit 40.5L, Mean Corpuscular Volume 91, Mean Corpuscular Hemoglobin 30.5, Mean Corpuscular Hemoglobin Concent 33.4, Red Cell Distribution Width 12.2, Platelet Count 223, Mean Platelet Volume 6.8, Neutrophils (%) (Auto) 74.8, Lymphocytes (%) (Auto) 11.3L, Monocytes (%) (Auto) 11.6H, Eosinophils (%) (Auto) 1.0, Basophils (%) ( Auto) 1.3, Sodium Level 139, Potassium Level 3.8, Chloride Level 104, Carbon Dioxide Level 26, Anion Gap 9, Blood Urea Nitrogen 10, Creatinine 0.9, Estimat Glomerular Filtration Rate , Glucose Level 84, Calcium Level 8.6 Height (Feet): 6 Height (Inches): 0.00 Weight (Pounds): 168 General Appearance: lethargic EENT: normal ENT inspection Neck: normal alignment Cardiovascular: normal peripheral pulses, normal rate, regular rhythm Respiratory/Chest: chest wall non-tender, lungs clear, normal breath sounds Abdomen: normal bowel sounds, non tender, soft Extremities: normal inspection Edema: no edema noted Arm (L), no edema noted Arm (R), no edema noted Leg (L), no edema noted Leg (R), no edema noted Pedal (L), no edema noted Pedal (R), no edema noted Generalized Neurologic: responsive, motor weakness Skin: normal pigmentation, warm/dry Objective left anticube w 3' x 3 ' redness Jaime Mackenzie DO Nov 07, 2018 14:36
[2018-11-07] MEDS: D5 1/2NS 1,000 ML IV SCH (15:12)
--- NOTE | 2018-11-07 15:47 | Consultation ---
History of Present Illness General Date patient seen: Nov 07, 2018 Chief Complaint: Abnormal Labs Present Illness HPI 72 y/o M wtih hx of CVA w/ L side weakness, anxiety, PE/DVT on coumadin, MD, GERD, BPH, COPD, HTN, [facility] resident presents to ED on 11/03 with elevated INR >5 despite holding coumadin. Denied CP, SOB, n/v/d upon admission. ID is called for old IV site cellulitis on L arm; Noticed to be red, swollen and tender and some yellow drainage. Allergies: Uncoded Allergies: Coconut (Allergy, Intermediate, Hives, 08/07/15) Medication History Scheduled Al Hydroxide/mg Hydroxide (Mag-Al Liquid), 30 ML PO Q4HR, (Reported) Ascorbic Acid* (Vitamin C*), 500 MG ORAL TWICE A DAY, (Reported) Ascorbic Acid* (Vitamin C*), 500 MG ORAL DAILY, (Reported) Aspirin* (Aspir 81*), 81 MG ORAL DAILY, (Reported) Bisacodyl* (Dulcolax*), 10 MG RECTAL DAILY, (Reported) Clonazepam* (Klonopin*), 0.5 MG ORAL TID, (Reported) Cranberry Fruit (Cranberry), 500 MG PO BID, (Reported) Cyclobenzaprine Hcl* (Flexeril*), 10 MG ORAL Q6HR, (Reported) Finasteride* (Proscar*), 5 MG ORAL DAILY, (Reported) Fluoxetine Hcl* (Fluoxetine Hcl*), 10 MG ORAL DAILY, (Reported) Fluticasone Propionate (Fluticasone Propionate), 2 SPRAYS NASAL DAILY, (Reported ) Magnesium Hydroxide (Milk of Magnesia), 30 ML ORAL Q6HR, (Reported) Montelukast Sodium* (Singulair*), 10 MG ORAL DAILY, (Reported) Multivits, W-,Other Min (Thera-M), 1 EACH PO DAILY, (Reported) Niacin (Niacin ER), 500 MG PO QHS, (Reported) Omeprazole (Omeprazole), 20 MG ORAL DAILY, (Reported) Sennosides (Senna), 17.2 MG PO DAILY, (Reported) Simvastatin (Zocor), 10 MG ORAL BEDTIME, (Reported) Tamsulosin HCl (Flomax), 0.4 MG ORAL DAILY, (Reported) Trimethoprim/Sulfamethoxazole 160/800* (Bactrim Ds Tablet*), 1 TAB ORAL Q12HR, ( Reported) Warfarin Sod (Coumadin*), 1.5 MG ORAL DAILY, (Reported) Scheduled PRN Acetaminophen (Acetaminophen), 650 MG ORAL EVERY 4 HOURS PRN for Prn Headache/ Temp > 101, (Reported) Hydrocodone Bit/Acetaminophen 5-325* (Blairs 5-325*), 1 TAB ORAL Q8HR PRN for For Pain, (Reported) Ibuprofen* (Motrin*), 600 MG ORAL Q8H PRN for For Pain, (Reported) Ipratropium/Albuterol Sulfate (DuoNeb 0.5-3(2.5)mg/3ml), 3 ML HHN EVERY 4 HOURS PRN for Shortness of Breath, (Reported) Lorazepam* (Ativan*), 1 MG ORAL Q6HR PRN for prn, (Reported) Nitroglycerin (Nitroglycerin), 0.4 MG SL Q5M X 3 DOSES PRN for CHEST PAIN AND NOTIFY MD, (Reported) Ondansetron* (Zofran*), 4 MG ORAL Q6H PRN for Nausea & Vomiting, (Reported) Phenazopyridine Hcl* (Pyridium*), 100 MG ORAL DAILY PRN for prn, (Reported) Polyethylene Glycol 3350* (Miralax*), 17 GM ORAL BEDTIME PRN for CONSTIPATION, ( Reported) Polyethylene Glycol 3350* (Miralax*), 17 GM ORAL DAILY PRN for prn, (Reported) Temazepam (Temazepam*), 15 MG ORAL BEDTIME PRN for INSOMNIA, (Reported) Miscellaneous Medications Calcium Carbonate (Calcium Carbonate), 200 MG PO, (Reported) Dextran 70/Hypromellose (Artificial Tears), 1 EACH OP, (Reported) Loperamide HCl (Loperamide), 2 MG ORAL, (Reported) Menthol (Bengay), 113 GM TP, (Reported) [place] Xt/Phytosterol #2 (Prostate Sr Softgel), 1 EACH PO, (Reported) Patient History Healthcare decision maker Resuscitation status Full Code Advanced Directive on File Patient History Narrative Pmhx: as above Shx: The patient denies history of alcohol use, illicit substance use, or smoking cigarette. This patient is currently living at [facility]. Fhx non contributory Review of Systems All Other Systems: negative except mentioned in HPI Physical Exam Physical Exam Narrative GENERAL: Calm in bed, oriented x3, and in no acute distress. CARDIOVASCULAR: No murmurs. LUNGS: Distant and clear. ABDOMEN: Bowel sounds positive. Nontender. Nondistended. EXTREMITIES: No cyanosis, clubbing, or edema. L forearm antecubital area swelling, redness and TTP. NEUROLOGIC: The patient moves all extremities, slightly weak. Last 24 Hour Vital Signs Date Time Temp Pulse Resp B/P (MAP) Pulse Ox O2 Delivery O2 Flow Rate FiO2 11/07/18 12:00 98.7 64 118/66 (83) 11/07/18 09:00 Room Air 11/07/18 08:00 98.3 61 121/65 (83) 11/07/18 04:33 99.5 59 18 115/63 (80) 11/06/18 23:19 Room Air 11/06/18 20:28 97.5 11/06/18 20:00 99.0 61 18 102/61 (75) 94 11/06/18 16:00 97.5 64 16 110/65 (80) Intake and Output 11/06/18 11/07/18 19:00 07:00 Intake Total 780 ml 1460 ml Balance 780 ml 1460 ml Intake Oral 120 ml IV Total 780 ml 540 ml Other 800 ml # Voids 9 Laboratory Tests Test 11/06/18 17:40 11/07/18 06:48 Prothrombin Time 12.1 SEC (9.30-11.50) H 11.3 SEC (9.30-11.50) Prothromb Time International Ratio 1.2 (0.9-1.1) H 1.1 (0.9-1.1) White Blood Count 8.7 K/UL (4.8-10.8) Red Blood Count 4.43 M/UL (4.70-6.10) L Hemoglobin 13.5 G/DL (14.2-18.0) L Hematocrit 40.5 % (42.0-52.0) L Mean Corpuscular Volume 91 FL (80-99) Mean Corpuscular Hemoglobin 30.5 PG (27.0-31.0) Mean Corpuscular Hemoglobin Concent 33.4 G/DL (32.0-36.0) Red Cell Distribution Width 12.2 % (11.6-14.8) Platelet Count 223 K/UL (150-450) Mean Platelet Volume 6.8 FL (6.5-10.1) Neutrophils (%) (Auto) 74.8 % (45.0-75.0) Lymphocytes (%) (Auto) 11.3 % (20.0-45.0) L Monocytes (%) (Auto) 11.6 % (1.0-10.0) H Eosinophils (%) (Auto) 1.0 % (0.0-3.0) Basophils (%) (Auto) 1.3 % (0.0-2.0) Sodium Level 139 MMOL/L (136-145) Potassium Level 3.8 MMOL/L (3.5-5.1) Chloride Level 104 MMOL/L (98-107) Carbon Dioxide Level 26 MMOL/L (21-32) Anion Gap 9 mmol/L (5-15) Blood Urea Nitrogen 10 mg/dL (7-18) Creatinine 0.9 MG/DL (0.55-1.30) Estimat Glomerular Filtration Rate mL/min (>60) Glucose Level 84 MG/DL (74-106) Calcium Level 8.6 MG/DL (8.5-10.1) Height (Feet): 6 Height (Inches): 0.00 Weight (Pounds): 168 Medications Current Medications Medications (Trade) Dose Ordered Sig/Vadim Route PRN Reason Start Time Stop Time Status Last Admin Dose Admin Acetaminophen (Tylenol) 650 mg Q4H PRN ORAL Mild Pain/Temp > 100.5 11/04/18 10:45 12/04/18 10:44 11/07/18 10:02 Acetaminophen/ Hydrocodone Bitart (Blairs 5/325) 1 tab Q8H PRN ORAL Severe Pain (Pain Scale 7-10) 11/04/18 06:45 11/11/18 06:44 Artificial Tears (Akwa-Tears) 1 drop BID BOTH EYES 11/04/18 11:00 12/04/18 10:59 11/07/18 10:01 Ascorbic Acid (Vitamin C) 500 mg TWICE A DAY ORAL 11/04/18 09:00 12/04/18 08:59 11/07/18 09:57 Aspirin (ASA) 81 mg DAILY ORAL 11/07/18 09:00 12/04/18 08:59 11/07/18 09:57 Clonazepam (KlonoPIN) 0.5 mg TID ORAL 11/04/18 09:00 11/11/18 08:59 11/07/18 13:23 Dextrose/Sodium Chloride 1,000 ml @ 60 mls/hr [id number] IV 11/04/18 04:30 12/04/18 04:29 11/06/18 21:17 Escitalopram Oxalate (Lexapro) 10 mg DAILY ORAL 11/04/18 09:00 12/04/18 08:59 11/07/18 09:55 Finasteride (Proscar) 5 mg DAILY ORAL 11/04/18 09:00 12/04/18 08:59 11/07/18 09:55 Fluticasone Propionate (Flonase) 1 spray DAILY NASAL 11/04/18 09:00 12/04/18 08:59 11/07/18 10:01 Gabapentin (Neurontin) 300 mg THREE TIMES A DAY ORAL 11/04/18 09:00 12/04/18 08:59 11/07/18 13:23 Ibuprofen (Advil) 600 mg Q8H PRN ORAL Pain Scale (3-5) 11/04/18 12:45 12/04/18 04:44 Lorazepam (Ativan) 1 mg Q6H PRN ORAL For Anxiety 11/04/18 06:45 11/11/18 06:44 Magnesium Hydroxide (Mom) 30 ml DAILY PRN ORAL Constipation 11/04/18 07:00 12/04/18 05:59 Montelukast Sodium (Singulair) 10 mg DAILY ORAL 11/04/18 09:00 12/04/18 08:59 11/07/18 09:56 Multivitamins Therapeutic (Therapeutic Multivitamin) 1 ea DAILY ORAL 11/04/18 09:00 12/04/18 08:59 11/07/18 09:56 Nitroglycerin (Ntg) 0.4 mg ADJUST PER PROTOCOL PRN SL CHEST PAIN AND NOTIFY MD 11/04/18 04:45 12/04/18 04:44 Sennosides (Senokot) 17.2 mg DAILY ORAL 11/04/18 09:00 12/04/18 08:59 11/07/18 09:56 Tamsulosin HCl (Flomax) 0.4 mg DAILY ORAL 11/04/18 09:00 12/04/18 08:59 11/07/18 09:56 Warfarin Sodium (Coumadin per pharmacy) 1 ea DAILY PRN MISC Per rx protocol 11/06/18 17:15 12/06/18 17:14 Warfarin Sodium (Coumadin) 2.5 mg COUMADIN ORAL 11/07/18 17:00 11/07/18 18:00 Assessment/Plan Assessment/Plan Abx: None Assessment: L forearm cellulitis/phlebitis- due to prior IV CVA w/ L side weakness anxiety PE/DVT on coumadin MDD GERD BPH COPD HTN NH resident Plan: -Start PO Linezolid as patient refusing new IV -f.u cx -Monitor CBC/CMP, temperatures -local wound care as per hospital protocol Thank you for this consultation. Will continue to follow along with you. Reanna Sahu M.D. Nov 07, 2018 15:47
[2018-11-07 16:00] VITALS: BP 122/64
--- NOTE | 2018-11-07 16:00 | Progress Note ---
DATE: 11/07/2018 SUBJECTIVE: This is a 72-year-old male patient with coagulopathy, hypertension, GERD, BPH as well as other problems, but he also has lot of anxiety, depression, and mood lability worsened by stress of his medical illness. That is why, his attending has requested daily psychiatric consultation for this patient. MENTAL STATUS EXAMINATION: This is a 72-year-old male. Appearance is disheveled. Attitude, irritable and agitated. Affect, guarded and restricted. Intellect poor. Mood depressed and anxious. Motor activity, psychomotor agitation. Attention span is poor. Orientation x2. Speech is pressured. Thought process, disorganized and illogical. Insight and judgment is poor. DIAGNOSIS: Bipolar 2. PLAN: For this patient is to treat him with a medication regimen of Neurontin 300 mg 3 times a day, Klonopin 0.5 mg 3 times a day, Ativan 1 every 6 hours p.r.n. anxiety and agitation, Lexapro 10 mg daily. Provide him with 20 minutes of cognitive behavioral therapy to help him identify his automatic negative thoughts help him convert those negative thoughts to more positive thoughts to reduce depression, anxiety, and suicidality. Chart reviewed. Discussed with staff. Seen and assessed at the bedside. 20 minutes of cognitive behavioral therapy provided. Seen and assessed in his room. Eleni Winston M.D. DR: DAYNA JOB#: [id number] CC:
[2018-11-07] MEDS ORDERED: Warfarin Sodium 2.5mg ORAL SCH (17:00)
[2018-11-07] MEDS ORDERED: Warfarin Sodium 1mg ORAL SCH (17:00)
[2018-11-07] MEDS ORDERED: ceFAZolin sod 1 GM in D5W 55 ML IVPB SCH (17:00)
--- NOTE | 2018-11-07 17:09 | NUR ---
NURSE NOTES: pt refused iv line unable to give antibiotic. pulled iv site out himself and handed it to video game script writer " here I have something for you"" I do not want it, "
--- NOTE | 2018-11-07 17:14 | NUR ---
[facility] SI:SUPRATHERAPEUTIC INR VS: BP 115/63, P 59, T 99.5, RR 18, SpO2 94 RBC 4.43, Hgb 13.5, Hct 41.1, PT 33.7, INR 1.1, PT 12.1 IS: GABAPENTIN 300mg LEXAPRO 10mg FLOMAX 0.4mg SINGULAIR 10mg PROSCAR 5mg KLONOPIN 0.5mg WARFARIN 2.5mg BACTRIM-DS 1TAB KEFLEX 500mg MED/SURG STATUS
[2018-11-07] MEDS: Bactrim-DS 1 tab ORAL SCH (17:54)
[2018-11-07] MEDS: Cephalexin 500mg cap ORAL SCH ×2 (17:54→22:06)
--- NOTE | 2018-11-07 18:11 | General Progress Note ---
Assessment/Plan Assessment/Plan Assessment and Recs #. Supertherapeutic INR -- presents with Coagulopathy due to underlying use of Coumadin, INR >5, but most likely is due to patient not taking the right dose of coumadin, as in the past I have seen him and he has been subtherapeutic --> likely the patient is supratherapeutic, recommend decreasing the dose to decrease INR. per pharmacy dosing --> Continue to closely monitor VITK and FFP if doesn't improve --> Will need to have INR between 2 and 3 --> coumadin restarted, though in theory can use a NOAC as well --> appreciate pulm recs #. Pulmonary embolism. --> Maintain INR between 2-3. --> Monitor closely, INR currently at 2.4-->1.7-->1.1 #. Leukocytosis, likely due to infection and sepsis. --> On antibiotics, ID following. --> Monitor closely --> Resolved. #. Urinary tract infection and sepsis. --> historical, review cultures and imaging --> He has been seen by Infectious Disease #. Cerebrovascular accident history with left-sided hemiplegia --> as per neuro #. Benign prostatic hypertrophy. Closely monitor. Greatly appreciate consultation! Subjective HEENT: Denies: no symptoms, eye pain, blurred vision, tearing, double vision, ear pain, ear discharge, nose pain, nose congestion, throat pain, throat swelling, mouth pain, mouth swelling, other Cardiovascular: Denies: no symptoms, chest pain, edema, irregular heart rate, lightheadedness, palpitations, syncope, other Respiratory: Denies: no symptoms, cough, orthopnea, shortness of breath, SOB with excertion, SOB at rest, sputum, stridor, wheezing, other Gastrointestinal/Abdominal: Denies: no symptoms, abdomen distended, abdominal pain, black stools, tarry stools, blood in stool, constipated, diarrhea, difficulty swallowing, nausea, poor appetite, poor fluid intake, rectal bleeding , vomiting, other Genitourinary: Denies: no symptoms, burning, discharge, frequency, flank pain, hematuria, incontinence, pain, urgency, other Neurologic/Psychiatric: Denies: no symptoms, anxiety, depressed, emotional problems, headache, numbness, paresthesia, pre-existing deficit, seizure, tingling, tremors, weakness, other Endocrine: Denies: no symptoms, excessive sweating, flushing, intolerance to cold, intolerance to heat, increased hunger, increased thirst, increased urine, unexplained weight gain, unexplained weight loss, other Hematologic/Lymphatic: Denies: no symptoms, anemia, easy bleeding, easy bruising, other Allergies: Uncoded Allergies: Coconut (Allergy, Intermediate, Hives, 08/07/15) Subjective 11/06: inr to be recheck this am, no fevers or chills 11/07: no events, still anxious, no fevers or chills Objective Last 24 Hour Vital Signs Date Time Temp Pulse Resp B/P (MAP) Pulse Ox O2 Delivery O2 Flow Rate FiO2 11/07/18 12:00 98.7 64 118/66 (83) 11/07/18 09:00 Room Air 11/07/18 08:00 98.3 61 121/65 (83) 11/07/18 04:33 99.5 59 18 115/63 (80) 11/06/18 23:19 Room Air 11/06/18 20:28 97.5 11/06/18 20:00 99.0 61 18 102/61 (75) 94 Intake and Output 11/06/18 11/07/18 19:00 07:00 Intake Total 780 ml 1460 ml Balance 780 ml 1460 ml Intake Oral 120 ml IV Total 780 ml 540 ml Other 800 ml # Voids 9 Laboratory Tests 11/07/18 06:48: White Blood Count 8.7, Red Blood Count 4.43L, Hemoglobin 13.5L, Hematocrit 40.5L , Mean Corpuscular Volume 91, Mean Corpuscular Hemoglobin 30.5, Mean Corpuscular Hemoglobin Concent 33.4, Red Cell Distribution Width 12.2, Platelet Count 223, Mean Platelet Volume 6.8, Neutrophils (%) (Auto) 74.8, Lymphocytes (% ) (Auto) 11.3L, Monocytes (%) (Auto) 11.6H, Eosinophils (%) (Auto) 1.0, Basophils (%) (Auto) 1.3, Prothrombin Time 11.3, Prothromb Time International Ratio 1.1, Sodium Level 139, Potassium Level 3.8, Chloride Level 104, Carbon Dioxide Level 26, Anion Gap 9, Blood Urea Nitrogen 10, Creatinine 0.9, Estimat Glomerular Filtration Rate , Glucose Level 84, Calcium Level 8.6 Height (Feet): 6 Height (Inches): 0.00 Weight (Pounds): 168 Objective Physical Exam General Appearance: A+O x3, NAD HEENT: normocephalic, atraumatic Neck: non-tender, normal alignment Respiratory/Chest: chest wall non-tender, lungs clear Cardiovascular/Chest: normal peripheral pulses, normal rate Abdomen: normal bowel sounds, non tender Extremities: normal range of motion Aren Morgan MD Nov 07, 2018 18:11
--- NOTE | 2018-11-07 19:30 | NUR ---
NURSE NOTES: Pt has been very demanding, belligerent behavior. Is angry at the offgoing nurse for not meting his needs rapidly. 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 Insisted we move him or the patient who is thrashing in his bed. Informed charge nurse of requests/demands and that they be attended to as soon as possible as patient was irate. He said he was going to report the hospital if his needs were not met tonight. I calmed the patient down and attended to him for 30 + minutes in order to decrease his anxiety and anger. Pt is sitting upright in bed, bed is locked, lowest position, side rails x 2. Pt demands that he be moved or he will leave AMA back to where he came from. continued to have belligerent bx through out shift yelling at staff.
[2018-11-07 20:00] VITALS: BP 110/81
--- NOTE | 2018-11-07 20:25 | NUR ---
NURSE NOTES: Pt continued to have belligerent bx through out shift yelling at staff. Dr Mackenzie made aware that pt pulled out IV line he gave instructions to follow up with Daysi. Oncoming nurse made aware of demanding bx. Current plan of care will be followed. Call light is in reach. New dose for Coumadin given . Per pt states he had a bm on 7pm to 7am shift
--- NOTE | 2018-11-07 20:29 | NUR ---
HAND-OFF: Report given to Gracie WATSON.
[2018-11-08] VITALS: BP 123/77
[2018-11-08 04:00] VITALS: BP 113/61
[2018-11-08 06:47] LABS: INR 1.1 (0.9-1.1)
[2018-11-08 06:53] LABS: BASOPHILS % (AUTO) 1.1 % (0.0-2.0); EOSINOPHILS % (AUTO) 1.4 % (0.0-3.0); HEMATOCRIT 41.1 % (42.0-52.0); HEMOGLOBIN 13.8 G/DL (14.2-18.0); LYMPHOCYTES % (AUTO) 14.4 % (20.0-45.0); MEAN CORPUSCULAR VOLUME 92 FL (80-99); MONOCYTES % (AUTO) 13.6 % (1.0-10.0); NEUTROPHILS % (AUTO) 69.5 % (45.0-75.0); PLATELET COUNT 249 K/UL (150-450); RED BLOOD COUNT 4.48 M/UL (4.70-6.10); RED CELL DISTRIBUTION WIDTH 12.2 % (11.6-14.8); WHITE BLOOD COUNT 9.1 K/UL (4.8-10.8)
[2018-11-08 07:05] LABS: ANION GAP 8 mmol/L (5-15); BLOOD UREA NITROGEN 12 mg/dL (7-18); CALCIUM 8.7 MG/DL (8.5-10.1); CARBON DIOXIDE 28 MMOL/L (21-32); CHLORIDE 104 MMOL/L (98-107); CREATININE 0.9 MG/DL (0.55-1.30); POTASSIUM 3.6 MMOL/L (3.5-5.1); SODIUM 139 MMOL/L (136-145)
--- NOTE | 2018-11-08 07:43 | NUR ---
HAND-OFF: Report given to WALTER Marie.
--- NOTE | 2018-11-08 07:58 | NUR ---
NURSE NOTES: Received report from WALTER Ramsey. Pt in bed, awake, talkative, A/O x4, complaining of phlebitis in left forearm, noted by ID physician, primary aware, bed in lowest position, call light within reach.
[2018-11-08 08:00] VITALS: BP 105/66
[2018-11-08] MEDS: D5 1/2NS 1,000 ML IV SCH (08:30)
[2018-11-08] MEDS: Artificial Tears 1.4% Op Soln BOTH EYES SCH ×2 (09:36→16:57)
[2018-11-08] MEDS: Flonase Nasal Inhaler 16gm NASAL SCH (09:36)
[2018-11-08] MEDS: Aspirin Baby 81mg ORAL SCH (09:37)
[2018-11-08] MEDS: Multivitamin w/Minerals tab ORAL SCH (09:37)
[2018-11-08] MEDS: clonazePAM 0.5mg tab ORAL SCH ×3 (09:37→16:55)
[2018-11-08] MEDS: Bactrim-DS 1 tab ORAL SCH ×2 (09:37→16:55)
[2018-11-08] MEDS: Cephalexin 500mg cap ORAL SCH ×4 (09:37→21:18)
[2018-11-08] MEDS: Tamsulosin 0.4mg cap ORAL SCH (09:38)
[2018-11-08] MEDS: Montelukast 10mg tablet ORAL SCH (09:38)
[2018-11-08] MEDS: Sennosides 8.6mg tab ORAL SCH (09:38)
[2018-11-08] MEDS: Ascorbic Acid 500mg tab ORAL SCH ×2 (09:39→16:55)
[2018-11-08 12:00] VITALS: BP 90/59
--- NOTE | 2018-11-08 12:21 | NUR ---
NURSE NOTES: Notified of BP 90/58 HR 53, recheck 90/59 HR 55, pt is asymptomatic, Refuses IV access after infiltration. No new orders given
--- NOTE | 2018-11-08 12:32 | Infectious Diseases Prog Note ---
Assessment/Plan Assessment/Plan Abx: None Assessment: L forearm cellulitis/phlebitis- due to prior IV CVA w/ L side weakness anxiety PE/DVT on coumadin MDD GERD BPH COPD HTN NH resident Plan: -COntinue PO Keflex and Bactrim #2 for L arm cellulitis/phlebitis -f.u cx -Monitor CBC/CMP, temperatures -local wound care as per hospital protocol Thank you for this consultation. Will continue to follow along with you. Subjective Allergies: Uncoded Allergies: Coconut (Allergy, Intermediate, Hives, 08/07/15) Subjective afebrile no leukocytosis Objective Vital Signs Last 24 Hour Vital Signs Date Time Temp Pulse Resp B/P (MAP) Pulse Ox O2 Delivery O2 Flow Rate FiO2 11/08/18 12:00 97.7 55 18 90/59 (69) 94 11/08/18 10:08 99.7 11/08/18 09:00 Room Air 11/08/18 08:00 99.3 64 17 105/66 (79) 94 11/08/18 04:00 99.7 62 17 113/61 (78) 95 11/07/18 21:00 Room Air 11/07/18 20:00 99.7 62 17 110/81 (91) 95 11/07/18 16:00 98.3 68 122/64 (83) Height (Feet): 6 Height (Inches): 0.00 Weight (Pounds): 168 Objective GENERAL: Calm in bed, oriented x3, and in no acute distress. CARDIOVASCULAR: No murmurs. LUNGS: Distant and clear. ABDOMEN: Bowel sounds positive. Nontender. Nondistended. EXTREMITIES: No cyanosis, clubbing, or edema. L forearm antecubital area swelling, redness and TTP. NEUROLOGIC: The patient moves all extremities, slightly weak. Laboratory Tests Test 11/08/18 05:10 White Blood Count 9.1 K/UL (4.8-10.8) Red Blood Count 4.48 M/UL (4.70-6.10) L Hemoglobin 13.8 G/DL (14.2-18.0) L Hematocrit 41.1 % (42.0-52.0) L Mean Corpuscular Volume 92 FL (80-99) Mean Corpuscular Hemoglobin 30.7 PG (27.0-31.0) Mean Corpuscular Hemoglobin Concent 33.4 G/DL (32.0-36.0) Red Cell Distribution Width 12.2 % (11.6-14.8) Platelet Count 249 K/UL (150-450) Mean Platelet Volume 6.6 FL (6.5-10.1) Neutrophils (%) (Auto) 69.5 % (45.0-75.0) Lymphocytes (%) (Auto) 14.4 % (20.0-45.0) L Monocytes (%) (Auto) 13.6 % (1.0-10.0) H Eosinophils (%) (Auto) 1.4 % (0.0-3.0) Basophils (%) (Auto) 1.1 % (0.0-2.0) Prothrombin Time 11.9 SEC (9.30-11.50) H Prothromb Time International Ratio 1.1 (0.9-1.1) Sodium Level 139 MMOL/L (136-145) Potassium Level 3.6 MMOL/L (3.5-5.1) Chloride Level 104 MMOL/L (98-107) Carbon Dioxide Level 28 MMOL/L (21-32) Anion Gap 8 mmol/L (5-15) Blood Urea Nitrogen 12 mg/dL (7-18) Creatinine 0.9 MG/DL (0.55-1.30) Estimat Glomerular Filtration Rate mL/min (>60) Glucose Level 83 MG/DL (74-106) Calcium Level 8.7 MG/DL (8.5-10.1) Current Medications Medications (Trade) Dose Ordered Sig/Vadim Route PRN Reason Start Time Stop Time Status Last Admin Dose Admin Acetaminophen (Tylenol) 650 mg Q4H PRN ORAL Mild Pain/Temp > 100.5 11/04/18 10:45 12/04/18 10:44 11/08/18 09:38 Acetaminophen/ Hydrocodone Bitart (Dania 5/325) 1 tab Q8H PRN ORAL Severe Pain (Pain Scale 7-10) 11/04/18 06:45 11/11/18 06:44 Artificial Tears (Akwa-Tears) 1 drop BID BOTH EYES 11/04/18 11:00 12/04/18 10:59 11/08/18 09:36 Ascorbic Acid (Vitamin C) 500 mg TWICE A DAY ORAL 11/04/18 09:00 12/04/18 08:59 11/08/18 09:39 Aspirin (ASA) 81 mg DAILY ORAL 11/07/18 09:00 12/04/18 08:59 11/08/18 09:37 Cephalexin (Keflex) 500 mg FOUR TIMES A DAY ORAL 11/07/18 18:00 11/14/18 17:59 11/08/18 12:17 Clonazepam (KlonoPIN) 0.5 mg TID ORAL 11/04/18 09:00 11/11/18 08:59 11/08/18 12:17 Dextrose/Sodium Chloride 1,000 ml @ 60 mls/hr [id number] IV 11/04/18 04:30 12/04/18 04:29 11/06/18 21:17 Escitalopram Oxalate (Lexapro) 10 mg DAILY ORAL 11/04/18 09:00 12/04/18 08:59 11/08/18 09:39 Finasteride (Proscar) 5 mg DAILY ORAL 11/04/18 09:00 12/04/18 08:59 11/08/18 09:37 Fluticasone Propionate (Flonase) 1 spray DAILY NASAL 11/04/18 09:00 12/04/18 08:59 11/08/18 09:36 Gabapentin (Neurontin) 300 mg THREE TIMES A DAY ORAL 11/04/18 09:00 12/04/18 08:59 11/08/18 12:17 Ibuprofen (Advil) 600 mg Q8H PRN ORAL Pain Scale (3-5) 11/04/18 12:45 12/04/18 04:44 Lorazepam (Ativan) 1 mg Q6H PRN ORAL For Anxiety 11/04/18 06:45 11/11/18 06:44 Magnesium Hydroxide (Mom) 30 ml DAILY PRN ORAL Constipation 11/04/18 07:00 12/04/18 05:59 Montelukast Sodium (Singulair) 10 mg DAILY ORAL 11/04/18 09:00 12/04/18 08:59 11/08/18 09:38 Multivitamins Therapeutic (Therapeutic Multivitamin) 1 ea DAILY ORAL 11/04/18 09:00 12/04/18 08:59 11/08/18 09:37 Nitroglycerin (Ntg) 0.4 mg ADJUST PER PROTOCOL PRN SL CHEST PAIN AND NOTIFY 11/04/18 04:45 12/04/18 04:44 Sennosides (Senokot) 17.2 mg DAILY ORAL 11/04/18 09:00 12/04/18 08:59 11/08/18 09:38 Tamsulosin HCl (Flomax) 0.4 mg DAILY ORAL 11/04/18 09:00 12/04/18 08:59 11/08/18 09:38 Trimethoprim/ Sulfamethoxazole (Bactrim-DS) 1 tab TWICE A DAY ORAL 11/07/18 18:00 11/14/18 17:59 11/08/18 09:37 Warfarin Sodium (Coumadin per pharmacy) 1 ea DAILY PRN MISC Per rx protocol 11/06/18 17:15 12/06/18 17:14 Warfarin Sodium (Coumadin) 3 mg COUMADIN ONCE ORAL 11/08/18 17:00 11/08/18 17:01 Reanna Sahu M.D. Nov 08, 2018 12:32
--- NOTE | 2018-11-08 13:16 | Pulmonology Progress Note ---
Assessment/Plan Problems: (1) Coagulopathy (2) COPD (chronic obstructive pulmonary disease) (3) Cerebrovascular accident (CVA) (4) BPH (benign prostatic hyperplasia) (5) HTN (hypertension) (6) GERD (gastroesophageal reflux disease) (7) Anxiety Assessment/Plan no new complains all reviewed feeling better monitor BP check INR check electroltyes titrate fio2 to sat of 92% dc planning Subjective ROS Limited/Unobtainable: No Constitutional: Reports: no symptoms HEENT: Repors: no symptoms Allergies: Uncoded Allergies: Coconut (Allergy, Intermediate, Hives, 08/07/15) Objective Last 24 Hour Vital Signs Date Time Temp Pulse Resp B/P (MAP) Pulse Ox O2 Delivery O2 Flow Rate FiO2 11/08/18 12:00 97.7 55 18 90/59 (69) 94 11/08/18 10:08 99.7 11/08/18 09:00 Room Air 11/08/18 08:00 99.3 64 17 105/66 (79) 94 11/08/18 04:00 99.7 62 17 113/61 (78) 95 11/07/18 21:00 Room Air 11/07/18 20:00 99.7 62 17 110/81 (91) 95 11/07/18 16:00 98.3 68 122/64 (83) Intake and Output 11/07/18 11/08/18 19:00 07:00 Intake Total 1100 ml Output Total 825 ml Balance 1100 ml -825 ml Intake Oral 1100 ml Output Urine Total 825 ml # Voids 8 5 # Bowel Movements 1 Objective General Appearance: WD/WN HEENT: normocephalic, atraumatic Respiratory/Chest: chest wall non-tender, normal breath sounds Breasts: no masses Cardiovascular: normal peripheral pulses Abdomen: soft, non tender, no organomegaly Genitourinary: normal external genitalia Laboratory Tests 11/08/18 05:10: White Blood Count 9.1, Red Blood Count 4.48L, Hemoglobin 13.8L, Hematocrit 41.1L , Mean Corpuscular Volume 92, Mean Corpuscular Hemoglobin 30.7, Mean Corpuscular Hemoglobin Concent 33.4, Red Cell Distribution Width 12.2, Platelet Count 249, Mean Platelet Volume 6.6, Neutrophils (%) (Auto) 69.5, Lymphocytes (% ) (Auto) 14.4L, Monocytes (%) (Auto) 13.6H, Eosinophils (%) (Auto) 1.4, Basophils (%) (Auto) 1.1, Prothrombin Time 11.9H, Prothromb Time International Ratio 1.1, Sodium Level 139, Potassium Level 3.6, Chloride Level 104, Carbon Dioxide Level 28, Anion Gap 8, Blood Urea Nitrogen 12, Creatinine 0.9, Estimat Glomerular Filtration Rate , Glucose Level 83, Calcium Level 8.7 Current Medications Medications (Trade) Dose Ordered Sig/Vadim Route PRN Reason Start Time Stop Time Status Last Admin Dose Admin Acetaminophen (Tylenol) 650 mg Q4H PRN ORAL Mild Pain/Temp > 100.5 11/04/18 10:45 12/04/18 10:44 11/08/18 09:38 Acetaminophen/ Hydrocodone Bitart ([place] 5/325) 1 tab Q8H PRN ORAL Severe Pain (Pain Scale 7-10) 11/04/18 06:45 11/11/18 06:44 Artificial Tears (Akwa-Tears) 1 drop BID BOTH EYES 11/04/18 11:00 12/04/18 10:59 11/08/18 09:36 Ascorbic Acid (Vitamin C) 500 mg TWICE A DAY ORAL 11/04/18 09:00 12/04/18 08:59 11/08/18 09:39 Aspirin (ASA) 81 mg DAILY ORAL 11/07/18 09:00 12/04/18 08:59 11/08/18 09:37 Cephalexin (Keflex) 500 mg FOUR TIMES A DAY ORAL 11/07/18 18:00 11/14/18 17:59 11/08/18 12:17 Clonazepam (KlonoPIN) 0.5 mg TID ORAL 11/04/18 09:00 11/11/18 08:59 11/08/18 12:17 Dextrose/Sodium Chloride 1,000 ml @ 60 mls/hr [id number] IV 11/04/18 04:30 12/04/18 04:29 11/06/18 21:17 Escitalopram Oxalate (Lexapro) 10 mg DAILY ORAL 11/04/18 09:00 12/04/18 08:59 11/08/18 09:39 Finasteride (Proscar) 5 mg DAILY ORAL 11/04/18 09:00 12/04/18 08:59 11/08/18 09:37 Fluticasone Propionate (Flonase) 1 spray DAILY NASAL 11/04/18 09:00 12/04/18 08:59 11/08/18 09:36 Gabapentin (Neurontin) 300 mg THREE TIMES A DAY ORAL 11/04/18 09:00 12/04/18 08:59 11/08/18 12:17 Ibuprofen (Advil) 600 mg Q8H PRN ORAL Pain Scale (3-5) 11/04/18 12:45 12/04/18 04:44 Lorazepam (Ativan) 1 mg Q6H PRN ORAL For Anxiety 11/04/18 06:45 11/11/18 06:44 Magnesium Hydroxide (Mom) 30 ml DAILY PRN ORAL Constipation 11/04/18 07:00 12/04/18 05:59 Montelukast Sodium (Singulair) 10 mg DAILY ORAL 11/04/18 09:00 12/04/18 08:59 11/08/18 09:38 Multivitamins Therapeutic (Therapeutic Multivitamin) 1 ea DAILY ORAL 11/04/18 09:00 12/04/18 08:59 11/08/18 09:37 Nitroglycerin (Ntg) 0.4 mg ADJUST PER PROTOCOL PRN SL CHEST PAIN AND NOTIFY 11/04/18 04:45 12/04/18 04:44 Sennosides (Senokot) 17.2 mg DAILY ORAL 11/04/18 09:00 12/04/18 08:59 11/08/18 09:38 Tamsulosin HCl (Flomax) 0.4 mg DAILY ORAL 11/04/18 09:00 12/04/18 08:59 11/08/18 09:38 Trimethoprim/ Sulfamethoxazole (Bactrim-DS) 1 tab TWICE A DAY ORAL 11/07/18 18:00 11/14/18 17:59 11/08/18 09:37 Warfarin Sodium (Coumadin per pharmacy) 1 ea DAILY PRN MISC Per rx protocol 11/06/18 17:15 12/06/18 17:14 Warfarin Sodium (Coumadin) 3 mg COUMADIN ONCE ORAL 11/08/18 17:00 11/08/18 17:01 Ancelmo Ghosh MD Nov 08, 2018 13:16
--- NOTE | 2018-11-08 14:22 | General Progress Note ---
Assessment/Plan Problem List: (1) Anxiety ICD Codes: F41.9 - Anxiety disorder, unspecified SNOMED: 86081863 (2) GERD (gastroesophageal reflux disease) ICD Codes: K21.9 - Gastro-esophageal reflux disease without esophagitis SNOMED: 919323014 (3) HTN (hypertension) ICD Codes: I10 - Essential (primary) hypertension SNOMED: 26765179 (4) Cerebrovascular accident (CVA) ICD Codes: I63.9 - Cerebral infarction, unspecified SNOMED: 010408488 (5) Supratherapeutic INR ICD Codes: R79.1 - Abnormal coagulation profile SNOMED: 113743822 (6) Left arm cellulitis ICD Codes: L03.114 - Cellulitis of left upper limb SNOMED: 361310293 Status: stable, progressing Assessment/Plan pt abc per id t psyc tx heme f/u cbc bmp am dc plan Subjective Constitutional: Reports: weakness Allergies: Uncoded Allergies: Coconut (Allergy, Intermediate, Hives, 08/07/15) All Systems: reviewed and negative except above Subjective sleepy calm Objective Last 24 Hour Vital Signs Date Time Temp Pulse Resp B/P (MAP) Pulse Ox O2 Delivery O2 Flow Rate FiO2 11/08/18 12:00 97.7 55 18 90/59 (69) 94 11/08/18 10:08 99.7 11/08/18 09:00 Room Air 11/08/18 08:00 99.3 64 17 105/66 (79) 94 11/08/18 04:00 99.7 62 17 113/61 (78) 95 11/07/18 21:00 Room Air 11/07/18 20:00 99.7 62 17 110/81 (91) 95 11/07/18 16:00 98.3 68 122/64 (83) Intake and Output 11/07/18 11/08/18 19:00 07:00 Intake Total 1100 ml Output Total 825 ml Balance 1100 ml -825 ml Intake Oral 1100 ml Output Urine Total 825 ml # Voids 8 5 # Bowel Movements 1 Laboratory Tests 11/08/18 05:10: White Blood Count 9.1, Red Blood Count 4.48L, Hemoglobin 13.8L, Hematocrit 41.1L , Mean Corpuscular Volume 92, Mean Corpuscular Hemoglobin 30.7, Mean Corpuscular Hemoglobin Concent 33.4, Red Cell Distribution Width 12.2, Platelet Count 249, Mean Platelet Volume 6.6, Neutrophils (%) (Auto) 69.5, Lymphocytes (% ) (Auto) 14.4L, Monocytes (%) (Auto) 13.6H, Eosinophils (%) (Auto) 1.4, Basophils (%) (Auto) 1.1, Prothrombin Time 11.9H, Prothromb Time International Ratio 1.1, Sodium Level 139, Potassium Level 3.6, Chloride Level 104, Carbon Dioxide Level 28, Anion Gap 8, Blood Urea Nitrogen 12, Creatinine 0.9, Estimat Glomerular Filtration Rate , Glucose Level 83, Calcium Level 8.7 Height (Feet): 6 Height (Inches): 0.00 Weight (Pounds): 168 General Appearance: lethargic EENT: normal ENT inspection Neck: normal alignment Cardiovascular: normal peripheral pulses, normal rate, regular rhythm Respiratory/Chest: chest wall non-tender, lungs clear, normal breath sounds Abdomen: normal bowel sounds, non tender, soft Extremities: normal inspection Edema: no edema noted Arm (L), no edema noted Arm (R), no edema noted Leg (L), no edema noted Leg (R), no edema noted Pedal (L), no edema noted Pedal (R), no edema noted Generalized Neurologic: motor weakness Skin: normal pigmentation, warm/dry Objective left anticube w 3' x 3 ' redness Jaime Mackenzie DO Nov 08, 2018 14:22
[2018-11-08 15:53] VITALS: BP 110/68
--- NOTE | 2018-11-08 16:32 | General Progress Note ---
Assessment/Plan Assessment/Plan Assessment and Recs #. Supertherapeutic INR -- presents with Coagulopathy due to underlying use of Coumadin, INR >5, but most likely is due to patient not taking the right dose of coumadin, as in the past I have seen him and he has been subtherapeutic --> likely the patient is supratherapeutic, recommend decreasing the dose to decrease INR. per pharmacy dosing --> Continue to closely monitor VITK and FFP if doesn't improve --> Will need to have INR between 2 and 3 --> coumadin restarted, though in theory can use a NOAC as well --> appreciate pulm recs #. Pulmonary embolism. --> Maintain INR between 2-3. --> Monitor closely, INR currently at 2.4-->1.7-->1.1 #. Leukocytosis, likely due to infection and sepsis. --> On antibiotics, ID following. --> Monitor closely --> Resolved. #. Urinary tract infection and sepsis. --> historical, review cultures and imaging --> He has been seen by Infectious Disease #. Cerebrovascular accident history with left-sided hemiplegia --> as per neuro #. Benign prostatic hypertrophy. Closely monitor. Greatly appreciate consultation! Subjective Allergies: Uncoded Allergies: Coconut (Allergy, Intermediate, Hives, 08/07/15) Subjective 11/06: inr to be recheck this am, no fevers or chills 11/07: no events, still anxious, no fevers or chills 11/08: seen by bedside, awake, comfortable. Objective Last 24 Hour Vital Signs Date Time Temp Pulse Resp B/P (MAP) Pulse Ox O2 Delivery O2 Flow Rate FiO2 11/08/18 15:53 97.3 69 18 110/68 (82) 97 11/08/18 12:00 97.7 55 18 90/59 (69) 94 11/08/18 10:08 99.7 11/08/18 09:00 Room Air 11/08/18 08:00 99.3 64 17 105/66 (79) 94 11/08/18 04:00 99.7 62 17 113/61 (78) 95 11/07/18 21:00 Room Air 11/07/18 20:00 99.7 62 17 110/81 (91) 95 Intake and Output 3/18/19 3/19/19 19:00 07:00 Intake Total 1100 ml Output Total 825 ml Balance 1100 ml -825 ml Intake Oral 1100 ml Output Urine Total 825 ml # Voids 8 5 # Bowel Movements 1 Laboratory Tests 11/08/18 05:10: White Blood Count 9.1, Red Blood Count 4.48L, Hemoglobin 13.8L, Hematocrit 41.1L , Mean Corpuscular Volume 92, Mean Corpuscular Hemoglobin 30.7, Mean Corpuscular Hemoglobin Concent 33.4, Red Cell Distribution Width 12.2, Platelet Count 249, Mean Platelet Volume 6.6, Neutrophils (%) (Auto) 69.5, Lymphocytes (% ) (Auto) 14.4L, Monocytes (%) (Auto) 13.6H, Eosinophils (%) (Auto) 1.4, Basophils (%) (Auto) 1.1, Prothrombin Time 11.9H, Prothromb Time International Ratio 1.1, Sodium Level 139, Potassium Level 3.6, Chloride Level 104, Carbon Dioxide Level 28, Anion Gap 8, Blood Urea Nitrogen 12, Creatinine 0.9, Estimat Glomerular Filtration Rate , Glucose Level 83, Calcium Level 8.7 Height (Feet): 6 Height (Inches): 0.00 Weight (Pounds): 168 Objective Physical Exam General Appearance: A+O x3, NAD HEENT: normocephalic, atraumatic Neck: non-tender, normal alignment Respiratory/Chest: chest wall non-tender, lungs clear Cardiovascular/Chest: normal peripheral pulses, normal rate Abdomen: normal bowel sounds, non tender Extremities: normal range of motion Aren Morgan MD Nov 08, 2018 16:32
[2018-11-08] MEDS ORDERED: Warfarin Sodium 3mg ORAL ONE (17:00)
[2018-11-08] MEDS ORDERED: D5 1/2NS 1000ml IV ONE (19:07)
--- NOTE | 2018-11-08 19:21 | NUR ---
HAND-OFF: Report given to WALTER Chester.
--- NOTE | 2018-11-08 19:42 | NUR ---
NURSE NOTES: Received report from WALTER Marie. Patient sleeping. On room air, no signs of distress or labored breathing. No IV access, MD aware.
[2018-11-08 20:00] VITALS: BP 99/54
[2018-11-09] VITALS: BP 104/58
[2018-11-09] MEDS: D5 1/2NS 1,000 ML IV SCH ×2 (00:49→17:50)
--- NOTE | 2018-11-09 02:30 | Progress Note ---
DATE: 11/08/2018 SUBJECTIVE: The patient is a 72-year-old male patient with coagulopathy problems, hypertension, GERD, and BPH. The patient had mood decline and cognition worsened by his high anxiety and depression due to the stress of his medical illness. That is why, his attending has requested daily psychiatric consultation. MENTAL STATUS EXAMINATION: This is a 72-year-old male. Appearance is disheveled. Attitude, irritable and agitated. Affect, guarded and restricted. Intellect poor. Mood, depressed and anxious. Motor activity, psychomotor agitation. Attention span is poor. Orientation x2. Speech is low volume and slurred. Thought process disorganized and illogical. Insight and judgment is poor. DIAGNOSES: 1. Major depressive disorder, mild, recurrent without psychotic features. 2. Rule out generalized anxiety. PLAN: Treat the patient with Neurontin 300 mg , Klonopin 0.5 mg three times a day, Ativan one every six hours, and Lexapro 10 mg daily. Provided him with 20 minutes of reality-based supportive psychotherapy. Chart is reviewed and discussed with staff. Seen and assessed at bedside. medications. The patient will continue to be followed by Psychiatry. A 20 minutes of cognitive behavioral therapy was provided to help this patient to identify his automatic negative thoughts and help him convert those negative thoughts to more positive thoughts in order to his cognition and also help him . So, again the plan for this patient daily, Klonopin 0.5 mg two times a day, and Neurontin 300 mg three times a day and he had 20 minutes of cognitive behavioral therapy to help him identify his automatic negative thoughts and covert those negative thoughts to more positive thoughts to reduce depression, anxiety, and suicidality . Chart is reviewed, discussed with the staff. Seen and assessed in his room. A 20 minutes of cognitive behavioral therapy was provided. Eleni Winston M.D. DR: MARIA A JOB#: [id number] CC:
[2018-11-09 04:00] VITALS: BP 109/61
[2018-11-09 06:53] LABS: BASOPHILS % (AUTO) 1.2 % (0.0-2.0); EOSINOPHILS % (AUTO) 2.1 % (0.0-3.0); HEMATOCRIT 41.5 % (42.0-52.0); HEMOGLOBIN 13.6 G/DL (14.2-18.0); LYMPHOCYTES % (AUTO) 13.7 % (20.0-45.0); MEAN CORPUSCULAR VOLUME 92 FL (80-99); MONOCYTES % (AUTO) 13.7 % (1.0-10.0); NEUTROPHILS % (AUTO) 69.4 % (45.0-75.0); PLATELET COUNT 227 K/UL (150-450); RED BLOOD COUNT 4.51 M/UL (4.70-6.10); RED CELL DISTRIBUTION WIDTH 12.2 % (11.6-14.8); WHITE BLOOD COUNT 8.2 K/UL (4.8-10.8)
[2018-11-09 06:54] LABS: INR 1.2 (0.9-1.1)
[2018-11-09 07:13] LABS: ANION GAP 12 mmol/L (5-15); BLOOD UREA NITROGEN 18 mg/dL (7-18); CALCIUM 9.1 MG/DL (8.5-10.1); CARBON DIOXIDE 26 MMOL/L (21-32); CHLORIDE 105 MMOL/L (98-107); SODIUM 143 MMOL/L (136-145)
--- NOTE | 2018-11-09 07:58 | NUR ---
HAND-OFF: Report given to WALTER Chery.
--- NOTE | 2018-11-09 07:58 | NUR ---
NURSE NOTES: Patient alert and oriented,noted the left arm redness,no drainage noted,patient state arm is feeling a little better.patient ate some of his breakfast.Will monitor.Call light within reach,bed alarm is on.
[2018-11-09 08:01] VITALS: BP 104/65
[2018-11-09] MEDS: Cephalexin 500mg cap ORAL SCH ×3 (09:51→17:59)
[2018-11-09] MEDS: clonazePAM 0.5mg tab ORAL SCH ×3 (09:51→17:58)
[2018-11-09] MEDS: Bactrim-DS 1 tab ORAL SCH ×2 (09:51→18:01)
[2018-11-09] MEDS: Sennosides 8.6mg tab ORAL SCH (09:52)
[2018-11-09] MEDS: Montelukast 10mg tablet ORAL SCH (09:52)
[2018-11-09] MEDS: Ascorbic Acid 500mg tab ORAL SCH ×2 (09:52→17:58)
[2018-11-09] MEDS: Multivitamin w/Minerals tab ORAL SCH (09:52)
[2018-11-09] MEDS: Tamsulosin 0.4mg cap ORAL SCH (09:52)
[2018-11-09] MEDS: Flonase Nasal Inhaler 16gm NASAL SCH (09:53)
[2018-11-09] MEDS: Artificial Tears 1.4% Op Soln BOTH EYES SCH ×2 (09:53→18:05)
[2018-11-09] MEDS: Aspirin Baby 81mg ORAL SCH (09:53)
[2018-11-09 12:00] VITALS: BP 99/62
--- NOTE | 2018-11-09 12:38 | General Progress Note ---
Assessment/Plan Assessment/Plan Assessment and Recs #. Supertherapeutic INR -- presents with Coagulopathy due to underlying use of Coumadin, INR >5, but most likely is due to patient not taking the right dose of coumadin, as in the past I have seen him and he has been subtherapeutic --> likely the patient is supratherapeutic, recommend decreasing the dose to decrease INR. per pharmacy dosing --> Continue to closely monitor VITK and FFP if doesn't improve --> Will need to have INR between 2 and 3 --> coumadin restarted, though in theory can use a NOAC as well --> appreciate pulm recs #. Pulmonary embolism. --> Maintain INR between 2-3. --> Monitor closely, INR currently at 2.4-->1.7-->1.1 #. Leukocytosis, likely due to infection and sepsis. --> On antibiotics, ID following. --> Monitor closely --> Resolved. #. Urinary tract infection and sepsis. --> historical, review cultures and imaging --> He has been seen by Infectious Disease #. Cerebrovascular accident history with left-sided hemiplegia --> as per neuro #. Benign prostatic hypertrophy. Closely monitor. Greatly appreciate consultation! Subjective Allergies: Uncoded Allergies: Coconut (Allergy, Intermediate, Hives, 08/07/15) Subjective 11/06: inr to be recheck this am, no fevers or chills 11/07: no events, still anxious, no fevers or chills 11/08: seen by bedside, awake, comfortable. 11/09: Pt is resting in bed, awake, comfortable, no events, cbc reviewed. Objective Last 24 Hour Vital Signs Date Time Temp Pulse Resp B/P (MAP) Pulse Ox O2 Delivery O2 Flow Rate FiO2 11/09/18 10:37 Room Air 11/09/18 08:01 58 16 104/65 (78) 94 11/09/18 04:00 97.2 52 18 109/61 (77) 95 11/09/18 00:00 98.6 52 18 104/58 (73) 96 11/08/18 21:00 Room Air 11/08/18 20:00 98.9 58 18 99/54 (69) 100 11/08/18 17:35 97.3 11/08/18 15:53 97.3 69 18 110/68 (82) 97 Intake and Output 11/08/18 11/09/18 18:59 06:59 Intake Total 1010 ml Output Total 500 ml Balance 1010 ml -500 ml Intake Oral 1010 ml Output Urine Total 500 ml Laboratory Tests 11/09/18 05:20: White Blood Count 8.2, Red Blood Count 4.51L, Hemoglobin 13.6L, Hematocrit 41.5L , Mean Corpuscular Volume 92, Mean Corpuscular Hemoglobin 30.1, Mean Corpuscular Hemoglobin Concent 32.8, Red Cell Distribution Width 12.2, Platelet Count 227, Mean Platelet Volume 6.5, Neutrophils (%) (Auto) 69.4, Lymphocytes (% ) (Auto) 13.7L, Monocytes (%) (Auto) 13.7H, Eosinophils (%) (Auto) 2.1, Basophils (%) (Auto) 1.2, Prothrombin Time 12.9H, Prothromb Time International Ratio 1.2H, Sodium Level 143, Potassium Level 4.0, Chloride Level 105, Carbon Dioxide Level 26, Anion Gap 12, Blood Urea Nitrogen 18, Creatinine 1.0, Estimat Glomerular Filtration Rate , Glucose Level 84, Calcium Level 9.1 Height (Feet): 6 Height (Inches): 0.00 Weight (Pounds): 171 Objective Physical Exam General Appearance: A+O x3, NAD HEENT: normocephalic, atraumatic Neck: non-tender, normal alignment Respiratory/Chest: chest wall non-tender, lungs clear Cardiovascular/Chest: normal peripheral pulses, normal rate Abdomen: normal bowel sounds, non tender Extremities: normal range of motion Aren Morgan MD Nov 09, 2018 12:38
--- NOTE | 2018-11-09 13:05 | Pulmonology Progress Note ---
Assessment/Plan Problems: (1) Coagulopathy (2) COPD (chronic obstructive pulmonary disease) (3) Cerebrovascular accident (CVA) (4) BPH (benign prostatic hyperplasia) (5) HTN (hypertension) (6) GERD (gastroesophageal reflux disease) (7) Anxiety Assessment/Plan no new complains all reviewed feeling better monitor BP check INR check electroltyes titrate fio2 to sat of 92% dc planning Subjective ROS Limited/Unobtainable: No Constitutional: Reports: no symptoms HEENT: Repors: no symptoms Allergies: Uncoded Allergies: [place]ut (Allergy, Intermediate, Hives, 08/07/15) Objective Last 24 Hour Vital Signs Date Time Temp Pulse Resp B/P (MAP) Pulse Ox O2 Delivery O2 Flow Rate FiO2 11/09/18 10:37 Room Air 11/09/18 08:01 58 16 104/65 (78) 94 11/09/18 04:00 97.2 52 18 109/61 (77) 95 11/09/18 00:00 98.6 52 18 104/58 (73) 96 11/08/18 21:00 Room Air 11/08/18 20:00 98.9 58 18 99/54 (69) 100 11/08/18 17:35 97.3 11/08/18 15:53 97.3 69 18 110/68 (82) 97 Intake and Output 11/08/18 11/09/18 18:59 06:59 Intake Total 1010 ml Output Total 500 ml Balance 1010 ml -500 ml Intake Oral 1010 ml Output Urine Total 500 ml Objective General Appearance: WD/WN HEENT: normocephalic, atraumatic Respiratory/Chest: chest wall non-tender, normal breath sounds Breasts: no masses Cardiovascular: normal peripheral pulses Abdomen: soft, non tender, no organomegaly Genitourinary: normal external genitalia Laboratory Tests 11/09/18 05:20: White Blood Count 8.2, Red Blood Count 4.51L, Hemoglobin 13.6L, Hematocrit 41.5L , Mean Corpuscular Volume 92, Mean Corpuscular Hemoglobin 30.1, Mean Corpuscular Hemoglobin Concent 32.8, Red Cell Distribution Width 12.2, Platelet Count 227, Mean Platelet Volume 6.5, Neutrophils (%) (Auto) 69.4, Lymphocytes (% ) (Auto) 13.7L, Monocytes (%) (Auto) 13.7H, Eosinophils (%) (Auto) 2.1, Basophils (%) (Auto) 1.2, Prothrombin Time 12.9H, Prothromb Time International Ratio 1.2H, Sodium Level 143, Potassium Level 4.0, Chloride Level 105, Carbon Dioxide Level 26, Anion Gap 12, Blood Urea Nitrogen 18, Creatinine 1.0, Estimat Glomerular Filtration Rate , Glucose Level 84, Calcium Level 9.1 Current Medications Medications (Trade) Dose Ordered Sig/Vadim Route PRN Reason Start Time Stop Time Status Last Admin Dose Admin Acetaminophen (Tylenol) 650 mg Q4H PRN ORAL Mild Pain/Temp > 100.5 11/04/18 10:45 12/04/18 10:44 11/09/18 10:55 Acetaminophen/ Hydrocodone Bitart ([place] 5/325) 1 tab Q8H PRN ORAL Severe Pain (Pain Scale 7-10) 11/04/18 06:45 11/11/18 06:44 Artificial Tears ([place]-Tears) 1 drop BID BOTH EYES 11/04/18 11:00 12/04/18 10:59 11/09/18 09:53 Ascorbic Acid (Vitamin C) 500 mg TWICE A DAY ORAL 11/04/18 09:00 12/04/18 08:59 11/09/18 09:52 Aspirin (ASA) 81 mg DAILY ORAL 11/07/18 09:00 12/04/18 08:59 11/09/18 09:53 Cephalexin (Keflex) 500 mg FOUR TIMES A DAY ORAL 11/07/18 18:00 11/14/18 17:59 11/09/18 09:51 Clonazepam (KlonoPIN) 0.5 mg TID ORAL 11/04/18 09:00 11/11/18 08:59 11/09/18 09:51 Dextrose/Sodium Chloride 1,000 ml @ 60 mls/hr [id number] IV 11/04/18 04:30 12/04/18 04:29 11/06/18 21:17 Escitalopram Oxalate (Lexapro) 10 mg DAILY ORAL 11/04/18 09:00 12/04/18 08:59 11/09/18 09:51 Finasteride (Proscar) 5 mg DAILY ORAL 11/04/18 09:00 12/04/18 08:59 11/09/18 09:52 Fluticasone Propionate (Flonase) 1 spray DAILY NASAL 11/04/18 09:00 12/04/18 08:59 11/09/18 09:53 Gabapentin (Neurontin) 300 mg THREE TIMES A DAY ORAL 11/04/18 09:00 12/04/18 08:59 11/09/18 09:51 Ibuprofen (Advil) 600 mg Q8H PRN ORAL Pain Scale (3-5) 11/04/18 12:45 12/04/18 04:44 Lorazepam (Ativan) 1 mg Q6H PRN ORAL For Anxiety 11/04/18 06:45 11/11/18 06:44 Magnesium Hydroxide (Mom) 30 ml DAILY PRN ORAL Constipation 11/04/18 07:00 12/04/18 05:59 Montelukast Sodium (Singulair) 10 mg DAILY ORAL 11/04/18 09:00 12/04/18 08:59 11/09/18 09:52 Multivitamins Therapeutic (Therapeutic Multivitamin) 1 ea DAILY ORAL 11/04/18 09:00 12/04/18 08:59 11/09/18 09:52 Nitroglycerin (Ntg) 0.4 mg ADJUST PER PROTOCOL PRN SL CHEST PAIN AND NOTIFY 11/04/18 04:45 12/04/18 04:44 Sennosides (Senokot) 17.2 mg DAILY ORAL 11/04/18 09:00 12/04/18 08:59 11/09/18 09:52 Tamsulosin HCl (Flomax) 0.4 mg DAILY ORAL 11/04/18 09:00 12/04/18 08:59 11/09/18 09:52 Trimethoprim/ Sulfamethoxazole (Bactrim-DS) 1 tab TWICE A DAY ORAL 11/07/18 18:00 11/14/18 17:59 11/09/18 09:51 Warfarin Sodium (Coumadin per pharmacy) 1 ea DAILY PRN MISC Per rx protocol 11/06/18 17:15 12/06/18 17:14 Warfarin Sodium (Coumadin) 3 mg COUMADIN ORAL 11/09/18 17:00 11/09/18 18:00 Ancelmo Ghosh MD Nov 09, 2018 13:05
--- NOTE | 2018-11-09 14:44 | General Progress Note ---
Assessment/Plan Problem List: (1) Anxiety ICD Codes: F41.9 - Anxiety disorder, unspecified SNOMED: 84708857 (2) GERD (gastroesophageal reflux disease) ICD Codes: K21.9 - Gastro-esophageal reflux disease without esophagitis SNOMED: 868504673 (3) HTN (hypertension) ICD Codes: I10 - Essential (primary) hypertension SNOMED: 41929812 (4) Cerebrovascular accident (CVA) ICD Codes: I63.9 - Cerebral infarction, unspecified SNOMED: 378229830 (5) Supratherapeutic INR ICD Codes: R79.1 - Abnormal coagulation profile SNOMED: 673915864 (6) Left arm cellulitis ICD Codes: L03.114 - Cellulitis of left upper limb SNOMED: 140364177 Status: stable, progressing Assessment/Plan pt abc per id t psyc tx heme f/u dc if clear Subjective Constitutional: Reports: weakness Allergies: Uncoded Allergies: [place]ut (Allergy, Intermediate, Hives, 08/07/15) All Systems: reviewed and negative except above Subjective sl anxious in bed Objective Last 24 Hour Vital Signs Date Time Temp Pulse Resp B/P (MAP) Pulse Ox O2 Delivery O2 Flow Rate FiO2 11/09/18 12:00 98.2 55 16 99/62 (74) 16 11/09/18 10:37 Room Air 11/09/18 08:01 58 16 104/65 (78) 94 11/09/18 04:00 97.2 52 18 109/61 (77) 95 11/09/18 00:00 98.6 52 18 104/58 (73) 96 11/08/18 21:00 Room Air 11/08/18 20:00 98.9 58 18 99/54 (69) 100 11/08/18 17:35 97.3 11/08/18 15:53 97.3 69 18 110/68 (82) 97 Intake and Output 11/08/18 11/09/18 19:00 07:00 Intake Total 1010 ml Output Total 500 ml Balance 1010 ml -500 ml Intake Oral 1010 ml Output Urine Total 500 ml Laboratory Tests 11/09/18 05:20: White Blood Count 8.2, Red Blood Count 4.51L, Hemoglobin 13.6L, Hematocrit 41.5L , Mean Corpuscular Volume 92, Mean Corpuscular Hemoglobin 30.1, Mean Corpuscular Hemoglobin Concent 32.8, Red Cell Distribution Width 12.2, Platelet Count 227, Mean Platelet Volume 6.5, Neutrophils (%) (Auto) 69.4, Lymphocytes (% ) (Auto) 13.7L, Monocytes (%) (Auto) 13.7H, Eosinophils (%) (Auto) 2.1, Basophils (%) (Auto) 1.2, Prothrombin Time 12.9H, Prothromb Time International Ratio 1.2H, Sodium Level 143, Potassium Level 4.0, Chloride Level 105, Carbon Dioxide Level 26, Anion Gap 12, Blood Urea Nitrogen 18, Creatinine 1.0, Estimat Glomerular Filtration Rate , Glucose Level 84, Calcium Level 9.1 Height (Feet): 6 Height (Inches): 0.00 Weight (Pounds): 171 General Appearance: alert EENT: normal ENT inspection Neck: normal alignment Cardiovascular: normal peripheral pulses, normal rate, regular rhythm Respiratory/Chest: chest wall non-tender, lungs clear, normal breath sounds Abdomen: normal bowel sounds, non tender, soft Extremities: normal inspection Edema: no edema noted Arm (L), no edema noted Arm (R), no edema noted Leg (L), no edema noted Leg (R), no edema noted Pedal (L), no edema noted Pedal (R), no edema noted Generalized Neurologic: responsive, motor weakness Skin: normal pigmentation, warm/dry Objective sl left anticube redness Jaime Mackenzie DO Nov 09, 2018 14:44
--- NOTE | 2018-11-09 15:31 | NUR ---
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
--- NOTE | 2018-11-09 15:31 | Infectious Diseases Prog Note ---
Assessment/Plan Assessment/Plan Abx: None Assessment: L forearm cellulitis/phlebitis- due to prior IV; imrpoving CVA w/ L side weakness anxiety PE/DVT on coumadin MDD GERD BPH COPD HTN NH resident Plan: -COntinue PO Keflex and Bactrim #3/7 for L arm cellulitis/phlebitis -ok to discharge on above regimen -f.u cx -Monitor CBC/CMP, temperatures -local wound care as per hospital protocol Thank you for this consultation. Will continue to follow along with you. Subjective Allergies: Uncoded Allergies: Coconut (Allergy, Intermediate, Hives, 08/07/15) Subjective afebrile no leukocytosis Objective Vital Signs Last 24 Hour Vital Signs Date Time Temp Pulse Resp B/P (MAP) Pulse Ox O2 Delivery O2 Flow Rate FiO2 11/09/18 12:00 98.2 55 16 99/62 (74) 16 11/09/18 10:37 Room Air 11/09/18 08:01 58 16 104/65 (78) 94 11/09/18 04:00 97.2 52 18 109/61 (77) 95 11/09/18 00:00 98.6 52 18 104/58 (73) 96 11/08/18 21:00 Room Air 11/08/18 20:00 98.9 58 18 99/54 (69) 100 11/08/18 17:35 97.3 11/08/18 15:53 97.3 69 18 110/68 (82) 97 Height (Feet): 6 Height (Inches): 0.00 Weight (Pounds): 171 Objective GENERAL: Calm in bed, oriented x3, and in no acute distress. CARDIOVASCULAR: No murmurs. LUNGS: Distant and clear. ABDOMEN: Bowel sounds positive. Nontender. Nondistended. EXTREMITIES: No cyanosis, clubbing, or edema. L forearm antecubital area swelling, redness and TTP. NEUROLOGIC: The patient moves all extremities, slightly weak. Laboratory Tests Test 11/09/18 05:20 White Blood Count 8.2 K/UL (4.8-10.8) Red Blood Count 4.51 M/UL (4.70-6.10) L Hemoglobin 13.6 G/DL (14.2-18.0) L Hematocrit 41.5 % (42.0-52.0) L Mean Corpuscular Volume 92 FL (80-99) Mean Corpuscular Hemoglobin 30.1 PG (27.0-31.0) Mean Corpuscular Hemoglobin Concent 32.8 G/DL (32.0-36.0) Red Cell Distribution Width 12.2 % (11.6-14.8) Platelet Count 227 K/UL (150-450) Mean Platelet Volume 6.5 FL (6.5-10.1) Neutrophils (%) (Auto) 69.4 % (45.0-75.0) Lymphocytes (%) (Auto) 13.7 % (20.0-45.0) L Monocytes (%) (Auto) 13.7 % (1.0-10.0) H Eosinophils (%) (Auto) 2.1 % (0.0-3.0) Basophils (%) (Auto) 1.2 % (0.0-2.0) Prothrombin Time 12.9 SEC (9.30-11.50) H Prothromb Time International Ratio 1.2 (0.9-1.1) H Sodium Level 143 MMOL/L (136-145) Potassium Level 4.0 MMOL/L (3.5-5.1) Chloride Level 105 MMOL/L (98-107) Carbon Dioxide Level 26 MMOL/L (21-32) Anion Gap 12 mmol/L (5-15) Blood Urea Nitrogen 18 mg/dL (7-18) Creatinine 1.0 MG/DL (0.55-1.30) Estimat Glomerular Filtration Rate mL/min (>60) Glucose Level 84 MG/DL (74-106) Calcium Level 9.1 MG/DL (8.5-10.1) Current Medications Medications (Trade) Dose Ordered Sig/Vadim Route PRN Reason Start Time Stop Time Status Last Admin Dose Admin Acetaminophen (Tylenol) 650 mg Q4H PRN ORAL Mild Pain/Temp > 100.5 11/04/18 10:45 12/04/18 10:44 11/09/18 10:55 Acetaminophen/ Hydrocodone Bitart ([place] 5/325) 1 tab Q8H PRN ORAL Severe Pain (Pain Scale 7-10) 11/04/18 06:45 11/11/18 06:44 Artificial Tears (Akwa-Tears) 1 drop BID BOTH EYES 11/04/18 11:00 12/04/18 10:59 11/09/18 09:53 Ascorbic Acid (Vitamin C) 500 mg TWICE A DAY ORAL 11/04/18 09:00 12/04/18 08:59 11/09/18 09:52 Aspirin (ASA) 81 mg DAILY ORAL 11/07/18 09:00 12/04/18 08:59 11/09/18 09:53 Cephalexin (Keflex) 500 mg FOUR TIMES A DAY ORAL 11/07/18 18:00 11/14/18 17:59 11/09/18 14:03 Clonazepam (KlonoPIN) 0.5 mg TID ORAL 11/04/18 09:00 11/11/18 08:59 11/09/18 14:03 Dextrose/Sodium Chloride 1,000 ml @ 60 mls/hr [id number] IV 11/04/18 04:30 12/04/18 04:29 11/06/18 21:17 Escitalopram Oxalate (Lexapro) 10 mg DAILY ORAL 11/04/18 09:00 12/04/18 08:59 11/09/18 09:51 Finasteride (Proscar) 5 mg DAILY ORAL 11/04/18 09:00 12/04/18 08:59 11/09/18 09:52 Fluticasone Propionate (Flonase) 1 spray DAILY NASAL 11/04/18 09:00 12/04/18 08:59 11/09/18 09:53 Gabapentin (Neurontin) 300 mg THREE TIMES A DAY ORAL 11/04/18 09:00 12/04/18 08:59 11/09/18 14:03 Ibuprofen (Advil) 600 mg Q8H PRN ORAL Pain Scale (3-5) 11/04/18 12:45 12/04/18 04:44 Lorazepam (Ativan) 1 mg Q6H PRN ORAL For Anxiety 11/04/18 06:45 11/11/18 06:44 Magnesium Hydroxide (Mom) 30 ml DAILY PRN ORAL Constipation 11/04/18 07:00 12/04/18 05:59 Montelukast Sodium (Singulair) 10 mg DAILY ORAL 11/04/18 09:00 12/04/18 08:59 11/09/18 09:52 Multivitamins Therapeutic (Therapeutic Multivitamin) 1 ea DAILY ORAL 11/04/18 09:00 12/04/18 08:59 11/09/18 09:52 Nitroglycerin (Ntg) 0.4 mg ADJUST PER PROTOCOL PRN SL CHEST PAIN AND NOTIFY 11/04/18 04:45 12/04/18 04:44 Sennosides (Senokot) 17.2 mg DAILY ORAL 11/04/18 09:00 12/04/18 08:59 11/09/18 09:52 Tamsulosin HCl (Flomax) 0.4 mg DAILY ORAL 11/04/18 09:00 12/04/18 08:59 11/09/18 09:52 Trimethoprim/ Sulfamethoxazole (Bactrim-DS) 1 tab TWICE A DAY ORAL 11/07/18 18:00 11/14/18 17:59 11/09/18 09:51 Warfarin Sodium (Coumadin per pharmacy) 1 ea DAILY PRN MISC Per rx protocol 11/06/18 17:15 12/06/18 17:14 Warfarin Sodium (Coumadin) 3 mg COUMADIN ORAL 11/09/18 17:00 11/09/18 18:00 Reanna Sahu M.D. Nov 09, 2018 15:31
[2018-11-09 16:08] VITALS: BP 107/65
[2018-11-09] MEDS ORDERED: CEPHALEXIN500 M1 ORAL (16:37)
[2018-11-09] MEDS ORDERED: CEPHALEXIN500 MG ORAL (16:40)
[2018-11-09] MEDS ORDERED: BACTRIM DS TAB1 EAC1 ORAL (16:43)
[2018-11-09] MEDS ORDERED: Warfarin Sodium 3mg ORAL SCH (17:00)
--- NOTE | 2018-11-09 18:18 | NUR ---
NURSE NOTES: Patient discharge at this time,discharge instructions given,report given to Maryann RN regarding discharge medication and antibiotics patient to continue at [facility].Patient has personal belongings,patient ID hospital band removed,patient Has no IV.Picture taken of left arm redness.[facility] personnel to transport patient.
--- NOTE | 2018-11-09 18:25 | NUR ---
NURSE NOTES: DR Sahu was here today and cleared patient for discharge and patient to continue on antibiotics for 5 more days.
--- NOTE | 2018-11-09 19:15 | Progress Note ---
DATE: 11/09/2018 SUBJECTIVE: This is a 72-year-old male patient with coagulopathy. He has some confusion, some disorganized thought processes, decline cognition below his baseline that is why his attending has requested daily psychiatric consultation. He has lot of mood lability, high levels of anxiety and depression on interview. MENTAL STATUS EXAMINATION: The patient is a 72-year-old male. Appearance is disheveled. Attitude, irritable and agitated. Affect, guarded and restricted. Intellect poor. Mood depressed and anxious. Motor activity, psychomotor agitation. Attention span is poor. Orientation x2. Speech is pressured. Thought process, disorganized . Insight and judgment is poor DIAGNOSIS: Major depressive disorder, mild, recurrent, without psychotic features. PLAN: Treat him with medication regimen of Neurontin 300 three times a day, Klonopin 0.5 mg three times a day, Ativan 1 mg every six hours p.r.n. anxiety and agitation, Lexapro 10 mg daily. Provided him with 20 minutes of reality-based supportive psychotherapy. A 20 minutes of cognitive behavioral therapy was provided to help him identify his automatic negative thoughts and help him convert those negative thoughts to more positive thinking to reduce depression, anxiety, and mood lability and also help him have more adaptive behavioral pattern. Chart is reviewed and discussed with staff. Seen and assessed at bedside. Eleni Winston M.D. DR: Samantha JOB#: [id number] CC:
--- NOTE | 2018-11-10 12:50 | Discharge Summary ---
Discharge Summary Discharge Summary _ DATE OF ADMISSION: 11/03/2018 DATE OF DISCHARGE: 11/09/2018 DISCHARGED BY: Dr. Jaime Mackenzie CONSULTANTS: Dr. Eleni Ricardo PsyD BRIEF HOSPITAL COURSE: Patient a 72-year-old male, from [facility], presented to ED due to elevated INR. Patient has history of anticoagulant use due to history of DVT and prior stroke with left-sided renee-paresis. INR was noted to be greater than 5. INR was noted to be persistently elevated despite holding Coumadin. On evaluation at the ED, vital signs were stable. Blood work did not show any leukocytosis. Hemoglobin and hematocrit were stable. Platelet was normal. INR was elevated to 2.4, PT 33, PTT 45. Electrolytes were normal. He was admitted for hypercoagulable state. Patient had supratherapeutic INR/coagulopathy due to underlying use of Coumadin. Target INR was between 2-3. Blood levels were monitored. He was diagnosed with major depressive disorder and was seen by psychiatrist. He was given Lexapro, Neurontin, clonidine, and Ativan prn. There was a noted cellulitis on the left arm from old IV site. Arm was noted to be red, swollen and tender with yellowish discharge. ID was consulted. Patient was refusing to have a new IV line inserted. He was given p.o. Keflex and Bactrim he was given wound care. INR levels improved. He was eventually started on Coumadin with pharmacy to dose. Wound culture showed luminary growth coagulase negative Staphylococcus. There was no leukocytosis and patient was afebrile. He was continued on Coumadin. INR continued to be dose target range of 2-3. He was eventually discharged back to snf. 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 DISCHARGE MEDICATIONS: Refer to Discharge Medication List. I have been assigned to complete a discharge summary on this account, I was not involved with the patient's management. Enid Brand NP Nov 10, 2018 12:50
== END 2018-11-09 18:05 | DRG 813 ==
LOC: EDBD 21:40 → EMR 21:59 → 4E 23:05 → EDBEDREQ 23:32
DX: D68.8 Other specified coagulation defects (principal); I69.354 Hemiplegia and hemiparesis following cerebral infarction affecting left non-dominant side; F33.0 Major depressive disorder, recurrent, mild; L03.114 Cellulitis of left upper limb; T45.515A Adverse effect of anticoagulants, initial encounter; I10 Essential (primary) hypertension; K21.9 Gastro-esophageal reflux disease without esophagitis; J44.9 Chronic obstructive pulmonary disease, unspecified; I80.8 Phlebitis and thrombophlebitis of other sites; Y84.8 Other medical procedures as the cause of abnormal reaction of the patient, or of later complication, without mention of misadventure at the time of the procedure; Z86.711 Personal history of pulmonary embolism; Z86.718 Personal history of other venous thrombosis and embolism; F41.9 Anxiety disorder, unspecified; Z79.82 Long term (current) use of aspirin; B95.8 Unspecified staphylococcus as the cause of diseases classified elsewhere
CPT/HCPCS: 36415; 80048; 80053; 84443; 84484; 85025; 85610; 85730; 87070; 87205; 93005; 99285

== ENCOUNTER 2019-06-13 19:31 | Inpatient (IN) | payer MEDICARE, MEDICAID ==
[~2019-06-13] VITALS: Ht 180.3 cm; Wt 77.1 kg
[~2019-06-13 19:31] MED LIST changes: +BISACODYL5 MG PO; -BISACODYL5 MG RECTAL; +CEPHALEXIN500 M1 ORAL; +CEPHALEXIN500 MG ORAL
[2019-06-13 19:35] VITALS: BP 84/52
--- NOTE | 2019-06-13 19:42 | NUR ---
ED Nurse Note: Pt brought in by ambulance from [facility] c/o nose bleed daily and rectal bleeding. Pt is A&Ox3, VSS. pT is currently on coumadin, reports not taking it for 3 days.
[2019-06-13] MEDS ORDERED: Pantoprazole Inj IVP ONE (19:45)
--- NOTE | 2019-06-13 19:53 | NUR ---
ED Nurse Note: IV ACCESS ESTABLISHED. BLOOD COLLECTED; SENT DOWN TO LAB.
[2019-06-13 20:04] LABS: BASOPHILS % (AUTO) 2.1 % (0.0-2.0); EOSINOPHILS % (AUTO) 2.2 % (0.0-3.0); HEMATOCRIT 42.6 % (42.0-52.0); HEMOGLOBIN 14.4 G/DL (14.2-18.0); LYMPHOCYTES % (AUTO) 17.6 % (20.0-45.0); MEAN CORPUSCULAR VOLUME 89 FL (80-99); MONOCYTES % (AUTO) 10.8 % (1.0-10.0); NEUTROPHILS % (AUTO) 67.3 % (45.0-75.0); PLATELET COUNT 292 K/UL (150-450); RED CELL DISTRIBUTION WIDTH 10.9 % (11.6-14.8); WHITE BLOOD COUNT 7.4 K/UL (4.8-10.8)
[2019-06-13 20:17] LABS: INR 1.8 (0.9-1.1)
[2019-06-13 20:21] LABS: ANION GAP 7 mmol/L (5-15); BLOOD UREA NITROGEN 9 mg/dL (7-18); CALCIUM 9.2 MG/DL (8.5-10.1); CARBON DIOXIDE 32 MMOL/L (21-32); CHLORIDE 103 MMOL/L (98-107); CREATININE 0.8 MG/DL (0.55-1.30); SODIUM 142 MMOL/L (136-145)
[2019-06-13 20:25] LABS: ALANINE AMINOTRANSFERASE 26 U/L (12-78); ALBUMIN 3.5 G/DL (3.4-5.0); ALBUMIN/GLOBULIN RATIO 0.9 (1.0-2.7); ALKALINE PHOSPHATASE 66 U/L (46-116); ASPARTATE AMINO TRANSFERASE 21 U/L (15-37); BILIRUBIN,TOTAL 0.5 MG/DL (0.2-1.0)
--- NOTE | 2019-06-13 20:46 | Emergency Room Report ---
History of Present Illness General Chief Complaint: Nosebleed Source: Patient Present Illness HPI 73-year-old male presents ED for evaluation. [facility]. Has been having recurrent nosebleeds for the last 2 weeks. No active bleeding at this time. Also has been having blood in his stool. Patient is on Coumadin. Per EMS Coumadin has been withheld for the last few days. Patient denies any abdominal pain nausea or vomiting. Denies fevers or chills. No other aggravating relieving factors. Denies any other associated symptoms Allergies: Coded Allergies: COCONUT (Unverified Allergy, Unknown, 06/13/19) Uncoded Allergies: Coconut (Allergy, Intermediate, Hives, 08/07/15) Patient History Past Medical History: HTN, GERD, CVA/TIA Past Surgical History: none Pertinent Family History: none Social History: Denies: smoking, alcohol use, drug use Immunizations: UTD Reviewed Nursing Documentation: PMH: Agreed; PSxH: Agreed Nursing Documentation-PMH Past Medical History: No History, Except For Hx Cardiac Problems: No Hx Hypertension: Yes Hx Cancer: No Hx Gastrointestinal Problems: Yes - GERD Hx Neurological Problems: No Hx Cerebrovascular Accident: Yes - CVA 1994 Hx Dizziness: Yes Hx Headaches: Yes Hx Weakness: Yes - left sided weakness Review of Systems All Other Systems: negative except mentioned in HPI Physical Exam Vital Signs Date Time Temp Pulse Resp B/P (MAP) Pulse Ox O2 Delivery O2 Flow Rate FiO2 06/13/19 19:27 97.9 65 22 84/52 (63) 90 Room Air Sp02 EP Interpretation: reviewed, normal General Appearance: no apparent distress, alert, GCS 15, non-toxic Head: normocephalic Eyes: bilateral eye normal inspection, bilateral eye PERRL ENT: hearing grossly normal, normal pharynx, no angioedema, normal voice, other - dried blood in nares Neck: normal inspection Respiratory: chest non-tender, lungs clear, normal breath sounds, speaking full sentences Cardiovascular #1: regular rate, rhythm, no edema Gastrointestinal: normal bowel sounds, non tender, soft, non-distended, no guarding, no rebound Rectal: deferred Genitourinary: no CVA tenderness Musculoskeletal: normal inspection Neurologic: alert, oriented x3, responsive, motor strength/tone normal, sensory intact, speech normal Psychiatric: normal inspection Skin: other - see nursing skin notes Lymphatic: normal inspection Medical Decision Making Diagnostic Impression: Primary Impression: Recurrent epistaxis Additional Impressions: LGI bleed Coagulopathy ER Course Hospital Course 73 yo M presents with recurrent epistaxis, GI bleed. on coumadin Differential diagnoses include: anemia, LGIB, coagulopathy Clinical course Patient placed on stretcher. nurse monitoring. After initial history and physical I ordered labs, EKG, IV fluids Labs - no leukocytosis, Hb/Hct stable. electrolytes ok. INR 1.8. EKG - sinus bradycardia, RBBB no acute ischemic changes interpreted by me Patient has no active epistaxis at this time. Patient's Coumadin has been withheld for the last 3 days. Given Protonix. Case discussed with Dr. Mackenzie and he agreed to accept the patient to his service for further care and support I feel this is a highly complex case requiring extensive working including EKG/ Rhythm strip, Xray/CT/US, Blood/urine lab work, repeat exams while in ED, and administration of strong opiates/narcotics for pain control, admission to hospital or close patient follow up. Diagnosis - LGIB, coagulopathy, recurrent epistaxis Patient admitted to telemetry in serious condition Labs Test 06/13/19 19:53 White Blood Count 7.4 K/UL (4.8-10.8) Red Blood Count 4.80 M/UL (4.70-6.10) Hemoglobin 14.4 G/DL (14.2-18.0) Hematocrit 42.6 % (42.0-52.0) Mean Corpuscular Volume 89 FL (80-99) Mean Corpuscular Hemoglobin 30.1 PG (27.0-31.0) Mean Corpuscular Hemoglobin Concent 33.9 G/DL (32.0-36.0) Red Cell Distribution Width 10.9 % (11.6-14.8) Platelet Count 292 K/UL (150-450) Mean Platelet Volume 6.2 FL (6.5-10.1) Neutrophils (%) (Auto) 67.3 % (45.0-75.0) Lymphocytes (%) (Auto) 17.6 % (20.0-45.0) Monocytes (%) (Auto) 10.8 % (1.0-10.0) Eosinophils (%) (Auto) 2.2 % (0.0-3.0) Basophils (%) (Auto) 2.1 % (0.0-2.0) Prothrombin Time 18.7 SEC (9.30-11.50) Prothromb Time International Ratio 1.8 (0.9-1.1) Activated Partial Thromboplast Time 38 SEC (23-33) Sodium Level 142 MMOL/L (136-145) Potassium Level 4.0 MMOL/L (3.5-5.1) Chloride Level 103 MMOL/L (98-107) Carbon Dioxide Level 32 MMOL/L (21-32) Anion Gap 7 mmol/L (5-15) Blood Urea Nitrogen 9 mg/dL (7-18) Creatinine 0.8 MG/DL (0.55-1.30) Estimat Glomerular Filtration Rate mL/min (>60) Glucose Level 78 MG/DL (74-106) Calcium Level 9.2 MG/DL (8.5-10.1) Total Bilirubin 0.5 MG/DL (0.2-1.0) Aspartate Amino Transf (AST/SGOT) 21 U/L (15-37) Alanine Aminotransferase (ALT/SGPT) 26 U/L (12-78) Alkaline Phosphatase 66 U/L (46-116) Total Protein 7.5 G/DL (6.4-8.2) Albumin 3.5 G/DL (3.4-5.0) Globulin 4.0 g/dL Albumin/Globulin Ratio 0.9 (1.0-2.7) EKG Diagnostic Results Rate: bradycardiac Rhythm: other - RBBB ST Segments: no acute changes ASA given to the pt in ED: No Rhythm Strip Diag. Results EP Interpretation: yes Rhythm: NSR, no PVC's, no ectopy Last Vital Signs Date Time Temp Pulse Resp B/P (MAP) Pulse Ox O2 Delivery O2 Flow Rate FiO2 06/13/19 19:35 97.9 90 22 84/52 90 Room Air Status: improved Disposition: ADMITTED INPATIENT Condition: Serious Jac Davis MD Jun 13, 2019 20:46
--- NOTE | 2019-06-13 21:47 | NUR ---
ED Nurse Note: REPORT GIVEN TO RN ALYSE.
[2019-06-13 22:00] VITALS: BP 120/75
--- NOTE | 2019-06-13 22:00 | NUR ---
NURSE NOTES: Received report from ED Nurse Bela RN. Patient is awake, alert and oriented x4. Receiving room air, patient tolerating well, no signs of respiratory distress. Heart monitor is on. IV site is right AC 18g, patent and asymptomatic. Bed is locked, placed in lowest position, side rails up x3, bed alarm on, call light within reach. Will continue to monitor.
--- NOTE | 2019-06-13 22:00 | NUR ---
TRANSFER TO FLOOR: Patient transferred to as ordered, per Steve. Report given to chivo freitas. Belongings and medications given to . Family and or S/O informed of transfer.
--- NOTE | 2019-06-13 22:18 | NUR ---
NURSE NOTES: Left message to Dr. Mackenzie's office with electrolysis needle operator for admitting orders. Awaiting call back.
[2019-06-13] MEDS ORDERED: D5 1/2NS 1,000 ML IV SCH (23:30)
[2019-06-13] MEDS ORDERED: Phytonadione 10 MG in D5W 55 ML IVPB ONE (23:30)
[2019-06-14] VITALS: BP 104/60
[2019-06-14] MEDS ORDERED: Phytonadione 10 MG in D5W 55 ML IVPB ONE (00:30)
[2019-06-14 04:00] VITALS: BP 98/59
[2019-06-14 04:29] LABS: BASOPHILS % (AUTO) 0.8 % (0.0-2.0); EOSINOPHILS % (AUTO) 3.1 % (0.0-3.0); HEMATOCRIT 39.3 % (42.0-52.0); HEMOGLOBIN 13.4 G/DL (14.2-18.0); LYMPHOCYTES % (AUTO) 20.3 % (20.0-45.0); MEAN CORPUSCULAR VOLUME 89 FL (80-99); MONOCYTES % (AUTO) 12.5 % (1.0-10.0); NEUTROPHILS % (AUTO) 63.4 % (45.0-75.0); PLATELET COUNT 287 K/UL (150-450); RED CELL DISTRIBUTION WIDTH 11.8 % (11.6-14.8); WHITE BLOOD COUNT 6.5 K/UL (4.8-10.8)
[2019-06-14 04:38] LABS: ANION GAP 8 mmol/L (5-15); BLOOD UREA NITROGEN 8 mg/dL (7-18); CALCIUM 8.8 MG/DL (8.5-10.1); CARBON DIOXIDE 29 MMOL/L (21-32); CHLORIDE 104 MMOL/L (98-107); CREATININE 0.8 MG/DL (0.55-1.30); POTASSIUM 3.5 MMOL/L (3.5-5.1); SODIUM 141 MMOL/L (136-145)
--- NOTE | 2019-06-14 07:42 | NUR ---
HAND-OFF: Report given to Vickie Ledesma RN.Patient in stable in condition.
--- NOTE | 2019-06-14 07:45 | NUR ---
NURSE NOTES: Received the patient from WALTER Gonzalez. patient is awake, alert and orientedx4. On room air, O2 sat 100%. No acute distress noted. SB in high 50s noted on playground monitor. Patient kept NPO. Right AC 18G intact, running D51/2NS at 60ml/hr. Bed in lowest position, locked, side rails upx3. Bed alarm on. Call light within reach. Will continue to monitor.
[2019-06-14 08:00] VITALS: BP 118/76
[2019-06-14] MEDS: clonazePAM 0.5mg tab ORAL SCH ×3 (08:45→17:01)
--- NOTE | 2019-06-14 09:10 | NUR ---
NURSE NOTES: Patient c/o mild pain in teeth. Dr. Mackenzie at bedside. okay to give tylenol prn.
--- NOTE | 2019-06-14 09:30 | NUR ---
NURSE NOTES: Patient seen by Dr. Mackenzie. Okay to start clear liquid diet. Patient refusing IVF because it is uncomfortably. IV intact, asymptomatic. risks and benefits explained. Patient verbalized understanding. MD made aware. Okay to saline lock if patient keeps refusing per Dr. Mackenzie.
--- NOTE | 2019-06-14 10:00 | NUR ---
NURSE NOTES: Offered tylenol for mild pain. patient refused at this time.
--- NOTE | 2019-06-14 10:02 | Diagnostic Imaging Report ---
Indication: Reason For Exam: ABD PAIN Technique: Single AP view of the chest. Comparison: Chest radiograph dated 09/26/2017 Findings: The cardiomediastinal silhouette is within normal limits. There is no focal consolidation, pneumothorax or pleural effusion. Mild pulmonary vascular congestion. Redemonstration of elevation of left hemidiaphragm with associated volume loss and subsegmental atelectasis. Osseous structures demonstrate no acute abnormality. IMPRESSION: Mild pulmonary vascular congestion without new airspace consolidation. No significant change from prior examination.
[2019-06-14 12:00] VITALS: BP 111/63
--- NOTE | 2019-06-14 12:40 | GI Initial Consult Note ---
History of Present Illness General Date patient seen: Jun 14, 2019 Time patient seen: 12:38 Reason for Hospitalization: Nosebleed Referring physician: DEENA BRAR Reason for Consultation: GI BLEED Present Illness HPI 73-year-old male presents ED for evaluation. Brought in by EMS from residential facility. Has been having recurrent nosebleeds for the last 2 weeks. No active bleeding at this time. Also has been having blood in his stool. Patient is on Coumadin. Per EMS Coumadin has been withheld for the last few days. Patient denies any abdominal pain nausea or vomiting. Denies fevers or chills. No other aggravating relieving factors. Denies any other associated symptoms. GI consulted for reported bloody stools. Patient seen, awake alert oriented x4 no apparent distress. No reported hematemesis or coffee-ground. Patient had complaint for nosebleed for approximately 2 weeks. There was reported bloody stools, the patient stated he did not witness himself any hematochezia or melena. Patient has history of colonoscopy greater than 10 years ago. Has no history of endoscopy. Labs reviewed; patient presents today with hemoglobin 13.4, hematocrit 39.3, INR 1.8, no transaminitis, no leukocytosis. Home Meds Reported Medications Trimethoprim/Sulfamethoxazole 160/800* (BACTRIM DS TABLET*) 1 Each Tablet, 1 TAB ORAL TWICE A DAY for 5 Days, TAB 11/09/18 Cephalexin* (KEFLEX*) 500 Mg Capsule, 500 MG ORAL FOUR TIMES A DAY for 5 Days, CAP 11/09/18 Cephalexin* (KEFLEX*) 500 Mg Tablet, 500 MG ORAL EVERY 6 HOURS, CAP 11/09/18 Ascorbic Acid* (VITAMIN C*) 500 Mg Tablet, 500 MG ORAL DAILY, #30 TAB 0 Refills 11/03/18 Trimethoprim/Sulfamethoxazole 160/800* (BACTRIM DS TABLET*) 1 Each Tablet, 1 TAB ORAL Q12HR for 3 Days, TAB 09/30/17 Polyethylene Glycol 3350* (MIRALAX*) 17 Gm Powd.pack, 17 GM ORAL DAILY PRN for prn, PACKET 09/30/17 Phenazopyridine Hcl* (PYRIDIUM*) 100 Mg Tablet, 100 MG ORAL DAILY PRN for prn, TAB 09/30/17 Ondansetron* (ZOFRAN*) 4 Mg Tablet, 4 MG ORAL Q6H PRN for Nausea & Vomiting, TAB 09/30/17 Lorazepam* (ATIVAN*) 1 Mg Tablet, 1 MG ORAL Q6HR PRN for prn, TAB 09/30/17 Fluoxetine Hcl* (FLUOXETINE HCL*) 10 Mg Capsule, 10 MG ORAL DAILY, CAP 11/13/16 Ascorbic Acid* (VITAMIN C*) 500 Mg Tablet, 500 MG ORAL TWICE A DAY, TAB 11/12/16 Warfarin Sod (COUMADIN*) 7.5 Mg Tablet, 1.5 MG ORAL DAILY, TAB 11/12/16 Calcium Carbonate (CALCIUM CARBONATE) 200 Mg Tab.chew, 200 MG PO, TAB 11/12/16 Menthol (BENGAY) 113 Gm Gel..gram., 113 GM TP, GM 11/12/16 Dextran 70/Hypromellose (ARTIFICIAL TEARS) 1 Each Droperette, 1 EACH OP 11/12/16 Loperamide HCl (Loperamide) 2 Mg Cap, 2 MG ORAL, #20 CAP 0 Refills 08/07/15 Temazepam (TEMAZEPAM*) 15 Mg Capsule, 15 MG ORAL BEDTIME PRN for INSOMNIA, #30 CAP 0 Refills 11/16/14 Polyethylene Glycol 3350* (MIRALAX*) 17 Gm Powd.pack, 17 GM ORAL BEDTIME PRN for CONSTIPATION, PACKET 11/16/14 Nitroglycerin (NITROGLYCERIN) 0.4 Mg Tab.subl, 0.4 MG SL Q5M X 3 DOSES PRN for CHEST PAIN AND NOTIFY MD, TAB 11/16/14 Ipratropium/Albuterol Sulfate (DuoNeb 0.5-3(2.5)mg/3ml) 3 Ml Ampul.neb, 3 ML HHN EVERY 4 HOURS PRN for Shortness of Breath, EA 11/16/14 Acetaminophen (Acetaminophen) 650 Mg/20.3 Ml Soln, 650 MG ORAL EVERY 4 HOURS PRN for Prn Headache/Temp > 101, ML 0 Refills 11/16/14 Multivits,Th W-Fe,Other Min (THERA-M) 1 Each Tablet, 1 EACH PO DAILY, TAB 11/12/14 Simvastatin (ZOCOR) 10 Mg Tablet, 10 MG ORAL BEDTIME, TAB 11/12/14 Fluticasone Propionate (Fluticasone Propionate) 1 Sprays Naspr, 2 SPRAYS NASAL DAILY, #16 GM per nostril 11/12/14 Montelukast Sodium* (SINGULAIR*) 10 Mg Tablet, 10 MG ORAL DAILY, TAB 06/19/14 Sennosides (SENNA) 8.8 Mg/5 Ml Syrup, 17.2 MG PO DAILY, ML hold for loose stool 06/19/14 Finasteride* (PROSCAR*) 5 Mg Tablet, 5 MG ORAL DAILY, #30 TAB 0 Refills 06/19/14 Omeprazole (OMEPRAZOLE) 20 Mg Capsule.dr, 20 MG ORAL DAILY, CAP 06/19/14 Niacin (Niacin ER) 500 Mg Tab.er.24h, 500 MG PO QHS, TAB 06/19/14 Al Hydroxide/mg Hydroxide (Mag-Al Liquid) 30 Ml Susp, 30 ML PO Q4HR for GI distress prn 06/19/14 Magnesium Hydroxide (Milk of Magnesia) 30 Ml Susp, 30 ML ORAL Q6HR for prn constipation 06/19/14 Ibuprofen* (MOTRIN*) 600 Mg Tablet, 600 MG ORAL Q8H PRN for For Pain, #30 TAB 0 Refills 06/19/14 Hydrocodone Bit/Acetaminophen 5-325* (NORCO 5-325*) 1 Each Tablet, 1 TAB ORAL Q8HR PRN for For Pain, TAB 0 Refills 06/19/14 Tamsulosin HCl (Flomax) 0.4 Mg Cap, 0.4 MG ORAL DAILY, CAP 06/19/14 Cyclobenzaprine Hcl* (FLEXERIL*) 10 Mg Tablet, 10 MG ORAL Q6HR, TAB q6hrs prn muscle spasm 06/19/14 Bisacodyl* (DULCOLAX*) 5 Mg Tablet.dr, 10 MG RECTAL DAILY, #10 TAB 0 Refills daily prn constipation 06/19/14 Clonazepam* (KLONOPIN*) 0.5 Mg Tablet, 0.5 MG ORAL TID, #15 TAB 0 Refills 06/19/14 Aspirin* (ASPIR 81*) 81 Mg Tablet.dr, 81 MG ORAL DAILY, TAB 06/19/14 Saw [place] Xt/Phytosterol #2 (PROSTATE SR SOFTGEL) 1 Each Capsule, 1 EACH PO, CAP 06/19/14 Cranberry Fruit (Cranberry) 500 Mg Tab.chew, 500 MG PO BID, TAB 06/19/14 Med list reviewed/reconciled: Yes Allergies: Coded Allergies: COCONUT (Unverified Allergy, Unknown, 06/13/19) Uncoded Allergies: Coconut (Allergy, Intermediate, Hives, 08/07/15) Patient History History Provided By: Patient, Medical Record PMH Narrative Past Medical History: HTN, GERD, CVA/TIA Past Surgical History: none Pertinent Family History: none Social History: Denies: smoking, alcohol use, drug use Immunizations: UTD Reviewed Nursing Documentation: PMH: Agreed; PSxH: Agreed Nursing Documentation-PMH Past Medical History: No History, Except For Hx Cardiac Problems: No Hx Hypertension: Yes Hx Cancer: No Hx Gastrointestinal Problems: Yes - GERD Hx Neurological Problems: No Hx Cerebrovascular Accident: Yes - CVA 1994 Hx Dizziness: Yes Hx Headaches: Yes Hx Weakness: Yes - left sided weakness Review of Systems All Other Systems: negative except mentioned in HPI Physical Exam Vital Signs Date Time Temp Pulse Resp B/P (MAP) Pulse Ox O2 Delivery O2 Flow Rate FiO2 06/13/19 19:27 97.9 65 22 84/52 (63) 90 Room Air Sp02 EP Interpretation: reviewed, normal Labs Laboratory Tests Test 06/13/19 19:53 06/14/19 03:25 White Blood Count 7.4 K/UL (4.8-10.8) 6.5 K/UL (4.8-10.8) Red Blood Count 4.80 M/UL (4.70-6.10) 4.40 M/UL (4.70-6.10) L Hemoglobin 14.4 G/DL (14.2-18.0) 13.4 G/DL (14.2-18.0) L Hematocrit 42.6 % (42.0-52.0) 39.3 % (42.0-52.0) L Mean Corpuscular Volume 89 FL (80-99) 89 FL (80-99) Mean Corpuscular Hemoglobin 30.1 PG (27.0-31.0) 30.5 PG (27.0-31.0) Mean Corpuscular Hemoglobin Concent 33.9 G/DL (32.0-36.0) 34.1 G/DL (32.0-36.0) Red Cell Distribution Width 10.9 % (11.6-14.8) L 11.8 % (11.6-14.8) Platelet Count 292 K/UL (150-450) 287 K/UL (150-450) Mean Platelet Volume 6.2 FL (6.5-10.1) L 6.3 FL (6.5-10.1) L Neutrophils (%) (Auto) 67.3 % (45.0-75.0) 63.4 % (45.0-75.0) Lymphocytes (%) (Auto) 17.6 % (20.0-45.0) L 20.3 % (20.0-45.0) Monocytes (%) (Auto) 10.8 % (1.0-10.0) H 12.5 % (1.0-10.0) H Eosinophils (%) (Auto) 2.2 % (0.0-3.0) 3.1 % (0.0-3.0) H Basophils (%) (Auto) 2.1 % (0.0-2.0) H 0.8 % (0.0-2.0) Prothrombin Time 18.7 SEC (9.30-11.50) H Prothromb Time International Ratio 1.8 (0.9-1.1) H Activated Partial Thromboplast Time 38 SEC (23-33) H Sodium Level 142 MMOL/L (136-145) 141 MMOL/L (136-145) Potassium Level 4.0 MMOL/L (3.5-5.1) 3.5 MMOL/L (3.5-5.1) Chloride Level 103 MMOL/L (98-107) 104 MMOL/L (98-107) Carbon Dioxide Level 32 MMOL/L (21-32) 29 MMOL/L (21-32) Anion Gap 7 mmol/L (5-15) 8 mmol/L (5-15) Blood Urea Nitrogen 9 mg/dL (7-18) 8 mg/dL (7-18) Creatinine 0.8 MG/DL (0.55-1.30) 0.8 MG/DL (0.55-1.30) Estimat Glomerular Filtration Rate mL/min (>60) mL/min (>60) Glucose Level 78 MG/DL (74-106) 95 MG/DL (74-106) Calcium Level 9.2 MG/DL (8.5-10.1) 8.8 MG/DL (8.5-10.1) Total Bilirubin 0.5 MG/DL (0.2-1.0) Aspartate Amino Transf (AST/SGOT) 21 U/L (15-37) Alanine Aminotransferase (ALT/SGPT) 26 U/L (12-78) Alkaline Phosphatase 66 U/L (46-116) Total Protein 7.5 G/DL (6.4-8.2) Albumin 3.5 G/DL (3.4-5.0) Globulin 4.0 g/dL Albumin/Globulin Ratio 0.9 (1.0-2.7) L General Appearance: well appearing, no apparent distress, alert Head: normocephalic EENT: PERRL/EOMI, normal ENT inspection Neck: supple Respiratory: normal breath sounds, no respiratory distress Cardiovascular: normal rate Gastrointestinal: normal inspection, non tender, soft, normal bowel sounds, non -distended Rectal: deferred Genitourinary: deferred Neurologic: normal inspection, alert, oriented x3, responsive Psychiatric: normal inspection, judgement/insight normal, memory normal Skin: normal inspection, normal color, no rash, warm/dry, palpation normal, well hydrated Lymphatic: normal inspection, no adenopathy Current Medications Current Medications Medications (Trade) Dose Ordered Sig/Vadim Route PRN Reason Start Time Stop Time Status Last Admin Dose Admin Acetaminophen (Tylenol) 650 mg Q4H PRN ORAL Mild Pain/Temp > 100.5 06/14/19 09:15 07/14/19 09:14 Clonazepam (KlonoPIN) 0.5 mg TID ORAL 06/14/19 09:00 06/21/19 08:59 06/14/19 08:45 GI: Plan Problems: (1) GI bleed (2) LGI bleed (3) Recurrent epistaxis (4) Constipation (5) GERD (gastroesophageal reflux disease) (6) Coagulopathy Plan This is a 73-year-old male patient presents today with reported bloody stools and epistaxis for approximately 2 weeks. The patient was reported to be on Coumadin, but has been held for the past few days. 1. GI bleed 2. Anemia 3. Epistaxis 4. Hypercoagulopathy Plan for endoscopy and colonoscopy tomorrow to evaluate GI bleed. Continue clear liquid diet, n.p.o. at midnight Vitamin K x1 has already been ordered Monitor H&H, PRN transfusions PPI We will follow with additional recommendations postprocedure. Discussed with Dr. Sterling. Thank you for this patient referral, we will follow. The patient was seen and examined at bedside and all new and available data was reviewed in the patients chart. I agree with the above findings, impression and plan. (Patient seen earlier today. Signature stamp does not reflect patient encounter time.). - MD Kate MarmolejoBannerRussShai ZIPPER TRIMMER HAND Jun 14, 2019 12:40
--- NOTE | 2019-06-14 12:49 | Consultation ---
History of Present Illness General Chief Complaint: Nosebleed Referring physician: DEENA BRAR Reason for Consultation: GI BLEED Present Illness HPI Patient is a 73 year old male who presents with a recurrent nose bleed from both sides over the past 2 weeks. he has tried afrin. He is on ASA and coumadin. His INR is not supratherapeutic today but has been previous,. The nose is not actively bleeding. He denies frequent nose picking or prior nose surgery. He has used nasal saline in the past. Allergies: Coded Allergies: COCONUT (Unverified Allergy, Unknown, 06/13/19) Uncoded Allergies: Coconut (Allergy, Intermediate, Hives, 08/07/15) Medication History Scheduled Al Hydroxide/mg Hydroxide (Mag-Al Liquid), 30 ML PO Q4HR, (Reported) Ascorbic Acid* (Vitamin C*), 500 MG ORAL TWICE A DAY, (Reported) Ascorbic Acid* (Vitamin C*), 500 MG ORAL DAILY, (Reported) Aspirin* (Aspir 81*), 81 MG ORAL DAILY, (Reported) Bisacodyl* (Dulcolax*), 10 MG RECTAL DAILY, (Reported) Cephalexin* (Keflex*), 500 MG ORAL EVERY 6 HOURS, (Reported) Cephalexin* (Keflex*), 500 MG ORAL FOUR TIMES A DAY, (Reported) Clonazepam* (Klonopin*), 0.5 MG ORAL TID, (Reported) Cranberry Fruit (Cranberry), 500 MG PO BID, (Reported) Cyclobenzaprine Hcl* (Flexeril*), 10 MG ORAL Q6HR, (Reported) Finasteride* (Proscar*), 5 MG ORAL DAILY, (Reported) Fluoxetine Hcl* (Fluoxetine Hcl*), 10 MG ORAL DAILY, (Reported) Fluticasone Propionate (Fluticasone Propionate), 2 SPRAYS NASAL DAILY, (Reported ) Magnesium Hydroxide (Milk of Magnesia), 30 ML ORAL Q6HR, (Reported) Montelukast Sodium* (Singulair*), 10 MG ORAL DAILY, (Reported) Multivits,-,Other Min (Thera-M), 1 EACH PO DAILY, (Reported) Niacin (Niacin ER), 500 MG PO QHS, (Reported) Omeprazole (Omeprazole), 20 MG ORAL DAILY, (Reported) Sennosides (Senna), 17.2 MG PO DAILY, (Reported) Simvastatin (Zocor), 10 MG ORAL BEDTIME, (Reported) Tamsulosin HCl (Flomax), 0.4 MG ORAL DAILY, (Reported) Trimethoprim/Sulfamethoxazole 160/800* (Bactrim Ds Tablet*), 1 TAB ORAL Q12HR, ( Reported) Trimethoprim/Sulfamethoxazole 160/800* (Bactrim Ds Tablet*), 1 TAB ORAL TWICE A DAY, (Reported) Warfarin Sod (Coumadin*), 1.5 MG ORAL DAILY, (Reported) Scheduled PRN Acetaminophen (Acetaminophen), 650 MG ORAL EVERY 4 HOURS PRN for Prn Headache/ Temp > 101, (Reported) Hydrocodone Bit/Acetaminophen 5-325* ([place] 5-325*), 1 TAB ORAL Q8HR PRN for For Pain, (Reported) Ibuprofen* (Motrin*), 600 MG ORAL Q8H PRN for For Pain, (Reported) Ipratropium/Albuterol Sulfate (DuoNeb 0.5-3(2.5)mg/3ml), 3 ML HHN EVERY 4 HOURS PRN for Shortness of Breath, (Reported) Lorazepam* (Ativan*), 1 MG ORAL Q6HR PRN for prn, (Reported) Nitroglycerin (Nitroglycerin), 0.4 MG SL Q5M X 3 DOSES PRN for CHEST PAIN AND NOTIFY MD, (Reported) Ondansetron* (Zofran*), 4 MG ORAL Q6H PRN for Nausea & Vomiting, (Reported) Phenazopyridine Hcl* (Pyridium*), 100 MG ORAL DAILY PRN for prn, (Reported) Polyethylene Glycol 3350* (Miralax*), 17 GM ORAL BEDTIME PRN for CONSTIPATION, ( Reported) Polyethylene Glycol 3350* (Miralax*), 17 GM ORAL DAILY PRN for prn, (Reported) Temazepam (Temazepam*), 15 MG ORAL BEDTIME PRN for INSOMNIA, (Reported) Miscellaneous Medications Calcium Carbonate (Calcium Carbonate), 200 MG PO, (Reported) Dextran 70/Hypromellose (Artificial Tears), 1 EACH OP, (Reported) Loperamide HCl (Loperamide), 2 MG ORAL, (Reported) Menthol (Bengay), 113 GM TP, (Reported) Saw [place] Xt/Phytosterol #2 (Prostate Sr Softgel), 1 EACH PO, (Reported) Patient History History Provided By: Patient Healthcare decision maker Resuscitation status Full Code Advanced Directive on File Yes Past Medical/Surgical History Past Medical/Surgical History: (1) GI bleed (2) Recurrent epistaxis (3) Costochondritis (4) Constipation (5) Anxiety (6) PE (pulmonary embolism) (7) BPH (benign prostatic hyperplasia) (8) Cerebrovascular accident (CVA) (9) COPD (chronic obstructive pulmonary disease) (10) Supratherapeutic INR (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 (12) Coagulopathy (13) Left arm cellulitis (14) ACS (acute coronary syndrome) (15) Ankle sprain (16) UTI (urinary tract infection) (17) Sepsis Review of Systems Constitutional: Denies: no symptoms, see HPI, chills, sweats, fever, malaise, weakness, other Eye: Denies: no symptoms, see HPI, eye pain, blurred vision, tearing, double vision, nose pain, nose congestion, acuity changes, discharge, other ENT: Denies: no symptoms, see HPI, ear pain, ear discharge, nose pain, nose congestion, throat pain, throat swelling, mouth pain, hearing loss, nasal discharge, other Respiratory: Denies: no symptoms, see HPI, cough, orthopnea, shortness of breath, stridor, wheezing, DYSON, sputum, other Cardiovascular: Denies: no symptoms, see HPI, chest pain, edema, palpitations, syncope, PND, other Gastrointestinal: Reports: no symptoms, see HPI, abdominal pain, constipation, diarrhea, nausea, vomiting, melena, hematemesis, other - blood in kenneth Genitourinary: Denies: no symptoms, see HPI, discharge, dysuria, frequency, hematuria, pain, retention, incontinence, urgency, vag bleed/dc, other Musculoskeletal: Denies: no symptoms, see HPI, back pain, gout, joint pain, joint swelling, muscle pain, muscle stiffness, other Skin: Denies: no symptoms, see HPI, rash, change in color, change in hair/nails , dryness, lesions, other Psychiatric: Denies: no symptoms, see HPI, prior hx, anxiety, depressed feelings, emotional problems, SI, HI, hallucinations, other Neurological: Denies: no symptoms, see HPI, headache, numbness, paresthesia, seizure, tingling, tremors, focal weakness, syncope, dizziness, other Endocrine: Denies: no symptoms, see HPI, excessive sweating, flushing, intolerance to temperature, increased thirst, increased urine, unexplained weight loss, other Hematologic/Lymphatic: Denies: no symptoms, see HPI, anemia, blood clots, easy bleeding, easy bruising, swollen glands, diathesis, other All Other Systems: negative except mentioned in HPI Physical Exam General Appearance: WD/WN, no apparent distress, alert Lines, tubes and drains: peripheral HEENT: normocephalic, atraumatic, PERRL, EOMI, pharynx normal, supple, other - Nasal endoscopy (CPT 38089): Bilateral nasal cavities were examined. There was a nicely healed area of excoruiation on the right septum and the left had soem dried blood inferiorly which I did not manipulata. Neck: non-tender, normal alignment Respiratory/Chest: lungs clear Cardiovascular/Chest: normal rate Last 24 Hour Vital Signs Date Time Temp Pulse Resp B/P (MAP) Pulse Ox O2 Delivery O2 Flow Rate FiO2 06/14/19 12:00 97.6 63 20 111/63 (79) 95 06/14/19 09:00 Room Air 06/14/19 08:00 97.5 56 18 118/76 (90) 95 06/14/19 07:44 54 06/14/19 04:00 98.1 51 18 98/59 (72) 95 06/14/19 03:27 55 06/14/19 00:00 97.9 59 18 104/60 (75) 96 06/13/19 23:31 62 06/13/19 22:25 Room Air 06/13/19 22:14 62 06/13/19 22:00 97.9 90 22 84/52 90 Room Air 06/13/19 22:00 97.8 56 18 120/75 (90) 96 06/13/19 19:35 97.9 90 22 84/52 90 Room Air 06/13/19 19:27 97.9 65 22 84/52 (63) 90 Room Air Intake and Output 06/13/19 06/14/19 19:00 07:00 Intake Total 60 ml Balance 60 ml Intake IV Total 60 ml # Voids 4 Laboratory Tests Test 06/13/19 19:53 06/14/19 03:25 White Blood Count 7.4 K/UL (4.8-10.8) 6.5 K/UL (4.8-10.8) Red Blood Count 4.80 M/UL (4.70-6.10) 4.40 M/UL (4.70-6.10) L Hemoglobin 14.4 G/DL (14.2-18.0) 13.4 G/DL (14.2-18.0) L Hematocrit 42.6 % (42.0-52.0) 39.3 % (42.0-52.0) L Mean Corpuscular Volume 89 FL (80-99) 89 FL (80-99) Mean Corpuscular Hemoglobin 30.1 PG (27.0-31.0) 30.5 PG (27.0-31.0) Mean Corpuscular Hemoglobin Concent 33.9 G/DL (32.0-36.0) 34.1 G/DL (32.0-36.0) Red Cell Distribution Width 10.9 % (11.6-14.8) L 11.8 % (11.6-14.8) Platelet Count 292 K/UL (150-450) 287 K/UL (150-450) Mean Platelet Volume 6.2 FL (6.5-10.1) L 6.3 FL (6.5-10.1) L Neutrophils (%) (Auto) 67.3 % (45.0-75.0) 63.4 % (45.0-75.0) Lymphocytes (%) (Auto) 17.6 % (20.0-45.0) L 20.3 % (20.0-45.0) Monocytes (%) (Auto) 10.8 % (1.0-10.0) H 12.5 % (1.0-10.0) H Eosinophils (%) (Auto) 2.2 % (0.0-3.0) 3.1 % (0.0-3.0) H Basophils (%) (Auto) 2.1 % (0.0-2.0) H 0.8 % (0.0-2.0) Prothrombin Time 18.7 SEC (9.30-11.50) H Prothromb Time International Ratio 1.8 (0.9-1.1) H Activated Partial Thromboplast Time 38 SEC (23-33) H Sodium Level 142 MMOL/L (136-145) 141 MMOL/L (136-145) Potassium Level 4.0 MMOL/L (3.5-5.1) 3.5 MMOL/L (3.5-5.1) Chloride Level 103 MMOL/L (98-107) 104 MMOL/L (98-107) Carbon Dioxide Level 32 MMOL/L (21-32) 29 MMOL/L (21-32) Anion Gap 7 mmol/L (5-15) 8 mmol/L (5-15) Blood Urea Nitrogen 9 mg/dL (7-18) 8 mg/dL (7-18) Creatinine 0.8 MG/DL (0.55-1.30) 0.8 MG/DL (0.55-1.30) Estimat Glomerular Filtration Rate mL/min (>60) mL/min (>60) Glucose Level 78 MG/DL (74-106) 95 MG/DL (74-106) Calcium Level 9.2 MG/DL (8.5-10.1) 8.8 MG/DL (8.5-10.1) Total Bilirubin 0.5 MG/DL (0.2-1.0) Aspartate Amino Transf (AST/SGOT) 21 U/L (15-37) Alanine Aminotransferase (ALT/SGPT) 26 U/L (12-78) Alkaline Phosphatase 66 U/L (46-116) Total Protein 7.5 G/DL (6.4-8.2) Albumin 3.5 G/DL (3.4-5.0) Globulin 4.0 g/dL Albumin/Globulin Ratio 0.9 (1.0-2.7) L Microbiology Date/Time Source Procedure Growth Status 06/13/19 21:40 Rectum Received Height (Feet): 5 Height (Inches): 11.00 Weight (Pounds): 170 Medications Current Medications Medications (Trade) Dose Ordered Sig/Vadim Route PRN Reason Start Time Stop Time Status Last Admin Dose Admin Acetaminophen (Tylenol) 650 mg Q4H PRN ORAL Mild Pain/Temp > 100.5 06/14/19 09:15 07/14/19 09:14 Clonazepam (KlonoPIN) 0.5 mg TID ORAL 06/14/19 09:00 06/21/19 08:59 06/14/19 08:45 Assessment/Plan Problem List: (1) Recurrent epistaxis ICD Codes: R04.0 - Epistaxis SNOMED: [id number], [id number] Assessment/Plan: PROCEDURE: Control of Epistaxis (simple, anterior) 99396 Nasal cavity was visualized and anteriorly a gelfoam sliver was placed on both sides. No bleeding was noted. I have asked the nurse to use ocean nasal spray in both nostrils q 15 minutes for the next 3 hours then QID afterwards. The patient can administer it himself. For light bleeding Afrin should be used. He can follow up in clinic for a repeat nasal endoscopy in 2 weeks. If Coumadin and ASA are needed they can be continued at this time once risks are weighed. The Gelfoam will absorb on its own. Delvis Fernández MD Jun 14, 2019 12:49
--- NOTE | 2019-06-14 13:25 | Cardiac Electrophysiology PN ---
Subjective Subjective [id number] Objective Last 24 Hour Vital Signs Date Time Temp Pulse Resp B/P (MAP) Pulse Ox O2 Delivery O2 Flow Rate FiO2 06/14/19 12:00 97.6 63 20 111/63 (79) 95 06/14/19 09:00 Room Air 06/14/19 08:00 97.5 56 18 118/76 (90) 95 06/14/19 07:44 54 06/14/19 04:00 98.1 51 18 98/59 (72) 95 06/14/19 03:27 55 06/14/19 00:00 97.9 59 18 104/60 (75) 96 06/13/19 23:31 62 06/13/19 22:25 Room Air 06/13/19 22:14 62 06/13/19 22:00 97.9 90 22 84/52 90 Room Air 06/13/19 22:00 97.8 56 18 120/75 (90) 96 06/13/19 19:35 97.9 90 22 84/52 90 Room Air 06/13/19 19:27 97.9 65 22 84/52 (63) 90 Room Air Intake and Output 06/13/19 06/14/19 19:00 07:00 Intake Total 60 ml Balance 60 ml Intake IV Total 60 ml # Voids 4 Laboratory Tests Test 06/13/19 19:53 06/14/19 03:25 White Blood Count 7.4 K/UL (4.8-10.8) 6.5 K/UL (4.8-10.8) Red Blood Count 4.80 M/UL (4.70-6.10) 4.40 M/UL (4.70-6.10) L Hemoglobin 14.4 G/DL (14.2-18.0) 13.4 G/DL (14.2-18.0) L Hematocrit 42.6 % (42.0-52.0) 39.3 % (42.0-52.0) L Mean Corpuscular Volume 89 FL (80-99) 89 FL (80-99) Mean Corpuscular Hemoglobin 30.1 PG (27.0-31.0) 30.5 PG (27.0-31.0) Mean Corpuscular Hemoglobin Concent 33.9 G/DL (32.0-36.0) 34.1 G/DL (32.0-36.0) Red Cell Distribution Width 10.9 % (11.6-14.8) L 11.8 % (11.6-14.8) Platelet Count 292 K/UL (150-450) 287 K/UL (150-450) Mean Platelet Volume 6.2 FL (6.5-10.1) L 6.3 FL (6.5-10.1) L Neutrophils (%) (Auto) 67.3 % (45.0-75.0) 63.4 % (45.0-75.0) Lymphocytes (%) (Auto) 17.6 % (20.0-45.0) L 20.3 % (20.0-45.0) Monocytes (%) (Auto) 10.8 % (1.0-10.0) H 12.5 % (1.0-10.0) H Eosinophils (%) (Auto) 2.2 % (0.0-3.0) 3.1 % (0.0-3.0) H Basophils (%) (Auto) 2.1 % (0.0-2.0) H 0.8 % (0.0-2.0) Prothrombin Time 18.7 SEC (9.30-11.50) H Prothromb Time International Ratio 1.8 (0.9-1.1) H Activated Partial Thromboplast Time 38 SEC (23-33) H Sodium Level 142 MMOL/L (136-145) 141 MMOL/L (136-145) Potassium Level 4.0 MMOL/L (3.5-5.1) 3.5 MMOL/L (3.5-5.1) Chloride Level 103 MMOL/L (98-107) 104 MMOL/L (98-107) Carbon Dioxide Level 32 MMOL/L (21-32) 29 MMOL/L (21-32) Anion Gap 7 mmol/L (5-15) 8 mmol/L (5-15) Blood Urea Nitrogen 9 mg/dL (7-18) 8 mg/dL (7-18) Creatinine 0.8 MG/DL (0.55-1.30) 0.8 MG/DL (0.55-1.30) Estimat Glomerular Filtration Rate mL/min (>60) mL/min (>60) Glucose Level 78 MG/DL (74-106) 95 MG/DL (74-106) Calcium Level 9.2 MG/DL (8.5-10.1) 8.8 MG/DL (8.5-10.1) Total Bilirubin 0.5 MG/DL (0.2-1.0) Aspartate Amino Transf (AST/SGOT) 21 U/L (15-37) Alanine Aminotransferase (ALT/SGPT) 26 U/L (12-78) Alkaline Phosphatase 66 U/L (46-116) Total Protein 7.5 G/DL (6.4-8.2) Albumin 3.5 G/DL (3.4-5.0) Globulin 4.0 g/dL Albumin/Globulin Ratio 0.9 (1.0-2.7) L Microbiology Date/Time Source Procedure Growth Status 06/13/19 21:40 Rectum Received Miko Causey MD Jun 14, 2019 13:25
[2019-06-14] MEDS ORDERED: Ocean Nasal Spray 45ml NASAL SCH (14:00)
--- NOTE | 2019-06-14 14:10 | NUR ---
NURSE NOTES: Demonstrated how to use nasal spray to the patient. Patient returned demo. Instructed the patient to use every 15min for the next 3 hours. Patient awake, alert and oriented, verbalized understanding. 2D Echo ongoing at bedside. Will continue to monitor.
--- NOTE | 2019-06-14 15:02 | NUR ---
CASE MANAGEMENT: INITIAL REVIEW 73YR OLD MALE BIBA FROM [facility] CC: NOSEBLEED SI:RECURRENT EPISTAXIS, LOWER GI BLEED 97.9 65 22 84/52 90% RA IS: IV PROTONIX X1 IV DEXTROSE/NS @60HR IV PHYTONADIONE/DEXTROSE X2 : 2W STEP DOWN DCP: RETURN TO [facility]
--- NOTE | 2019-06-14 15:20 | NUR ---
NURSE NOTES: Observed the patient using nasal spray in bed. No active bleeding noted. Consents for EGD and Colonoscopy obtained from the patient. All questions answered.
--- NOTE | 2019-06-14 15:41 | NUR ---
NURSE NOTES:WOUND CARE NOTES:Pt presented on admission with non-blanching erythema to Sacrum,R and L buttocks. Erythema noted to be resolving .Pt denied pain or tenderness when affected area palpated. Non-blanching erythema without fluctuance or tenderness noted to R heel. L heel is blanchable. No other skin concerns noted. Pt has been educated on wound prevention. Encouraged to frequently reposition -at least hourly to avoid further skin breakdown. Pt also encouraged to keep heel floated off bed with pillow. Recommendations:Apply Moisture Barrier Paste to Buttocks. Cover with Optifoam drsg. Change every 3 days and prn. Apply Cavilon Skin Barrier to both heels. Cover each heel with Optifoam drsg. Change every 7 days and prn. Reposition at least every 2 hours or as tolerated. Off-load heels with pillow
[2019-06-14 16:00] VITALS: BP 115/69
[2019-06-14] MEDS ORDERED: Magnesium Citrate Liq Btl ORAL ONE (16:00)
[2019-06-14] MEDS ORDERED: Bisacodyl EC 5mg tab ORAL SCH (16:00)
[2019-06-14] MEDS ORDERED: Polyethylene Glycol 238gm bottle ORAL ONE (16:00)
--- NOTE | 2019-06-14 16:15 | History and Physical Report ---
DATE OF ADMISSION: 06/13/2019 DATE AND TIME SEEN: 06/14/2019 at 9 a.m. CONSULTANTS: 1. Dr. Morgan. 2. Sean Sterling M.D. 3. Eleni Winston M.D. 4. Dr. Fernández, ENT CHIEF COMPLAINT: GI bleed, nosebleed. BRIEF HISTORY: This is a 73-year-old male from [facility] comes into [facility] last night with history of recurrent GI bleed and nosebleed. It stopped subsequently and he is not sure how many times he had the GI bleed or dark stool. This is a 73-year-old male from [facility] presented with above-mentioned diagnosis, currently slightly anxious in bed, oriented x2, in no acute distress PAST MEDICAL HISTORY: Includes CVA, GERD, hypertension, BPH, and COPD. PAST SURGICAL HISTORY: Unknown. ALLERGIES: Denies. MEDICATIONS: Include Klonopin, IV fluids, Tylenol, and Protonix. SOCIAL HISTORY: No smoking. No alcohol. No intravenous drug abuse. FAMILY HISTORY: Noncontributory. PHYSICAL EXAMINATION: GENERAL: Slightly anxious in bed, oriented x2, in no acute distress. VITAL SIGNS: Temperature is 98 degrees, pulse 51, respirations 18, and blood pressure 90/59. CARDIOVASCULAR: No murmurs. LUNGS: Poor air exchange. ABDOMEN: Bowel sounds distant. EXTREMITIES: Show no cyanosis or edema. NEUROLOGIC: The patient moves all extremities, slightly weak. LABORATORY DATA: Labs at this time, show H and H 13/39 and platelets 287,000. BMP is normal. Otherwise, INR is 1.8, PTT 38. ASSESSMENT: 1. GI bleed. 2. Nosebleed. 3. Anxiety. 4. History of CVA. 5. GERD. 6. Hypertension. 7. BPH. 8. COPD. PLAN: 1. PT and dietary evaluation. 2. CBC and BMP in the morning. 3. Resume home medications. 4. We will continue to follow this patient. Jaime Mackenzie D.O. DR: CASTILLO JOB#: [id number] CC:
--- NOTE | 2019-06-14 16:35 | Cardiology Report ---
APPROVED REPORT EXAM: Two-dimensional and M-mode echocardiogram with Doppler and color Doppler. INDICATION Chest Pain M-Mode DIMENSIONS IVSd1.3 (0.7-1.1cm)Left Atrium (MM)3.6 (1.6-4.0cm) LVDd4.4 (3.5-5.6cm)Aortic Root4.1 (2.0-3.7cm) PWd1.3 (0.7-1.1cm)Aortic Cusp Exc.2.1 (1.5-2.0cm) LVDs3.1 (2.5-4.0cm) PWs1.3 cm Technically difficult study due to poor acoustical windows. Normal left ventricular chamber size, systolic function and wall motion to extent visualized. Left ventricular ejection fraction estimated to be 55-60 %. Study quality precludes accurate assessment of regional wall motion. No evidence of pericardial effusion. All other cardiac chamber sizes are within normal limits. Focal aortic valve sclerosis with adequate cusp excursion. Thickened mitral valve leaflets with normal excursion. Mitral annulus and aortic root calcification. Pulmonic valve not well visualized. Tricuspid valve not well visualized. A color flow and spectral Doppler study was performed and revealed: Trace mitral regurgitation. Mitral inflow indicates normal left ventricular diastolic function. Trace tricuspid regurgitation. Tricuspid systolic velocities suggests peak right ventricular systolic pressure of 9 mmHg.
[2019-06-14] MEDS ORDERED: Tubing IV Secondary IV ONE (17:49)
[2019-06-14] MEDS ORDERED: D5 1/2NS 1000ml IV ONE (17:49)
[2019-06-14] MEDS ORDERED: ARTIFICIAL TEAR15 ML BOTH EYES (18:19)
[2019-06-14] MEDS ORDERED: CALCIUM CARBON500 M1 PO (18:24)
[2019-06-14] MEDS ORDERED: WARFARIN SODIUM2 MG ORAL (18:25)
[2019-06-14] MEDS ORDERED: CRANBERRY450 M4 PO (18:27)
[2019-06-14] MEDS ORDERED: FISH OIL 500 M1 EAC4 PO (18:29)
[2019-06-14] MEDS ORDERED: SENNOSIDES8.6 MG ORAL (18:35)
--- NOTE | 2019-06-14 18:48 | NUR ---
NURSE NOTES: Patient finished bowel prep. no BM yet.
[2019-06-14] MEDS ORDERED: FLEET ENEMA133 ML RECTAL (18:51)
[2019-06-14] MEDS ORDERED: BISACODYL10 M1 RC (18:53)
--- NOTE | 2019-06-14 19:13 | NUR ---
HAND-OFF: Report given to Vickie Villalba RN.
--- NOTE | 2019-06-14 19:14 | NUR ---
NURSE NOTES: received pt from Kenn WATSON., pt is awake and alert x 4. Right AC IV site is intact, patent, and clean. d5 1/2 NS is running at 60 ml/hr. no sob noted, and pt states no pain at this moment. call light within reach. bed at the lowest position, alarmed, and locked. will continue to monitor pt with plan of care.
[2019-06-14 20:00] VITALS: BP 126/79
--- NOTE | 2019-06-14 20:21 | Consultation ---
History of Present Illness General Chief Complaint: Nosebleed Referring physician: DEENA BRAR Reason for Consultation: GI BLEED Present Illness Allergies: Coded Allergies: COCONUT (Unverified Allergy, Unknown, 06/13/19) Uncoded Allergies: Coconut (Allergy, Intermediate, Hives, 08/07/15) Medication History Scheduled Aspirin* (Aspir 81*), 81 MG ORAL DAILY, (Reported) Clonazepam* (Klonopin*), 0.5 MG ORAL TID, (Reported) Cranberry Fruit Concentrate (Cranberry), 450 MG PO BID, (Reported) Dextran 70/Hypromellose (Artificial Tears Eye Drops*), 1 DROP BOTH EYES TWICE A DAY, (Reported) Finasteride* (Proscar*), 5 MG ORAL DAILY, (Reported) Fluticasone Propionate (Fluticasone Propionate), 1 SPRAYS NASAL DAILY, (Reported ) [place] Oil/Home-3 Fatty Acids (Fish Oil 500 mg Softgel), 1 EACH PO BID, ( Reported) Sennosides* (Sennosides*), 17.2 MG ORAL DAILY, (Reported) Simvastatin (Zocor), 10 MG ORAL BEDTIME, (Reported) Tamsulosin HCl (Flomax), 0.4 MG ORAL BID, (Reported) Warfarin Sod* (Warfarin Sod*), 2 MG ORAL DAILY, (Reported) Scheduled PRN Acetaminophen (Acetaminophen), 650 MG ORAL EVERY 4 HOURS PRN for Prn Headache/ Temp > 101, (Reported) Bisacodyl (Bisacodyl), 10 MG RC DAILY PRN for Constipation, (Reported) Bisacodyl* (Dulcolax*), 5 MG PO DAILY PRN for Constipation, (Reported) Calcium Carbonate (Calcium Carbonate), 1,000 MG PO Q4HR PRN for HEARTBURN, ( Reported) Cyclobenzaprine Hcl* (Flexeril*), 10 MG ORAL Q6HR PRN for MUSCLE SPASMS, ( Reported) Hydrocodone Bit/Acetaminophen 5-325* (Alexander 5-325*), 1 TAB ORAL Q8HR PRN for Severe Pain (Pain Scale 7-10), (Reported) Magnesium Hydroxide (Milk of Magnesia), 30 ML ORAL DAILY PRN for Constipation, ( Reported) Na Phos,M-B/Na Phos,Di-Ba* (Fleet Enema*), 133 ML RECTAL EVERY 3 DAYS PRN for Constipation, (Reported) Discontinued Medications Al Hydroxide/mg Hydroxide (Mag-Al Liquid), 30 ML PO Q4HR, (Reported) Discontinued Reason: Therapy completed Ascorbic Acid* (Vitamin C*), 500 MG ORAL TWICE A DAY, (Reported) Discontinued Reason: Therapy completed Ascorbic Acid* (Vitamin C*), 500 MG ORAL DAILY, (Reported) Discontinued Reason: Therapy completed Cephalexin* (Keflex*), 500 MG ORAL EVERY 6 HOURS, (Reported) Discontinued Reason: Therapy completed Cephalexin* (Keflex*), 500 MG ORAL FOUR TIMES A DAY, (Reported) Discontinued Reason: Therapy completed Fluoxetine Hcl* (Fluoxetine Hcl*), 10 MG ORAL DAILY, (Reported) Discontinued Reason: Therapy completed Ibuprofen* (Motrin*), 600 MG ORAL Q8H PRN for For Pain, (Reported) Discontinued Reason: Therapy completed Ipratropium/Albuterol Sulfate (DuoNeb 0.5-3(2.5)mg/3ml), 3 ML HHN EVERY 4 HOURS PRN for Shortness of Breath, (Reported) Discontinued Reason: Therapy completed Loperamide HCl (Loperamide), 2 MG ORAL, (Reported) Discontinued Reason: Therapy completed Lorazepam* (Ativan*), 1 MG ORAL Q6HR PRN for prn, (Reported) Discontinued Reason: Therapy completed Menthol (Bengay), 113 GM TP, (Reported) Discontinued Reason: Therapy completed Montelukast Sodium* (Singulair*), 10 MG ORAL DAILY, (Reported) Discontinued Reason: Therapy completed Multivits,-,Other Min (Thera-M), 1 EACH PO DAILY, (Reported) Discontinued Reason: Therapy completed Niacin (Niacin ER), 500 MG PO QHS, (Reported) Discontinued Reason: Therapy completed Nitroglycerin (Nitroglycerin), 0.4 MG SL Q5M X 3 DOSES PRN for CHEST PAIN AND NOTIFY MD, (Reported) Discontinued Reason: Therapy completed Omeprazole (Omeprazole), 20 MG ORAL DAILY, (Reported) Discontinued Reason: Therapy completed Ondansetron* (Zofran*), 4 MG ORAL Q6H PRN for Nausea & Vomiting, (Reported) Discontinued Reason: Therapy completed Phenazopyridine Hcl* (Pyridium*), 100 MG ORAL DAILY PRN for prn, (Reported) Discontinued Reason: Therapy completed Polyethylene Glycol 3350* (Miralax*), 17 GM ORAL BEDTIME PRN for CONSTIPATION, ( Reported) Discontinued Reason: Therapy completed Polyethylene Glycol 3350* (Miralax*), 17 GM ORAL DAILY PRN for prn, (Reported) Discontinued Reason: Therapy completed Saw Mio Xt/Phytosterol #2 (Prostate Sr Softgel), 1 EACH PO, (Reported) Discontinued Reason: Therapy completed Temazepam (Temazepam*), 15 MG ORAL BEDTIME PRN for INSOMNIA, (Reported) Discontinued Reason: Therapy completed Trimethoprim/Sulfamethoxazole 160/800* (Bactrim Ds Tablet*), 1 TAB ORAL Q12HR, ( Reported) Discontinued Reason: Therapy completed Trimethoprim/Sulfamethoxazole 160/800* (Bactrim Ds Tablet*), 1 TAB ORAL TWICE A DAY, (Reported) Discontinued Reason: Therapy completed Patient History Healthcare decision maker Resuscitation status Full Code Advanced Directive on File Yes Physical Exam Last 24 Hour Vital Signs Date Time Temp Pulse Resp B/P (MAP) Pulse Ox O2 Delivery O2 Flow Rate FiO2 06/14/19 16:00 98.0 62 20 115/69 (84) 94 06/14/19 16:00 58 06/14/19 16:00 Room Air 06/14/19 12:00 Room Air 06/14/19 12:00 59 06/14/19 12:00 97.6 63 20 111/63 (79) 95 06/14/19 09:00 Room Air 06/14/19 08:00 97.5 56 18 118/76 (90) 95 06/14/19 07:44 54 06/14/19 04:00 98.1 51 18 98/59 (72) 95 06/14/19 03:27 55 06/14/19 00:00 97.9 59 18 104/60 (75) 96 06/13/19 23:31 62 06/13/19 22:25 Room Air 06/13/19 22:14 62 06/13/19 22:00 97.9 90 22 84/52 90 Room Air 06/13/19 22:00 97.8 56 18 120/75 (90) 96 Intake and Output 06/13/19 06/14/19 19:00 07:00 Intake Total 60 ml Balance 60 ml IV Total 60 ml # Voids 4 Laboratory Tests Test 06/14/19 03:25 06/14/19 15:53 White Blood Count 6.5 K/UL (4.8-10.8) Red Blood Count 4.40 M/UL (4.70-6.10) L Hemoglobin 13.4 G/DL (14.2-18.0) L Hematocrit 39.3 % (42.0-52.0) L Mean Corpuscular Volume 89 FL (80-99) Mean Corpuscular Hemoglobin 30.5 PG (27.0-31.0) Mean Corpuscular Hemoglobin Concent 34.1 G/DL (32.0-36.0) Red Cell Distribution Width 11.8 % (11.6-14.8) Platelet Count 287 K/UL (150-450) Mean Platelet Volume 6.3 FL (6.5-10.1) L Neutrophils (%) (Auto) 63.4 % (45.0-75.0) Lymphocytes (%) (Auto) 20.3 % (20.0-45.0) Monocytes (%) (Auto) 12.5 % (1.0-10.0) H Eosinophils (%) (Auto) 3.1 % (0.0-3.0) H Basophils (%) (Auto) 0.8 % (0.0-2.0) Sodium Level 141 MMOL/L (136-145) Potassium Level 3.5 MMOL/L (3.5-5.1) Chloride Level 104 MMOL/L (98-107) Carbon Dioxide Level 29 MMOL/L (21-32) Anion Gap 8 mmol/L (5-15) Blood Urea Nitrogen 8 mg/dL (7-18) Creatinine 0.8 MG/DL (0.55-1.30) Estimat Glomerular Filtration Rate mL/min (>60) Glucose Level 95 MG/DL (74-106) Calcium Level 8.8 MG/DL (8.5-10.1) D-Dimer 0.34 mg/L FEU (0.00-0.49) Microbiology Date/Time Source Procedure Growth Status 06/13/19 21:40 Rectum Received Height (Feet): 5 Height (Inches): 11.00 Weight (Pounds): 170 Medications Current Medications Medications (Trade) Dose Ordered Sig/Vadim Route PRN Reason Start Time Stop Time Status Last Admin Dose Admin Acetaminophen (Tylenol) 650 mg Q4H PRN ORAL Mild Pain/Temp > 100.5 06/14/19 09:15 07/14/19 09:14 06/14/19 17:04 Clonazepam (KlonoPIN) 0.5 mg TID ORAL 06/14/19 09:00 06/21/19 08:59 06/14/19 17:01 Sodium Chloride (Luce Nasal Thomas) 1 spray Q6H NASAL 06/14/19 21:00 07/14/19 20:59 Sodium Phosphate (Fleet's Sodium Phosl Enema) 133 ml ONCE RECTAL 06/14/19 23:00 06/15/19 00:30 Assessment/Plan Assessment/Plan: Hematology Oncology Consultation REQ MD: Gurdeep Islas Chief Complaint: Abnormal Labs, Subtherapeutic inr RFC: DVT and coagulopathy DOS: 06/14/19 HPI Patient is a 73-year-old male sent in by primary care physician for ongoing nasa epistaxis, this patient well known to me from prior adm. Patient had prior history of anticoagulant use. In past he had p/t er with INR greater than 5.Patient prior history of DVT as well as prior stroke with left-sided weakness , now the nasal bleed has stopped and noted to have inr 1.8, vit k was given.. Patient was noted to have some prior generalized weakness to his left upper and lower extremities. He had stated he had prior CVA. He denies prior history of atrial fibrillation. Allergies: Coconut (Allergy, Intermediate, Hives, 08/07/15) Patient History Reviewed Nursing Documentation: PMH: Agreed; PSxH: Agreed Nursing Documentation-PMH Hx Cardiac Problems: No Hx Hypertension: Yes Hx Cancer: No Hx Gastrointestinal Problems: Yes - GERD Hx Neurological Problems: No Hx Cerebrovascular Accident: Yes - CVA Hx Dizziness: Yes Hx Headaches: Yes Hx Weakness: Yes Review of Systems All Other Systems: negative except mentioned in HPI Physical Exam Vital Signs Constitutional: No fever, no chills, no night sweats, no fatigue Skin: No rashes, lumps, itchiness, dryness HEENT: No AVILA, ear ache, visual changes, double vision Breasts: No lumps, pain, discharge Pulmonary: No cough, sputum, shortness of breath, coughing up blood, hemoptysis Cardiovascular: No chest pain, tightness, palpitations GI: No nausea, vomiting, diarrhea, melena, hematochezia : No dysuria, frequency, urgency, urinary incontinence, foamy urine Musculoskeletal: No joint swelling or muscle pain, trauma, back pain Neurologic: No dizziness, fainting, seizures, changes in smell or taste Psychiatric: No nervousness, stress, or depression, anxiety, hallucinations Endocrine: No weight change, heat or cold intolerance, tremor, insomnia Physical Exam General Appearance: A+O x3, NAD HEENT: normocephalic, atraumatic Neck: non-tender, normal alignment Respiratory/Chest: chest wall non-tender, lungs clear Cardiovascular/Chest: normal peripheral pulses, normal rate Abdomen: normal bowel sounds, non tender Extremities: normal range of motion Labs noted Imaging: noted Assessment and Recs #. SUBrtherapeutic INR -- presents with Coagulopathy due to underlying use of Coumadin, INR is low, but most likely is due to patient not taking the right dose of coumadin, as in the past I have seen him and he has been subtherapeutic --> epistaxis has resolved, seen by ENT, Dr. Chavez and recommends afrin prn with RN --> Continue to closely monitor VITK and FFP if doesn't improve --> Will need to have INR between 2 and 3 --> will need to restart anticoag if no gi procedures --> cards recs pending #. Pulmonary embolism. --> Maintain INR between 2 and 3. --> Monitor closely, INR currently at 2.4 # Anemia due to underlying epsistaxis --> r/o gi bleed --> gi consulted #. Leukocytosis, likely due to infection and sepsis. --> On antibiotics, ID following. --> Monitor closely. --> Resolved. #. Cerebrovascular accident history with left-sided hemiplegia. #. Benign prostatic hypertrophy. Closely monitor. The timing of this note does not necessarily reflect the time of the patient was seen. Greatly appreciate consultation. Aren Morgan MD Jun 14, 2019 20:21
[2019-06-14] MEDS: Ocean Nasal Spray 45ml NASAL SCH (21:26)
[2019-06-14] MEDS ORDERED: Fleet's Enema 133ml RECTAL SCH (23:00)
[2019-06-15] VITALS (11 sets, daily range): BP systolic 97–142; BP diastolic 52–76
--- NOTE | 2019-06-15 01:24 | NUR ---
NURSE NOTES: notified WOOD FLOOR LAYER Shai regarding pt threw up the milarax, and requesting more fleet enema due to colonoscopy scheduled tomorrow. will carry on. pt is stable. no SOB noted and call light within reach.
[2019-06-15] MEDS ORDERED: Fleet's Enema 133ml RECTAL SCH ×2 (01:45→06:00)
[2019-06-15] MEDS: Ocean Nasal Spray 45ml NASAL SCH ×4 (03:17→21:00)
[2019-06-15 04:50] LABS: BASOPHILS % (AUTO) 0.6 % (0.0-2.0); EOSINOPHILS % (AUTO) 1.2 % (0.0-3.0); HEMOGLOBIN 15.1 G/DL (14.2-18.0); LYMPHOCYTES % (AUTO) 14.8 % (20.0-45.0); MEAN CORPUSCULAR VOLUME 90 FL (80-99); MONOCYTES % (AUTO) 11.7 % (1.0-10.0); NEUTROPHILS % (AUTO) 71.7 % (45.0-75.0); PLATELET COUNT 319 K/UL (150-450); RED CELL DISTRIBUTION WIDTH 11.8 % (11.6-14.8)
[2019-06-15 05:10] LABS: ANION GAP 9 mmol/L (5-15); BLOOD UREA NITROGEN 6 mg/dL (7-18); CALCIUM 8.9 MG/DL (8.5-10.1); CARBON DIOXIDE 29 MMOL/L (21-32); CHLORIDE 109 MMOL/L (98-107); CHOLESTEROL 156 MG/DL (< 200); CREATININE 0.7 MG/DL (0.55-1.30); HDL CHOLESTEROL 45 MG/DL (40-60); POTASSIUM 3.3 MMOL/L (3.5-5.1); SODIUM 147 MMOL/L (136-145); TRIGLYCERIDES 126 MG/DL (30-150)
[2019-06-15] MEDS ORDERED: Midazolam 2mg/2ml Inj IVP PRN (06:30)
[2019-06-15] MEDS ORDERED: fentaNYL 100 mcg/2 mL IV PRN (06:30)
[2019-06-15] MEDS ORDERED: Atropine Inj 1mg/10ml Syr IV PRN (06:30)
[2019-06-15] MEDS ORDERED: DiphenhydrAMINE 50mg/ml Inj IVP PRN (06:30)
--- NOTE | 2019-06-15 06:34 | Anethesia Preoperative Eval ---
Anesthesia Pre-op PMH/ROS General Date of Evaluation: Jun 15, 2019 Time of Evaluation: 06:32 Anesthesiologist: leny ASA Score: ASA 4 Mallampati Score Class I : Soft palate, uvula, fauces, pillars visible Class II: Soft palate, uvula, fauces visible Class III: Soft palate, base of uvula visible Class IV: Only hard plate visible Mallampati Classification: Class II Surgeon: clarice Diagnosis: gi bleed Surgical Procedure: egd/colonoscopy Anesthesia History: none Family History: no anesthesia problems Allergies: Coded Allergies: COCONUT (Unverified Allergy, Unknown, 06/13/19) Uncoded Allergies: Coconut (Allergy, Intermediate, Hives, 08/07/15) Medications: see eMAR Patient NPO?: Yes Past Medical History Cardiovascular: Reports: HTN, other - hypercholesterolemia, ischemic heart disease Pulmonary: Reports: COPD, other - pulmonary embolism Gastrointestinal/Genitourinary: Reports: GERD, other - uti, dialysis, bph Neurologic/Psychiatric: Reports: CVA, depression/anxiety, other - muscular dystrophy, hemiplegia HEENT: Reports: cataract (L), cataract (R), other - recurrent epistasis Hematology/Immune: Reports: DVT, other - anticoagulant therapy Anesthesia Pre-op Phys. Exam Physician Exam Last Vital Signs Date Time Temp Pulse Resp B/P (MAP) Pulse Ox O2 Delivery O2 Flow Rate FiO2 06/15/19 04:00 Room Air 06/15/19 04:00 98.0 61 20 113/65 (81) 100 Constitutional: NAD Neurologic: other - hemiplegia Cardiovascular: RRR Respiratory: CTA Gastrointestinal: S/NT/ND Airway Exam Mallampati Score: Class II MO: limited Neck: flexible TMD: 2fb ROM: limited Anesthesia Pre-op A/P Labs Labs Test 06/13/19 19:53 06/14/19 03:25 06/14/19 15:53 06/15/19 03:05 White Blood Count 7.4 K/UL (4.8-10.8) 6.5 K/UL (4.8-10.8) 9.0 K/UL (4.8-10.8) Red Blood Count 4.80 M/UL (4.70-6.10) 4.40 M/UL (4.70-6.10) 5.00 M/UL (4.70-6.10) Hemoglobin 14.4 G/DL (14.2-18.0) 13.4 G/DL (14.2-18.0) 15.1 G/DL (14.2-18.0) Hematocrit 42.6 % (42.0-52.0) 39.3 % (42.0-52.0) 45.0 % (42.0-52.0) Mean Corpuscular Volume 89 FL (80-99) 89 FL (80-99) 90 FL (80-99) Mean Corpuscular Hemoglobin 30.1 PG (27.0-31.0) 30.5 PG (27.0-31.0) 30.2 PG (27.0-31.0) Mean Corpuscular Hemoglobin Concent 33.9 G/DL (32.0-36.0) 34.1 G/DL (32.0-36.0) 33.4 G/DL (32.0-36.0) Red Cell Distribution Width 10.9 % (11.6-14.8) 11.8 % (11.6-14.8) 11.8 % (11.6-14.8) Platelet Count 292 K/UL (150-450) 287 K/UL (150-450) 319 K/UL (150-450) Mean Platelet Volume 6.2 FL (6.5-10.1) 6.3 FL (6.5-10.1) 5.9 FL (6.5-10.1) Neutrophils (%) (Auto) 67.3 % (45.0-75.0) 63.4 % (45.0-75.0) 71.7 % (45.0-75.0) Lymphocytes (%) (Auto) 17.6 % (20.0-45.0) 20.3 % (20.0-45.0) 14.8 % (20.0-45.0) Monocytes (%) (Auto) 10.8 % (1.0-10.0) 12.5 % (1.0-10.0) 11.7 % (1.0-10.0) Eosinophils (%) (Auto) 2.2 % (0.0-3.0) 3.1 % (0.0-3.0) 1.2 % (0.0-3.0) Basophils (%) (Auto) 2.1 % (0.0-2.0) 0.8 % (0.0-2.0) 0.6 % (0.0-2.0) Prothrombin Time 18.7 SEC (9.30-11.50) 10.1 SEC (9.30-11.50) Prothromb Time International Ratio 1.8 (0.9-1.1) 1.0 (0.9-1.1) Activated Partial Thromboplast Time 38 SEC (23-33) 30 SEC (23-33) Sodium Level 142 MMOL/L (136-145) 141 MMOL/L (136-145) 147 MMOL/L (136-145) Potassium Level 4.0 MMOL/L (3.5-5.1) 3.5 MMOL/L (3.5-5.1) 3.3 MMOL/L (3.5-5.1) Chloride Level 103 MMOL/L (98-107) 104 MMOL/L (98-107) 109 MMOL/L (98-107) Carbon Dioxide Level 32 MMOL/L (21-32) 29 MMOL/L (21-32) 29 MMOL/L (21-32) Anion Gap 7 mmol/L (5-15) 8 mmol/L (5-15) 9 mmol/L (5-15) Blood Urea Nitrogen 9 mg/dL (7-18) 8 mg/dL (7-18) 6 mg/dL (7-18) Creatinine 0.8 MG/DL (0.55-1.30) 0.8 MG/DL (0.55-1.30) 0.7 MG/DL (0.55-1.30) Estimat Glomerular Filtration Rate mL/min (>60) mL/min (>60) mL/min (>60) Glucose Level 78 MG/DL (74-106) 95 MG/DL (74-106) 92 MG/DL (74-106) Calcium Level 9.2 MG/DL (8.5-10.1) 8.8 MG/DL (8.5-10.1) 8.9 MG/DL (8.5-10.1) Total Bilirubin 0.5 MG/DL (0.2-1.0) Aspartate Amino Transf (AST/SGOT) 21 U/L (15-37) Alanine Aminotransferase (ALT/SGPT) 26 U/L (12-78) Alkaline Phosphatase 66 U/L (46-116) Total Protein 7.5 G/DL (6.4-8.2) Albumin 3.5 G/DL (3.4-5.0) Globulin 4.0 g/dL Albumin/Globulin Ratio 0.9 (1.0-2.7) D-Dimer 0.34 mg/L FEU (0.00-0.49) Pro-B-Type Natriuretic Peptide 97 pg/mL (0-125) Triglycerides Level 126 MG/DL (30-150) Cholesterol Level 156 MG/DL (< 200) LDL Cholesterol 87 mg/dL (<100) HDL Cholesterol 45 MG/DL (40-60) Cholesterol/HDL Ratio 3.5 (3.3-4.4) Risk Assessment & Plan Assessment: asa4 Plan: mac Status Change Before Surgery: No Pre-Antibiotics Drug: Estela Rockwell MD Jun 15, 2019 06:34
--- NOTE | 2019-06-15 06:52 | NUR ---
NURSE NOTES: notified Dr. Sterling regarding pt vomit after miralax, and BM is not still clear.
--- NOTE | 2019-06-15 07:23 | NUR ---
HAND-OFF: Report given to Desi WATSON. pt is stable condition
--- NOTE | 2019-06-15 07:24 | NUR ---
NURSE NOTES: Report received from WALTER Randhawa
--- NOTE | 2019-06-15 07:49 | NUR ---
NURSE NOTES: DR NIELSON MADE AWARE POTASSIUM 3.3, AWAITING NEW ORDER
--- NOTE | 2019-06-15 08:15 | NUR ---
NURSE NOTES: Patient asleep when received.No apparent acute distress . NPO at this time, awaiting EGD/Colonoscopy. On room air and saturate at 100% at this time.Saline lock RAC/18 G patent .Pt potassium 3.3, will continue to monitor. Call light within easy reach.Bed in low position, 3/4 side rails up for safety and repositioning. [place] sounds little bit diminished.Patient uses bedside urinal. Abdomen soft and non distended with bowel sounds present in all 4 quadrants.Will continue to monitor.
--- NOTE | 2019-06-15 08:30 | NUR ---
NURSE NOTES: CONSENT RECEIVED FROM CAITLYN SKINNER FOR EGD/COLONOSCOPY
[2019-06-15] MEDS: clonazePAM 0.5mg tab ORAL SCH ×3 (08:50→17:16)
--- NOTE | 2019-06-15 08:51 | NUR ---
P.T Note: Order received, chart reviewed. P.T evaluation deferred secondary to patient preparing for GI procedure. Will follow up.
--- NOTE | 2019-06-15 09:40 | NUR ---
RADIOLOGY DEPT., ABDOMEN X-RAY DONE.-P.DYE
--- NOTE | 2019-06-15 09:56 | Diagnostic Imaging Report ---
Indication: Abdominal pain Technique: Supine view of the abdomen Comparison: none Findings: Bowel gas pattern is unremarkable. No gaseous distention of large or small bowel. No masses or unusual calcifications. Left hemidiaphragm is elevated. Impression: No acute process
[2019-06-15] MEDS ORDERED: Lidocaine 1% MPF 10mg/ml 5ml ONE (10:00)
[2019-06-15] MEDS ORDERED: Propofol 200mg/20ml IV ONE (10:00)
--- NOTE | 2019-06-15 10:15 | NUR ---
NURSE NOTES: TAKEN DOWN FOR EGD/COLONOSCOPY
--- NOTE | 2019-06-15 10:24 | Pre-Procedure Note/Attestation ---
Pre-Procedure Note/Attestation Complete Prior to Procedure Planned Procedure: not applicable Procedure Narrative: esophagogastroduodenoscopy and colonoscopy Indications for Procedure Pre-Operative Diagnosis: GI bleed Attestation I attest that I discussed the nature of the procedure; its benefits; risks and complications; and alternatives (and the risks and benefits of such alternatives ), prior to the procedure, with the patient (or the patient's legal in store representative). I attest that, if there was a reasonable possibility of needing a blood transfusion, the patient (or the patient's legal in store representative) was given the [facility] standardized written summary, pursuant to the [place] Blood Safety Act ([place] Health and Safety Code # 1645, as amended). I attest that I re-evaluated the patient just prior to the surgery and that there has been no change in the patient's H&P, except as documented below: Sean Sterling MD Jun 15, 2019 10:24
--- NOTE | 2019-06-15 10:48 | Endoscopy Procedure Note ---
Endoscopy Procedure Note General Indication for Procedure: gib Procedures Performed: EGD, colonoscopy Operative Findings/Diagnosis: gastritis, hemorrhoids Specimen: yes Pt Tolerated Procedure Well: Yes Estimated Blood Loss: none Anesthesia Anesthesiologist: maldonado Anesthesia: MAC Inserted Devices Implant(s) used?: No GI Core Measures 50 yrs or older w/o bx or poly: Not Applicable 10yrs. F/U recommended: Not Applicable Sean Sterling MD Jun 15, 2019 10:48
--- NOTE | 2019-06-15 10:54 | Cardiac Electrophysiology PN ---
Assessment/Plan Assessment/Plan 1. DVT and PE history with subtherapeutic INR most likely is due to patient not taking the right dose of coumadin, 2. Epistaxis has resolved, seen by ENT, Dr. Chavez and recommends afrin prn with RN 3. Anemia due to underlying epsistaxis --> r/o gi bleed Had EGD and colonoscopy by Dr Sterling today 4. . Leukocytosis, likely due to infection and sepsis. --> On antibiotics, ID following. --> Monitor closely. --> Resolved. 5. Cerebrovascular accident history with left-sided hemiplegia. 6. Benign prostatic hypertrophy. Closely monitor. Subjective Subjective Scheduled for endoscopy by Dr Sterling Objective Last 24 Hour Vital Signs Date Time Temp Pulse Resp B/P (MAP) Pulse Ox O2 Delivery O2 Flow Rate FiO2 06/15/19 08:00 Room Air 06/15/19 07:35 63 06/15/19 04:00 Room Air 06/15/19 04:00 98.0 61 20 113/65 (81) 100 06/15/19 03:33 60 06/15/19 00:00 98.0 60 20 136/64 (88) 100 06/15/19 00:00 Room Air 06/14/19 23:27 66 06/14/19 20:11 77 06/14/19 20:00 97.4 79 24 126/79 (95) 95 06/14/19 20:00 Room Air 06/14/19 16:00 98.0 62 20 115/69 (84) 94 06/14/19 16:00 58 06/14/19 16:00 Room Air 06/14/19 12:00 Room Air 06/14/19 12:00 59 06/14/19 12:00 97.6 63 20 111/63 (79) 95 Intake and Output 06/14/19 06/15/19 19:00 07:00 Intake Total 1720 ml Output Total 1300 ml 400 ml Balance 420 ml -400 ml Intake Oral 1660 ml IV Total 60 ml Output Urine Total 1300 ml 400 ml # Voids 9 4 # Bowel Movements 4 Laboratory Tests Test 06/14/19 15:53 06/15/19 03:05 D-Dimer 0.34 mg/L FEU (0.00-0.49) White Blood Count 9.0 K/UL (4.8-10.8) Red Blood Count 5.00 M/UL (4.70-6.10) Hemoglobin 15.1 G/DL (14.2-18.0) Hematocrit 45.0 % (42.0-52.0) Mean Corpuscular Volume 90 FL (80-99) Mean Corpuscular Hemoglobin 30.2 PG (27.0-31.0) Mean Corpuscular Hemoglobin Concent 33.4 G/DL (32.0-36.0) Red Cell Distribution Width 11.8 % (11.6-14.8) Platelet Count 319 K/UL (150-450) Mean Platelet Volume 5.9 FL (6.5-10.1) L Neutrophils (%) (Auto) 71.7 % (45.0-75.0) Lymphocytes (%) (Auto) 14.8 % (20.0-45.0) L Monocytes (%) (Auto) 11.7 % (1.0-10.0) H Eosinophils (%) (Auto) 1.2 % (0.0-3.0) Basophils (%) (Auto) 0.6 % (0.0-2.0) Prothrombin Time 10.1 SEC (9.30-11.50) Prothromb Time International Ratio 1.0 (0.9-1.1) Activated Partial Thromboplast Time 30 SEC (23-33) Sodium Level 147 MMOL/L (136-145) H Potassium Level 3.3 MMOL/L (3.5-5.1) L Chloride Level 109 MMOL/L (98-107) H Carbon Dioxide Level 29 MMOL/L (21-32) Anion Gap 9 mmol/L (5-15) Blood Urea Nitrogen 6 mg/dL (7-18) L Creatinine 0.7 MG/DL (0.55-1.30) Estimat Glomerular Filtration Rate mL/min (>60) Glucose Level 92 MG/DL (74-106) Calcium Level 8.9 MG/DL (8.5-10.1) Pro-B-Type Natriuretic Peptide 97 pg/mL (0-125) Triglycerides Level 126 MG/DL (30-150) Cholesterol Level 156 MG/DL (< 200) LDL Cholesterol 87 mg/dL (<100) HDL Cholesterol 45 MG/DL (40-60) Cholesterol/HDL Ratio 3.5 (3.3-4.4) Microbiology Date/Time Source Procedure Growth Status 06/13/19 21:40 Rectum Received Objective General Appearance: A+O x3, NAD HEENT: normocephalic, atraumatic Neck: non-tender, normal alignment Respiratory/Chest: chest wall non-tender, lungs clear Cardiovascular/Chest: normal peripheral pulses, normal rate Abdomen: normal bowel sounds, non tender Extremities: normal range of motion Miko Causey MD Jun 15, 2019 10:54
--- NOTE | 2019-06-15 11:29 | Immediate Post-Op Evaluation ---
Immediate Post-Op Evalulation Immediate Post-Op Evalulation Procedure: egd/colonoscopy w/bx Date of Evaluation: Jun 15, 2019 Time of Evaluation: 11:22 IV Fluids: 200ml 0.9ns Blood Products: none Estimated Blood Loss: negligible Blood Pressure Systolic: 103 Blood Pressure Diastolic: 62 Pulse Rate: 61 Respiratory Rate: 18 O2 Sat by Pulse Oximetry: 99 Temperature (Fahrenheit): 97.5 Pain Score (1-10): 0 Nausea: No Vomiting: No Complications none Patient Status: awake, reacts, patent Hydration Status: adequate Drug: Estela Rockwell MD Jun 15, 2019 11:29
--- NOTE | 2019-06-15 11:31 | 48 Hour Post Anesthesia Eval ---
Post Anesthesia Evaluation Procedure: egd/colonoscopy w/bx Date of Evaluation: Jun 15, 2019 Time of Evaluation: 11:24 Blood Pressure Systolic: 142 0: 70 Pulse Rate: 60 Respiratory Rate: 18 Temperature (Fahrenheit): 97.5 O2 Sat by Pulse Oximetry: 99 Airway: patent Nausea: No Vomiting: No Pain Intensity: 0 Hydration Status: adequate Cardiopulmonary Status: stable Mental Status/LOC: patient returned to baseline Post-Anesthesia Complications: none Follow-up care needed: N/A Estela Goodson MD Jun 15, 2019 11:31
--- NOTE | 2019-06-15 11:41 | NUR ---
NURSE NOTES: UNABLE TO SCAN MEDS, [place] SCAN NOT WORKING.PHARMACY AND ENGINEERING NOTIFIED.IT ALSO NOTIFIED. Addendum: 06/15/19 at 1148 by Desi Williamson RN TICKET NUMBER PROVIDED BY [id number]
--- NOTE | 2019-06-15 11:51 | NUR ---
NURSE NOTES: PT RETURNED FROM EGD/COLONOSCOPY result GASTRITIS AND DIVERTICULOSIS with 3 POLYPS sent to biopsy. CAITLYN Mansfield made aware.Pt stable no apparent acute distress, vitals signs stables. Will continue to monitor
--- NOTE | 2019-06-15 12:16 | NUR ---
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 Will continue same care plan.
--- NOTE | 2019-06-15 13:24 | NUR ---
CASE MANAGEMENT: REVIEW 06/15/19 SI: LOWER GI BLEED 98.0 65 20 142/70 95% RA K+3.3; NA+147; BUN 6 IS: KLONOPIN PO TID TYLENOL PO Q6/PRN OCEAN NASAL Q6HR : 2W STEP DOWN/ TELE LEVEL DCP: RETURN TO [facility]
--- NOTE | 2019-06-15 14:50 | NUR ---
NURSE NOTES: Patient was seen by Dr Mackenzie with new order potassium 40meq PO. Pt has chronic DVT left leg, per Dr Johnson ok to put SCD.Order noted.Patient help in self repositioning.Kept clean and dry.Call light within easy reach
--- NOTE | 2019-06-15 15:08 | General Progress Note ---
Assessment/Plan Problem List: (1) LGI bleed ICD Codes: K92.2 - Gastrointestinal hemorrhage, unspecified SNOMED: 63841916 (2) Recurrent epistaxis ICD Codes: R04.0 - Epistaxis SNOMED: 871833651, 56608205 (3) Anxiety ICD Codes: F41.9 - Anxiety disorder, unspecified SNOMED: 08961577 (4) PE (pulmonary embolism) ICD Codes: I26.99 - Other pulmonary embolism without acute cor pulmonale SNOMED: 14902555 (5) GERD (gastroesophageal reflux disease) ICD Codes: K21.9 - Gastro-esophageal reflux disease without esophagitis SNOMED: 189803702 (6) HTN (hypertension) ICD Codes: I10 - Essential (primary) hypertension SNOMED: 21876359 (7) BPH (benign prostatic hyperplasia) ICD Codes: N40.0 - Benign prostatic hyperplasia without lower urinary tract symptoms SNOMED: 872935716, 551181882 (8) Cerebrovascular accident (CVA) ICD Codes: I63.9 - Cerebral infarction, unspecified SNOMED: 106823774 (9) COPD (chronic obstructive pulmonary disease) ICD Codes: J44.9 - Chronic obstructive pulmonary disease, unspecified SNOMED: 02370514 Status: stable, progressing Assessment/Plan: pt diet gi heme eval cbc bmp am aru eval Subjective Constitutional: Reports: weakness Allergies: Coded Allergies: COCONUT (Unverified Allergy, Unknown, 06/13/19) Uncoded Allergies: Coconut (Allergy, Intermediate, Hives, 08/07/15) All Systems: reviewed and negative except above Subjective sl anxious in bed Objective Last 24 Hour Vital Signs Date Time Temp Pulse Resp B/P (MAP) Pulse Ox O2 Delivery O2 Flow Rate FiO2 06/15/19 12:30 98.9 64 20 133/65 (87) 98 06/15/19 12:00 Room Air 06/15/19 11:44 59 06/15/19 11:40 97.7 54 18 108/52 98 Room Air 06/15/19 11:31 60 18 99 06/15/19 11:30 54 12 97/57 99 Room Air 06/15/19 11:29 61 18 99 06/15/19 11:20 60 17 110/63 99 Nasal Cannula 3 06/15/19 11:15 57 24 103/60 96 Nasal Cannula 3 06/15/19 11:10 97.5 57 22 105/62 98 Nasal Cannula 3 06/15/19 08:00 98.0 65 20 142/70 (94) 95 06/15/19 08:00 Room Air 06/15/19 07:35 63 06/15/19 04:00 Room Air 06/15/19 04:00 98.0 61 20 113/65 (81) 100 06/15/19 03:33 60 06/15/19 00:00 98.0 60 20 136/64 (88) 100 06/15/19 00:00 Room Air 06/14/19 23:27 66 06/14/19 20:11 77 06/14/19 20:00 97.4 79 24 126/79 (95) 95 06/14/19 20:00 Room Air 06/14/19 16:00 98.0 62 20 115/69 (84) 94 06/14/19 16:00 58 06/14/19 16:00 Room Air Intake and Output 06/14/19 06/15/19 18:59 06:59 Intake Total 1780 ml Output Total 1300 ml 400 ml Balance 480 ml -400 ml Intake Oral 1660 ml IV Total 120 ml Output Urine Total 1300 ml 400 ml # Voids 9 4 # Bowel Movements 4 Laboratory Tests 06/14/19 15:53: D-Dimer 0.34 06/15/19 03:05: White Blood Count 9.0, Red Blood Count 5.00, Hemoglobin 15.1, Hematocrit 45.0, Mean Corpuscular Volume 90, Mean Corpuscular Hemoglobin 30.2, Mean Corpuscular Hemoglobin Concent 33.4, Red Cell Distribution Width 11.8, Platelet Count 319, Mean Platelet Volume 5.9L, Neutrophils (%) (Auto) 71.7, Lymphocytes (%) (Auto) 14.8L, Monocytes (%) (Auto) 11.7H, Eosinophils (%) (Auto) 1.2, Basophils (%) ( Auto) 0.6, Prothrombin Time 10.1, Prothromb Time International Ratio 1.0, Activated Partial Thromboplast Time 30, Sodium Level 147H, Potassium Level 3.3L , Chloride Level 109H, Carbon Dioxide Level 29, Anion Gap 9, Blood Urea Nitrogen 6L, Creatinine 0.7, Estimat Glomerular Filtration Rate , Glucose Level 92, Calcium Level 8.9, Pro-B-Type Natriuretic Peptide 97, Triglycerides Level 126, Cholesterol Level 156, LDL Cholesterol 87, HDL Cholesterol 45, Cholesterol/ HDL Ratio 3.5 Height (Feet): 5 Height (Inches): 11.00 Weight (Pounds): 170 General Appearance: lethargic EENT: normal ENT inspection Neck: normal alignment Cardiovascular: normal peripheral pulses, normal rate, regular rhythm Respiratory/Chest: chest wall non-tender, lungs clear, normal breath sounds Abdomen: normal bowel sounds, non tender, soft Extremities: normal inspection Edema: no edema noted Arm (L), no edema noted Arm (R), no edema noted Leg (L), no edema noted Leg (R), no edema noted Pedal (L), no edema noted Pedal (R), no edema noted Generalized Neurologic: responsive, motor weakness Skin: normal pigmentation, warm/dry Jaime Mackenzie DO Jun 15, 2019 15:08
--- NOTE | 2019-06-15 16:11 | NUR ---
NURSE NOTES: Patient awake watching TV with no apparent s/s acute distress.No significant change and condition.Help in self repositioning.Call light within easy reach. Will continue to monitor.
--- NOTE | 2019-06-15 18:10 | NUR ---
NURSE NOTES: Adls done,pt kept clean and dry. dinner serve, call light within easy reach. No acute distress,vital signs stable.Will continue same plan of care
--- NOTE | 2019-06-15 19:32 | NUR ---
HAND-OFF: Report given to WALTER Tripp.
--- NOTE | 2019-06-15 19:35 | NUR ---
NURSE NOTES: Received report from Desi KAHN RN. Pt is SR, alert, awake, and oriented to self and place. Pt denies pain at this time, no signs or symptoms of pain or distress noted. Left AC 18g saline locked, asymptomatic, intact and patent. Will continue to monitor.
--- NOTE | 2019-06-15 20:21 | Hematology/Onc Progress Note ---
Assessment/Plan Assessment/Plan Assessment and Recs #. SUBrtherapeutic INR -- presents with Coagulopathy due to underlying use of Coumadin, INR is low, but most likely is due to patient not taking the right dose of coumadin, as in the past I have seen him and he has been subtherapeutic --> epistaxis has resolved, seen by ENT, Dr. Chavez and recommends afrin prn with RN --> Continue to closely monitor VITK and FFP if doesn't improve --> Will need to have INR between 2 and 3 --> will need to restart anticoag once done with egd/colo --> cards recs reviewed #. Pulmonary embolism. --> Maintain INR between 2 and 3. --> Monitor closely, INR currently at 2.4 # Anemia due to underlying epsistaxis --> r/o gi bleed --> gi consulted EGD AND COLO done 06/15 --> diverticulosis and poiyps #. Leukocytosis, likely due to infection and sepsis. --> On antibiotics, ID following. --> Monitor closely. --> Resolved. #. Cerebrovascular accident history with left-sided hemiplegia. #. Benign prostatic hypertrophy. Closely monitor. #. Dvt ppx with coumadin The timing of this note does not necessarily reflect the time of the patient was seen. Greatly appreciate consultation. Subjective Constitutional: Denies: no symptoms, chills, fever, malaise, weakness, other HEENT: Denies: no symptoms, eye pain, blurred vision, tearing, double vision, ear pain, ear discharge, nose pain, nose congestion, throat pain, throat swelling, mouth pain, mouth swelling, other Cardiovascular: Denies: no symptoms, chest pain, edema, irregular heart rate, lightheadedness, palpitations, syncope, other Respiratory: Denies: no symptoms, cough, shortness of breath, SOB with excertion, SOB at rest, sputum, wheezing, other Gastrointestinal/Abdominal: Denies: no symptoms, abdomen distended, abdominal pain, black stools, tarry stools, blood in stool, constipated, diarrhea, difficulty swallowing, nausea, poor appetite, poor fluid intake, rectal bleeding , vomiting, other Genitourinary: Denies: no symptoms, burning, discharge, frequency, flank pain, hematuria, incontinence, pain, urgency, other Endocrine: Denies: no symptoms, excessive sweating, flushing, intolerance to cold, intolerance to heat, increased hunger, increased thirst, increased urine, unexplained weight gain, unexplained weight loss, other Hematologic/Lymphatic: Denies: no symptoms, anemia, easy bleeding, easy bruising, adenopathy, other Allergies: Coded Allergies: COCONUT (Unverified Allergy, Unknown, 06/13/19) Uncoded Allergies: Coconut (Allergy, Intermediate, Hives, 08/07/15) Subjective 06/15: this am was somewhat agitated, underwent egd and colo, reviewed results Objective Objective Current Medications Medications (Trade) Dose Ordered Sig/Vadim Route PRN Reason Start Time Stop Time Status Last Admin Dose Admin Acetaminophen (Tylenol) 650 mg Q4H PRN ORAL Mild Pain/Temp > 100.5 06/14/19 09:15 07/14/19 09:14 06/15/19 14:29 Clonazepam (KlonoPIN) 0.5 mg TID ORAL 06/14/19 09:00 06/21/19 08:59 06/15/19 17:16 Sodium Chloride ([place] Nasal [place]) 1 spray Q6H NASAL 06/14/19 21:00 07/14/19 20:59 06/15/19 14:24 Last 24 Hour Vital Signs Date Time Temp Pulse Resp B/P (MAP) Pulse Ox O2 Delivery O2 Flow Rate FiO2 06/15/19 16:00 98.0 67 19 117/76 (90) 98 06/15/19 16:00 Room Air 06/15/19 15:38 61 06/15/19 14:59 98.0 06/15/19 12:30 98.9 64 20 133/65 (87) 98 06/15/19 12:00 Room Air 06/15/19 11:44 59 06/15/19 11:40 97.7 54 18 108/52 98 Room Air 06/15/19 11:31 60 18 99 06/15/19 11:30 54 12 97/57 99 Room Air 06/15/19 11:29 61 18 99 06/15/19 11:20 60 17 110/63 99 Nasal Cannula 3 06/15/19 11:15 57 24 103/60 96 Nasal Cannula 3 06/15/19 11:10 97.5 57 22 105/62 98 Nasal Cannula 3 06/15/19 08:00 98.0 65 20 142/70 (94) 95 06/15/19 08:00 Room Air 06/15/19 07:35 63 06/15/19 04:00 Room Air 06/15/19 04:00 98.0 61 20 113/65 (81) 100 06/15/19 03:33 60 06/15/19 00:00 98.0 60 20 136/64 (88) 100 06/15/19 00:00 Room Air 06/14/19 23:27 66 06/14/19 20:11 77 06/14/19 20:00 97.4 79 24 126/79 (95) 95 06/14/19 20:00 Room Air 06/14/19 16:00 98.0 62 20 115/69 (84) 94 06/14/19 16:00 58 06/14/19 16:00 Room Air 06/14/19 12:00 Room Air 06/14/19 12:00 59 06/14/19 12:00 97.6 63 20 111/63 (79) 95 06/14/19 09:00 Room Air 06/14/19 08:00 97.5 56 18 118/76 (90) 95 06/14/19 07:44 54 06/14/19 04:00 98.1 51 18 98/59 (72) 95 06/14/19 03:27 55 06/14/19 00:00 97.9 59 18 104/60 (75) 96 06/13/19 23:31 62 06/13/19 22:25 Room Air 06/13/19 22:14 62 06/13/19 22:00 97.9 90 22 84/52 90 Room Air 06/13/19 22:00 97.8 56 18 120/75 (90) 96 Intake and Output 06/14/19 06/15/19 18:59 06:59 Intake Total 1780 ml Output Total 1300 ml 400 ml Balance 480 ml -400 ml Intake Oral 1660 ml IV Total 120 ml Output Urine Total 1300 ml 400 ml # Voids 9 4 # Bowel Movements 4 Labs Test 06/13/19 19:53 06/14/19 03:25 06/14/19 15:53 06/15/19 03:05 White Blood Count 7.4 K/UL (4.8-10.8) 6.5 K/UL (4.8-10.8) 9.0 K/UL (4.8-10.8) Red Blood Count 4.80 M/UL (4.70-6.10) 4.40 M/UL (4.70-6.10) 5.00 M/UL (4.70-6.10) Hemoglobin 14.4 G/DL (14.2-18.0) 13.4 G/DL (14.2-18.0) 15.1 G/DL (14.2-18.0) Hematocrit 42.6 % (42.0-52.0) 39.3 % (42.0-52.0) 45.0 % (42.0-52.0) Mean Corpuscular Volume 89 FL (80-99) 89 FL (80-99) 90 FL (80-99) Mean Corpuscular Hemoglobin 30.1 PG (27.0-31.0) 30.5 PG (27.0-31.0) 30.2 PG (27.0-31.0) Mean Corpuscular Hemoglobin Concent 33.9 G/DL (32.0-36.0) 34.1 G/DL (32.0-36.0) 33.4 G/DL (32.0-36.0) Red Cell Distribution Width 10.9 % (11.6-14.8) 11.8 % (11.6-14.8) 11.8 % (11.6-14.8) Platelet Count 292 K/UL (150-450) 287 K/UL (150-450) 319 K/UL (150-450) Mean Platelet Volume 6.2 FL (6.5-10.1) 6.3 FL (6.5-10.1) 5.9 FL (6.5-10.1) Neutrophils (%) (Auto) 67.3 % (45.0-75.0) 63.4 % (45.0-75.0) 71.7 % (45.0-75.0) Lymphocytes (%) (Auto) 17.6 % (20.0-45.0) 20.3 % (20.0-45.0) 14.8 % (20.0-45.0) Monocytes (%) (Auto) 10.8 % (1.0-10.0) 12.5 % (1.0-10.0) 11.7 % (1.0-10.0) Eosinophils (%) (Auto) 2.2 % (0.0-3.0) 3.1 % (0.0-3.0) 1.2 % (0.0-3.0) Basophils (%) (Auto) 2.1 % (0.0-2.0) 0.8 % (0.0-2.0) 0.6 % (0.0-2.0) Prothrombin Time 18.7 SEC (9.30-11.50) 10.1 SEC (9.30-11.50) Prothromb Time International Ratio 1.8 (0.9-1.1) 1.0 (0.9-1.1) Activated Partial Thromboplast Time 38 SEC (23-33) 30 SEC (23-33) Sodium Level 142 MMOL/L (136-145) 141 MMOL/L (136-145) 147 MMOL/L (136-145) Potassium Level 4.0 MMOL/L (3.5-5.1) 3.5 MMOL/L (3.5-5.1) 3.3 MMOL/L (3.5-5.1) Chloride Level 103 MMOL/L (98-107) 104 MMOL/L (98-107) 109 MMOL/L (98-107) Carbon Dioxide Level 32 MMOL/L (21-32) 29 MMOL/L (21-32) 29 MMOL/L (21-32) Anion Gap 7 mmol/L (5-15) 8 mmol/L (5-15) 9 mmol/L (5-15) Blood Urea Nitrogen 9 mg/dL (7-18) 8 mg/dL (7-18) 6 mg/dL (7-18) Creatinine 0.8 MG/DL (0.55-1.30) 0.8 MG/DL (0.55-1.30) 0.7 MG/DL (0.55-1.30) Estimat Glomerular Filtration Rate mL/min (>60) mL/min (>60) mL/min (>60) Glucose Level 78 MG/DL (74-106) 95 MG/DL (74-106) 92 MG/DL (74-106) Calcium Level 9.2 MG/DL (8.5-10.1) 8.8 MG/DL (8.5-10.1) 8.9 MG/DL (8.5-10.1) Total Bilirubin 0.5 MG/DL (0.2-1.0) Aspartate Amino Transf (AST/SGOT) 21 U/L (15-37) Alanine Aminotransferase (ALT/SGPT) 26 U/L (12-78) Alkaline Phosphatase 66 U/L (46-116) Total Protein 7.5 G/DL (6.4-8.2) Albumin 3.5 G/DL (3.4-5.0) Globulin 4.0 g/dL Albumin/Globulin Ratio 0.9 (1.0-2.7) D-Dimer 0.34 mg/L FEU (0.00-0.49) Pro-B-Type Natriuretic Peptide 97 pg/mL (0-125) Triglycerides Level 126 MG/DL (30-150) Cholesterol Level 156 MG/DL (< 200) LDL Cholesterol 87 mg/dL (<100) HDL Cholesterol 45 MG/DL (40-60) Cholesterol/HDL Ratio 3.5 (3.3-4.4) Height (Feet): 5 Height (Inches): 11.00 Weight (Pounds): 170 Objective Physical Exam General Appearance: A+O x3, NAD HEENT: normocephalic, atraumatic Neck: non-tender, normal alignment Respiratory/Chest: chest wall non-tender, lungs clear Cardiovascular/Chest: normal peripheral pulses, normal rate Abdomen: normal bowel sounds, non tender Extremities: normal range of motion Aren Morgan MD Jun 15, 2019 20:21
[2019-06-15] MEDS ORDERED: Warfarin Sodium 2.5mg ORAL SCH (21:00)
[2019-06-15] MEDS ORDERED: Warfarin Sodium 2.5mg ORAL ONE (22:30)
--- NOTE | 2019-06-15 23:03 | NUR ---
NURSE NOTES: RE: Coumadin non-admin: Per [facility], since medication is not physically on the unit, and med is not available in any other Pyxis in facility, med will be held until tomorrow morning. Order to be changed by pharmacy per pharmacy.
[2019-06-16] VITALS: BP 101/57
--- NOTE | 2019-06-16 00:32 | NUR ---
NURSE NOTES: Pt is currently in stable condition. Pt is alert, awake, watching TV, denies any pain or distress at this time. Asymptomatic sinus bradycardia noted on manager cardiac cath. Vital signs within normal range, no signs or symptoms of distress noted at this time. Will continue to monitor closely.
[2019-06-16] MEDS: Ocean Nasal Spray 45ml NASAL SCH ×4 (03:00→21:00)
[2019-06-16 04:00] VITALS: BP 103/62
--- NOTE | 2019-06-16 04:17 | NUR ---
NURSE NOTES: Pt is stable, SB with BBB, alert, and oriented to self and place. After 3 attempts, pt refused bed bath, as witnessed Abdelrahman Rogers RN. Charge nurse Blue Giles RN, made aware. Will continue to monitor closely
[2019-06-16 04:43] LABS: BASOPHILS % (AUTO) 0.9 % (0.0-2.0); EOSINOPHILS % (AUTO) 1.9 % (0.0-3.0); HEMATOCRIT 42.1 % (42.0-52.0); HEMOGLOBIN 14.2 G/DL (14.2-18.0); LYMPHOCYTES % (AUTO) 16.1 % (20.0-45.0); MEAN CORPUSCULAR VOLUME 91 FL (80-99); MONOCYTES % (AUTO) 13.7 % (1.0-10.0); NEUTROPHILS % (AUTO) 67.5 % (45.0-75.0); PLATELET COUNT 294 K/UL (150-450); RED BLOOD COUNT 4.63 M/UL (4.70-6.10); RED CELL DISTRIBUTION WIDTH 11.9 % (11.6-14.8); WHITE BLOOD COUNT 7.9 K/UL (4.8-10.8)
[2019-06-16 04:56] LABS: ANION GAP 7 mmol/L (5-15); BLOOD UREA NITROGEN 9 mg/dL (7-18); CALCIUM 8.6 MG/DL (8.5-10.1); CARBON DIOXIDE 26 MMOL/L (21-32); CHLORIDE 112 MMOL/L (98-107); CREATININE 0.8 MG/DL (0.55-1.30); POTASSIUM 3.6 MMOL/L (3.5-5.1); SODIUM 145 MMOL/L (136-145)
--- NOTE | 2019-06-16 07:04 | NUR ---
HAND-OFF: Report given to Vidhya Londono RN. Pt is stable, asleep, SB with BBBs. No signs or symptoms of pain or distress noted at this time.
--- NOTE | 2019-06-16 07:10 | NUR ---
NURSE NOTES: Received report from WALTER Hassan. Patient is asleep and responsive to verbal and tactile stimuli. No distress/SOB noted. Patient denies any pain/discomfort at this time. Left AC 18G intact and patent. Kept dry, clean and comfortable. Call light placed in easy reach. Will continue plan of care.
[2019-06-16 08:00] VITALS: BP 105/62
[2019-06-16] MEDS: clonazePAM 0.5mg tab ORAL SCH ×3 (08:26→17:21)
--- NOTE | 2019-06-16 09:05 | General Progress Note ---
Assessment/Plan Problem List: (1) LGI bleed ICD Codes: K92.2 - Gastrointestinal hemorrhage, unspecified SNOMED: 76734469 (2) Recurrent epistaxis ICD Codes: R04.0 - Epistaxis SNOMED: 419389498, 07193638 (3) Anxiety ICD Codes: F41.9 - Anxiety disorder, unspecified SNOMED: 66612479 (4) PE (pulmonary embolism) ICD Codes: I26.99 - Other pulmonary embolism without acute cor pulmonale SNOMED: 23424815 (5) GERD (gastroesophageal reflux disease) ICD Codes: K21.9 - Gastro-esophageal reflux disease without esophagitis SNOMED: 600632046 (6) HTN (hypertension) ICD Codes: I10 - Essential (primary) hypertension SNOMED: 27537569 (7) BPH (benign prostatic hyperplasia) ICD Codes: N40.0 - Benign prostatic hyperplasia without lower urinary tract symptoms SNOMED: 043621729, 486094895 (8) Cerebrovascular accident (CVA) ICD Codes: I63.9 - Cerebral infarction, unspecified SNOMED: 618804284 (9) COPD (chronic obstructive pulmonary disease) ICD Codes: J44.9 - Chronic obstructive pulmonary disease, unspecified SNOMED: 50569914 Status: stable, progressing Assessment/Plan: pt diet gi heme eval dc if clear Subjective Constitutional: Reports: weakness Allergies: Coded Allergies: COCONUT (Unverified Allergy, Unknown, 06/13/19) Uncoded Allergies: Coconut (Allergy, Intermediate, Hives, 08/07/15) All Systems: reviewed and negative except above Subjective sl anxious in bed Objective Last 24 Hour Vital Signs Date Time Temp Pulse Resp B/P (MAP) Pulse Ox O2 Delivery O2 Flow Rate FiO2 06/16/19 08:00 62 06/16/19 08:00 98.0 59 18 105/62 (76) 98 06/16/19 04:00 Room Air 06/16/19 04:00 98.0 56 19 103/62 (76) 98 06/16/19 03:35 56 06/16/19 00:00 Room Air 06/16/19 00:00 99.0 55 19 101/57 (72) 96 06/15/19 23:40 56 06/15/19 20:39 56 06/15/19 20:00 98.5 56 20 131/67 (88) 99 06/15/19 20:00 Room Air 06/15/19 16:00 98.0 67 19 117/76 (90) 98 06/15/19 16:00 Room Air 06/15/19 15:38 61 06/15/19 14:59 98.0 06/15/19 12:30 98.9 64 20 133/65 (87) 98 06/15/19 12:00 Room Air 06/15/19 11:44 59 06/15/19 11:40 97.7 54 18 108/52 98 Room Air 06/15/19 11:31 60 18 99 06/15/19 11:30 54 12 97/57 99 Room Air 06/15/19 11:29 61 18 99 06/15/19 11:20 60 17 110/63 99 Nasal Cannula 3 06/15/19 11:15 57 24 103/60 96 Nasal Cannula 3 06/15/19 11:10 97.5 57 22 105/62 98 Nasal Cannula 3 Intake and Output 06/15/19 06/16/19 19:00 07:00 Intake Total 720 ml 220 ml Output Total 750 ml 450 ml Balance -30 ml -230 ml Intake Oral 470 ml 220 ml IV Total 250 ml Output Urine Total 750 ml 450 ml # Voids 3 4 # Bowel Movements 1 Laboratory Tests 06/16/19 03:10: White Blood Count 7.9, Red Blood Count 4.63L, Hemoglobin 14.2, Hematocrit 42.1, Mean Corpuscular Volume 91, Mean Corpuscular Hemoglobin 30.7, Mean Corpuscular Hemoglobin Concent 33.7, Red Cell Distribution Width 11.9, Platelet Count 294, Mean Platelet Volume 5.9L, Neutrophils (%) (Auto) 67.5, Lymphocytes (%) (Auto) 16.1L, Monocytes (%) (Auto) 13.7H, Eosinophils (%) (Auto) 1.9, Basophils (%) ( Auto) 0.9, Prothrombin Time 10.3, Prothromb Time International Ratio 1.0, Sodium Level 145, Potassium Level 3.6, Chloride Level 112H, Carbon Dioxide Level 26, Anion Gap 7, Blood Urea Nitrogen 9, Creatinine 0.8, Estimat Glomerular Filtration Rate , Glucose Level 89, Calcium Level 8.6 Height (Feet): 5 Height (Inches): 11.00 Weight (Pounds): 170 General Appearance: lethargic EENT: normal ENT inspection Neck: normal alignment Cardiovascular: normal peripheral pulses, normal rate, regular rhythm Respiratory/Chest: chest wall non-tender, lungs clear, normal breath sounds Abdomen: normal bowel sounds, non tender, soft Extremities: normal inspection Edema: no edema noted Arm (L), no edema noted Arm (R), no edema noted Leg (L), no edema noted Leg (R), no edema noted Pedal (L), no edema noted Pedal (R), no edema noted Generalized Neurologic: responsive, motor weakness Skin: normal pigmentation, warm/dry Jaime Mackenzie DO Jun 16, 2019 09:04
--- NOTE | 2019-06-16 10:13 | Cardiac Electrophysiology PN ---
Assessment/Plan Assessment/Plan 1. DVT and PE history with subtherapeutic INR most likely is due to patient not taking the right dose of Coumadin, ECho EF 60% 2. Epistaxis has resolved, seen by ENT, Dr. Chavez and recommends afrin prn with RN 3. Anemia due to underlying epsistaxis S/P EGD and colonoscopy by Dr Sterling 06/15/19 4. . Leukocytosis, likely due to infection and sepsis. --> On antibiotics, ID following. --> Monitor closely. --> Resolved. 5. Cerebrovascular accident history with left-sided hemiplegia. 6. Benign prostatic hypertrophy. Subjective Subjective Had EGD and colonoscopy by Dr Sterling yesterday. Wants to go home. Awaiting Irene alcantara Objective Last 24 Hour Vital Signs Date Time Temp Pulse Resp B/P (MAP) Pulse Ox O2 Delivery O2 Flow Rate FiO2 06/16/19 08:00 62 06/16/19 08:00 Room Air 06/16/19 08:00 98.0 59 18 105/62 (76) 98 06/16/19 04:00 Room Air 06/16/19 04:00 98.0 56 19 103/62 (76) 98 06/16/19 03:35 56 06/16/19 00:00 Room Air 06/16/19 00:00 99.0 55 19 101/57 (72) 96 06/15/19 23:40 56 06/15/19 20:39 56 06/15/19 20:00 98.5 56 20 131/67 (88) 99 06/15/19 20:00 Room Air 06/15/19 16:00 98.0 67 19 117/76 (90) 98 06/15/19 16:00 Room Air 06/15/19 15:38 61 06/15/19 14:59 98.0 06/15/19 12:30 98.9 64 20 133/65 (87) 98 06/15/19 12:00 Room Air 06/15/19 11:44 59 06/15/19 11:40 97.7 54 18 108/52 98 Room Air 06/15/19 11:31 60 18 99 06/15/19 11:30 54 12 97/57 99 Room Air 06/15/19 11:29 61 18 99 06/15/19 11:20 60 17 110/63 99 Nasal Cannula 3 06/15/19 11:15 57 24 103/60 96 Nasal Cannula 3 06/15/19 11:10 97.5 57 22 105/62 98 Nasal Cannula 3 Intake and Output 06/15/19 06/16/19 19:00 07:00 Intake Total 720 ml 220 ml Output Total 750 ml 450 ml Balance -30 ml -230 ml Intake Oral 470 ml 220 ml IV Total 250 ml Output Urine Total 750 ml 450 ml # Voids 3 4 # Bowel Movements 1 Laboratory Tests Test 06/16/19 03:10 White Blood Count 7.9 K/UL (4.8-10.8) Red Blood Count 4.63 M/UL (4.70-6.10) L Hemoglobin 14.2 G/DL (14.2-18.0) Hematocrit 42.1 % (42.0-52.0) Mean Corpuscular Volume 91 FL (80-99) Mean Corpuscular Hemoglobin 30.7 PG (27.0-31.0) Mean Corpuscular Hemoglobin Concent 33.7 G/DL (32.0-36.0) Red Cell Distribution Width 11.9 % (11.6-14.8) Platelet Count 294 K/UL (150-450) Mean Platelet Volume 5.9 FL (6.5-10.1) L Neutrophils (%) (Auto) 67.5 % (45.0-75.0) Lymphocytes (%) (Auto) 16.1 % (20.0-45.0) L Monocytes (%) (Auto) 13.7 % (1.0-10.0) H Eosinophils (%) (Auto) 1.9 % (0.0-3.0) Basophils (%) (Auto) 0.9 % (0.0-2.0) Prothrombin Time 10.3 SEC (9.30-11.50) Prothromb Time International Ratio 1.0 (0.9-1.1) Sodium Level 145 MMOL/L (136-145) Potassium Level 3.6 MMOL/L (3.5-5.1) Chloride Level 112 MMOL/L (98-107) H Carbon Dioxide Level 26 MMOL/L (21-32) Anion Gap 7 mmol/L (5-15) Blood Urea Nitrogen 9 mg/dL (7-18) Creatinine 0.8 MG/DL (0.55-1.30) Estimat Glomerular Filtration Rate mL/min (>60) Glucose Level 89 MG/DL (74-106) Calcium Level 8.6 MG/DL (8.5-10.1) Microbiology Date/Time Source Procedure Growth Status 06/13/19 21:40 Nasal Nares MRSA Culture - Final NO METHICILLIN RESISTANT STAPH AUREUS... Complete 06/13/19 21:40 Rectum - Final NO CARBAPENEM-RESISTANT ENTEROBACTERI... Complete 06/13/19 21:40 Rectum VRE Culture - Final NO VANCOMYCIN RESISTANT ENTEROCOCCUS ... Complete Objective General Appearance: A+O x3, NAD HEENT: normocephalic, atraumatic Neck: non-tender, normal alignment Respiratory/Chest: chest wall non-tender, lungs clear Cardiovascular/Chest: normal peripheral pulses, normal rate Abdomen: normal bowel sounds, non tender Extremities: normal range of motion Miko Causey MD Jun 16, 2019 10:13
--- NOTE | 2019-06-16 11:53 | Consultation ---
DATE OF CONSULTATION: 06/14/2019 CARDIOLOGY CONSULTATION CONSULTING PHYSICIAN: Miko Causey M.D. REFERRING PHYSICIAN: Jaime Mackenzie D.O. REASON FOR CONSULTATION: Bradycardia and right bundle-branch block in the patient with gastrointestinal bleed and nosebleed. The patient is on Coumadin for pulmonary embolism. 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 The patient was [facility] for recurrent nosebleeds from both sides over the last two weeks. The patient is on aspirin and Coumadin. He denies frequent nose picking as his nose was in the past. His EKG showed sinus bradycardia in the 50s and right bundle-branch block. At the time of my evaluation, he denies any chest pain, palpitation, or shortness of breath. REVIEW OF SYSTEMS: Review of systems was negative other than what was mentioned in the history of present illness. PAST MEDICAL HISTORY: As mentioned above. FAMILY HISTORY: Noncontributory. SOCIAL HISTORY: He lives in the [facility]. He does not smoke or drink alcohol. 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 PHYSICAL EXAMINATION: VITAL SIGNS: Blood pressure 111/63, pulse is 59, respirations 18, and he is afebrile. Heart rate was 151. HEAD AND NECK: Showed no JVD. LUNGS: Clear. CARDIOVASCULAR: Shows bradycardic S1 and S2 with no gallop or murmur. ABDOMEN: Soft. EXTREMITIES: No pitting edema. LABORATORY DATA: Labs show white count of 6.5, hematocrit 13.4, hematocrit of 39.3, and platelet count of 287,000. Sodium 141, potassium 3.5, BUN of 30, creatinine 0.9, and glucose of 95. INR is 1.8. ASSESSMENT AND PLAN: 1. History of hypertension. Blood pressure is currently stable. We will watch the patient on the unit. 2. Bradycardia. Heart rate in the 50s. Off any sinus or AV lavinia blocking agent. We will get thyroid functions and echocardiogram. 3. Right bundle-branch block with no syncope. 4. History of DVT and PE. The patient was on Coumadin. INR is 1.8. 5. Chronic nosebleed and questionable rectal bleed. Hemoglobin is stable. Further evaluation by Dr. Sterling. Thank you very much for allowing me to participate in the care of this patient. Please do not hesitate to contact me for any questions regarding my evaluation. Miko Causey M.D. DR: LESLIE JOB#: [id number] CC:
--- NOTE | 2019-06-16 11:54 | Consultation ---
DATE OF CONSULTATION: 06/14/2019 NOTE: UNCLEAR AUDIO PSYCHOTHERAPY CONSULTATION PROGRESS NOTE CONSULTING PHYSICIAN: Reji Ricardo M.D. TREATING ATTENDING PHYSICIAN: Jaime Mackenzie D.O. 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 This patient was brought in to the hospital for recurrent epistaxis, gastrointestinal bleeding. The patient has a long-standing history of anxiety and intermittent depression. For these reasons, he was referred for psychotherapeutic services. I saw the patient. This patient states that at this time, he does have recurrent anxiety. He states at times he has panic attacks; however, once he takes his medications, he states that he is able to remain stable. He denies suicidal or homicidal thoughts of ideation. There is no auditory or visual hallucinations. The patient is appropriate talking about his experience with mental health previously and his feelings of anxiety when he does not take his medications. He states that he does know the importance of medications at this time and is going to take his medications. He is very talkative, verbal, able to communicate and participate in treatment. I assessed this patient and patient sought medical treatment. PAST MEDICAL HISTORY: Includes history of hypertension, GERD, CVA, TIA. ALLERGIES: The patient has allergies to coconut. SUBSTANCE ABUSE HISTORY: Denies history of alcohol use, illicit substance, or smoking cigarettes. PSYCHIATRIC HISTORY: States that he has a history of anxiety, some intermittent depression and has been treated with psychotropic medications in the past. 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 Financially sustained with [facility]. MENTAL STATUS EXAMINATION: Alert and oriented to person place time and situation. His mood is anxious. Affect congruent. Thought process fair. Thought content, linear. Poor attention and concentration. Poor insight, judgment, and impulse control. Today, I assessed this patient. DIAGNOSIS: Rule out major depressive disorder, recurrent moderate without psychotic features . At this time, this clinician assessed the patient and provided the patient with: Supportive psychotherapy. Discussed with the patient positive communication skills. Encouraged him to articulate thoughts and depressed state and working adjust medications. the patient's behaviors and then modifying his behaviors and then working on his negative catastrophic have panic attacks anxiety. Providing with positive positive coping skills and exercises in order to reduce the patient's level of anxiety. positive coping skills. Psychotherapy services provided 45 minutes. This clinician has reviewed the patient's chart. Discussed the treatment with treatment team. Reji Ricardo PsyD. DR: KEHINDE JOB#: [id number] CC:
--- NOTE | 2019-06-16 11:54 | Procedure Note ---
DATE OF PROCEDURE: 06/15/2019 SURGEON: Sean Sterling M.D. REFERRING PHYSICIAN: Jaime Mackenzie D.O. PROCEDURE: Upper endoscopy biopsy and colonoscopy with biopsy. ANESTHESIA: Per Dr. Puga. INSTRUMENT: Olympus adult flexible upper endoscope and colonoscope. INDICATIONS: GI bleeding. REASON FOR PROCEDURE: The procedure, risks, benefits, and possible consequences, including hemorrhage, aspiration, perforation and infection, and alternative treatments, were explained to the patient/legal guardian by Dr. Sean Sterling and the patient/legal guardian understood and accepted these risks. PROCEDURE: After informed consent was obtained and the patient was adequately sedated, Olympus upper endoscope was advanced from mouth into the second portion of the duodenum and retroflexion was performed in the stomach. The patient has diffuse gastritis. Random biopsy from antrum was obtained for H. pylori infection. The patient has some irregular Z-line without any obvious esophagitis. At this time, the upper endoscope was retrieved and the patient was turned over for colonoscopy. First, a rectal exam which was positive for internal hemorrhoids. Then, the scope was advanced from the rectum into the cecum documented by appendix orifice, ileocecal valve, and right upper quadrant palpation. Quality of prep was good. The patient had scattered left-sided diverticulosis. The patient had three hyperplastic-looking polyps in the rectosigmoid area, all removed with the cold biopsy forceps technique. Retroflexion of rectum showed evidence of medium-sized nonbleeding internal hemorrhoids. SUMMARY OF FINDINGS: 1. Gastritis, status post biopsy. 2. Irregular Z-line. 3. Three colonic polyps removed, see above for details. 4. Diverticulosis. 5. Internal hemorrhoids. RECOMMENDATIONS: 1. Resume diet. 2. Follow up pathology. 3. Repeat colonoscopy in three years. I want to thank Dr. Jaime Mackenzie for this kind referral. Sean Sterling M.D. DR: MIGEL JOB#: [id number] CC:
[2019-06-16 12:00] VITALS: BP 110/71
--- NOTE | 2019-06-16 12:01 | NUR ---
RD ASSESSMENT & RECOMMENDATIONS SEE CARE ACTIVITY FOR COMPLETE ASSESSMENT DAILY ESTIMATED NEEDS: Needs based on Wound, 72.7kg 25-30 kcals/kg 0993-8828 total kcals 1.25-1.5 g protein/kg 73-109 g total protein 25-30 mL/kg 6001-9185 total fluid mLs NUTRITION DIAGNOSIS: Increased kcal/prot needs R/T wound healing as evidenced by pt admitted w/ non-blanching erythema to Sacrum, R and L buttocks. CURRENT DIET:CARDIAC PO DIET RECOMMENDATIONS: LOW NA/ texture as tolerated ADDITIONAL RECOMMENDATIONS: 1) Standing wt for accurate CBW 2) Coumadin DNI education attempted -> pt not receptive 3) Wound healing: Add MVI x 1, Vit C 250mg QD
--- NOTE | 2019-06-16 12:17 | NUR ---
DISCHARGE PLANNING FAXED CLINICALS TO [facility] T: [phone] AND ALSO [facility] T: [phone]
--- NOTE | 2019-06-16 13:19 | NUR ---
NURSE NOTES: Patient said he has teeth pain, dull, 2/10. Tylenol given as ordered.
--- NOTE | 2019-06-16 13:50 | NUR ---
NURSE NOTES: Patient calm and comfortable. No complains of pain a this time. Will continue plan of care.
--- NOTE | 2019-06-16 14:36 | Hematology/Onc Progress Note ---
Assessment/Plan Assessment/Plan Assessment and Recs #. SUBrtherapeutic INR -- presents with Coagulopathy due to underlying use of Coumadin, INR is low, but most likely is due to patient not taking the right dose of coumadin, as in the past I have seen him and he has been subtherapeutic --> epistaxis has resolved, seen by ENT, Dr. Chavez and recommends afrin prn with RN --> Continue to closely monitor VITK and FFP if doesn't improve --> Will need to have INR between 2 and 3 --> restart anticoag --> cards recs reviewed #. Pulmonary embolism. --> Maintain INR between 2 and 3. --> Monitor closely, INR currently at 2.4->1 # Anemia due to underlying epsistaxis --> r/o gi bleed --> gi consulted EGD AND COLO done 06/15 --> diverticulosis and poiyps #. Leukocytosis, likely due to infection and sepsis. --> On antibiotics, ID following. --> Monitor closely. --> Resolved. #. Cerebrovascular accident history with left-sided hemiplegia. #. Benign prostatic hypertrophy. Closely monitor. #. Dvt ppx with coumadin The timing of this note does not necessarily reflect the time of the patient was seen. Greatly appreciate consultation. Subjective Constitutional: Denies: no symptoms, chills, fever, malaise, weakness, other HEENT: Denies: no symptoms, eye pain, blurred vision, tearing, double vision, ear pain, ear discharge, nose pain, nose congestion, throat pain, throat swelling, mouth pain, mouth swelling, other Cardiovascular: Denies: no symptoms, chest pain, edema, irregular heart rate, lightheadedness, palpitations, syncope, other Respiratory: Denies: no symptoms, cough, shortness of breath, SOB with excertion, SOB at rest, sputum, wheezing, other Neurologic/Psychiatric: Denies: no symptoms, anxiety, depressed, emotional problems, headache, numbness, paresthesia, pre-existing deficit, seizure, tingling, tremors, weakness, other Allergies: Coded Allergies: COCONUT (Unverified Allergy, Unknown, 06/13/19) Uncoded Allergies: Coconut (Allergy, Intermediate, Hives, 08/07/15) Subjective 06/15: this am was somewhat agitated, underwent egd and colo, reviewed results 06/16: dc planning ongoing, sleeping, is comfortable, no issues Objective Objective Current Medications Medications (Trade) Dose Ordered Sig/Vadim Route PRN Reason Start Time Stop Time Status Last Admin Dose Admin Acetaminophen (Tylenol) 650 mg Q4H PRN ORAL Mild Pain/Temp > 100.5 06/14/19 09:15 07/14/19 09:14 06/16/19 13:19 Clonazepam (KlonoPIN) 0.5 mg TID ORAL 06/14/19 09:00 06/21/19 08:59 06/16/19 12:27 Sodium Chloride ([place] Nasal [place]) 1 spray Q6H NASAL 06/14/19 21:00 07/14/19 20:59 06/16/19 08:27 Warfarin Sodium (Coumadin per pharmacy) 1 ea DAILY PRN MISC Per rx protocol 06/15/19 20:30 07/15/19 20:29 Warfarin Sodium (Coumadin) 5 mg ONCE ORAL 06/16/19 17:00 06/16/19 18:00 Last 24 Hour Vital Signs Date Time Temp Pulse Resp B/P (MAP) Pulse Ox O2 Delivery O2 Flow Rate FiO2 06/16/19 12:00 54 06/16/19 12:00 98.2 57 18 110/71 (84) 98 06/16/19 12:00 Room Air 06/16/19 08:00 62 06/16/19 08:00 Room Air 06/16/19 08:00 98.0 59 18 105/62 (76) 98 06/16/19 04:00 Room Air 06/16/19 04:00 98.0 56 19 103/62 (76) 98 06/16/19 03:35 56 06/16/19 00:00 Room Air 06/16/19 00:00 99.0 55 19 101/57 (72) 96 06/15/19 23:40 56 06/15/19 20:39 56 06/15/19 20:00 98.5 56 20 131/67 (88) 99 06/15/19 20:00 Room Air 06/15/19 16:00 98.0 67 19 117/76 (90) 98 06/15/19 16:00 Room Air 10/24/19 15:38 61 06/15/19 14:59 98.0 06/15/19 12:30 98.9 64 20 133/65 (87) 98 06/15/19 12:00 Room Air 06/15/19 11:44 59 06/15/19 11:40 97.7 54 18 108/52 98 Room Air 06/15/19 11:31 60 18 99 06/15/19 11:30 54 12 97/57 99 Room Air 06/15/19 11:29 61 18 99 06/15/19 11:20 60 17 110/63 99 Nasal Cannula 3 06/15/19 11:15 57 24 103/60 96 Nasal Cannula 3 06/15/19 11:10 97.5 57 22 105/62 98 Nasal Cannula 3 06/15/19 08:00 98.0 65 20 142/70 (94) 95 06/15/19 08:00 Room Air 06/15/19 07:35 63 06/15/19 04:00 Room Air 06/15/19 04:00 98.0 61 20 113/65 (81) 100 06/15/19 03:33 60 06/15/19 00:00 98.0 60 20 136/64 (88) 100 06/15/19 00:00 Room Air 06/14/19 23:27 66 06/14/19 20:11 77 06/14/19 20:00 97.4 79 24 126/79 (95) 95 06/14/19 20:00 Room Air 06/14/19 16:00 98.0 62 20 115/69 (84) 94 06/14/19 16:00 58 06/14/19 16:00 Room Air Intake and Output 06/15/19 06/16/19 19:00 07:00 Intake Total 720 ml 220 ml Output Total 750 ml 450 ml Balance -30 ml -230 ml Intake Oral 470 ml 220 ml IV Total 250 ml Output Urine Total 750 ml 450 ml # Voids 3 4 # Bowel Movements 1 Labs Test 06/13/19 19:53 06/14/19 03:25 06/14/19 15:53 06/15/19 03:05 White Blood Count 7.4 K/UL (4.8-10.8) 6.5 K/UL (4.8-10.8) 9.0 K/UL (4.8-10.8) Red Blood Count 4.80 M/UL (4.70-6.10) 4.40 M/UL (4.70-6.10) 5.00 M/UL (4.70-6.10) Hemoglobin 14.4 G/DL (14.2-18.0) 13.4 G/DL (14.2-18.0) 15.1 G/DL (14.2-18.0) Hematocrit 42.6 % (42.0-52.0) 39.3 % (42.0-52.0) 45.0 % (42.0-52.0) Mean Corpuscular Volume 89 FL (80-99) 89 FL (80-99) 90 FL (80-99) Mean Corpuscular Hemoglobin 30.1 PG (27.0-31.0) 30.5 PG (27.0-31.0) 30.2 PG (27.0-31.0) Mean Corpuscular Hemoglobin Concent 33.9 G/DL (32.0-36.0) 34.1 G/DL (32.0-36.0) 33.4 G/DL (32.0-36.0) Red Cell Distribution Width 10.9 % (11.6-14.8) 11.8 % (11.6-14.8) 11.8 % (11.6-14.8) Platelet Count 292 K/UL (150-450) 287 K/UL (150-450) 319 K/UL (150-450) Mean Platelet Volume 6.2 FL (6.5-10.1) 6.3 FL (6.5-10.1) 5.9 FL (6.5-10.1) Neutrophils (%) (Auto) 67.3 % (45.0-75.0) 63.4 % (45.0-75.0) 71.7 % (45.0-75.0) Lymphocytes (%) (Auto) 17.6 % (20.0-45.0) 20.3 % (20.0-45.0) 14.8 % (20.0-45.0) Monocytes (%) (Auto) 10.8 % (1.0-10.0) 12.5 % (1.0-10.0) 11.7 % (1.0-10.0) Eosinophils (%) (Auto) 2.2 % (0.0-3.0) 3.1 % (0.0-3.0) 1.2 % (0.0-3.0) Basophils (%) (Auto) 2.1 % (0.0-2.0) 0.8 % (0.0-2.0) 0.6 % (0.0-2.0) Prothrombin Time 18.7 SEC (9.30-11.50) 10.1 SEC (9.30-11.50) Prothromb Time International Ratio 1.8 (0.9-1.1) 1.0 (0.9-1.1) Activated Partial Thromboplast Time 38 SEC (23-33) 30 SEC (23-33) Sodium Level 142 MMOL/L (136-145) 141 MMOL/L (136-145) 147 MMOL/L (136-145) Potassium Level 4.0 MMOL/L (3.5-5.1) 3.5 MMOL/L (3.5-5.1) 3.3 MMOL/L (3.5-5.1) Chloride Level 103 MMOL/L (98-107) 104 MMOL/L (98-107) 109 MMOL/L (98-107) Carbon Dioxide Level 32 MMOL/L (21-32) 29 MMOL/L (21-32) 29 MMOL/L (21-32) Anion Gap 7 mmol/L (5-15) 8 mmol/L (5-15) 9 mmol/L (5-15) Blood Urea Nitrogen 9 mg/dL (7-18) 8 mg/dL (7-18) 6 mg/dL (7-18) Creatinine 0.8 MG/DL (0.55-1.30) 0.8 MG/DL (0.55-1.30) 0.7 MG/DL (0.55-1.30) Estimat Glomerular Filtration Rate mL/min (>60) mL/min (>60) mL/min (>60) Glucose Level 78 MG/DL (74-106) 95 MG/DL (74-106) 92 MG/DL (74-106) Calcium Level 9.2 MG/DL (8.5-10.1) 8.8 MG/DL (8.5-10.1) 8.9 MG/DL (8.5-10.1) Total Bilirubin 0.5 MG/DL (0.2-1.0) Aspartate Amino Transf (AST/SGOT) 21 U/L (15-37) Alanine Aminotransferase (ALT/SGPT) 26 U/L (12-78) Alkaline Phosphatase 66 U/L (46-116) Total Protein 7.5 G/DL (6.4-8.2) Albumin 3.5 G/DL (3.4-5.0) Globulin 4.0 g/dL Albumin/Globulin Ratio 0.9 (1.0-2.7) D-Dimer 0.34 mg/L FEU (0.00-0.49) Pro-B-Type Natriuretic Peptide 97 pg/mL (0-125) Triglycerides Level 126 MG/DL (30-150) Cholesterol Level 156 MG/DL (< 200) LDL Cholesterol 87 mg/dL (<100) HDL Cholesterol 45 MG/DL (40-60) Cholesterol/HDL Ratio 3.5 (3.3-4.4) Test 06/16/19 03:10 White Blood Count 7.9 K/UL (4.8-10.8) Red Blood Count 4.63 M/UL (4.70-6.10) Hemoglobin 14.2 G/DL (14.2-18.0) Hematocrit 42.1 % (42.0-52.0) Mean Corpuscular Volume 91 FL (80-99) Mean Corpuscular Hemoglobin 30.7 PG (27.0-31.0) Mean Corpuscular Hemoglobin Concent 33.7 G/DL (32.0-36.0) Red Cell Distribution Width 11.9 % (11.6-14.8) Platelet Count 294 K/UL (150-450) Mean Platelet Volume 5.9 FL (6.5-10.1) Neutrophils (%) (Auto) 67.5 % (45.0-75.0) Lymphocytes (%) (Auto) 16.1 % (20.0-45.0) Monocytes (%) (Auto) 13.7 % (1.0-10.0) Eosinophils (%) (Auto) 1.9 % (0.0-3.0) Basophils (%) (Auto) 0.9 % (0.0-2.0) Prothrombin Time 10.3 SEC (9.30-11.50) Prothromb Time International Ratio 1.0 (0.9-1.1) Sodium Level 145 MMOL/L (136-145) Potassium Level 3.6 MMOL/L (3.5-5.1) Chloride Level 112 MMOL/L (98-107) Carbon Dioxide Level 26 MMOL/L (21-32) Anion Gap 7 mmol/L (5-15) Blood Urea Nitrogen 9 mg/dL (7-18) Creatinine 0.8 MG/DL (0.55-1.30) Estimat Glomerular Filtration Rate mL/min (>60) Glucose Level 89 MG/DL (74-106) Calcium Level 8.6 MG/DL (8.5-10.1) Height (Feet): 5 Height (Inches): 11.00 Weight (Pounds): 170 Objective Physical Exam General Appearance: A+O x3, NAD HEENT: normocephalic, atraumatic Neck: non-tender, normal alignment Respiratory/Chest: chest wall non-tender, lungs clear Cardiovascular/Chest: normal peripheral pulses, normal rate Abdomen: normal bowel sounds, non tender Extremities: normal range of motion Aren Morgan MD Jun 16, 2019 14:36
--- NOTE | 2019-06-16 15:05 | NUR ---
DISCHARGE PLANNED PATIENT WILL BE RETURNING TO [facility] ROOM [address] SKILLED T: [phone] FOR NURSE TO NURSE REPORT [facility] HAS BEEN ARRANGED FOR 1800 FOR PICK DISCUSSED WITH BEDSIDE RNRASHMI
--- NOTE | 2019-06-16 15:19 | NUR ---
NURSE NOTES: KAYLEN/ Star [facility] made aware of discharge.
[2019-06-16] MEDS ORDERED: Enoxaparin 120 mg inj SUBQ SCH (15:30)
--- NOTE | 2019-06-16 15:55 | NUR ---
NURSE NOTES: Discharge report given to WALTER Pradhan @ [facility].
[2019-06-16 16:00] VITALS: BP 105/73
--- NOTE | 2019-06-16 16:28 | NUR ---
NURSE NOTES: Discharge instruction given and patient verbalized understanding. Inventory check done and signed by patient. Awaiting for ambulance.
[2019-06-16] MEDS ORDERED: Warfarin Sodium 5mg ORAL SCH (17:00)
--- NOTE | 2019-06-16 17:25 | NUR ---
NURSE NOTES: All due medication given. Patient is in stable condition.
--- NOTE | 2019-06-16 19:18 | NUR ---
HAND-OFF: Report given to WALTER Dorsey. Endorsed plan of care.
--- NOTE | 2019-06-16 19:19 | NUR ---
NURSE NOTES: Received patient from WALTER Elkins. Will continue plan of care.
[2019-06-16 20:00] VITALS: BP 113/68
--- NOTE | 2019-06-16 20:11 | NUR ---
NURSE NOTES: Patient states frustration that discharge is taking too long and that he should have went back to his facility over 2 hours ago. Patient removed quality assurance monitor body and refused to be put back on stating he is fine and that he is leaving anyways. Was able to obtain vital signs. Spoke with [facility] ambulance; ETA is [id number]. Informed patient for update.
--- NOTE | 2019-06-16 21:19 | NUR ---
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 Report given to Gordon, patient is stable.
--- NOTE | 2019-06-18 12:38 | Discharge Summary ---
Discharge Summary Discharge Summary _ DATE OF ADMISSION: 06/13/2019 DATE OF DISCHARGE: 06/16/2019 DISCHARGED BY: Dr. Jaime Mackenzie CONSULTANTS: Dr. Aren Ricardo [facility] BRIEF HOSPITAL COURSE: Patient is a 73-year-old male, from [facility], who presented to ED due to recurrent GI bleed and nosebleed. He has medical history of CVA, GERD, hypertension, BPH and COPD. He was brought in by EMS from [facility]. He was having recurrent nosebleed for the past 2 weeks. He also had noted blood in the stool. Patient is on Coumadin. Coumadin was withheld for the past 3 days. Patient denies any abdominal pain, nausea or vomiting. Denies fever or chills. On evaluation at the ED, blood pressure was 84/52. Pulse rate 65. Blood work did not show any anemia. There was no leukocytosis. Platelet count normal. INR was elevated at 1.8. Electrolytes were normal. EKG showed sinus bradycardia with right bundle branch changes. He was given Protonix. He was admitted for evaluation of recurrent epistaxis, lower GI bleed and coagulopathy. GI was consulted. Patient did not have any history of upper endoscopy. Last colonoscopy was greater than 10 years ago. He was given clear liquid diet. He was given vitamin K injection. He was continued on proton pump inhibitors. ENT was consulted for recurrent nosebleed. Patient tried Afrin. He denied frequent nose picking or prior nose surgery. Nasal cavity was visualized and anteriorly a Gelfoam sliver was placed on both sides. There was no bleeding noted. Patient was advised to continue nasal spray. For light bleeding, may use Afrin. Advised to follow-up with ENT for a repeat nasal endoscopy in 2 weeks. Engineer Technician was consulted. Patient has a prior history of DVT as well as stroke with left-sided weakness. Patient on Coumadin use. Patient had coagulopathy due to underlying Coumadin. INR was subtherapeutic. Goal would be between 2-3. Live In Caregiver was consulted for evaluation of bradycardia and right bundle branch block. The patient was on aspirin and Coumadin. 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 Heart rate in the 50s. He is off any sinus or AV lavinia blocking agents. Echocardiogram showed EF 55 to 60%. He was given psychotherapy for anxiety and depression. On June 15, 2019, he underwent EGD with colonoscopy. Patient has diffuse gastritis. He had 3 hyperplastic looking polyps in the rectosigmoid area, polyp removed with cold biopsy forceps technique. He had a medium sized nonbleeding internal hemorrhoid. He was recommended repeat colonoscopy 3 years. KUB did not show any acute process. Hemoglobin was stable. There was no further bleeding episodes. [facility] 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 Patient I have been assigned to complete a discharge summary on this account, I was not involved with the patient's management.--FANNIE Tabares Jacqueline Robles NP Jun 18, 2019 12:38
== END 2019-06-16 21:20 | DRG 378 ==
LOC: EDBD 19:31 → EMR 20:06 → 2W 21:10 → EDBEDREQ 21:27
PROC: 0DBN8ZZ Excision of Sigmoid Colon, Via Natural or Artificial Opening Endoscopic (ICD-10-PCS; principal; 2019-06-13)
PROC: 0DB78ZX Excision of Stomach, Pylorus, Via Natural or Artificial Opening Endoscopic, Diagnostic (ICD-10-PCS; principal; 2019-06-13)
PROC: 093K7ZZ Control Bleeding in Nasal Mucosa and Soft Tissue, Via Natural or Artificial Opening (ICD-10-PCS; 2019-06-14)
DX: K29.61 Other gastritis with bleeding (principal); I69.354 Hemiplegia and hemiparesis following cerebral infarction affecting left non-dominant side; D68.32 Hemorrhagic disorder due to extrinsic circulating anticoagulants; R04.0 Epistaxis; T45.515A Adverse effect of anticoagulants, initial encounter; K21.9 Gastro-esophageal reflux disease without esophagitis; N40.0 Benign prostatic hyperplasia without lower urinary tract symptoms; F41.9 Anxiety disorder, unspecified; I10 Essential (primary) hypertension; J44.9 Chronic obstructive pulmonary disease, unspecified; D50.0 Iron deficiency anemia secondary to blood loss (chronic); Z86.711 Personal history of pulmonary embolism; Z86.718 Personal history of other venous thrombosis and embolism; K59.00 Constipation, unspecified; Z79.82 Long term (current) use of aspirin; I45.10 Unspecified right bundle-branch block; E78.5 Hyperlipidemia, unspecified; K64.8 Other hemorrhoids; K62.1 Rectal polyp; K57.90 Diverticulosis of intestine, part unspecified, without perforation or abscess without bleeding
CPT/HCPCS: 36415; 71045; 74018; 80048; 80053; 80061; 83880; 85025; 85379; 85610; 85730; 86850; 86900; 86901; 87081; 93005; 93306; 93970; 94003; 94150; 96365; 96375; 99285; J7030; J8499

== ENCOUNTER 2020-06-22 17:15 | Inpatient (IN) | payer MEDICARE, MEDICAID ==
[~2020-06-22] VITALS: Ht 182.9 cm; Wt 77.1 kg
[~2020-06-22 17:15] MED LIST changes: +ARTIFICIAL TEAR15 ML BOTH EYES; +BISACODYL10 M1 RC; +CALCIUM CARBON500 M1 PO; +CRANBERRY450 M4 PO; +FISH OIL 500 M1 EAC4 PO; +FLEET ENEMA133 ML RECTAL; +SENNOSIDES8.6 MG ORAL; +WARFARIN SODIUM2 MG ORAL
--- NOTE | 2020-06-22 17:15 | NUR ---
ED Nurse Note: No isolation room at this time.
[2020-06-22] MEDS ORDERED: ATORVASTATIN CA20 MG ORAL (17:33)
[2020-06-22] MEDS ORDERED: ELIQUIS5 MG ORAL (17:33)
[2020-06-22] MEDS ORDERED: ASCORBIC ACID500 MG ORAL (17:33)
[2020-06-22] MEDS ORDERED: LEXAPRO20 MG ORAL (17:33)
[2020-06-22] MEDS ORDERED: FLOMAX0.4 MG ORAL (17:33)
[2020-06-22] MEDS ORDERED: MULTIVITAMINS1 EAC2 ORAL (17:33)
[2020-06-22] MEDS ORDERED: Omnipaque-300 100ml vial INJ PRN (18:00)
[2020-06-22 18:02] VITALS: BP 102/65
--- NOTE | 2020-06-22 18:06 | NUR ---
ED Nurse Note:pt. was BIBA from SNF with right groin swelling, skin is intact, VSS, pt. is A/Ox4 , blood sent to labs and given IV fluids
--- NOTE | 2020-06-22 18:08 | Emergency Room Report ---
History of Present Illness General Chief Complaint: Pain Source: Medical Record Present Illness HPI 74-year-old man here with right groin swelling and diffuse abdominal distention. Patient says that he has noticed this for the past 3 days. It has gradually worsened. His abdominal distention has worsened today. He was able to eat today without any vomiting. Says he feels some mild diffuse abdominal pain but "it is not too severe." Says his last bowel movement was 3 days ago which he claims is normal for him. Denies fevers, chills, chest pain, palpitations, lightheadedness, shortness of breath, back pain, nausea, vomiting, diarrhea, dysuria. 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 COVID-19 Screening: Negative COVID-19 COVID-19 Testing Source: 06/05/20 Nursing Documentation-[facility] Past Medical History: No History, Except For Hx Cardiac Problems: Yes - Chronic Ischemic Heart Disease Hx Hypertension: Yes Hx Cancer: No Hx Gastrointestinal Problems: Yes - GERD Hx Neurological Problems: Yes - Anxiety, Insomnia, Hemiplegia Hx Cerebrovascular Accident: Yes - CVA 1994 Hx Dizziness: Yes Hx Headaches: Yes Hx Weakness: Yes - left sided weakness Physical Exam Vital Signs Date Time Temp Pulse Resp B/P (MAP) Pulse Ox O2 Delivery O2 Flow Rate FiO2 06/22/20 17:11 97.9 54 18 102/65 (77) 97 Room Air Medical Decision Making Diagnostic Impression: Primary Impression: Incarcerated hernia Additional Impressions: Sinus bradycardia Bifascicular block ER Course Total critical care time: Approximately 25 minutes Due to a high probability of clinically significant, life threatening deterioration, the patient required the highest level of preparedness to intervene emergently and I personally spent this critical care time directly and personally managing the patient. This critical care time included obtaining a history, examining the patient, pulse oximetry, ordering and reviewing studies, ordering treatments, evaluating response to treatment and updating management plan as needed, frequent reassessment and discussion with other providers as well as arranging for ultimate disposition. This critical to care time was performed to assess and manage the high probability of life-threatening deterioration that could result in multiorgan failure. This critical care time is separate from the separately billable procedures and treating other patients. EKG: EKG: Sinus rhythm 45 bpm. Sinus bradycardia. Right bundle branch block, left anterior fascicular block. Bifascicular block. Normal axis. No ectopy Rhythm strip: patient monitored for arrhythmias - no malignant dysrhythmias, runs of PVCs, nor pauses noted Laboratory Tests Test 06/22/20 18:00 06/22/20 18:40 White Blood Count 7.2 K/UL (4.8-10.8) Red Blood Count 4.89 M/UL (4.70-6.10) Hemoglobin 14.0 G/DL (14.2-18.0) L Hematocrit 42.4 % (42.0-52.0) Mean Corpuscular Volume 87 FL (80-99) Mean Corpuscular Hemoglobin 28.5 PG (27.0-31.0) Mean Corpuscular Hemoglobin Concent 32.9 G/DL (32.0-36.0) Red Cell Distribution Width 14.0 % (11.6-14.8) Platelet Count 205 K/UL (150-450) Mean Platelet Volume 9.2 FL (6.5-10.1) Neutrophils (%) (Auto) 65.4 % (45.0-75.0) Lymphocytes (%) (Auto) 17.6 % (20.0-45.0) L Monocytes (%) (Auto) 12.0 % (1.0-10.0) H Eosinophils (%) (Auto) 3.3 % (0.0-3.0) H Basophils (%) (Auto) 1.6 % (0.0-2.0) Prothrombin Time 10.9 SEC (9.30-11.50) Prothrombin Time INR 1.0 (0.9-1.1) Activated Partial Thromboplast Time 25 SEC (23-33) Sodium Level 141 MMOL/L (136-145) Potassium Level 4.0 MMOL/L (3.5-5.1) Chloride Level 106 MMOL/L (98-107) Carbon Dioxide Level 30 MMOL/L (21-32) Anion Gap 5 mmol/L (5-15) Blood Urea Nitrogen 14 mg/dL (7-18) Creatinine 0.9 MG/DL (0.55-1.30) Estimated Glomerular Filtration Rate > 60 mL/min (>60) Glucose Level 92 MG/DL (74-106) Calcium Level 8.6 MG/DL (8.5-10.1) Total Bilirubin 0.6 MG/DL (0.2-1.0) Aspartate Amino Transferase (AST) 16 U/L (15-37) Alanine Aminotransferase (ALT) 18 U/L (12-78) Alkaline Phosphatase 72 U/L (46-116) Troponin I 0.002 ng/mL (0.000-0.056) Total Protein 6.0 G/DL (6.4-8.2) L Albumin 3.5 G/DL (3.4-5.0) Globulin 2.5 g/dL Albumin/Globulin Ratio 1.4 (1.0-2.7) Lipase 134 U/L (73-393) Urine Color Yellow Urine Appearance Clear Urine pH 6 (4.5-8.0) Urine Specific [place] 1.020 (1.005-1.035) Urine Protein 1+ (NEGATIVE) H Urine Glucose (UA) Negative (NEGATIVE) Urine Ketones Negative (NEGATIVE) Urine Blood Negative (NEGATIVE) Urine Nitrite Negative (NEGATIVE) Urine Bilirubin Negative (NEGATIVE) Urine Urobilinogen Normal MG/DL (0.0-1.0) Urine Leukocyte Esterase Trace (NEGATIVE) H Urine RBC 0-2 /HPF (0 - 0) H Urine WBC 2-4 /HPF (0 - 0) Urine Squamous Epithelial Cells None /LPF (NONE/OCC) Urine Bacteria Occasional /HPF (NONE) CT abd/pel: IMPRESSION: 1. Right inguinal hernia with small bowel contents. No evidence of strangulation. 2. A few colonic diverticula without evidence of diverticulitis. 3. Small left pleural effusion and mild bibasilar atelectasis. 4. Subtle layering density within the gallbladder may represent gallbladder sludge versus small layering stones. 74-year-old male here with 2 days of abdominal pain. Patient had a heart rate of 45 to 55 bpm throughout his stay in the emergency department. EKG showed sinus bradycardia with new bifascicular block. Review of old EKGs show that this is a new finding. Patient however had a normal blood pressure throughout his stay in the emergency department and was in no acute distress whatsoever. He denied any chest pain or palpitations or shortness of breath or lightheadedness. He was awake and alert in no distress. CT abdomen pelvis showed evidence of an incarcerated right inguinal hernia. No evidence of strangulation. Patient was passing gas in the emergency department. CBC, CMP, troponin all unremarkable. Case was discussed with the patient's primary physician Dr. Mackenzie. Patient admitted to telemetry. Last Vital Signs Date Time Temp Pulse Resp B/P (MAP) Pulse Ox O2 Delivery O2 Flow Rate FiO2 06/22/20 18:02 97.9 87 18 102/65 97 Room Air David Arzate M.D. Jun 22, 2020 18:08
[2020-06-22 18:30] LABS: ANION GAP 5 mmol/L (5-15); BLOOD UREA NITROGEN 14 mg/dL (7-18); CALCIUM 8.6 MG/DL (8.5-10.1); CARBON DIOXIDE 30 MMOL/L (21-32); CHLORIDE 106 MMOL/L (98-107); CREATININE 0.9 MG/DL (0.55-1.30); SODIUM 141 MMOL/L (136-145)
[2020-06-22 18:35] LABS: ALANINE AMINOTRANSFERASE 18 U/L (12-78); ALBUMIN 3.5 G/DL (3.4-5.0); ALBUMIN/GLOBULIN RATIO 1.4 (1.0-2.7); ALKALINE PHOSPHATASE 72 U/L (46-116); ASPARTATE AMINO TRANSFERASE 16 U/L (15-37); BILIRUBIN,TOTAL 0.6 MG/DL (0.2-1.0)
[2020-06-22 18:45] LABS: BASOPHILS % (AUTO) 1.6 % (0.0-2.0); EOSINOPHILS % (AUTO) 3.3 % (0.0-3.0); HEMATOCRIT 42.4 % (42.0-52.0); LYMPHOCYTES % (AUTO) 17.6 % (20.0-45.0); MEAN CORPUSCULAR VOLUME 87 FL (80-99); NEUTROPHILS % (AUTO) 65.4 % (45.0-75.0); PLATELET COUNT 205 K/UL (150-450); RED BLOOD COUNT 4.89 M/UL (4.70-6.10); WHITE BLOOD COUNT 7.2 K/UL (4.8-10.8)
[2020-06-22 19:11] LABS: APPEARANCE,URINE CLEAR; BILIRUBIN, URINE NEGATIVE (NEGATIVE); GLUCOSE, URINE (UA) NEGATIVE (NEGATIVE); KETONES,URINE NEGATIVE (NEGATIVE); NITRITE,URINE NEGATIVE (NEGATIVE); PH,URINE 6 (4.5-8.0); PROTEIN,URINE 1+ (NEGATIVE); UROBILINOGEN,URINE NORMAL MG/DL (0.0-1.0)
--- NOTE | 2020-06-22 19:14 | NUR ---
ED Nurse Note: Report received from ORIN WATSON. Patient back from CT scan.
--- NOTE | 2020-06-22 19:38 | Diagnostic Imaging Report ---
EXAM: CT Abdomen and Pelvis With Intravenous Contrast CLINICAL HISTORY: PAIN TECHNIQUE: Axial computed tomography images of the abdomen and pelvis with intravenous contrast. CTDI is 7.9 mGy and DLP is 496.7 mGy-cm. One or more of the following dose reduction techniques were used: automated exposure control, adjustment of the mA and/or kV according to patient size, use of iterative reconstruction technique. COMPARISON: CT abdomen and pelvis dated 11/12/2014. FINDINGS: Lung bases: See below. Pleural space: Small left pleural effusion. Mild associated compressive atelectasis. ABDOMEN: Liver: Stable hypoenhancing subcentimeter focus within the left hepatic lobe with subtle peripheral enhancement, may represent a hemangioma. Gallbladder and bile ducts: Layering density within the gallbladder. The gallbladder is partially decompressed. No calcified stones. No ductal dilation. Pancreas: Unremarkable. No mass. No ductal dilation. Spleen: Unremarkable. No splenomegaly. Adrenals: Unremarkable. No mass. Kidneys and ureters: Unremarkable. No solid mass. No hydronephrosis. Stomach and bowel: A few colonic diverticula. Large bilateral inguinal hernias. Right inguinal hernia contains a small portion of loop of small bowel. There is no evidence of inflammatory change associated. There is no obstruction. The left inguinal hernia as a internal fat contents. No mucosal thickening. PELVIS: Appendix: Appendix is normal. Bladder: Unremarkable. No mass. Reproductive: Unremarkable as visualized. ABDOMEN and PELVIS: Intraperitoneal space: Unremarkable. No free air. No significant fluid collection. Bones/joints: [place] right scoliosis of the lumbar spine. Degenerative disc disease of the lumbar spine. No severe canal narrowing. No acute fracture. No dislocation. Soft tissues: Unremarkable. Vasculature: Mild atherosclerotic vascular disease. No abdominal aortic aneurysm. Lymph nodes: Unremarkable. No enlarged lymph nodes. Other findings: Stable right posterior diaphragmatic hernia. IMPRESSION: 1. Right inguinal hernia with small bowel contents. No evidence of strangulation. 2. A few colonic diverticula without evidence of diverticulitis. 3. Small left pleural effusion and mild bibasilar atelectasis. 4. Subtle layering density within the gallbladder may represent gallbladder sludge versus small layering stones.
[2020-06-22 19:42] LABS: COLOR,URINE YELLOW
[2020-06-22 19:43] LABS: LEUKOCYTE ESTERASE ,URINE TRACE (NEGATIVE)
[2020-06-22] MEDS ORDERED: Nitroglycerin Subl 0.4mg tab SL PRN (20:15)
[2020-06-22] MEDS ORDERED: Mylanta II UD 30ml ORAL PRN (20:15)
[2020-06-22] MEDS ORDERED: Morphine Sulfate 2mg/ml Inj(IV/IM USE ONLY) IVP PRN (20:15)
[2020-06-22] MEDS ORDERED: LORazepam 1mg tab ORAL PRN (20:15)
[2020-06-22] MEDS ORDERED: Milk of Magnesia 30ml Ud ORAL PRN (20:15)
[2020-06-22] MEDS: Heparin 5000 units/ml inj SUBQ SCH (21:00)
[2020-06-22] MEDS: Docusate 100mg cap ORAL SCH (21:00)
--- NOTE | 2020-06-22 21:40 | NUR ---
ED Nurse Note: VRE,MRSA,CRE swabs sent
--- NOTE | 2020-06-22 21:45 | NUR ---
ED Nurse Note: Rapid covid test sent
--- NOTE | 2020-06-22 21:57 | NUR ---
ED Nurse Note: Report given to KANG WATSON
--- NOTE | 2020-06-22 22:45 | NUR ---
NURSE NOTES: Report received from Star in ER. Patient is awake alert and oriented x4 with forgetfulness. No SOB or distress. Denies pain. Patient on telemetry for monitoring of sinus laine cardia and will talk to MD regarding inguinal hernia in AM. Patient has watch and glasses. No cell phone. Came from [facility]. Dr Li put in orders. Dr. Mackenzie, primary MD aware. Bed at lowest position locked with side rails up and call light within reach. Patient verbalizes understanding on use of call light. Will continue with plan of care.
--- NOTE | 2020-06-22 22:46 | NUR ---
TRANSFER TO FLOOR: Patient transferred to TELE at rm 211 via gurney with monitor and storage bin tender, accompanied by RN and zone maintenance technician Belongings checked and given to RN. Patient transported safely to bed and endorsed to RN
[2020-06-22 23:00] VITALS: BP 125/60
[2020-06-23 04:00] VITALS: BP 131/77
--- NOTE | 2020-06-23 07:58 | NUR ---
HAND-OFF: Report given to [WALTER Fisher].
[2020-06-23 08:00] VITALS: BP 107/60
[2020-06-23 08:29] LABS: BASOPHILS % (AUTO) 1.5 % (0.0-2.0); EOSINOPHILS % (AUTO) 3.1 % (0.0-3.0); HEMATOCRIT 41.6 % (42.0-52.0); HEMOGLOBIN 14.4 G/DL (14.2-18.0); LYMPHOCYTES % (AUTO) 17.2 % (20.0-45.0); MEAN CORPUSCULAR VOLUME 85 FL (80-99); MONOCYTES % (AUTO) 9.4 % (1.0-10.0); NEUTROPHILS % (AUTO) 68.7 % (45.0-75.0); PLATELET COUNT 217 K/UL (150-450); RED BLOOD COUNT 4.91 M/UL (4.70-6.10); RED CELL DISTRIBUTION WIDTH 13.8 % (11.6-14.8); WHITE BLOOD COUNT 6.2 K/UL (4.8-10.8)
[2020-06-23 08:48] LABS: ALANINE AMINOTRANSFERASE 22 U/L (12-78); ALBUMIN 3.5 G/DL (3.4-5.0); ALBUMIN/GLOBULIN RATIO 1.1 (1.0-2.7); ALKALINE PHOSPHATASE 69 U/L (46-116); ANION GAP 9 mmol/L (5-15); ASPARTATE AMINO TRANSFERASE 18 U/L (15-37); BILIRUBIN,TOTAL 0.9 MG/DL (0.2-1.0); BLOOD UREA NITROGEN 11 mg/dL (7-18); CALCIUM 8.2 MG/DL (8.5-10.1); CARBON DIOXIDE 26 MMOL/L (21-32); CHLORIDE 106 MMOL/L (98-107); CHOLESTEROL 138 MG/DL (< 200); CREATININE 0.9 MG/DL (0.55-1.30); HDL CHOLESTEROL 49 MG/DL (40-60); POTASSIUM 3.7 MMOL/L (3.5-5.1); SODIUM 141 MMOL/L (136-145); TRIGLYCERIDES 62 MG/DL (30-150)
[2020-06-23] MEDS: Heparin 5000 units/ml inj SUBQ SCH ×2 (09:00→20:35)
[2020-06-23] MEDS: Docusate 100mg cap ORAL SCH ×2 (09:20→20:31)
--- NOTE | 2020-06-23 10:15 | History and Physical Report ---
DATE OF ADMISSION: 06/22/2020 TIME SEEN: 9 a.m. CONSULTANTS: 1. Clayton Li MD. 2. Miko Causey MD. CHIEF COMPLAINT: Right inguinal hernia and bifascicular block. BRIEF HISTORY: This is a 74-year-old male from [facility] presented with two days increased right inguinal pain. No nausea, vomiting, diarrhea. He came to [facility], diagnosed with right inguinal hernia, admitted to [facility] because of bifascicular block and bradycardia, currently slightly anxious in bed, no complaint. No chest pain. No shortness of breath. No nausea, vomiting, or diarrhea. PAST MEDICAL HISTORY: Anxiety, CVA, lower extremity weakness, BPH, GERD, hypertension. PAST SURGICAL HISTORY: Deviated septum. MEDICATIONS: Famotidine, heparin, Mylanta, diphenhydramine, Zofran, morphine, nitroglycerin. ALLERGIES: Denies. SOCIAL HISTORY: No smoking. No alcohol. No intravenous drug abuse. FAMILY HISTORY: Noncontributory. PHYSICAL EXAMINATION: GENERAL: Slightly anxious in bed, oriented x2, in no acute distress. VITAL SIGNS: Temperature is 98 degrees, pulse 58, respiratory rate 16, blood pressure 107/60. CARDIOVASCULAR: No murmur. LUNGS: Distant and clear. ABDOMEN: Bowel sounds positive. Nontender. Nondistended. EXTREMITIES: No cyanosis, clubbing, or edema. NEUROLOGIC: The patient moves all extremities, slightly weak. LABORATORY AND DIAGNOSTIC DATA: Labs at this time show CBC is normal. BMP shows glucose 111, calcium 8.2. BNP is 213. TSH is 3.8. INR is 1.0. Urinalysis shows trace leukocytes. ASSESSMENT: 1. Right inguinal pain, right inguinal hernia. 2. UTI. 3. Bifascicular block. 4. Bradycardia. 5. . 6. Hypothyroid. 7. BPH. 8. GERD. 9. CVA. 10. Anxiety. 11. Lower extremity weakness. PLAN: 1. PT/OT, dietary followup. 2. Blood pressure and pain control. 3. Resume home medications. 4. Surgery evaluation. 5. We will ask psych, and ID to followup. Jaime Mackenzie D.O. DR: Royce JOB#: [id number] CC:
--- NOTE | 2020-06-23 11:02 | Consultation ---
History of Present Illness General Date patient seen: Jun 23, 2020 Reason for Hospitalization: Pain Present Illness HPI This is a 74-year-old male [facility] resident that presented with abdominal discomfort distention. Identified on CT to have a right inguinal hernia. Surgery called to evaluate assist with care. Patient seen, patient evaluated, chart reviewed. Patient states he is known about this hernia for a few months now. Does not cause significant discomfort but does feel some abdominal distention. States sometimes when he eats he feels as abdomen cramping. Intermittent nausea no emesis normal bowel movements and function. Identified to have bradycardia being seen by cardiology. Allergies: Coded Allergies: COCONUT (Unverified Allergy, Unknown, 06/13/19) Uncoded Allergies: Coconut (Allergy, Intermediate, Hives, 08/07/15) COVID-19 Screening Contact w/high risk pt: Yes Experienced COVID-19 symptoms?: No Medication History Scheduled Apixaban (Eliquis*), 5 MG ORAL BID, (Reported) Ascorbic Acid* (Ascorbic Acid*), 500 MG ORAL DAILY, (Reported) Aspirin* (Aspir 81*), 81 MG ORAL DAILY, (Reported) Atorvastatin Calcium* (Atorvastatin Calcium*), 5 MG ORAL BEDTIME, (Reported) Clonazepam* (Klonopin*), 0.5 MG ORAL TID, (Reported) Cranberry Fruit Concentrate (Cranberry), 450 MG PO BID, (Reported) Dextran 70/Hypromellose (Artificial Tears Eye Drops*), 1 DROP BOTH EYES TWICE A DAY, (Reported) Escitalopram Oxalate* (Lexapro*), 20 MG ORAL DAILY, (Reported) Finasteride* (Proscar*), 5 MG ORAL DAILY, (Reported) Fluticasone Propionate (Fluticasone Propionate), 1 SPRAYS NASAL DAILY, (Reported) Multivitamins* (Multivitamins*), 1 TAB ORAL DAILY, (Reported) [place] Oil/Primghar-3 Fatty Acids (Fish Oil 500 mg Softgel), 1 EACH PO BID, (Reported) Sennosides* (Sennosides*), 17.2 MG ORAL DAILY, (Reported) Simvastatin (Zocor), 10 MG ORAL BEDTIME, (Reported) Tamsulosin HCl (Flomax), 0.4 MG ORAL BID, (Reported) Tamsulosin HCl (Flomax), 0.4 MG ORAL DAILY, (Reported) Warfarin Sod* (Warfarin Sod*), 2 MG ORAL DAILY, (Reported) Scheduled PRN Acetaminophen (Acetaminophen), 650 MG ORAL EVERY 4 HOURS PRN for Prn Headache/Temp > 101, (Reported) Bisacodyl (Bisacodyl), 10 MG RC DAILY PRN for Constipation, (Reported) Bisacodyl* (Dulcolax*), 5 MG PO DAILY PRN for Constipation, (Reported) Calcium Carbonate (Calcium Carbonate), 1,000 MG PO Q4HR PRN for HEARTBURN, (Reported) Cyclobenzaprine Hcl* (Flexeril*), 10 MG ORAL Q6HR PRN for MUSCLE SPASMS, (Reported) Hydrocodone Bit/Acetaminophen 5-325* ([place] 5-325*), 1 TAB ORAL Q8HR PRN for Severe Pain (Pain Scale 7-10), (Reported) Magnesium Hydroxide (Milk of Magnesia), 30 ML ORAL DAILY PRN for Constipation, (Reported) Na Phos,M-B/Na Phos,Di-Ba* (Fleet Enema*), 133 ML RECTAL EVERY 3 DAYS PRN for Constipation, (Reported) Patient History History Provided By: Patient, Medical Record, PMD Healthcare decision maker Resuscitation status Advanced Directive on File Past Medical/Surgical History Past Medical/Surgical History: (1) GI bleed (2) Sinus bradycardia (3) Bifascicular block (4) Incarcerated hernia (5) Costochondritis (6) Constipation (7) Anxiety (8) PE (pulmonary embolism) (9) GERD (gastroesophageal reflux disease) (10) HTN (hypertension) (11) BPH (benign prostatic hyperplasia) (12) Cerebrovascular accident (CVA) (13) COPD (chronic obstructive pulmonary disease) (14) Supratherapeutic INR (15) 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 (16) Coagulopathy (17) Left arm cellulitis Review of Systems Review of Symptoms General ROS: no weight loss or fever Psychological ROS: no depression or mood changes, no memory loss Ophthalmic ROS: no visual changes or eye irritation ENT ROS: no nasal congestion, hearing loss, dizziness Allergy and Immunology ROS: no allergic symptoms or urticaria Hematological and Lymphatic ROS: no swollen glands, unusual bleeding or bruising Endocrine ROS: no polyuria, polydipsia, weight changes, temperature intolerance Respiratory ROS: no cough, shortness of breath, or wheezing Cardiovascular ROS: no chest pain or dyspnea on exertion Gastrointestinal ROS: denies abdominal pain, bright red blood in stool. Musculoskeletal ROS: no myalgias or arthralgias Neurological ROS: no TIA or stroke symptoms Dermatological ROS: no new or changing skin lesions, rashes or pruritis Physical Exam Physical Exam General appearance: alert, cooperative, no distress, appears stated age Head: Normocephalic, without obvious abnormality, atraumatic Eyes: conjunctivae/corneas clear. PERRL, EOM's intact. Fundi benign Throat: Lips, mucosa, and tongue normal. Teeth and gums normal Neck: supple, symmetrical, trachea midline, no adenopathy, thyroid: not enlarged, symmetric, no tenderness/mass/nodules, no carotid bruit and no JVD Lungs: clear to auscultation bilaterally Heart: regular rate and rhythm, S1, S2 normal, no murmur, click, rub or gallop Abdomen: soft, non-tender. Bowel sounds normal. No masses, no organomegaly small reducible right inguinal hernia Extremities: extremities normal, atraumatic, no cyanosis or edema Pulses: 2+ and symmetric Skin: Skin color, texture, turgor normal. No rashes or lesions Neurologic: Grossly normal Last 24 Hour Vital Signs Date Time Temp Pulse Resp B/P (MAP) Pulse Ox O2 Delivery O2 Flow Rate FiO2 06/23/20 08:00 98.1 58 16 107/60 (76) 96 06/23/20 08:00 57 06/23/20 08:00 58 06/23/20 04:00 98.1 52 20 131/77 (95) 95 06/23/20 04:00 48 06/23/20 00:50 Room Air 06/23/20 00:00 49 06/22/20 23:00 97.7 52 20 125/60 (81) 95 06/22/20 22:48 97.9 51 18 117/78 97 Room Air 06/22/20 22:40 52 06/22/20 18:02 97.9 87 18 102/65 97 Room Air 06/22/20 17:11 97.9 54 18 102/65 (77) 97 Room Air Intake and Output 06/22/20 06/23/20 19:00 07:00 Intake Total 300 ml Output Total 2 ml Balance 298 ml Intake Other 300 ml Output Urine Total 2 ml # Voids 1 Laboratory Tests Test 06/22/20 18:00 06/22/20 18:40 06/23/20 07:45 White Blood Count 7.2 K/UL (4.8-10.8) 6.2 K/UL (4.8-10.8) Red Blood Count 4.89 M/UL (4.70-6.10) 4.91 M/UL (4.70-6.10) Hemoglobin 14.0 G/DL (14.2-18.0) L 14.4 G/DL (14.2-18.0) Hematocrit 42.4 % (42.0-52.0) 41.6 % (42.0-52.0) L Mean Corpuscular Volume 87 FL (80-99) 85 FL (80-99) Mean Corpuscular Hemoglobin 28.5 PG (27.0-31.0) 29.3 PG (27.0-31.0) Mean Corpuscular Hemoglobin Concent 32.9 G/DL (32.0-36.0) 34.6 G/DL (32.0-36.0) Red Cell Distribution Width 14.0 % (11.6-14.8) 13.8 % (11.6-14.8) Platelet Count 205 K/UL (150-450) 217 K/UL (150-450) Mean Platelet Volume 9.2 FL (6.5-10.1) 8.8 FL (6.5-10.1) Neutrophils (%) (Auto) 65.4 % (45.0-75.0) 68.7 % (45.0-75.0) Lymphocytes (%) (Auto) 17.6 % (20.0-45.0) L 17.2 % (20.0-45.0) L Monocytes (%) (Auto) 12.0 % (1.0-10.0) H 9.4 % (1.0-10.0) Eosinophils (%) (Auto) 3.3 % (0.0-3.0) H 3.1 % (0.0-3.0) H Basophils (%) (Auto) 1.6 % (0.0-2.0) 1.5 % (0.0-2.0) Prothrombin Time 10.9 SEC (9.30-11.50) 10.9 SEC (9.30-11.50) Prothromb Time International Ratio 1.0 (0.9-1.1) 1.0 (0.9-1.1) Activated Partial Thromboplast Time 25 SEC (23-33) 26 SEC (23-33) Sodium Level 141 MMOL/L (136-145) 141 MMOL/L (136-145) Potassium Level 4.0 MMOL/L (3.5-5.1) 3.7 MMOL/L (3.5-5.1) Chloride Level 106 MMOL/L (98-107) 106 MMOL/L (98-107) Carbon Dioxide Level 30 MMOL/L (21-32) 26 MMOL/L (21-32) Anion Gap 5 mmol/L (5-15) 9 mmol/L (5-15) Blood Urea Nitrogen 14 mg/dL (7-18) 11 mg/dL (7-18) Creatinine 0.9 MG/DL (0.55-1.30) 0.9 MG/DL (0.55-1.30) Estimat Glomerular Filtration Rate > 60 mL/min (>60) > 60 mL/min (>60) Glucose Level 92 MG/DL (74-106) 111 MG/DL (74-106) H Calcium Level 8.6 MG/DL (8.5-10.1) 8.2 MG/DL (8.5-10.1) L Total Bilirubin 0.6 MG/DL (0.2-1.0) 0.9 MG/DL (0.2-1.0) Aspartate Amino Transf (AST/SGOT) 16 U/L (15-37) 18 U/L (15-37) Alanine Aminotransferase (ALT/SGPT) 18 U/L (12-78) 22 U/L (12-78) Alkaline Phosphatase 72 U/L (46-116) 69 U/L (46-116) Troponin I 0.002 ng/mL (0.000-0.056) Total Protein 6.0 G/DL (6.4-8.2) L 6.8 G/DL (6.4-8.2) Albumin 3.5 G/DL (3.4-5.0) 3.5 G/DL (3.4-5.0) Globulin 2.5 g/dL 3.3 g/dL Albumin/Globulin Ratio 1.4 (1.0-2.7) 1.1 (1.0-2.7) Lipase 134 U/L (73-393) Urine Color Yellow Urine Appearance Clear Urine pH 6 (4.5-8.0) Urine Specific [place] 1.020 (1.005-1.035) Urine Protein 1+ (NEGATIVE) H Urine Glucose (UA) Negative (NEGATIVE) Urine Ketones Negative (NEGATIVE) Urine Blood Negative (NEGATIVE) Urine Nitrite Negative (NEGATIVE) Urine Bilirubin Negative (NEGATIVE) Urine Urobilinogen Normal MG/DL (0.0-1.0) Urine Leukocyte Esterase Trace (NEGATIVE) H Urine RBC 0-2 /HPF (0 - 0) H Urine WBC 2-4 /HPF (0 - 0) Urine Squamous Epithelial Cells None /LPF (NONE/OCC) Urine Bacteria Occasional /HPF (NONE) C-Reactive Protein, Quantitative 0.6 mg/dL (0.00-0.90) Pro-B-Type Natriuretic Peptide 213 pg/mL (0-125) H Triglycerides Level 62 MG/DL (30-150) Cholesterol Level 138 MG/DL (< 200) LDL Cholesterol 76 mg/dL (<100) HDL Cholesterol 49 MG/DL (40-60) Cholesterol/HDL Ratio 2.8 (3.3-4.4) L Thyroid Stimulating Hormone (TSH) 3.848 uiU/mL (0.358-3.740) Microbiology Date/Time Source Procedure Growth Status 06/22/20 21:45 Nasopharynx SARS-CoV-2 RdRp Gene Assay - Final Complete Height (Feet): 6 Weight (Pounds): 169 Medications Current Medications Medications (Trade) Dose Ordered Sig/Vadim Route PRN Reason Start Time Stop Time Status Last Admin Dose Admin Acetaminophen (Tylenol) 650 mg Q4H PRN ORAL Temp >100.5 06/22/20 20:15 07/22/20 20:14 Al Hydroxide/Mg Hydroxide (Mylanta II) 30 ml Q6H PRN ORAL dyspepsia 06/22/20 20:15 07/22/20 20:14 Dextrose (Dextrose 50%) 25 ml Q30M PRN IV Hypoglycemia 06/22/20 20:15 09/20/20 20:14 Dextrose (Dextrose 50%) 50 ml Q30M PRN IV Hypoglycemia 06/22/20 20:15 09/20/20 20:14 Diphenhydramine HCl (Benadryl) 25 mg Q6H PRN ORAL Itching/Pruritis 06/22/20 20:15 07/22/20 20:14 Docusate Sodium (Colace) 100 mg EVERY 12 HOURS ORAL 06/22/20 21:00 07/22/20 20:59 06/23/20 09:20 Famotidine (Pepcid I.v.) 20 mg Q12HR IVP 06/22/20 21:00 07/22/20 20:59 06/23/20 09:20 Heparin Sodium (Porcine) (Heparin 5000 units/ml) 5,000 units EVERY 12 HOURS SUBQ 06/22/20 21:00 08/06/20 20:59 Iohexol (OMNIPAQUE-300 100ml) 100 ml NOW PRN INJ Radiology Procedure 06/22/20 18:00 06/24/20 17:59 Lorazepam (Ativan) 1 mg Q4H PRN ORAL For Anxiety 06/22/20 20:15 06/29/20 20:14 Magnesium Hydroxide (Mom) 30 ml HSPRN PRN ORAL Constipation 06/22/20 20:15 07/22/20 20:14 Morphine Sulfate (Morphine Sulfate) 2 mg Q3H PRN IVP Moderate Pain (Pain Scale 4-6) 06/22/20 20:15 06/29/20 20:14 Nitroglycerin (Ntg) 0.4 mg Q5M PRN SL Prn Chest Pain 06/22/20 20:15 07/22/20 20:14 Ondansetron HCl (Zofran) 4 mg Q6H PRN IVP Nausea & Vomiting 06/22/20 20:15 07/22/20 20:14 Sodium Chloride 1,000 ml @ 50 mls/hr Q20H IVLG 06/22/20 21:30 07/22/20 21:29 06/23/20 00:00 Temazepam (Restoril) 15 mg DAILYPRN PRN ORAL Insomnia 06/22/20 20:15 06/29/20 20:14 Assessment/Plan Problem List: (1) Sinus bradycardia ICD Codes: R00.1 - Bradycardia, unspecified SNOMED: 83249878 (2) Bifascicular block ICD Codes: I45.2 - Bifascicular block SNOMED: 48017569 (3) Incarcerated hernia Assessment & Plan: 74-year-old male with right inguinal hernia with small bowel contents identified on CT. At the bedside easily reducible small hernia noted in the right groin. No left-sided significant hernia identified. Small umbilical defect no contents. Abdomen soft nontender nondistended. Patient has had this hernia for some time now. Identified to have bradycardia and abnormal EKG on admission. Labs noted. Cardiology work-up underway. Echo EKG labs cardiology input appreciated No acute surgical intervention at this time given reducible fairly asymptomatic inguinal hernia that is not incarcerated or strangulated. Chronic appearing as he is known about it for some time without any acute events. The abdominal cramping he experiences unlikely related to this hernia and suggestive more of a cramping than related to hernia. Do recommend repair of inguinal hernia can be done electively. Continue with cardiology work-up for the meantime. Will monitor hernia and if necessary intervene in the inpatient setting versus scheduling outpatient elective. Thank you for allowing me to participate in patient's care will follow with recommendations ABDOMEN: Liver: Stable hypoenhancing subcentimeter focus within the left hepatic lobe with subtle peripheral enhancement, may represent a hemangioma. Gallbladder and bile ducts: Layering density within the gallbladder. The gallbladder is partially decompressed. No calcified stones. No ductal dilation. Pancreas: Unremarkable. No mass. No ductal dilation. Spleen: Unremarkable. No splenomegaly. Adrenals: Unremarkable. No mass. Kidneys and ureters: Unremarkable. No solid mass. No hydronephrosis. Stomach and bowel: A few colonic diverticula. Large bilateral inguinal hernias. Right inguinal hernia contains a small portion of loop of small bowel. There is no evidence of inflammatory change associated. There is no obstruction. The left inguinal hernia as a internal fat contents. No mucosal thickening. PELVIS: Appendix: Appendix is normal. Bladder: Unremarkable. No mass. Reproductive: Unremarkable as visualized. ABDOMEN and PELVIS: Intraperitoneal space: Unremarkable. No free air. No significant fluid collection. Bones/joints: [place] right scoliosis of the lumbar spine. Degenerative disc disease of the lumbar spine. No severe canal narrowing. No acute fracture. No dislocation. Soft tissues: Unremarkable. Vasculature: Mild atherosclerotic vascular disease. No abdominal aortic aneurysm. Lymph nodes: Unremarkable. No enlarged lymph nodes. Other findings: Stable right posterior diaphragmatic hernia. IMPRESSION: 1. Right inguinal hernia with small bowel contents. No evidence of strangulation. 2. A few colonic diverticula without evidence of diverticulitis. 3. Small left pleural effusion and mild bibasilar atelectasis. 4. Subtle layering density within the gallbladder may represent gallbladder sludge versus small layering stones. ICD Codes: K46.0 - Unspecified abdominal hernia with obstruction, without gangrene SNOMED: 55530240 (4) GI bleed ICD Codes: K92.2 - Gastrointestinal hemorrhage, unspecified SNOMED: 12543089 (5) Costochondritis ICD Codes: M94.0 - Chondrocostal junction syndrome [[place]] SNOMED: 29465214 (6) Constipation ICD Codes: K59.00 - Constipation, unspecified SNOMED: 79169959 (7) Anxiety ICD Codes: F41.9 - Anxiety disorder, unspecified SNOMED: 71872424 (8) PE (pulmonary embolism) ICD Codes: I26.99 - Other pulmonary embolism without acute cor pulmonale SNOMED: 66261014 (9) GERD (gastroesophageal reflux disease) ICD Codes: K21.9 - Gastro-esophageal reflux disease without esophagitis SNOMED: 313689685 (10) HTN (hypertension) ICD Codes: I10 - Essential (primary) hypertension SNOMED: 36941940 (11) BPH (benign prostatic hyperplasia) ICD Codes: N40.0 - Benign prostatic hyperplasia without lower urinary tract symptoms SNOMED: 559444182, 672899825 (12) Cerebrovascular accident (CVA) ICD Codes: I63.9 - Cerebral infarction, unspecified SNOMED: 259594708 (13) COPD (chronic obstructive pulmonary disease) ICD Codes: J44.9 - Chronic obstructive pulmonary disease, unspecified SNOMED: 95800136 (14) Supratherapeutic INR ICD Codes: R79.1 - Abnormal coagulation profile SNOMED: 720545228 (15) 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
[2020-06-23 12:00] VITALS: BP 156/69
[2020-06-23] MEDS ORDERED: METOPROLOL TART25 MG ORAL (14:48)
[2020-06-23] MEDS ORDERED: REFRESH TEARS15 ML BOTH EYES (14:48)
[2020-06-23] MEDS ORDERED: ATORVASTATIN CA10 MG ORAL (14:48)
[2020-06-23] MEDS ORDERED: MELATONIN 5 MG1 EAC1 ORAL (14:48)
[2020-06-23] MEDS ORDERED: ZOFRAN4 M3 ORAL (14:48)
[2020-06-23] MEDS ORDERED: SALMON OIL PO (14:48)
[2020-06-23] MEDS ORDERED: LIDOCAINE HCL4 ML ORAL (14:48)
[2020-06-23] MEDS ORDERED: ACETAMINOPHEN325 M1 ORAL (14:48)
--- NOTE | 2020-06-23 15:30 | Consultation ---
DATE OF CONSULTATION: 06/23/2020 ENDOCRINOLOGY CONSULTATION CONSULTING PHYSICIAN: Iraj Hernandez MD REFERRING PHYSICIAN: Jaime Mackenzie DO REASON FOR CONSULTATION: Elevated TSH. HISTORY OF PRESENT ILLNESS: Patient is a 74-year-old male who is a half-way resident who complains of abdominal discomfort and distention. Patient was found to have a right inguinal hernia, evaluated by Surgery and also noted to be bradycardic. TSH was obtained, which was mildly elevated. Therefore, Endocrinology was consulted. There is no history of thyroid disease. PAST MEDICAL HISTORY: 1. Anxiety. 2. CVA. 3. Lower extremity weakness. 4. BPH. 5. GERD. 6. Hypertension. PAST SURGICAL HISTORY: Deviated septum. MEDICATIONS: Reviewed and reconciled. ALLERGIES TO MEDICATIONS: None. SOCIAL HISTORY: No smoking, alcohol, or drug use. Lives in a residential facility. FAMILY HISTORY: Noncontributory. REVIEW OF SYSTEMS: As per HPI. LABORATORY VALUES: Sodium 141, potassium 3.7, chloride 106, bicarb 26, BUN 11, creatinine 0.9, glucose of 111, calcium 8.2. BNP 213. TSH of 3.8. PHYSICAL EXAMINATION: GENERAL: Awake and alert. VITAL SIGNS: Blood pressure is 156/69, heart rate 56, temperature 97.9. HEENT: Pupils are equal and reactive to light. Sclerae anicteric. NECK: No JVD. No thyromegaly. No bruits. LUNGS: Clear. HEART: Regular rate and rhythm. ABDOMEN: Positive bowel sounds. EXTREMITIES: Positive for edema. DIAGNOSES: 1. Bradycardia. 2. Abdominal pain and hernia. 3. Mildly elevated TSH without any history of hypothyroidism. DISCUSSION: I highly doubt patient has clinical hypothyroidism. The degree of elevation of TSH is very mild, just could be due to state of illness. I will repeat a TSH and free T4 and free T3 with the laboratories tomorrow and if the TSH is confirmed to be elevated and T4 is low, then I will start him on thyroxine. Otherwise, I do not think it is necessary and I do not think this minute elevation of TSH has anything to do with his cardiac rhythm. Thank you, Dr. Mackenzie, for the courtesy of this consultation. Iraj Nazemi, M.D. DR: REGLA JOB#: [id number] CC: HAO
[2020-06-23 16:00] VITALS: BP 128/70
--- NOTE | 2020-06-23 17:38 | Cardiac Electrophysiology PN ---
Subjective Subjective [id number] Objective Last 24 Hour Vital Signs Date Time Temp Pulse Resp B/P (MAP) Pulse Ox O2 Delivery O2 Flow Rate FiO2 06/23/20 16:00 98.3 55 19 128/70 (89) 98 06/23/20 12:00 56 06/23/20 12:00 97.9 56 18 156/69 (98) 93 06/23/20 12:00 97.9 56 18 156/69 (98) 93 06/23/20 09:00 Room Air 06/23/20 08:00 98.1 58 16 107/60 (76) 96 06/23/20 08:00 57 06/23/20 08:00 58 06/23/20 04:00 98.1 52 20 131/77 (95) 95 06/23/20 04:00 48 06/23/20 00:50 Room Air 06/23/20 00:00 49 06/22/20 23:00 97.7 52 20 125/60 (81) 95 06/22/20 22:48 97.9 51 18 117/78 97 Room Air 06/22/20 22:40 52 06/22/20 18:02 97.9 87 18 102/65 97 Room Air Intake and Output 06/22/20 06/23/20 19:00 07:00 Intake Total 350 ml Output Total 2 ml Balance 348 ml Intake IV Total 50 ml Other 300 ml Output Urine Total 2 ml # Voids 1 Laboratory Tests Test 06/22/20 18:00 06/22/20 18:40 06/23/20 07:45 White Blood Count 7.2 K/UL (4.8-10.8) 6.2 K/UL (4.8-10.8) Red Blood Count 4.89 M/UL (4.70-6.10) 4.91 M/UL (4.70-6.10) Hemoglobin 14.0 G/DL (14.2-18.0) L 14.4 G/DL (14.2-18.0) Hematocrit 42.4 % (42.0-52.0) 41.6 % (42.0-52.0) L Mean Corpuscular Volume 87 FL (80-99) 85 FL (80-99) Mean Corpuscular Hemoglobin 28.5 PG (27.0-31.0) 29.3 PG (27.0-31.0) Mean Corpuscular Hemoglobin Concent 32.9 G/DL (32.0-36.0) 34.6 G/DL (32.0-36.0) Red Cell Distribution Width 14.0 % (11.6-14.8) 13.8 % (11.6-14.8) Platelet Count 205 K/UL (150-450) 217 K/UL (150-450) Mean Platelet Volume 9.2 FL (6.5-10.1) 8.8 FL (6.5-10.1) Neutrophils (%) (Auto) 65.4 % (45.0-75.0) 68.7 % (45.0-75.0) Lymphocytes (%) (Auto) 17.6 % (20.0-45.0) L 17.2 % (20.0-45.0) L Monocytes (%) (Auto) 12.0 % (1.0-10.0) H 9.4 % (1.0-10.0) Eosinophils (%) (Auto) 3.3 % (0.0-3.0) H 3.1 % (0.0-3.0) H Basophils (%) (Auto) 1.6 % (0.0-2.0) 1.5 % (0.0-2.0) Prothrombin Time 10.9 SEC (9.30-11.50) 10.9 SEC (9.30-11.50) Prothromb Time International Ratio 1.0 (0.9-1.1) 1.0 (0.9-1.1) Activated Partial Thromboplast Time 25 SEC (23-33) 26 SEC (23-33) Sodium Level 141 MMOL/L (136-145) 141 MMOL/L (136-145) Potassium Level 4.0 MMOL/L (3.5-5.1) 3.7 MMOL/L (3.5-5.1) Chloride Level 106 MMOL/L (98-107) 106 MMOL/L (98-107) Carbon Dioxide Level 30 MMOL/L (21-32) 26 MMOL/L (21-32) Anion Gap 5 mmol/L (5-15) 9 mmol/L (5-15) Blood Urea Nitrogen 14 mg/dL (7-18) 11 mg/dL (7-18) Creatinine 0.9 MG/DL (0.55-1.30) 0.9 MG/DL (0.55-1.30) Estimat Glomerular Filtration Rate > 60 mL/min (>60) > 60 mL/min (>60) Glucose Level 92 MG/DL (74-106) 111 MG/DL (74-106) H Calcium Level 8.6 MG/DL (8.5-10.1) 8.2 MG/DL (8.5-10.1) L Total Bilirubin 0.6 MG/DL (0.2-1.0) 0.9 MG/DL (0.2-1.0) Aspartate Amino Transf (AST/SGOT) 16 U/L (15-37) 18 U/L (15-37) Alanine Aminotransferase (ALT/SGPT) 18 U/L (12-78) 22 U/L (12-78) Alkaline Phosphatase 72 U/L (46-116) 69 U/L (46-116) Troponin I 0.002 ng/mL (0.000-0.056) Total Protein 6.0 G/DL (6.4-8.2) L 6.8 G/DL (6.4-8.2) Albumin 3.5 G/DL (3.4-5.0) 3.5 G/DL (3.4-5.0) Globulin 2.5 g/dL 3.3 g/dL Albumin/Globulin Ratio 1.4 (1.0-2.7) 1.1 (1.0-2.7) Lipase 134 U/L (73-393) Urine Color Yellow Urine Appearance Clear Urine pH 6 (4.5-8.0) Urine Specific [place] 1.020 (1.005-1.035) Urine Protein 1+ (NEGATIVE) H Urine Glucose (UA) Negative (NEGATIVE) Urine Ketones Negative (NEGATIVE) Urine Blood Negative (NEGATIVE) Urine Nitrite Negative (NEGATIVE) Urine Bilirubin Negative (NEGATIVE) Urine Urobilinogen Normal MG/DL (0.0-1.0) Urine Leukocyte Esterase Trace (NEGATIVE) H Urine RBC 0-2 /HPF (0 - 0) H Urine WBC 2-4 /HPF (0 - 0) Urine Squamous Epithelial Cells None /LPF (NONE/OCC) Urine Bacteria Occasional /HPF (NONE) C-Reactive Protein, Quantitative 0.6 mg/dL (0.00-0.90) Pro-B-Type Natriuretic Peptide 213 pg/mL (0-125) H Triglycerides Level 62 MG/DL (30-150) Cholesterol Level 138 MG/DL (< 200) LDL Cholesterol 76 mg/dL (<100) HDL Cholesterol 49 MG/DL (40-60) Cholesterol/HDL Ratio 2.8 (3.3-4.4) L Thyroid Stimulating Hormone (TSH) 3.848 uiU/mL (0.358-3.740) Microbiology Date/Time Source Procedure Growth Status 06/22/20 21:45 Nasopharynx SARS-CoV-2 RdRp Gene Assay - Final Complete 06/22/20 02:15 Rectum Received Miko Causey MD Jun 23, 2020 17:38
--- NOTE | 2020-06-23 18:46 | NUR ---
NURSE HAND-OFF REPORT: Important Events on Shift:Patient's heart rate is low, however increasing, good appetite, and happy disposition. 2DEcho ordered plus am labs. Patient Status: Stable Diet: Regular Diet. Pending Orders: 2DEcho Pending Results/Labs:CBC, BMP, Troponin in a.m. Pending notification:N/A Latest Vital Signs: Temperature 98.3 , Pulse 60 , B/P 128 /70 , Respiratory Rate 19 , O2 SAT 98 , Room Air, O2 Flow Rate . Vital Sign Comment: Stable EKG Rhythm: SR with BBB Rhythm change?: N MD Notified?: - MD Response: Latest Adkins Fall Score: 60 Fall Risk: High Risk Safety Measures: Call light Within Reach, Bed Alarm Zone 1, Side Rails Side Rails x2, Bed position Low and Locked. Fall Precautions: Yellow Socks Yellow Gown Patient Fall Education Report to be given to oncoming staff. Addendum: 06/23/20 at 190 by LUISITO HAILE RN Hand off report given to Em Ornelas RN. Addendum: 06/23/20 at 1900 by LUISITO HAILE RN Hand off report given to Em Ornelas RN.
--- NOTE | 2020-06-23 19:10 | NUR ---
NURSE NOTES: RECEIVED REPORT FROM WALTER ARIAS PT IN BED AWAKE, ALERT.ORIENTED X4. ABLE TO MAKE NEEDS KNOWN. NO RESP DISTRESS NOTED. FISHING CAPTAIN IN PLACE. NO C/O PAIN. BED IN LOW POSITION & LOCKED, SIDE RAILS UP X2. CALL LIGHT WITH IN REACH. BED ALARM ON.WILL CONTINUE PLAN OF CARE.
[2020-06-23 20:00] VITALS: BP 113/66
--- NOTE | 2020-06-23 20:45 | Consultation ---
DATE OF CONSULTATION: 06/23/2020 CARDIOLOGY CONSULTATION REFERRING PHYSICIAN: Jaime Mackenzie D.O. REASON FOR CONSULTATION: Hypertension, bradycardia and bifascicular block. HISTORY OF PRESENT ILLNESS: The patient is a very pleasant 74-year-old gentleman with a history of hypertension, hypertrophic gastroesophageal reflux disease, anxiety, and history of CVA, [facility] for two days of increased right inguinal pain. The patient is not having nausea, vomiting, or diarrhea. The patient was admitted with right inguinal hernia and was admitted for point fascicular block and bradycardia. The patient denies any syncope, chest pain or shortness of breath. REVIEW OF SYSTEMS: Negative other than what was mentioned in the history of present illness. PAST MEDICAL HISTORY: As mentioned above. FAMILY HISTORY: Noncontributory. SOCIAL HISTORY: He lives in a longterm. Does not smoke or drink alcohol use or drugs. MEDICATIONS: Per reconciliation. PHYSICAL EXAMINATION: VITAL SIGNS: Blood pressure of 156/69, pulse is 55, respirations 18, and he is afebrile. HEAD AND NECK: Showed no JVD or carotid bruits. LUNGS: Clear. CARDIOVASCULAR: Bradycardic S1 and S2 with no gallop or murmur. ABDOMEN: Soft. EXTREMITIES: No pitting edema. He has right groin inguinal hernia. LABORATORY AND DIAGNOSTIC DATA: His labs show white count of 6.2, hemoglobin 14.4, hematocrit 41.6, and platelet count of 217. Sodium 141, potassium 3.7, BUN of 11, creatinine 0.9, and glucose of 111. First troponin is negative. TSH is 3.84. His 12-lead electrocardiogram showed sinus bradycardia, rate of 45, right bundle-branch block and left anterior fascicular block. ASSESSMENT AND PLAN: 1. Bradycardia with heart rate down to 40 and sinus bradycardia. The patient also has underlying bifascicular block. His first troponin is negative. We will completely rule out AR protocol. He is not on any sinus or AV lavinia blocking agents. We will check T4 and TSH. If the bradycardia continues, the patient likely would need permanent pacemaker placement. 2. Hypertension. Blood pressure was in the 160s. Start lisinopril 10 mg b.i.d. and add p.r.n. clonidine to his medical regimen. 3. Right inguinal hernia. Further evaluation by Dr. Li. 4. History of hypothyroidism, thyroid replacement will be ordered. Thank you very much for allowing me to participate in the care of this patient. Please do not hesitate to contact me for any questions regarding my evaluation. Miko Causey M.D. DR: Mague JOB#: [id number] CC:
[2020-06-24] VITALS: BP 111/60
[2020-06-24 04:00] VITALS: BP 123/62
--- NOTE | 2020-06-24 06:31 | General Progress Note ---
Subjective Allergies: Coded Allergies: COCONUT (Unverified Allergy, Unknown, 06/13/19) Uncoded Allergies: Coconut (Allergy, Intermediate, Hives, 08/07/15) All Systems: reviewed and negative except above Subjective events noted interval notes reviewed Objective Last 24 Hour Vital Signs Date Time Temp Pulse Resp B/P (MAP) Pulse Ox O2 Delivery O2 Flow Rate FiO2 06/24/20 04:00 63 06/24/20 00:00 47 06/24/20 00:00 98.3 57 18 111/60 (77) 97 06/23/20 21:00 Room Air 06/23/20 20:00 48 06/23/20 20:00 98.2 53 18 113/66 (82) 96 06/23/20 16:00 60 06/23/20 16:00 98.3 55 19 128/70 (89) 98 06/23/20 12:00 56 06/23/20 12:00 97.9 56 18 156/69 (98) 93 06/23/20 12:00 97.9 56 18 156/69 (98) 93 06/23/20 09:00 Room Air 06/23/20 08:00 98.1 58 16 107/60 (76) 96 06/23/20 08:00 57 06/23/20 08:00 58 Intake and Output 06/23/20 06/24/20 19:00 07:00 Intake Total 880 ml Output Total 400 ml Balance 480 ml Intake Oral 480 ml IV Total 400 ml Output Urine Total 400 ml Laboratory Tests 06/23/20 07:45: White Blood Count 6.2, Red Blood Count 4.91, Hemoglobin 14.4, Hematocrit 41.6L, Mean Corpuscular Volume 85, Mean Corpuscular Hemoglobin 29.3, Mean Corpuscular Hemoglobin Concent 34.6, Red Cell Distribution Width 13.8, Platelet Count 217, Mean Platelet Volume 8.8, Neutrophils (%) (Auto) 68.7, Lymphocytes (%) (Auto) 17.2L, Monocytes (%) (Auto) 9.4, Eosinophils (%) (Auto) 3.1H, Basophils (%) (Auto) 1.5, Prothrombin Time 10.9, Prothromb Time International Ratio 1.0, Activated Partial Thromboplast Time 26, Sodium Level 141, Potassium Level 3.7, Chloride Level 106, Carbon Dioxide Level 26, Anion Gap 9, Blood Urea Nitrogen 11, Creatinine 0.9, Estimat Glomerular Filtration Rate > 60, Glucose Level 111H, Calcium Level 8.2L, Total Bilirubin 0.9, Aspartate Amino Transf (AST/SGOT) 18, Alanine Aminotransferase (ALT/SGPT) 22, Alkaline Phosphatase 69, C-Reactive Protein, Quantitative 0.6, Pro-B-Type Natriuretic Peptide 213H, Total Protein 6.8, Albumin 3.5, Globulin 3.3, Albumin/Globulin Ratio 1.1, Triglycerides Level 62, Cholesterol Level 138, LDL Cholesterol 76, HDL Cholesterol 49, Cholesterol/HDL Ratio 2.8L, Thyroid Stimulating Hormone (TSH) 3.848H Height (Feet): 6 Weight (Pounds): 169 General Appearance: no apparent distress Neck: normal alignment Cardiovascular: normal rate Respiratory/Chest: lungs clear Abdomen: normal bowel sounds Pelvis: normal external exam Objective Current Medications Medications (Trade) Dose Ordered Sig/Vadim Route PRN Reason Start Time Stop Time Status Last Admin Dose Admin Acetaminophen (Tylenol) 650 mg Q4H PRN ORAL Temp >100.5 06/22/20 20:15 07/22/20 20:14 Al Hydroxide/Mg Hydroxide (Mylanta II) 30 ml Q6H PRN ORAL dyspepsia 06/22/20 20:15 07/22/20 20:14 Dextrose (Dextrose 50%) 25 ml Q30M PRN IV Hypoglycemia 06/22/20 20:15 09/20/20 20:14 Dextrose (Dextrose 50%) 50 ml Q30M PRN IV Hypoglycemia 06/22/20 20:15 09/20/20 20:14 Diphenhydramine HCl (Benadryl) 25 mg Q6H PRN ORAL Itching/Pruritis 06/22/20 20:15 07/22/20 20:14 Docusate Sodium (Colace) 100 mg EVERY 12 HOURS ORAL 06/22/20 21:00 07/22/20 20:59 06/23/20 20:31 Famotidine (Pepcid I.v.) 20 mg Q12HR IVP 06/22/20 21:00 07/22/20 20:59 06/23/20 20:31 Heparin Sodium (Porcine) (Heparin 5000 units/ml) 5,000 units EVERY 12 HOURS SUBQ 06/22/20 21:00 08/06/20 20:59 06/23/20 20:35 Iohexol (OMNIPAQUE-300 100ml) 100 ml NOW PRN INJ Radiology Procedure 06/22/20 18:00 06/24/20 17:59 Lorazepam (Ativan) 1 mg Q4H PRN ORAL For Anxiety 06/22/20 20:15 06/29/20 20:14 Magnesium Hydroxide (Mom) 30 ml HSPRN PRN ORAL Constipation 06/22/20 20:15 07/22/20 20:14 Morphine Sulfate (Morphine Sulfate) 2 mg Q3H PRN IVP Moderate Pain (Pain Scale 4-6) 06/22/20 20:15 06/29/20 20:14 Nitroglycerin (Ntg) 0.4 mg Q5M PRN SL Prn Chest Pain 06/22/20 20:15 07/22/20 20:14 Ondansetron HCl (Zofran) 4 mg Q6H PRN IVP Nausea & Vomiting 06/22/20 20:15 07/22/20 20:14 Sodium Chloride 1,000 ml @ 50 mls/hr Q20H IVLG 06/22/20 21:30 07/22/20 21:29 06/23/20 16:54 Temazepam (Restoril) 15 mg DAILYPRN PRN ORAL Insomnia 06/22/20 20:15 06/29/20 20:14 Assessment/Plan Problem List: (1) Elevated TSH ICD Codes: R79.89 - Other specified abnormal findings of blood chemistry SNOMED: 043711928 (2) Sinus bradycardia ICD Codes: R00.1 - Bradycardia, unspecified SNOMED: 68832228 (3) Bifascicular block ICD Codes: I45.2 - Bifascicular block SNOMED: 28324159 Assessment/Plan: mildly elevated TSH does not explain his bradycardia will repeat TSH and add free T4 and free T3 no need for thyroxine for now Iraj Hernandez MD Jun 24, 2020 06:31
--- NOTE | 2020-06-24 07:25 | NUR ---
NURSE HAND-OFF REPORT: Important Events on Shift:n/a Patient Status: stable Diet: cardiac Pending Orders: [] Pending Results/Labs:[] Pending MD notification:[] Latest Vital Signs: Temperature 98.3 , Pulse 52 , B/P 123 /62 , Respiratory Rate 20 , O2 SAT 96 , Room Air, O2 Flow Rate . Vital Sign Comment: [] EKG Rhythm: SR with BBB Rhythm change?: N MD Notified?: - MD Response: Latest Adkins Fall Score: 60 Fall Risk: High Risk Safety Measures: Call light Within Reach, Bed Alarm Zone 1, Side Rails Side Rails x2, Bed position Low and Locked. Fall Precautions: Yellow Socks Yellow Gown Patient Fall Education Report given to WALTER WINTERS.
--- NOTE | 2020-06-24 07:26 | NUR ---
NURSE NOTES: Pt received from Em RN. Pt in bed resting. Talkative no complaint of pain or distress at this time. Bed low and locked. Call light within reach IV beeping at this time. Will address shortly. White board updated.
[2020-06-24 08:00] VITALS: BP 127/73
[2020-06-24] MEDS: Docusate 100mg cap ORAL SCH ×2 (08:43→21:55)
[2020-06-24] MEDS: Heparin 5000 units/ml inj SUBQ SCH ×2 (08:44→21:57)
--- NOTE | 2020-06-24 09:10 | NUR ---
PT NOTE Received MD order for PT evaluation. Patient declining to participate with PT, states he is afraid that it will worsen his hernia. Dr. Mackenzie present in the room, aware of patient not wanting to participate with PT. Eugenie WATSON notified, will follow.
[2020-06-24 09:14] LABS: BASOPHILS % (AUTO) 1.7 % (0.0-2.0); EOSINOPHILS % (AUTO) 2.8 % (0.0-3.0); HEMATOCRIT 42.7 % (42.0-52.0); HEMOGLOBIN 14.1 G/DL (14.2-18.0); LYMPHOCYTES % (AUTO) 18.1 % (20.0-45.0); MEAN CORPUSCULAR VOLUME 86 FL (80-99); MONOCYTES % (AUTO) 9.7 % (1.0-10.0); NEUTROPHILS % (AUTO) 67.7 % (45.0-75.0); PLATELET COUNT 209 K/UL (150-450); RED BLOOD COUNT 4.96 M/UL (4.70-6.10); RED CELL DISTRIBUTION WIDTH 13.8 % (11.6-14.8); WHITE BLOOD COUNT 7.5 K/UL (4.8-10.8)
--- NOTE | 2020-06-24 09:33 | General Progress Note ---
Subjective Constitutional: Reports: weakness Allergies: Coded Allergies: COCONUT (Unverified Allergy, Unknown, 06/13/19) Uncoded Allergies: Coconut (Allergy, Intermediate, Hives, 08/07/15) All Systems: reviewed and negative except above Subjective r inguinal pain Objective Last 24 Hour Vital Signs Date Time Temp Pulse Resp B/P (MAP) Pulse Ox O2 Delivery O2 Flow Rate FiO2 06/24/20 08:00 97.5 59 20 127/73 (91) 96 06/24/20 08:00 56 06/24/20 04:00 63 06/24/20 04:00 98.3 52 20 123/62 (82) 96 06/24/20 00:00 47 06/24/20 00:00 98.3 57 18 111/60 (77) 97 06/23/20 21:00 Room Air 06/23/20 20:00 48 06/23/20 20:00 98.2 53 18 113/66 (82) 96 06/23/20 16:00 60 06/23/20 16:00 98.3 55 19 128/70 (89) 98 06/23/20 12:00 56 06/23/20 12:00 97.9 56 18 156/69 (98) 93 06/23/20 12:00 97.9 56 18 156/69 (98) 93 Intake and Output 06/23/20 06/24/20 19:00 07:00 Intake Total 880 ml 300 ml Output Total 400 ml 550 ml Balance 480 ml -250 ml Intake Oral 480 ml 300 ml IV Total 400 ml Output Urine Total 400 ml 550 ml Laboratory Tests 06/24/20 08:55: White Blood Count 7.5, Red Blood Count 4.96, Hemoglobin 14.1L, Hematocrit 42.7, Mean Corpuscular Volume 86, Mean Corpuscular Hemoglobin 28.5, Mean Corpuscular Hemoglobin Concent 33.1, Red Cell Distribution Width 13.8, Platelet Count 209, Mean Platelet Volume 9.0, Neutrophils (%) (Auto) 67.7, Lymphocytes (%) (Auto) 18.1L, Monocytes (%) (Auto) 9.7, Eosinophils (%) (Auto) 2.8, Basophils (%) (Auto) 1.7, Sodium Level [Pending], Potassium Level [Pending], Chloride Level [Pending], Carbon Dioxide Level [Pending], Blood Urea Nitrogen [Pending], Creatinine [Pending], Estimat Glomerular Filtration Rate [Pending], Glucose Level [Pending], Calcium Level [Pending], Troponin I [Pending], Thyroid Stimulating Hormone (TSH) [Pending], Free Thyroxine [Pending], Free T riiodothyronine [Pending] Height (Feet): 6 Weight (Pounds): 169 General Appearance: lethargic EENT: normal ENT inspection Neck: normal alignment Cardiovascular: normal peripheral pulses, normal rate, regular rhythm Respiratory/Chest: chest wall non-tender, lungs clear, normal breath sounds Abdomen: normal bowel sounds, non tender, soft Extremities: normal inspection Edema: no edema noted Arm (L), no edema noted Arm (R), no edema noted Leg (L), no edema noted Leg (R), no edema noted Pedal (L), no edema noted Pedal (R), no edema noted Generalized Neurologic: responsive, motor weakness Skin: normal pigmentation, warm/dry Assessment/Plan Problem List: (1) Hernia ICD Codes: K46.9 - Unspecified abdominal hernia without obstruction or gangrene SNOMED: 39727285 (2) Bifascicular block ICD Codes: I45.2 - Bifascicular block SNOMED: 66119683 (3) Sinus bradycardia ICD Codes: R00.1 - Bradycardia, unspecified SNOMED: 08849639 (4) Anxiety ICD Codes: F41.9 - Anxiety disorder, unspecified SNOMED: 05413045 (5) HTN (hypertension) ICD Codes: I10 - Essential (primary) hypertension SNOMED: 26980935 (6) GERD (gastroesophageal reflux disease) ICD Codes: K21.9 - Gastro-esophageal reflux disease without esophagitis SNOMED: 262822278 (7) BPH (benign prostatic hyperplasia) ICD Codes: N40.0 - Benign prostatic hyperplasia without lower urinary tract symptoms SNOMED: 525128412, 642659269 (8) Cerebrovascular accident (CVA) ICD Codes: I63.9 - Cerebral infarction, unspecified SNOMED: 691665205 Status: unchanged Assessment/Plan: pt diet abx pain control pending cardiac clear for inguinal sx Jaime Mackenzie DO Jun 24, 2020 09:33
[2020-06-24 09:39] LABS: ANION GAP 10 mmol/L (5-15); BLOOD UREA NITROGEN 10 mg/dL (7-18); CALCIUM 8.2 MG/DL (8.5-10.1); CARBON DIOXIDE 26 MMOL/L (21-32); CHLORIDE 107 MMOL/L (98-107); CREATININE 0.9 MG/DL (0.55-1.30); POTASSIUM 3.6 MMOL/L (3.5-5.1); SODIUM 143 MMOL/L (136-145)
--- NOTE | 2020-06-24 11:10 | Cardiac Electrophysiology PN ---
Assessment/Plan Assessment/Plan 1. SSS and Sinus bradycardia with heart rate down to 40 . The patient also has underlying bifascicular block. His first troponin is negative. Ruled out for [place]. He is not on any sinus or AV lavinia blocking agents. Not hypothyroid Likely would need permanent pacemaker placement. 2. Hypertension. Blood pressure was in the 160s. Better on lisinopril 10 mg b.i.d. 3. Right inguinal hernia. Further evaluation by Dr. Li. 4. History of hypothyroidism, thyroid replacement per Dr Hernandez. Repeat TSH and T4 within normal limits. Not the cause of patient bradycardia per Dr Hernandez 5. S/P Covid in 12/2019 at [facility] 6. 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 He earlier this year. Subjective Subjective Is being considered for Right inguinal hernia surgery, however continues with episodes of sinus laine and bifascicular block. No CP or SOB Objective Last 24 Hour Vital Signs Date Time Temp Pulse Resp B/P (MAP) Pulse Ox O2 Delivery O2 Flow Rate FiO2 06/24/20 09:00 Room Air 06/24/20 08:00 97.5 59 20 127/73 (91) 96 06/24/20 08:00 56 06/24/20 04:00 63 06/24/20 04:00 98.3 52 20 123/62 (82) 96 06/24/20 00:00 47 06/24/20 00:00 98.3 57 18 111/60 (77) 97 06/23/20 21:00 Room Air 06/23/20 20:00 48 06/23/20 20:00 98.2 53 18 113/66 (82) 96 06/23/20 16:00 60 06/23/20 16:00 98.3 55 19 128/70 (89) 98 06/23/20 12:00 56 06/23/20 12:00 97.9 56 18 156/69 (98) 93 06/23/20 12:00 97.9 56 18 156/69 (98) 93 Intake and Output 06/23/20 06/24/20 19:00 07:00 Intake Total 880 ml 300 ml Output Total 400 ml 550 ml Balance 480 ml -250 ml Intake Oral 480 ml 300 ml IV Total 400 ml Output Urine Total 400 ml 550 ml Laboratory Tests Test 06/24/20 08:55 White Blood Count 7.5 K/UL (4.8-10.8) Red Blood Count 4.96 M/UL (4.70-6.10) Hemoglobin 14.1 G/DL (14.2-18.0) L Hematocrit 42.7 % (42.0-52.0) Mean Corpuscular Volume 86 FL (80-99) Mean Corpuscular Hemoglobin 28.5 PG (27.0-31.0) Mean Corpuscular Hemoglobin Concent 33.1 G/DL (32.0-36.0) Red Cell Distribution Width 13.8 % (11.6-14.8) Platelet Count 209 K/UL (150-450) Mean Platelet Volume 9.0 FL (6.5-10.1) Neutrophils (%) (Auto) 67.7 % (45.0-75.0) Lymphocytes (%) (Auto) 18.1 % (20.0-45.0) L Monocytes (%) (Auto) 9.7 % (1.0-10.0) Eosinophils (%) (Auto) 2.8 % (0.0-3.0) Basophils (%) (Auto) 1.7 % (0.0-2.0) Sodium Level 143 MMOL/L (136-145) Potassium Level 3.6 MMOL/L (3.5-5.1) Chloride Level 107 MMOL/L (98-107) Carbon Dioxide Level 26 MMOL/L (21-32) Anion Gap 10 mmol/L (5-15) Blood Urea Nitrogen 10 mg/dL (7-18) Creatinine 0.9 MG/DL (0.55-1.30) Estimat Glomerular Filtration Rate > 60 mL/min (>60) Glucose Level 83 MG/DL (74-106) Calcium Level 8.2 MG/DL (8.5-10.1) L Troponin I 0.003 ng/mL (0.000-0.056) Thyroid Stimulating Hormone (TSH) 3.135 uiU/mL (0.358-3.740) Free Thyroxine 0.87 NG/DL (0.76-1.46) Free Triiodothyronine 2.2 pg/mL (2.3-4.2) L Microbiology Date/Time Source Procedure Growth Status 06/22/20 21:45 Nasopharynx SARS-CoV-2 RdRp Gene Assay - Final Complete 06/22/20 02:15 Rectum Received Objective HEAD AND NECK: no JVD or carotid bruits. LUNGS: Clear. CARDIOVASCULAR: Bradycardic S1 and S2 with no gallop or murmur. ABDOMEN: Soft. EXTREMITIES: No pitting edema. He has right groin inguinal hernia. Miko Causey MD Jun 24, 2020 11:10
[2020-06-24 12:00] VITALS: BP 141/74
--- NOTE | 2020-06-24 14:30 | Surgery Progress Note ---
Surgery Progress Note Subjective Additional Comments case discussed with cardiology patient to have pacemaker soon. will await recover prior to hernia repair if remains stable no pain no n/v/f/c no pain +flatus tolerating bm Objective Last 24 Hour Vital Signs Date Time Temp Pulse Resp B/P (MAP) Pulse Ox O2 Delivery O2 Flow Rate FiO2 06/24/20 12:00 72 06/24/20 12:00 97.9 56 20 141/74 (96) 96 06/24/20 09:00 Room Air 06/24/20 08:00 97.5 59 20 127/73 (91) 96 06/24/20 08:00 56 06/24/20 04:00 63 06/24/20 04:00 98.3 52 20 123/62 (82) 96 06/24/20 00:00 47 06/24/20 00:00 98.3 57 18 111/60 (77) 97 06/23/20 21:00 Room Air 06/23/20 20:00 48 06/23/20 20:00 98.2 53 18 113/66 (82) 96 06/23/20 16:00 60 06/23/20 16:00 98.3 55 19 128/70 (89) 98 I&O Intake and Output 06/23/20 06/24/20 19:00 07:00 Intake Total 880 ml 300 ml Output Total 400 ml 550 ml Balance 480 ml -250 ml Intake Oral 480 ml 300 ml IV Total 400 ml Output Urine Total 400 ml 550 ml Cardiovascular: RSR Respiratory: clear Abdomen: soft, non-tender, present bowel sounds Extremities: no edema, no tenderness, no cyanosis Laboratory Tests Test 06/24/20 08:55 White Blood Count 7.5 K/UL (4.8-10.8) Red Blood Count 4.96 M/UL (4.70-6.10) Hemoglobin 14.1 G/DL (14.2-18.0) L Hematocrit 42.7 % (42.0-52.0) Mean Corpuscular Volume 86 FL (80-99) Mean Corpuscular Hemoglobin 28.5 PG (27.0-31.0) Mean Corpuscular Hemoglobin Concent 33.1 G/DL (32.0-36.0) Red Cell Distribution Width 13.8 % (11.6-14.8) Platelet Count 209 K/UL (150-450) Mean Platelet Volume 9.0 FL (6.5-10.1) Neutrophils (%) (Auto) 67.7 % (45.0-75.0) Lymphocytes (%) (Auto) 18.1 % (20.0-45.0) L Monocytes (%) (Auto) 9.7 % (1.0-10.0) Eosinophils (%) (Auto) 2.8 % (0.0-3.0) Basophils (%) (Auto) 1.7 % (0.0-2.0) Sodium Level 143 MMOL/L (136-145) Potassium Level 3.6 MMOL/L (3.5-5.1) Chloride Level 107 MMOL/L (98-107) Carbon Dioxide Level 26 MMOL/L (21-32) Anion Gap 10 mmol/L (5-15) Blood Urea Nitrogen 10 mg/dL (7-18) Creatinine 0.9 MG/DL (0.55-1.30) Estimat Glomerular Filtration Rate > 60 mL/min (>60) Glucose Level 83 MG/DL (74-106) Calcium Level 8.2 MG/DL (8.5-10.1) L Troponin I 0.003 ng/mL (0.000-0.056) Thyroid Stimulating Hormone (TSH) 3.135 uiU/mL (0.358-3.740) Free Thyroxine 0.87 NG/DL (0.76-1.46) Free Triiodothyronine 2.2 pg/mL (2.3-4.2) L Plan Problems: (1) Sinus bradycardia (2) Bifascicular block (3) Incarcerated hernia Assessment & Plan: 74-year-old male with right inguinal hernia with small bowel contents identified on CT. At the bedside easily reducible small hernia noted in the right groin. No left-sided significant hernia identified. Small umbilical defect no contents. Abdomen soft nontender nondistended. Patient has had this hernia for some time now. Identified to have bradycardia and abnormal EKG on admission. Labs noted. Cardiology work-up underway. Echo EKG labs cardiology input appreciated No acute surgical intervention at this time given reducible fairly asymptomatic inguinal hernia that is not incarcerated or strangulated. Chronic appearing as he is known about it for some time without any acute events. The abdominal cramping he experiences unlikely related to this hernia and suggestive more of a cramping than related to hernia. Do recommend repair of inguinal hernia can be done electively. Continue with cardiology work-up for the meantime. Will monitor hernia and if necessary intervene in the inpatient setting versus scheduling outpatient elective. Thank you for allowing me to participate in patient's care will follow with recommendations case discussed with cardiology patient to have pacemaker soon. will await recover prior to hernia repair if remains stable no pain no n/v/f/c no pain +flatus tolerating bm ABDOMEN: Liver: Stable hypoenhancing subcentimeter focus within the left hepatic lobe with subtle peripheral enhancement, may represent a hemangioma. Gallbladder and bile ducts: Layering density within the gallbladder. The gallbladder is partially decompressed. No calcified stones. No ductal dilation. Pancreas: Unremarkable. No mass. No ductal dilation. Spleen: Unremarkable. No splenomegaly. Adrenals: Unremarkable. No mass. Kidneys and ureters: Unremarkable. No solid mass. No hydronephrosis. Stomach and bowel: A few colonic diverticula. Large bilateral inguinal hernias. Right inguinal hernia contains a small portion of loop of small bowel. There is no evidence of inflammatory change associated. There is no obstruction. The left inguinal hernia as a internal fat contents. No mucosal thickening. PELVIS: Appendix: Appendix is normal. Bladder: Unremarkable. No mass. Reproductive: Unremarkable as visualized. ABDOMEN and PELVIS: Intraperitoneal space: Unremarkable. No free air. No significant fluid collection. Bones/joints: Mounds right scoliosis of the lumbar spine. Degenerative disc disease of the lumbar spine. No severe canal narrowing. No acute fracture. No dislocation. Soft tissues: Unremarkable. Vasculature: Mild atherosclerotic vascular disease. No abdominal aortic aneurysm. Lymph nodes: Unremarkable. No enlarged lymph nodes. Other findings: Stable right posterior diaphragmatic hernia. IMPRESSION: 1. Right inguinal hernia with small bowel contents. No evidence of strangulation. 2. A few colonic diverticula without evidence of diverticulitis. 3. Small left pleural effusion and mild bibasilar atelectasis. 4. Subtle layering density within the gallbladder may represent gallbladder sludge versus small layering stones. 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
--- NOTE | 2020-06-24 15:33 | Consultation ---
History of Present Illness General Date patient seen: Jun 24, 2020 Chief Complaint: Pain Present Illness HPI 74 y/o M with hx of HTN, GERD, hypothyroidism, BPH, anxiety disorder, CVA 1994, [facility] resident ([facility]) presented to ED on 06/22/20 with 3 days of increased R inguinal pain Denied nausea, vomiting, diarrhea, CP, SOB, f/c, dysuria. Allergies: Coded Allergies: COCONUT (Unverified Allergy, Unknown, 06/13/19) Uncoded Allergies: Coconut (Allergy, Intermediate, Hives, 08/07/15) Medication History Scheduled Apixaban (Eliquis*), 5 MG ORAL BID, (Reported) Ascorbic Acid* (Ascorbic Acid*), 1,000 MG ORAL DAILY, (Reported) Atorvastatin Calcium* (Lipitor*), 5 MG ORAL BEDTIME, (Reported) Carboxymethylcellulose Sodium (Refresh Tears), 1 DROP BOTH EYES BID, (Reported) Escitalopram Oxalate* (Lexapro*), 20 MG ORAL DAILY, (Reported) Finasteride* (Proscar*), 5 MG ORAL DAILY, (Reported) Lidocaine Hcl (Lidocaine Hcl), 15 ML ORAL Q8HR, (Reported) Metoprolol Tartrate* (Metoprolol Tartrate*), 25 MG ORAL BID, (Reported) Multivitamins* (Multivitamins*), 1 TAB ORAL DAILY, (Reported) [place] Oil/[place]-3 Fatty Acids ([place] Oil 1,000 Mg Softgel), 1 EACH PO DAILY, (Reported) Tamsulosin HCl (Flomax), 0.4 MG ORAL BID, (Reported) Scheduled PRN Acetaminophen* (Acetaminophen 325MG Tablet*), 650 MG ORAL Q4H PRN for MILD PAIN (1-3), (Reported) Calcium Carbonate (Calcium Carbonate), 1,000 MG PO Q4HR PRN for HEARTBURN, (R eported) Ondansetron* (Zofran*), 4 MG ORAL Q6H PRN for Nausea & Vomiting, (Reported) Miscellaneous Medications Melatonin (Melatonin 5 Mg Tablet), 1 TAB ORAL, (Reported) Discontinued Medications Acetaminophen (Acetaminophen), 650 MG ORAL EVERY 4 HOURS PRN for Prn Headache/Temp > 101, (Reported) Discontinued Reason: Prescription changed Aspirin* (Aspir 81*), 81 MG ORAL DAILY, (Reported) Discontinued Reason: Therapy completed Atorvastatin Calcium* (Atorvastatin Calcium*), 5 MG ORAL BEDTIME, (Reported) Discontinued Reason: Prescription changed Bisacodyl (Bisacodyl), 10 MG RC DAILY PRN for Constipation, (Reported) Discontinued Reason: Therapy completed Bisacodyl* (Dulcolax*), 5 MG PO DAILY PRN for Constipation, (Reported) Discontinued Reason: Therapy completed Clonazepam* (Klonopin*), 0.5 MG ORAL TID, (Reported) Discontinued Reason: Therapy completed Cranberry Fruit Concentrate (Cranberry), 450 MG PO BID, (Reported) Discontinued Reason: Therapy completed Cyclobenzaprine Hcl* (Flexeril*), 10 MG ORAL Q6HR PRN for MUSCLE SPASMS, (Repor john) Discontinued Reason: Therapy completed Dextran 70/Hypromellose (Artificial Tears Eye Drops*), 1 DROP BOTH EYES TWICE A DAY, (Reported) Discontinued Reason: Prescription changed Fluticasone Propionate (Fluticasone Propionate), 1 SPRAYS NASAL DAILY, (Reported) Discontinued Reason: Therapy completed Hydrocodone Bit/Acetaminophen 5-325* ([place] 5-325*), 1 TAB ORAL Q8HR PRN for Severe Pain (Pain Scale 7-10), (Reported) Discontinued Reason: Therapy completed Magnesium Hydroxide (Milk of Magnesia), 30 ML ORAL DAILY PRN for Constipation, (Reported) Discontinued Reason: Therapy completed Na Phos,M-B/Na Phos,Di-Ba* (Fleet Enema*), 133 ML RECTAL EVERY 3 DAYS PRN for Constipation, (Reported) Discontinued Reason: Therapy completed Sennosides* (Sennosides*), 17.2 MG ORAL DAILY, (Reported) Discontinued Reason: Therapy completed Simvastatin (Zocor), 10 MG ORAL BEDTIME, (Reported) Discontinued Reason: Therapy completed Tamsulosin HCl (Flomax), 0.4 MG ORAL DAILY, (Reported) Discontinued Reason: Therapy completed Warfarin Sod* (Warfarin Sod*), 2 MG ORAL DAILY, (Reported) Discontinued Reason: Therapy completed Patient History Healthcare decision maker Resuscitation status Advanced Directive on File Patient History Narrative Pmhx: as above Shx: He lives in a intermediate. Does not smoke or drink alcohol use or drugs. Fhx: non contributory Review of Systems All Other Systems: negative except mentioned in HPI Physical Exam Physical Exam Narrative GENERAL: Slightly anxious in bed, oriented x2, in no acute distress. CARDIOVASCULAR: No murmur. LUNGS: Distant and clear. ABDOMEN: Bowel sounds positive. Nontender. Nondistended. EXTREMITIES: No cyanosis, clubbing, or edema. NEUROLOGIC: The patient moves all extremities, slightly weak. Last 24 Hour Vital Signs Date Time Temp Pulse Resp B/P (MAP) Pulse Ox O2 Delivery O2 Flow Rate FiO2 06/24/20 12:00 72 06/24/20 12:00 97.9 56 20 141/74 (96) 96 06/24/20 09:00 Room Air 06/24/20 08:00 97.5 59 20 127/73 (91) 96 06/24/20 08:00 56 06/24/20 04:00 63 06/24/20 04:00 98.3 52 20 123/62 (82) 96 06/24/20 00:00 47 06/24/20 00:00 98.3 57 18 111/60 (77) 97 06/23/20 21:00 Room Air 06/23/20 20:00 48 06/23/20 20:00 98.2 53 18 113/66 (82) 96 06/23/20 16:00 60 06/23/20 16:00 98.3 55 19 128/70 (89) 98 Intake and Output 06/23/20 06/24/20 19:00 07:00 Intake Total 880 ml 300 ml Output Total 400 ml 550 ml Balance 480 ml -250 ml Intake Oral 480 ml 300 ml IV Total 400 ml Output Urine Total 400 ml 550 ml Laboratory Tests Test 06/24/20 08:55 White Blood Count 7.5 K/UL (4.8-10.8) Red Blood Count 4.96 M/UL (4.70-6.10) Hemoglobin 14.1 G/DL (14.2-18.0) L Hematocrit 42.7 % (42.0-52.0) Mean Corpuscular Volume 86 FL (80-99) Mean Corpuscular Hemoglobin 28.5 PG (27.0-31.0) Mean Corpuscular Hemoglobin Concent 33.1 G/DL (32.0-36.0) Red Cell Distribution Width 13.8 % (11.6-14.8) Platelet Count 209 K/UL (150-450) Mean Platelet Volume 9.0 FL (6.5-10.1) Neutrophils (%) (Auto) 67.7 % (45.0-75.0) Lymphocytes (%) (Auto) 18.1 % (20.0-45.0) L Monocytes (%) (Auto) 9.7 % (1.0-10.0) Eosinophils (%) (Auto) 2.8 % (0.0-3.0) Basophils (%) (Auto) 1.7 % (0.0-2.0) Sodium Level 143 MMOL/L (136-145) Potassium Level 3.6 MMOL/L (3.5-5.1) Chloride Level 107 MMOL/L (98-107) Carbon Dioxide Level 26 MMOL/L (21-32) Anion Gap 10 mmol/L (5-15) Blood Urea Nitrogen 10 mg/dL (7-18) Creatinine 0.9 MG/DL (0.55-1.30) Estimat Glomerular Filtration Rate > 60 mL/min (>60) Glucose Level 83 MG/DL (74-106) Calcium Level 8.2 MG/DL (8.5-10.1) L Troponin I 0.003 ng/mL (0.000-0.056) Thyroid Stimulating Hormone (TSH) 3.135 uiU/mL (0.358-3.740) Free Thyroxine 0.87 NG/DL (0.76-1.46) Free Triiodothyronine 2.2 pg/mL (2.3-4.2) L Height (Feet): 6 Weight (Pounds): 169 Medications Current Medications Medications (Trade) Dose Ordered Sig/Vadim Route PRN Reason Start Time Stop Time Status Last Admin Dose Admin Acetaminophen (Tylenol) 650 mg Q4H PRN ORAL Temp >100.5 06/22/20 20:15 07/22/20 20:14 Al Hydroxide/Mg Hydroxide (Mylanta II) 30 ml Q6H PRN ORAL dyspepsia 06/22/20 20:15 07/22/20 20:14 Dextrose (Dextrose 50%) 25 ml Q30M PRN IV Hypoglycemia 06/22/20 20:15 09/20/20 20:14 Dextrose (Dextrose 50%) 50 ml Q30M PRN IV Hypoglycemia 06/22/20 20:15 09/20/20 20:14 Diphenhydramine HCl (Benadryl) 25 mg Q6H PRN ORAL Itching/Pruritis 06/22/20 20:15 07/22/20 20:14 Docusate Sodium (Colace) 100 mg EVERY 12 HOURS ORAL 06/22/20 21:00 07/22/20 20:59 06/24/20 08:43 Famotidine (Pepcid I.v.) 20 mg Q12HR IVP 06/22/20 21:00 07/22/20 20:59 06/24/20 08:43 Heparin Sodium (Porcine) (Heparin 5000 units/ml) 5,000 units EVERY 12 HOURS SUBQ 06/22/20 21:00 08/06/20 20:59 06/24/20 08:44 Iohexol (OMNIPAQUE-300 100ml) 100 ml NOW PRN INJ Radiology Procedure 06/22/20 18:00 06/24/20 17:59 Lorazepam (Ativan) 1 mg Q4H PRN ORAL For Anxiety 06/22/20 20:15 06/29/20 20:14 Magnesium Hydroxide (Mom) 30 ml HSPRN PRN ORAL Constipation 06/22/20 20:15 07/22/20 20:14 Morphine Sulfate (Morphine Sulfate) 2 mg Q3H PRN IVP Moderate Pain (Pain Scale 4-6) 06/22/20 20:15 06/29/20 20:14 Nitroglycerin (Ntg) 0.4 mg Q5M PRN SL Prn Chest Pain 06/22/20 20:15 07/22/20 20:14 Ondansetron HCl (Zofran) 4 mg Q6H PRN IVP Nausea & Vomiting 06/22/20 20:15 07/22/20 20:14 Sodium Chloride 1,000 ml @ 50 mls/hr Q20H IVLG 06/22/20 21:30 07/22/20 21:29 06/24/20 14:18 Temazepam (Restoril) 15 mg DAILYPRN PRN ORAL Insomnia 06/22/20 20:15 06/29/20 20:14 Assessment/Plan Assessment/Plan: Abx: None Assessment: COVID19 neg -06/22 rapid covid pcr neg Afebrile No leukocytosis -u/a neg r/o URI- pt endorses dry cough and sore throat Abd pain/inguinal pain- no evidence of strangulation or infection -06/22 CT abd/p w/: Right inguinal hernia with small bowel contents. No evidence of strangulation. A few colonic diverticula without evidence of diverticulitis. Small left pleural effusion and mild bibasilar atelectasis. Subtle layering density within the gallbladder may represent gallbladder sludge versus small layering stones. HTN GERD hypothyroidism BPH anxiety disorder CVA 1994 SNF resident ([facility]) Plan: -Continue to monitor off abx -f/u cx -Monitor CBC/CMP, temperatures -influenza screen Thank you for consulting [facility]. Will continue to follow along with you. Discussed with WALTER. Reanna Sahu M.D. Jun 24, 2020 15:33
[2020-06-24 16:00] VITALS: BP 114/54
--- NOTE | 2020-06-24 16:18 | NUR ---
CASE MANAGEMENT:REVIEW BIBA FROM [place] [facility] CC: BILATERAL FLANK PAIN. RT GROIN SWELLING SI: INGUINAL HERNIA. BRADYCARDIA BIFASCICULAR BLOCK 97.8 54 18 102/65 97% ON RA IS: 1L NS BOLUS CT ABD/PELVIS : TO TELEMETRY PLAN: CARDIO AND SURGICAL CONSULT
--- NOTE | 2020-06-24 19:30 | NUR ---
NURSE NOTES: RECEIVED REPORT FROM WALTER WINTERS PT IN BED AWAKE, ALERT.ORIENTED X4. ABLE TO MAKE NEEDS KNOWN. NO RESP DISTRESS NOTED. PUBLIC AREA ATTENDANT IN PLACE. RIGHT AC 22G NS RUNNING AT 50CC/HR, NO S/S INFILTRATION NOTED. NO C/O PAIN. BED IN LOW POSITION & LOCKED, SIDE RAILS UP X2. CALL LIGHT WITH IN REACH. BED ALARM ON.WILL CONTINUE PLAN OF CARE.
--- NOTE | 2020-06-24 19:35 | NUR ---
NURSE HAND-OFF REPORT: Important Events on Shift:[pt will be getting a PM on Wednesday. Did not collect flu swab endorsed to NOC shift] Patient Status: [in bed awake and alert] Diet: [cardiac] Pending Orders: [] Pending Results/Labs:[] Pending MD notification:[] Latest Vital Signs: Temperature 97.9 , Pulse 47 , B/P 114 /54 , Respiratory Rate 20 , O2 SAT 95 , Room Air, O2 Flow Rate . Vital Sign Comment: [] EKG Rhythm: SB with BBB Rhythm change?: N MD Notified?: - MD Response: Latest Adkins Fall Score: 60 Fall Risk: High Risk Safety Measures: Call light Within Reach, Bed Alarm Zone 1, Side Rails Side Rails x2, Bed position Low and Locked. Fall Precautions: Yellow Socks Yellow Gown Patient Fall Education Report given to [Em RN].
[2020-06-24 20:00] VITALS: BP 133/82
[2020-06-25] VITALS: BP 131/71
[2020-06-25 04:00] VITALS: BP 130/78
--- NOTE | 2020-06-25 06:26 | General Progress Note ---
Subjective Allergies: Coded Allergies: COCONUT (Unverified Allergy, Unknown, 06/13/19) Uncoded Allergies: Coconut (Allergy, Intermediate, Hives, 08/07/15) All Systems: reviewed and negative except above Subjective events noted interval notes reviewed repeat TSH is normal Objective Last 24 Hour Vital Signs Date Time Temp Pulse Resp B/P (MAP) Pulse Ox O2 Delivery O2 Flow Rate FiO2 06/25/20 04:00 97.6 60 20 130/78 (95) 96 06/25/20 04:00 56 06/25/20 00:00 97.5 60 20 131/71 (91) 96 06/25/20 00:00 53 06/24/20 21:00 Room Air 06/24/20 20:00 57 06/24/20 20:00 97.7 60 20 133/82 (99) 97 06/24/20 16:00 97.9 54 20 114/54 (74) 95 06/24/20 16:00 47 06/24/20 12:00 72 06/24/20 12:00 97.9 56 20 141/74 (96) 96 06/24/20 09:00 Room Air 06/24/20 08:00 97.5 59 20 127/73 (91) 96 06/24/20 08:00 56 Intake and Output 06/24/20 06/25/20 19:00 07:00 Intake Total 730 ml Output Total 550 ml Balance 180 ml Intake Oral 730 ml Output Urine Total 550 ml # Bowel Movements 1 Laboratory Tests 06/24/20 08:55: White Blood Count 7.5, Red Blood Count 4.96, Hemoglobin 14.1L, Hematocrit 42.7, Mean Corpuscular Volume 86, Mean Corpuscular Hemoglobin 28.5, Mean Corpuscular Hemoglobin Concent 33.1, Red Cell Distribution Width 13.8, Platelet Count 209, Mean Platelet Volume 9.0, Neutrophils (%) (Auto) 67.7, Lymphocytes (%) (Auto) 18.1L, Monocytes (%) (Auto) 9.7, Eosinophils (%) (Auto) 2.8, Basophils (%) (Auto) 1.7, Sodium Level 143, Potassium Level 3.6, Chloride Level 107, Carbon Dioxide Level 26, Anion Gap 10, Blood Urea Nitrogen 10, Creatinine 0.9, Estimat Glomerular Filtration Rate > 60, Glucose Level 83, Calcium Level 8.2L, Troponin I 0.003, Thyroid Stimulating Hormone (TSH) 3.135, Free Thyroxine 0.87, Free Triiodothyronine 2.2L Height (Feet): 6 Weight (Pounds): 169 General Appearance: no apparent distress Neck: normal alignment Cardiovascular: normal rate Respiratory/Chest: lungs clear Abdomen: normal bowel sounds Pelvis: normal external exam Objective Current Medications Medications (Trade) Dose Ordered Sig/Vadim Route PRN Reason Start Time Stop Time Status Last Admin Dose Admin Acetaminophen (Tylenol) 650 mg Q4H PRN ORAL Temp >100.5 06/22/20 20:15 07/22/20 20:14 Al Hydroxide/Mg Hydroxide (Mylanta II) 30 ml Q6H PRN ORAL dyspepsia 06/22/20 20:15 07/22/20 20:14 Dextrose (Dextrose 50%) 25 ml Q30M PRN IV Hypoglycemia 06/22/20 20:15 09/20/20 20:14 Dextrose (Dextrose 50%) 50 ml Q30M PRN IV Hypoglycemia 06/22/20 20:15 09/20/20 20:14 Diphenhydramine HCl (Benadryl) 25 mg Q6H PRN ORAL Itching/Pruritis 06/22/20 20:15 07/22/20 20:14 Docusate Sodium (Colace) 100 mg EVERY 12 HOURS ORAL 06/22/20 21:00 07/22/20 20:59 06/24/20 21:55 Famotidine (Pepcid I.v.) 20 mg Q12HR IVP 06/22/20 21:00 07/22/20 20:59 06/24/20 21:55 Heparin Sodium (Porcine) (Heparin 5000 units/ml) 5,000 units EVERY 12 HOURS SUBQ 06/22/20 21:00 08/06/20 20:59 06/24/20 21:57 Lorazepam (Ativan) 1 mg Q4H PRN ORAL For Anxiety 06/22/20 20:15 06/29/20 20:14 Magnesium Hydroxide (Mom) 30 ml HSPRN PRN ORAL Constipation 06/22/20 20:15 07/22/20 20:14 Morphine Sulfate (Morphine Sulfate) 2 mg Q3H PRN IVP Moderate Pain (Pain Scale 4-6) 06/22/20 20:15 06/29/20 20:14 Nitroglycerin (Ntg) 0.4 mg Q5M PRN SL Prn Chest Pain 06/22/20 20:15 07/22/20 20:14 Ondansetron HCl (Zofran) 4 mg Q6H PRN IVP Nausea & Vomiting 06/22/20 20:15 07/22/20 20:14 Sodium Chloride 1,000 ml @ 50 mls/hr Q20H IVLG 06/22/20 21:30 07/22/20 21:29 06/24/20 14:18 Temazepam (Restoril) 15 mg DAILYPRN PRN ORAL Insomnia 06/22/20 20:15 06/29/20 20:14 Assessment/Plan Problem List: (1) Elevated TSH ICD Codes: R79.89 - Other specified abnormal findings of blood chemistry SNOMED: 727171420 (2) Sinus bradycardia ICD Codes: R00.1 - Bradycardia, unspecified SNOMED: 24285294 (3) Bifascicular block ICD Codes: I45.2 - Bifascicular block SNOMED: 54338045 Status: unchanged Assessment/Plan: mildly elevated TSH - repeat value is normal free T4 is normal free T3 is barely low he is considered euthyroid no need for thyroxine I sign off Iraj Hernandez MD Jun 25, 2020 06:26
[2020-06-25 07:08] LABS: ANION GAP 7 mmol/L (5-15); BLOOD UREA NITROGEN 9 mg/dL (7-18); CALCIUM 8.6 MG/DL (8.5-10.1); CARBON DIOXIDE 27 MMOL/L (21-32); CHLORIDE 105 MMOL/L (98-107); CREATININE 0.9 MG/DL (0.55-1.30); POTASSIUM 3.5 MMOL/L (3.5-5.1); SODIUM 139 MMOL/L (136-145)
[2020-06-25 07:11] LABS: BASOPHILS % (AUTO) 1.5 % (0.0-2.0); EOSINOPHILS % (AUTO) 3.5 % (0.0-3.0); HEMOGLOBIN 14.5 G/DL (14.2-18.0); LYMPHOCYTES % (AUTO) 13.5 % (20.0-45.0); MEAN CORPUSCULAR VOLUME 89 FL (80-99); MONOCYTES % (AUTO) 9.5 % (1.0-10.0); NEUTROPHILS % (AUTO) 71.9 % (45.0-75.0); PLATELET COUNT 200 K/UL (150-450); RED BLOOD COUNT 4.96 M/UL (4.70-6.10); RED CELL DISTRIBUTION WIDTH 13.8 % (11.6-14.8); WHITE BLOOD COUNT 6.9 K/UL (4.8-10.8)
--- NOTE | 2020-06-25 07:20 | NUR ---
NURSE HAND-OFF REPORT: Important Events on Shift:N/A Patient Status: STABLE Diet: CARDIAC Pending Orders: [] Pending Results/Labs:[] Pending MD notification:[] Latest Vital Signs: Temperature 97.6 , Pulse 60 , B/P 130 /78 , Respiratory Rate 20 , O2 SAT 96 , Room Air, O2 Flow Rate . Vital Sign Comment: [] EKG Rhythm: Sinus Bradycardia Rhythm change?: Y MD Notified?: N - MD Response: Latest Adkins Fall Score: 60 Fall Risk: High Risk Safety Measures: Call light Within Reach, Bed Alarm Zone 1, Side Rails Side Rails x2, Bed position Low and Locked. Fall Precautions: Yellow Socks Yellow Gown Patient Fall Education Report given to WALTER THACKER.
[2020-06-25 07:59] VITALS: BP 125/86
[2020-06-25] MEDS: Heparin 5000 units/ml inj SUBQ SCH ×2 (08:14→20:55)
[2020-06-25] MEDS: Docusate 100mg cap ORAL SCH ×2 (08:14→20:54)
--- NOTE | 2020-06-25 09:00 | NUR ---
PT NOTE Attempted to see patient for PT evaluation. Patient declining to participate with PT, states he is afraid that it will worsen his hernia. Explained to patient benefits of mobility and complications of immobility however patient continued to decline. Blue WATSON notified, will follow.
--- NOTE | 2020-06-25 09:05 | NUR ---
NURSE NOTES: Received patient from WALTER Dias. Patient is alert and oriented x4, talkative, eating breakfast. Patient denies of any pain. Bed is in lowest position, locked, bed alarm is on. Call light is within easy reach. Will continue to monitor.
--- NOTE | 2020-06-25 10:24 | Surgery Progress Note ---
Surgery Progress Note Subjective Additional Comments no acute events comfortable stable no n/v pacer tomorrow Objective Last 24 Hour Vital Signs Date Time Temp Pulse Resp B/P (MAP) Pulse Ox O2 Delivery O2 Flow Rate FiO2 06/25/20 09:00 Room Air 06/25/20 08:00 62 06/25/20 07:59 97.7 56 20 125/86 (99) 95 06/25/20 04:00 97.6 60 20 130/78 (95) 96 06/25/20 04:00 56 06/25/20 00:00 97.5 60 20 131/71 (91) 96 06/25/20 00:00 53 06/24/20 21:00 Room Air 06/24/20 20:00 57 06/24/20 20:00 97.7 60 20 133/82 (99) 97 06/24/20 16:00 97.9 54 20 114/54 (74) 95 06/24/20 16:00 47 06/24/20 12:00 72 06/24/20 12:00 97.9 56 20 141/74 (96) 96 I&O Intake and Output 06/24/20 06/25/20 19:00 07:00 Intake Total 730 ml 300 ml Output Total 550 ml Balance 180 ml 300 ml Intake Oral 730 ml 300 ml Output Urine Total 550 ml # Voids 3 # Bowel Movements 1 Cardiovascular: RSR Respiratory: clear Abdomen: soft, flat, non-tender, present bowel sounds Extremities: no edema, no tenderness, no cyanosis Laboratory Tests Test 06/25/20 06:37 White Blood Count 6.9 K/UL (4.8-10.8) Red Blood Count 4.96 M/UL (4.70-6.10) Hemoglobin 14.5 G/DL (14.2-18.0) Hematocrit 44.0 % (42.0-52.0) Mean Corpuscular Volume 89 FL (80-99) Mean Corpuscular Hemoglobin 29.2 PG (27.0-31.0) Mean Corpuscular Hemoglobin Concent 33.0 G/DL (32.0-36.0) Red Cell Distribution Width 13.8 % (11.6-14.8) Platelet Count 200 K/UL (150-450) Mean Platelet Volume 8.9 FL (6.5-10.1) Neutrophils (%) (Auto) 71.9 % (45.0-75.0) Lymphocytes (%) (Auto) 13.5 % (20.0-45.0) L Monocytes (%) (Auto) 9.5 % (1.0-10.0) Eosinophils (%) (Auto) 3.5 % (0.0-3.0) H Basophils (%) (Auto) 1.5 % (0.0-2.0) Sodium Level 139 MMOL/L (136-145) Potassium Level 3.5 MMOL/L (3.5-5.1) Chloride Level 105 MMOL/L (98-107) Carbon Dioxide Level 27 MMOL/L (21-32) Anion Gap 7 mmol/L (5-15) Blood Urea Nitrogen 9 mg/dL (7-18) Creatinine 0.9 MG/DL (0.55-1.30) Estimat Glomerular Filtration Rate > 60 mL/min (>60) Glucose Level 88 MG/DL (74-106) Calcium Level 8.6 MG/DL (8.5-10.1) Plan Problems: (1) Sinus bradycardia (2) Bifascicular block (3) Incarcerated hernia Assessment & Plan: 74-year-old male with right inguinal hernia with small bowel contents identified on CT. At the bedside easily reducible small hernia noted in the right groin. No left-sided significant hernia identified. Small umbilical defect no contents. Abdomen soft nontender nondistended. Patient has had this hernia for some time now. Identified to have bradycardia and abnormal EKG on admission. Labs noted. Cardiology work-up underway. Echo EKG labs cardiology input appreciated No acute surgical intervention at this time given reducible fairly asymptomatic inguinal hernia that is not incarcerated or strangulated. Chronic appearing as he is known about it for some time without any acute events. The abdominal cramping he experiences unlikely related to this hernia and suggestive more of a cramping than related to hernia. Do recommend repair of inguinal hernia can be done electively. Continue with cardiology work-up for the meantime. Will monitor hernia and if necessary intervene in the inpatient setting versus scheduling outpatient elective. Thank you for allowing me to participate in patient's care will follow with recommendations case discussed with cardiology patient to have pacemaker soon. will await recover prior to hernia repair if remains stable no pain no n/v/f/c no pain +flatus tolerating bm ABDOMEN: Liver: Stable hypoenhancing subcentimeter focus within the left hepatic lobe with subtle peripheral enhancement, may represent a hemangioma. Gallbladder and bile ducts: Layering density within the gallbladder. The gallbladder is partially decompressed. No calcified stones. No ductal dilation. Pancreas: Unremarkable. No mass. No ductal dilation. Spleen: Unremarkable. No splenomegaly. Adrenals: Unremarkable. No mass. Kidneys and ureters: Unremarkable. No solid mass. No hydronephrosis. Stomach and bowel: A few colonic diverticula. Large bilateral inguinal hernias. Right inguinal hernia contains a small portion of loop of small bowel. There is no evidence of inflammatory change associated. There is no obstruction. The left inguinal hernia as a internal fat contents. No mucosal thickening. PELVIS: Appendix: Appendix is normal. Bladder: Unremarkable. No mass. Reproductive: Unremarkable as visualized. ABDOMEN and PELVIS: Intraperitoneal space: Unremarkable. No free air. No significant fluid collection. Bones/joints: [place] right scoliosis of the lumbar spine. Degenerative disc disease of the lumbar spine. No severe canal narrowing. No acute fracture. No dislocation. Soft tissues: Unremarkable. Vasculature: Mild atherosclerotic vascular disease. No abdominal aortic aneurysm. Lymph nodes: Unremarkable. No enlarged lymph nodes. Other findings: Stable right posterior diaphragmatic hernia. IMPRESSION: 1. Right inguinal hernia with small bowel contents. No evidence of strangulation. 2. A few colonic diverticula without evidence of diverticulitis. 3. Small left pleural effusion and mild bibasilar atelectasis. 4. Subtle layering density within the gallbladder may represent gallbladder sludge versus small layering stones. 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
[2020-06-25 11:47] VITALS: BP 113/56
--- NOTE | 2020-06-25 12:00 | Cardiac Electrophysiology PN ---
Assessment/Plan Assessment/Plan 1. SSS and Sinus bradycardia with heart rate down to 40 . The patient also has underlying bifascicular block. Ruled out for DE. He is not on any sinus or AV lavinia blocking agents. Not hypothyroid DW patient the Risks and benefits of permanent pacemaker placement and he agrees and would like to proceed. 2. Hypertension. Blood pressure was in the 160s. Better on lisinopril 10 mg b.i.d. 3. Right inguinal hernia. Further evaluation by Dr. Li. 4. History of hypothyroidism, thyroid replacement per Dr Hernandez. Repeat TSH and T4 within normal limits. Not the cause of patient bradycardia per Dr Hernandez 5. S/P Covid in 12/2019 at [facility] 6. 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 She also agreed with pacer Subjective Subjective Continues with episodes of sinus laine in 40s and bifascicular block. No CP or SOB Objective Last 24 Hour Vital Signs Date Time Temp Pulse Resp B/P (MAP) Pulse Ox O2 Delivery O2 Flow Rate FiO2 06/25/20 11:47 97.5 52 20 113/56 (75) 94 06/25/20 09:00 Room Air 06/25/20 08:00 62 06/25/20 07:59 97.7 56 20 125/86 (99) 95 06/25/20 04:00 97.6 60 20 130/78 (95) 96 06/25/20 04:00 56 06/25/20 00:00 97.5 60 20 131/71 (91) 96 06/25/20 00:00 53 06/24/20 21:00 Room Air 06/24/20 20:00 57 06/24/20 20:00 97.7 60 20 133/82 (99) 97 06/24/20 16:00 97.9 54 20 114/54 (74) 95 06/24/20 16:00 47 06/24/20 12:00 72 06/24/20 12:00 97.9 56 20 141/74 (96) 96 Intake and Output 06/24/20 06/25/20 19:00 07:00 Intake Total 730 ml 300 ml Output Total 550 ml Balance 180 ml 300 ml Intake Oral 730 ml 300 ml Output Urine Total 550 ml # Voids 3 # Bowel Movements 1 Laboratory Tests Test 06/25/20 06:37 White Blood Count 6.9 K/UL (4.8-10.8) Red Blood Count 4.96 M/UL (4.70-6.10) Hemoglobin 14.5 G/DL (14.2-18.0) Hematocrit 44.0 % (42.0-52.0) Mean Corpuscular Volume 89 FL (80-99) Mean Corpuscular Hemoglobin 29.2 PG (27.0-31.0) Mean Corpuscular Hemoglobin Concent 33.0 G/DL (32.0-36.0) Red Cell Distribution Width 13.8 % (11.6-14.8) Platelet Count 200 K/UL (150-450) Mean Platelet Volume 8.9 FL (6.5-10.1) Neutrophils (%) (Auto) 71.9 % (45.0-75.0) Lymphocytes (%) (Auto) 13.5 % (20.0-45.0) L Monocytes (%) (Auto) 9.5 % (1.0-10.0) Eosinophils (%) (Auto) 3.5 % (0.0-3.0) H Basophils (%) (Auto) 1.5 % (0.0-2.0) Sodium Level 139 MMOL/L (136-145) Potassium Level 3.5 MMOL/L (3.5-5.1) Chloride Level 105 MMOL/L (98-107) Carbon Dioxide Level 27 MMOL/L (21-32) Anion Gap 7 mmol/L (5-15) Blood Urea Nitrogen 9 mg/dL (7-18) Creatinine 0.9 MG/DL (0.55-1.30) Estimat Glomerular Filtration Rate > 60 mL/min (>60) Glucose Level 88 MG/DL (74-106) Calcium Level 8.6 MG/DL (8.5-10.1) Microbiology Date/Time Source Procedure Growth Status 06/25/20 06:30 Nasopharynx - Final Complete 06/25/20 06:30 Nasopharynx - Final Complete 06/22/20 21:45 Nasopharynx SARS-CoV-2 RdRp Gene Assay - Final Complete 06/22/20 21:15 Rectum - Final NO CARBAPENEM-RESISTANT ENTEROBACTERI... Complete 06/22/20 21:15 Nasal Nares MRSA Culture - Final NO METHICILLIN RESISTANT STAPH AUREUS... Complete Objective HEAD AND NECK: no JVD or carotid bruits. LUNGS: Clear. CARDIOVASCULAR: Bradycardic S1 and S2 with no gallop or murmur. ABDOMEN: Soft. EXTREMITIES: No pitting edema. He has right groin inguinal hernia. Miko Causey MD Jun 25, 2020 12:00
--- NOTE | 2020-06-25 12:23 | NUR ---
NURSE NOTES: Patient noted with "consent for" order by Dr. Causey, consent for order states "permanent pacer placement by Dr. Causey". Dr. Causey at nurse station, this nurse verified with Dr. Causey regarding verbage of consent and acknowledged would like consent worded as in "consent for" order. Carried out as instructed. Per Dr. Causey already discussed procedure with patient and patient's sister. Per Dr. Causey place patient NPO at midnight for procedure tomorrow AM. Noted. Charge nurse made aware. Will continue to monitor patient.
--- NOTE | 2020-06-25 12:35 | General Progress Note ---
Subjective Constitutional: Reports: weakness Allergies: Coded Allergies: COCONUT (Unverified Allergy, Unknown, 06/13/19) Uncoded Allergies: Coconut (Allergy, Intermediate, Hives, 08/07/15) All Systems: reviewed and negative except above Subjective r inguinal pain Objective Last 24 Hour Vital Signs Date Time Temp Pulse Resp B/P (MAP) Pulse Ox O2 Delivery O2 Flow Rate FiO2 06/25/20 11:47 97.5 52 20 113/56 (75) 94 06/25/20 09:00 Room Air 06/25/20 08:00 62 06/25/20 07:59 97.7 56 20 125/86 (99) 95 06/25/20 04:00 97.6 60 20 130/78 (95) 96 06/25/20 04:00 56 06/25/20 00:00 97.5 60 20 131/71 (91) 96 06/25/20 00:00 53 06/24/20 21:00 Room Air 06/24/20 20:00 57 06/24/20 20:00 97.7 60 20 133/82 (99) 97 06/24/20 16:00 97.9 54 20 114/54 (74) 95 06/24/20 16:00 47 Intake and Output 06/24/20 06/25/20 19:00 07:00 Intake Total 730 ml 300 ml Output Total 550 ml Balance 180 ml 300 ml Intake Oral 730 ml 300 ml Output Urine Total 550 ml # Voids 3 # Bowel Movements 1 Laboratory Tests 06/25/20 06:37: White Blood Count 6.9, Red Blood Count 4.96, Hemoglobin 14.5, Hematocrit 44.0, Mean Corpuscular Volume 89, Mean Corpuscular Hemoglobin 29.2, Mean Corpuscular Hemoglobin Concent 33.0, Red Cell Distribution Width 13.8, Platelet Count 200, Mean Platelet Volume 8.9, Neutrophils (%) (Auto) 71.9, Lymphocytes (%) (Auto) 13.5L, Monocytes (%) (Auto) 9.5, Eosinophils (%) (Auto) 3.5H, Basophils (%) (Auto) 1.5, Sodium Level 139, Potassium Level 3.5, Chloride Level 105, Carbon Dioxide Level 27, Anion Gap 7, Blood Urea Nitrogen 9, Creatinine 0.9, Estimat Glomerular Filtration Rate > 60, Glucose Level 88, Calcium Level 8.6 Height (Feet): 6 Weight (Pounds): 169 General Appearance: alert EENT: normal ENT inspection Neck: normal alignment Cardiovascular: normal peripheral pulses, normal rate, regular rhythm Respiratory/Chest: chest wall non-tender, lungs clear, normal breath sounds Abdomen: normal bowel sounds, non tender, soft Extremities: normal inspection Edema: no edema noted Arm (L), no edema noted Arm (R), no edema noted Leg (L), no edema noted Leg (R), no edema noted Pedal (L), no edema noted Pedal (R), no edema noted Generalized Neurologic: responsive, motor weakness Skin: normal pigmentation, warm/dry Assessment/Plan Problem List: (1) Hernia ICD Codes: K46.9 - Unspecified abdominal hernia without obstruction or gangrene SNOMED: 23797442 (2) Bifascicular block ICD Codes: I45.2 - Bifascicular block SNOMED: 99332289 (3) Sinus bradycardia ICD Codes: R00.1 - Bradycardia, unspecified SNOMED: 35585402 (4) Anxiety ICD Codes: F41.9 - Anxiety disorder, unspecified SNOMED: 65726832 (5) HTN (hypertension) ICD Codes: I10 - Essential (primary) hypertension SNOMED: 33749202 (6) GERD (gastroesophageal reflux disease) ICD Codes: K21.9 - Gastro-esophageal reflux disease without esophagitis SNOMED: 785433939 (7) BPH (benign prostatic hyperplasia) ICD Codes: N40.0 - Benign prostatic hyperplasia without lower urinary tract symptoms SNOMED: 084060855, 025304273 (8) Cerebrovascular accident (CVA) ICD Codes: I63.9 - Cerebral infarction, unspecified SNOMED: 721109696 Status: unchanged Assessment/Plan: pt diet abx pain control cbc bmp ampending pacer Jaime Peña DO Jun 25, 2020 12:35
--- NOTE | 2020-06-25 12:47 | Infectious Diseases Prog Note ---
Assessment/Plan Abx: None Assessment: COVID19 neg -06/22 rapid covid pcr neg Afebrile No leukocytosis -u/a neg r/o URI- pt endorses dry cough and sore throat\ -influenza sc neg Abd pain/inguinal pain- no evidence of strangulation or infection -06/22 CT abd/p w/: Right inguinal hernia with small bowel contents. No evidence of strangulation. A few colonic diverticula without evidence of diverticulitis. Small left pleural effusion and mild bibasilar atelectasis. Subtle layering density within the gallbladder may represent gallbladder sludge versus small layering stones. HTN GERD hypothyroidism BPH anxiety disorder CVA 1994 SNF resident ([facility]) Plan: -Continue to monitor off abx -f/u cx -Monitor CBC/CMP, temperatures Thank you for consulting [facility]. Will continue to follow along with you. Discussed with RN. Subjective Allergies: Coded Allergies: COCONUT (Unverified Allergy, Unknown, 06/13/19) Uncoded Allergies: Coconut (Allergy, Intermediate, Hives, 08/07/15) Objective Last 24 Hour Vital Signs Date Time Temp Pulse Resp B/P (MAP) Pulse Ox O2 Delivery O2 Flow Rate FiO2 06/25/20 11:47 97.5 52 20 113/56 (75) 94 06/25/20 09:00 Room Air 06/25/20 08:00 62 06/25/20 07:59 97.7 56 20 125/86 (99) 95 06/25/20 04:00 97.6 60 20 130/78 (95) 96 06/25/20 04:00 56 06/25/20 00:00 97.5 60 20 131/71 (91) 96 06/25/20 00:00 53 06/24/20 21:00 Room Air 06/24/20 20:00 57 06/24/20 20:00 97.7 60 20 133/82 (99) 97 06/24/20 16:00 97.9 54 20 114/54 (74) 95 06/24/20 16:00 47 Height (Feet): 6 Weight (Pounds): 169 GENERAL: Slightly anxious in bed, oriented x2, in no acute distress. CARDIOVASCULAR: No murmur. LUNGS: Distant and clear. ABDOMEN: Bowel sounds positive. Nontender. Nondistended. EXTREMITIES: No cyanosis, clubbing, or edema. NEUROLOGIC: The patient moves all extremities, slightly weak. Microbiology Date/Time Source Procedure Growth Status 06/25/20 06:30 Nasopharynx - Final Complete 06/25/20 06:30 Nasopharynx - Final Complete 06/22/20 21:45 Nasopharynx SARS-CoV-2 RdRp Gene Assay - Final Complete 06/22/20 21:15 Rectum - Final NO CARBAPENEM-RESISTANT ENTEROBACTERI... Complete 06/22/20 21:15 Nasal Nares MRSA Culture - Final NO METHICILLIN RESISTANT STAPH AUREUS... Complete Laboratory Tests Test 06/25/20 06:37 White Blood Count 6.9 K/UL (4.8-10.8) Red Blood Count 4.96 M/UL (4.70-6.10) Hemoglobin 14.5 G/DL (14.2-18.0) Hematocrit 44.0 % (42.0-52.0) Mean Corpuscular Volume 89 FL (80-99) Mean Corpuscular Hemoglobin 29.2 PG (27.0-31.0) Mean Corpuscular Hemoglobin Concent 33.0 G/DL (32.0-36.0) Red Cell Distribution Width 13.8 % (11.6-14.8) Platelet Count 200 K/UL (150-450) Mean Platelet Volume 8.9 FL (6.5-10.1) Neutrophils (%) (Auto) 71.9 % (45.0-75.0) Lymphocytes (%) (Auto) 13.5 % (20.0-45.0) L Monocytes (%) (Auto) 9.5 % (1.0-10.0) Eosinophils (%) (Auto) 3.5 % (0.0-3.0) H Basophils (%) (Auto) 1.5 % (0.0-2.0) Sodium Level 139 MMOL/L (136-145) Potassium Level 3.5 MMOL/L (3.5-5.1) Chloride Level 105 MMOL/L (98-107) Carbon Dioxide Level 27 MMOL/L (21-32) Anion Gap 7 mmol/L (5-15) Blood Urea Nitrogen 9 mg/dL (7-18) Creatinine 0.9 MG/DL (0.55-1.30) Estimat Glomerular Filtration Rate > 60 mL/min (>60) Glucose Level 88 MG/DL (74-106) Calcium Level 8.6 MG/DL (8.5-10.1) Current Medications Medications (Trade) Dose Ordered Sig/Vadim Route PRN Reason Start Time Stop Time Status Last Admin Dose Admin Acetaminophen (Tylenol) 650 mg Q4H PRN ORAL Temp >100.5 06/22/20 20:15 07/22/20 20:14 Acetaminophen (Tylenol) 650 mg Q6H PRN ORAL For Pain 06/25/20 09:45 07/25/20 09:44 06/25/20 10:12 Al Hydroxide/Mg Hydroxide (Mylanta II) 30 ml Q6H PRN ORAL dyspepsia 06/22/20 20:15 07/22/20 20:14 Dextrose (Dextrose 50%) 25 ml Q30M PRN IV Hypoglycemia 06/22/20 20:15 09/20/20 20:14 Dextrose (Dextrose 50%) 50 ml Q30M PRN IV Hypoglycemia 06/22/20 20:15 09/20/20 20:14 Diphenhydramine HCl (Benadryl) 25 mg Q6H PRN ORAL Itching/Pruritis 06/22/20 20:15 07/22/20 20:14 Docusate Sodium (Colace) 100 mg EVERY 12 HOURS ORAL 06/22/20 21:00 07/22/20 20:59 06/25/20 08:14 Famotidine (Pepcid I.v.) 20 mg Q12HR IVP 06/22/20 21:00 07/22/20 20:59 06/25/20 08:14 Heparin Sodium (Porcine) (Heparin 5000 units/ml) 5,000 units EVERY 12 HOURS SUBQ 06/22/20 21:00 08/06/20 20:59 06/25/20 08:14 Lorazepam (Ativan) 1 mg Q4H PRN ORAL For Anxiety 06/22/20 20:15 06/29/20 20:14 Magnesium Hydroxide (Mom) 30 ml HSPRN PRN ORAL Constipation 06/22/20 20:15 07/22/20 20:14 Morphine Sulfate (Morphine Sulfate) 2 mg Q3H PRN IVP Moderate Pain (Pain Scale 4-6) 06/22/20 20:15 06/29/20 20:14 Nitroglycerin (Ntg) 0.4 mg Q5M PRN SL Prn Chest Pain 06/22/20 20:15 07/22/20 20:14 Ondansetron HCl (Zofran) 4 mg Q6H PRN IVP Nausea & Vomiting 06/22/20 20:15 07/22/20 20:14 Sodium Chloride 1,000 ml @ 50 mls/hr Q20H IVLG 06/22/20 21:30 07/22/20 21:29 06/25/20 06:53 Temazepam (Restoril) 15 mg DAILYPRN PRN ORAL Insomnia 06/22/20 20:15 06/29/20 20:14 Reanna Sahu M.D. Jun 25, 2020 12:47
--- NOTE | 2020-06-25 15:22 | Anethesia Preoperative Eval ---
Anesthesia Pre-op PMH/ROS General Date of Evaluation: Jun 25, 2020 Time of Evaluation: 15:18 Anesthesiologist: Kelly ASA Score: ASA 3 Mallampati Score Class I : Soft palate, uvula, fauces, pillars visible Class II: Soft palate, uvula, fauces visible Class III: Soft palate, base of uvula visible Class IV: Only hard plate visible Mallampati Classification: Class II Surgeon: Stacey Diagnosis: Bifascicular block Surgical Procedure: Permanent pacemaker placement Anesthesia History: none Family History: no anesthesia problems Allergies: Coded Allergies: COCONUT (Unverified Allergy, Unknown, 06/13/19) Uncoded Allergies: Coconut (Allergy, Intermediate, Hives, 08/07/15) Medications: see eMAR Patient NPO?: Yes Past Medical History Cardiovascular: Reports: HTN, CAD, arrhythmia Pulmonary: Denies: asthma, COPD, MYESHA, other Gastrointestinal/Genitourinary: Reports: GERD, other - BPH; Denies: CRI, ESRD Neurologic/Psychiatric: Reports: dementia, CVA, other - hemiparesis; Denies: depression/anxiety, TIA Endocrine: Reports: hypothyroidism; Denies: DM, steroids, other HEENT: Reports: cataract (L), cataract (R); Denies: glaucoma, REDDING (L), REDDING (R), other Hematology/Immune: Reports: bleeding disorder - anticoagulaterd; Denies: anemia, DVT, other Musculoskeletal/Integumentary: Reports: OA; Denies: RA, DJD, DDD, edema, other PMH Narrative: as above PSxH Narrative: see H&P Anesthesia Pre-op Phys. Exam Physician Exam Last Vital Signs Date Time Temp Pulse Resp B/P (MAP) Pulse Ox O2 Delivery O2 Flow Rate FiO2 06/25/20 12:00 69 06/25/20 11:47 97.5 20 113/56 (75) 94 06/25/20 09:00 Room Air Constitutional: NAD Neurologic: other - unable to obtaine Cardiovascular: RRR, no M/R/G Respiratory: CTA Gastrointestinal: other - some distention Airway Exam Mallampati Score: Class II MO: limited Neck: stiff ROM: limited Teeth: missing Dentures: no upper, no lower Anesthesia Pre-op A/P Labs Hematology Test 06/25/20 06:37 White Blood Count 6.9 K/UL (4.8-10.8) Red Blood Count 4.96 M/UL (4.70-6.10) Hemoglobin 14.5 G/DL (14.2-18.0) Hematocrit 44.0 % (42.0-52.0) Mean Corpuscular Volume 89 FL (80-99) Mean Corpuscular Hemoglobin 29.2 PG (27.0-31.0) Mean Corpuscular Hemoglobin Concent 33.0 G/DL (32.0-36.0) Red Cell Distribution Width 13.8 % (11.6-14.8) Platelet Count 200 K/UL (150-450) Mean Platelet Volume 8.9 FL (6.5-10.1) Neutrophils (%) (Auto) 71.9 % (45.0-75.0) Lymphocytes (%) (Auto) 13.5 % (20.0-45.0) L Monocytes (%) (Auto) 9.5 % (1.0-10.0) Eosinophils (%) (Auto) 3.5 % (0.0-3.0) H Basophils (%) (Auto) 1.5 % (0.0-2.0) Chemistry Test 06/25/20 06:37 Sodium Level 139 MMOL/L (136-145) Potassium Level 3.5 MMOL/L (3.5-5.1) Chloride Level 105 MMOL/L (98-107) Carbon Dioxide Level 27 MMOL/L (21-32) Anion Gap 7 mmol/L (5-15) Blood Urea Nitrogen 9 mg/dL (7-18) Creatinine 0.9 MG/DL (0.55-1.30) Estimat Glomerular Filtration Rate > 60 mL/min (>60) Glucose Level 88 MG/DL (74-106) Calcium Level 8.6 MG/DL (8.5-10.1) Risk Assessment & Plan Assessment: ASA 3 Plan: MAC Pre-Antibiotics Drug: as scheduled Clyde Mendoza MD Jun 25, 2020 15:22
[2020-06-25 16:00] VITALS: BP 105/59
--- NOTE | 2020-06-25 17:00 | NUR ---
NURSE NOTES: Patient signed consent for permanent pacer placement by Dr. Causey. Consent placed in chart.
--- NOTE | 2020-06-25 19:20 | NUR ---
NURSE HAND-OFF REPORT: Important Events on Shift: Patient Status: Stable Diet: Cardiac diet, NPO at midnight tonight for permanent pacer placement tomorrow AM by Dr. Causey. Endorsed accordingly. Pending Orders: None Pending Results/Labs:None Pending MD notification:None Latest Vital Signs: Temperature 97.7 , Pulse 54 , B/P 105 /59 , Respiratory Rate 20 , O2 SAT 96 , Room Air, O2 Flow Rate . Vital Sign Comment: Stable EKG Rhythm: SB with BBB Rhythm change?: N MD Notified?: N - MD Response: Latest Adkins Fall Score: 60 Fall Risk: High Risk Safety Measures: Call light Within Reach, Bed Alarm Zone 1, Side Rails Side Rails x2, Bed position Low and Locked. Fall Precautions: Yellow Socks Door Sign Patient Fall Education Report given to WALTER Pineda.
--- NOTE | 2020-06-25 19:29 | NUR ---
NURSE NOTES: Report received from Blue WATSON. Patient is noted to be alert and oriented x 4. Patient is noted to be on room air, no complaints of chest pain and shortness of breath at this time. Endorsed to Marciano WATSON that patient has history this admission of bradycardia. Patient is noted to have a heart rate of 55 BPM at the time of this note. Was endorsed to Marciano WATSON that patient is to have pacemaker placed tomorrow June 26, 2020 per orders of Doctor Oswald. Consent is noted to be signed and in patient chart. It is noted that there is an active order for patient to be NPO at midnight Patient is aware of procedure and NPO status at midnight and verbalized understanding. Patient is noted to have left wrist 22 simran IV access with fluids running per MD orders. Bed is locked and in lowest position. Call light in reach. Will continue to follow plan of care.
[2020-06-25 20:00] VITALS: BP 110/60
[2020-06-26] VITALS (14 sets, daily range): BP systolic 109–140; BP diastolic 61–78
--- NOTE | 2020-06-26 03:07 | NUR ---
NURSE NOTES: Patient used call light to call for help. Marciano WATSON checked on patient, patient had spilled urine from urinal on self and was requesting to be changed. Marciano WATSON assisted the patient with sponge bath and changed bed linen.
--- NOTE | 2020-06-26 04:00 | Consultation ---
DATE OF CONSULTATION: 06/25/2020 CONSULTING PHYSICIAN: Malena Viera MD HISTORY OF PRESENT ILLNESS: Patient is a 74-year-old white male with a history of depression, anxiety, personality, multiple medical issues, history of COVID, hypertension, COPD, BPH, and who has been admitted to the hospital for medical stabilization. Patient has been admitted due to right inguinal hernia and he presented with anxiety, irritable mood, anhedonia, worthlessness, and hopelessness. Patient is currently on Lexapro outside of the hospital. He is taking Lexapro 20 mg daily. His psychotropic medication has been stopped upon hospitalization here at [facility]. PAST PSYCHIATRIC HISTORY: Depression, anxiety. PAST MEDICAL HISTORY: As above. ALLERGIES: No known drug allergies. SUBSTANCE ABUSE HISTORY: No known history of illicit drug use or alcohol. MENTAL STATUS EXAMINATION: Alert, oriented times self, place, situation. Mood is depressed. Affect is blunted, congruent with mood. Thought process is concrete. Thought content, no suicidal or homicidal ideation. Cognition is intact. Insight and judgment is fair. ASSESSMENT: Venango I Major depressive disorder. Anxiety disorder. Venango II Deferred. Venango III As above. Venango IV Venango V PLAN: 1. We will start the patient on psychotropic medication. 2. Provide the patient with reality orientation and supportive therapy. Malena Viera M.D. DR: OH JOB#: [id number] CC:
--- NOTE | 2020-06-26 04:10 | Cardiology Report ---
APPROVED REPORT EKG Measurement Heart [id number] <Conclusion> Sinus bradycardia Right bundle branch block Left anterior fascicular block Bifascicular block Moderate voltage criteria for LVH, may be normal variant Abnormal ECG
[2020-06-26 07:19] LABS: BASOPHILS % (AUTO) 1.7 % (0.0-2.0); EOSINOPHILS % (AUTO) 4.3 % (0.0-3.0); HEMATOCRIT 42.5 % (42.0-52.0); LYMPHOCYTES % (AUTO) 15.2 % (20.0-45.0); MEAN CORPUSCULAR VOLUME 88 FL (80-99); MONOCYTES % (AUTO) 10.7 % (1.0-10.0); NEUTROPHILS % (AUTO) 68.1 % (45.0-75.0); PLATELET COUNT 218 K/UL (150-450); RED BLOOD COUNT 4.83 M/UL (4.70-6.10); RED CELL DISTRIBUTION WIDTH 14.1 % (11.6-14.8); WHITE BLOOD COUNT 6.7 K/UL (4.8-10.8)
[2020-06-26 07:27] LABS: ANION GAP 8 mmol/L (5-15); BLOOD UREA NITROGEN 10 mg/dL (7-18); CALCIUM 8.3 MG/DL (8.5-10.1); CARBON DIOXIDE 26 MMOL/L (21-32); CHLORIDE 108 MMOL/L (98-107); CREATININE 0.9 MG/DL (0.55-1.30); POTASSIUM 3.8 MMOL/L (3.5-5.1); SODIUM 142 MMOL/L (136-145)
--- NOTE | 2020-06-26 07:32 | NUR ---
NURSE HAND-OFF REPORT: Important Events on Shift: Patient to have pacemaker placed today. consent in chart. patient NPO since midnight. Patient Status: full code Diet: NPO Pending Orders: Pacemaker placement. Pending Results/Labs:none Pending MD notification: none Latest Vital Signs: Temperature 97.7 , Pulse 59 , B/P 118 /68 , Respiratory Rate 20 , O2 SAT 96 , Room Air, O2 Flow Rate . Vital Sign Comment: within normal limits. EKG Rhythm: SR w/ BBB Rhythm change?: N MD Notified?: N - MD Response: Latest Adkins Fall Score: 60 Fall Risk: High Risk Safety Measures: Call light Within Reach, Bed Alarm Zone 1, Side Rails Side Rails x2, Bed position Low and Locked. Fall Precautions: Yellow Socks Door Sign Patient Fall Education Report given to Ana Cristina WATSON.
--- NOTE | 2020-06-26 07:35 | NUR ---
NURSE NOTES: Received patient in bed. Awake, A/O x4. On room air, respirations unlabored. Patient deneis pain. IV in the Left hand, site intact. Patient is a high fall risk due to Adkins fall score of 60. Patient's room placed close to the nurse's station for safety and close monitoring. Yellow gown on, yellow socks on, bed at the lowest position, bed alarm on high sensitivity, side rails up x3, call light within reach - unable to return demonstration. CN and BACK HANGER made aware.
--- NOTE | 2020-06-26 08:57 | Surgery Progress Note ---
Surgery Progress Note Subjective Additional Comments no acute events labs noted pending pacemaker this AM no complaints Objective Last 24 Hour Vital Signs Date Time Temp Pulse Resp B/P (MAP) Pulse Ox O2 Delivery O2 Flow Rate FiO2 06/26/20 08:08 Room Air 06/26/20 08:00 97.1 73 18 120/73 (89) 97 06/26/20 04:00 49 06/26/20 04:00 97.7 59 20 118/68 (85) 96 06/26/20 00:00 98.5 55 20 140/61 (87) 96 06/26/20 00:00 55 06/25/20 21:00 Room Air 06/25/20 20:00 97.9 53 20 110/60 (77) 95 06/25/20 20:00 54 06/25/20 16:00 97.7 51 20 105/59 (74) 96 06/25/20 16:00 54 06/25/20 12:00 69 06/25/20 11:47 97.5 52 20 113/56 (75) 94 06/25/20 09:00 Room Air I&O Intake and Output 06/25/20 06/26/20 19:00 07:00 Intake Total 970 ml 790 ml Output Total 800 ml 600 ml Balance 170 ml 190 ml Intake Oral 920 ml 240 ml IV Total 50 ml 550 ml Output Urine Total 800 ml 600 ml Cardiovascular: RSR Respiratory: clear Abdomen: soft, non-tender, present bowel sounds Extremities: no edema, no tenderness, no cyanosis Laboratory Tests Test 06/26/20 06:55 White Blood Count 6.7 K/UL (4.8-10.8) Red Blood Count 4.83 M/UL (4.70-6.10) Hemoglobin 14.0 G/DL (14.2-18.0) L Hematocrit 42.5 % (42.0-52.0) Mean Corpuscular Volume 88 FL (80-99) Mean Corpuscular Hemoglobin 29.0 PG (27.0-31.0) Mean Corpuscular Hemoglobin Concent 32.9 G/DL (32.0-36.0) Red Cell Distribution Width 14.1 % (11.6-14.8) Platelet Count 218 K/UL (150-450) Mean Platelet Volume 8.3 FL (6.5-10.1) Neutrophils (%) (Auto) 68.1 % (45.0-75.0) Lymphocytes (%) (Auto) 15.2 % (20.0-45.0) L Monocytes (%) (Auto) 10.7 % (1.0-10.0) H Eosinophils (%) (Auto) 4.3 % (0.0-3.0) H Basophils (%) (Auto) 1.7 % (0.0-2.0) Sodium Level 142 MMOL/L (136-145) Potassium Level 3.8 MMOL/L (3.5-5.1) Chloride Level 108 MMOL/L (98-107) H Carbon Dioxide Level 26 MMOL/L (21-32) Anion Gap 8 mmol/L (5-15) Blood Urea Nitrogen 10 mg/dL (7-18) Creatinine 0.9 MG/DL (0.55-1.30) Estimat Glomerular Filtration Rate > 60 mL/min (>60) Glucose Level 87 MG/DL (74-106) Calcium Level 8.3 MG/DL (8.5-10.1) L Plan Problems: (1) Sinus bradycardia (2) Bifascicular block (3) Incarcerated hernia Assessment & Plan: 74-year-old male with right inguinal hernia with small bowel contents identified on CT. At the bedside easily reducible small hernia noted in the right groin. No left-sided significant hernia identified. Small umbilical defect no contents. Abdomen soft nontender nondistended. Patient has had this hernia for some time now. Identified to have bradycardia and abnormal EKG on admission. Labs noted. Cardiology work-up underway. Echo EKG labs cardiology input appreciated No acute surgical intervention at this time given reducible fairly asymptomatic inguinal hernia that is not incarcerated or strangulated. Chronic appearing as he is known about it for some time without any acute events. The abdominal cramping he experiences unlikely related to this hernia and suggestive more of a cramping than related to hernia. Do recommend repair of inguinal hernia can be done electively. Continue with cardiology work-up for the meantime. Will monitor hernia and if necessary intervene in the inpatient setting versus scheduling outpatient elective. Thank you for allowing me to participate in patient's care will follow with recommendations case discussed with cardiology patient to have pacemaker soon. will await recover prior to hernia repair if remains stable no pain no n/v/f/c no pain +flatus tolerating bm ABDOMEN: Liver: Stable hypoenhancing subcentimeter focus within the left hepatic lobe with subtle peripheral enhancement, may represent a hemangioma. Gallbladder and bile ducts: Layering density within the gallbladder. The gallbladder is partially decompressed. No calcified stones. No ductal dilation. Pancreas: Unremarkable. No mass. No ductal dilation. Spleen: Unremarkable. No splenomegaly. Adrenals: Unremarkable. No mass. Kidneys and ureters: Unremarkable. No solid mass. No hydronephrosis. Stomach and bowel: A few colonic diverticula. Large bilateral inguinal hernias. Right inguinal hernia contains a small portion of loop of small bowel. There is no evidence of inflammatory change associated. There is no obstruction. The left inguinal hernia as a internal fat contents. No mucosal thickening. PELVIS: Appendix: Appendix is normal. Bladder: Unremarkable. No mass. Reproductive: Unremarkable as visualized. ABDOMEN and PELVIS: Intraperitoneal space: Unremarkable. No free air. No significant fluid collection. Bones/joints: [place] right scoliosis of the lumbar spine. Degenerative disc disease of the lumbar spine. No severe canal narrowing. No acute fracture. No dislocation. Soft tissues: Unremarkable. Vasculature: Mild atherosclerotic vascular disease. No abdominal aortic aneurysm. Lymph nodes: Unremarkable. No enlarged lymph nodes. Other findings: Stable right posterior diaphragmatic hernia. IMPRESSION: 1. Right inguinal hernia with small bowel contents. No evidence of strangulation. 2. A few colonic diverticula without evidence of diverticulitis. 3. Small left pleural effusion and mild bibasilar atelectasis. 4. Subtle layering density within the gallbladder may represent gallbladder sludge versus small layering stones. 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
[2020-06-26] MEDS: Heparin 5000 units/ml inj SUBQ SCH ×2 (09:00→21:00)
[2020-06-26] MEDS: Docusate 100mg cap ORAL SCH ×2 (09:00→21:00)
--- NOTE | 2020-06-26 09:00 | NUR ---
NURSE NOTES: Patient refused PO colace, patient states "I do not need it. My BM is loose." Subcut heparin held d/t procedure today.
--- NOTE | 2020-06-26 09:31 | General Progress Note ---
Subjective Constitutional: Reports: weakness Allergies: Coded Allergies: COCONUT (Unverified Allergy, Unknown, 06/13/19) Uncoded Allergies: Coconut (Allergy, Intermediate, Hives, 08/07/15) All Systems: reviewed and negative except above Subjective r inguinal pain Objective Last 24 Hour Vital Signs Date Time Temp Pulse Resp B/P (MAP) Pulse Ox O2 Delivery O2 Flow Rate FiO2 06/26/20 08:08 Room Air 06/26/20 08:00 97.1 73 18 120/73 (89) 97 06/26/20 04:00 49 06/26/20 04:00 97.7 59 20 118/68 (85) 96 06/26/20 00:00 98.5 55 20 140/61 (87) 96 06/26/20 00:00 55 06/25/20 21:00 Room Air 06/25/20 20:00 97.9 53 20 110/60 (77) 95 06/25/20 20:00 54 06/25/20 16:00 97.7 51 20 105/59 (74) 96 06/25/20 16:00 54 06/25/20 12:00 69 06/25/20 11:47 97.5 52 20 113/56 (75) 94 Intake and Output 06/25/20 06/26/20 19:00 07:00 Intake Total 970 ml 790 ml Output Total 800 ml 600 ml Balance 170 ml 190 ml Intake Oral 920 ml 240 ml IV Total 50 ml 550 ml Output Urine Total 800 ml 600 ml Laboratory Tests 06/26/20 06:55: White Blood Count 6.7, Red Blood Count 4.83, Hemoglobin 14.0L, Hematocrit 42.5, Mean Corpuscular Volume 88, Mean Corpuscular Hemoglobin 29.0, Mean Corpuscular Hemoglobin Concent 32.9, Red Cell Distribution Width 14.1, Platelet Count 218, Mean Platelet Volume 8.3, Neutrophils (%) (Auto) 68.1, Lymphocytes (%) (Auto) 15.2L, Monocytes (%) (Auto) 10.7H, Eosinophils (%) (Auto) 4.3H, Basophils (%) (Auto) 1.7, Sodium Level 142, Potassium Level 3.8, Chloride Level 108H, Carbon Dioxide Level 26, Anion Gap 8, Blood Urea Nitrogen 10, Creatinine 0.9, Estimat Glomerular Filtration Rate > 60, Glucose Level 87, Calcium Level 8.3L Height (Feet): 6 Weight (Pounds): 170 General Appearance: lethargic EENT: normal ENT inspection Neck: normal alignment Cardiovascular: normal peripheral pulses, normal rate, regular rhythm Respiratory/Chest: chest wall non-tender, lungs clear, normal breath sounds Abdomen: normal bowel sounds, non tender, soft Extremities: normal inspection Edema: no edema noted Arm (L), no edema noted Arm (R), no edema noted Leg (L), no edema noted Leg (R), no edema noted Pedal (L), no edema noted Pedal (R), no edema noted Generalized Neurologic: motor weakness Skin: normal pigmentation, warm/dry Assessment/Plan Problem List: (1) Hernia ICD Codes: K46.9 - Unspecified abdominal hernia without obstruction or gangrene SNOMED: 45987326 (2) Bifascicular block ICD Codes: I45.2 - Bifascicular block SNOMED: 45341014 (3) Sinus bradycardia ICD Codes: R00.1 - Bradycardia, unspecified SNOMED: 09838580 (4) Anxiety ICD Codes: F41.9 - Anxiety disorder, unspecified SNOMED: 21600798 (5) HTN (hypertension) ICD Codes: I10 - Essential (primary) hypertension SNOMED: 60927403 (6) GERD (gastroesophageal reflux disease) ICD Codes: K21.9 - Gastro-esophageal reflux disease without esophagitis SNOMED: 431722467 (7) BPH (benign prostatic hyperplasia) ICD Codes: N40.0 - Benign prostatic hyperplasia without lower urinary tract symptoms SNOMED: 384111869, 405222496 (8) Cerebrovascular accident (CVA) ICD Codes: I63.9 - Cerebral infarction, unspecified SNOMED: 696523997 Status: unchanged Assessment/Plan: pt diet abx pain control cbc bmp am pending pacer Jaime Peña DO Jun 26, 2020 09:31
--- NOTE | 2020-06-26 10:22 | NUR ---
*-*DISCHARGE PLANNING*-* PATIENT HAS BEEN REFERRED TO: HALEY WARREN P: [phone]
--- NOTE | 2020-06-26 10:28 | NUR ---
PT NOTE Patient declining to participate with PT, scheduled for pacemaker insertion later today. Will discharge patient from PT as patient has declined to participate with PT x 3 days. Ivan WATSON notified.
--- NOTE | 2020-06-26 11:40 | Infectious Diseases Prog Note ---
Assessment/Plan Assessment: COVID19 neg -06/22 rapid covid pcr neg Afebrile No leukocytosis -u/a neg r/o URI- pt endorses dry cough and sore throat -influenza sc neg Abd pain/inguinal pain- no evidence of strangulation or infection -06/22 CT abd/p w/: Right inguinal hernia with small bowel contents. No evidence of strangulation. A few colonic diverticula without evidence of diverticulitis. Small left pleural effusion and mild bibasilar atelectasis. Subtle layering density within the gallbladder may represent gallbladder sludge versus small layering stones. Bradycardia HTN GERD hypothyroidism BPH anxiety disorder CVA 1994 SNF resident ([facility]) Plan: -Continue to monitor off abx -f/u cx -Monitor CBC/CMP, temperatures -for PPM insertion today Thank you for consulting [facility]. Will continue to follow along with you. Discussed with RN. Subjective Allergies: Coded Allergies: COCONUT (Unverified Allergy, Unknown, 06/13/19) Uncoded Allergies: Coconut (Allergy, Intermediate, Hives, 08/07/15) afebrile off abx for PPM today Objective Last 24 Hour Vital Signs Date Time Temp Pulse Resp B/P (MAP) Pulse Ox O2 Delivery O2 Flow Rate FiO2 06/26/20 08:08 Room Air 06/26/20 08:00 54 06/26/20 08:00 97.1 73 18 120/73 (89) 97 06/26/20 04:00 49 06/26/20 04:00 97.7 59 20 118/68 (85) 96 06/26/20 00:00 98.5 55 20 140/61 (87) 96 06/26/20 00:00 55 06/25/20 21:00 Room Air 06/25/20 20:00 97.9 53 20 110/60 (77) 95 06/25/20 20:00 54 06/25/20 16:00 97.7 51 20 105/59 (74) 96 06/25/20 16:00 54 06/25/20 12:00 69 06/25/20 11:47 97.5 52 20 113/56 (75) 94 Height (Feet): 6 Weight (Pounds): 170 GENERAL: Slightly anxious in bed, oriented x2, in no acute distress. CARDIOVASCULAR: No murmur. LUNGS: Distant and clear. ABDOMEN: Bowel sounds positive. Nontender. Nondistended. EXTREMITIES: No cyanosis, clubbing, or edema. NEUROLOGIC: The patient moves all extremities, slightly weak. Microbiology Date/Time Source Procedure Growth Status 06/25/20 06:30 Nasopharynx - Final Complete 06/25/20 06:30 Nasopharynx - Final Complete Laboratory Tests Test 06/26/20 06:55 White Blood Count 6.7 K/UL (4.8-10.8) Red Blood Count 4.83 M/UL (4.70-6.10) Hemoglobin 14.0 G/DL (14.2-18.0) L Hematocrit 42.5 % (42.0-52.0) Mean Corpuscular Volume 88 FL (80-99) Mean Corpuscular Hemoglobin 29.0 PG (27.0-31.0) Mean Corpuscular Hemoglobin Concent 32.9 G/DL (32.0-36.0) Red Cell Distribution Width 14.1 % (11.6-14.8) Platelet Count 218 K/UL (150-450) Mean Platelet Volume 8.3 FL (6.5-10.1) Neutrophils (%) (Auto) 68.1 % (45.0-75.0) Lymphocytes (%) (Auto) 15.2 % (20.0-45.0) L Monocytes (%) (Auto) 10.7 % (1.0-10.0) H Eosinophils (%) (Auto) 4.3 % (0.0-3.0) H Basophils (%) (Auto) 1.7 % (0.0-2.0) Sodium Level 142 MMOL/L (136-145) Potassium Level 3.8 MMOL/L (3.5-5.1) Chloride Level 108 MMOL/L (98-107) H Carbon Dioxide Level 26 MMOL/L (21-32) Anion Gap 8 mmol/L (5-15) Blood Urea Nitrogen 10 mg/dL (7-18) Creatinine 0.9 MG/DL (0.55-1.30) Estimat Glomerular Filtration Rate > 60 mL/min (>60) Glucose Level 87 MG/DL (74-106) Calcium Level 8.3 MG/DL (8.5-10.1) L Current Medications Medications (Trade) Dose Ordered Sig/Vadim Route PRN Reason Start Time Stop Time Status Last Admin Dose Admin Acetaminophen (Tylenol) 650 mg Q4H PRN ORAL Temp >100.5 06/22/20 20:15 07/22/20 20:14 Acetaminophen (Tylenol) 650 mg Q6H PRN ORAL For Pain 06/25/20 09:45 07/25/20 09:44 06/25/20 10:12 Al Hydroxide/Mg Hydroxide (Mylanta II) 30 ml Q6H PRN ORAL dyspepsia 06/22/20 20:15 07/22/20 20:14 Dextrose (Dextrose 50%) 25 ml Q30M PRN IV Hypoglycemia 06/22/20 20:15 09/20/20 20:14 Dextrose (Dextrose 50%) 50 ml Q30M PRN IV Hypoglycemia 06/22/20 20:15 09/20/20 20:14 Diphenhydramine HCl (Benadryl) 25 mg Q6H PRN ORAL Itching/Pruritis 06/22/20 20:15 07/22/20 20:14 Docusate Sodium (Colace) 100 mg EVERY 12 HOURS ORAL 06/22/20 21:00 07/22/20 20:59 06/25/20 20:54 Escitalopram Oxalate (Lexapro) 20 mg DAILY ORAL 06/26/20 09:00 07/26/20 08:59 06/26/20 09:12 Famotidine (Pepcid I.v.) 20 mg Q12HR IVP 06/22/20 21:00 07/22/20 20:59 06/26/20 09:12 Heparin Sodium (Porcine) (Heparin 5000 units/ml) 5,000 units EVERY 12 HOURS SUBQ 06/22/20 21:00 08/06/20 20:59 06/25/20 08:14 Lorazepam (Ativan) 1 mg Q4H PRN ORAL For Anxiety 06/22/20 20:15 06/29/20 20:14 Magnesium Hydroxide (Mom) 30 ml HSPRN PRN ORAL Constipation 06/22/20 20:15 07/22/20 20:14 Morphine Sulfate (Morphine Sulfate) 2 mg Q3H PRN IVP Moderate Pain (Pain Scale 4-6) 06/22/20 20:15 06/29/20 20:14 Nitroglycerin (Ntg) 0.4 mg Q5M PRN SL Prn Chest Pain 06/22/20 20:15 07/22/20 20:14 Ondansetron HCl (Zofran) 4 mg Q6H PRN IVP Nausea & Vomiting 06/22/20 20:15 07/22/20 20:14 Sodium Chloride 1,000 ml @ 50 mls/hr Q20H IVLG 06/22/20 21:30 07/22/20 21:29 06/26/20 01:10 Temazepam (Restoril) 15 mg DAILYPRN PRN ORAL Insomnia 06/22/20 20:15 06/29/20 20:14 Reanna Sahu M.D. Jun 26, 2020 11:40
[2020-06-26] MEDS ORDERED: Midazolam 2mg/2ml Inj ONE (11:46)
[2020-06-26] MEDS ORDERED: fentaNYL 100 mcg/2 mL IV ONE (11:46)
--- NOTE | 2020-06-26 12:17 | NUR ---
NURSE NOTES: Patient sent off unit for pacemaker procedure.
[2020-06-26] MEDS ORDERED: Heparin 1000 units/ml 1ml Vial ONE (12:26)
[2020-06-26] MEDS ORDERED: Lidocaine 1% Plain 30 ml INJ ONE (12:27)
[2020-06-26] MEDS ORDERED: Lidocaine 1% MPF 10mg/ml 5ml ONE (12:27)
--- NOTE | 2020-06-26 13:13 | Pre-Procedure Note/Attestation ---
Pre-Procedure Note/Attestation Complete Prior to Procedure Planned Procedure: left Procedure Narrative: Permanent Pacer placement Indications for Procedure Pre-Operative Diagnosis: SSS. Heart block Attestation I attest that I discussed the nature of the procedure; its benefits; risks and complications; and alternatives (and the risks and benefits of such alternatives), prior to the procedure, with the patient (or the patient's legal inbound sales representative). I attest that, if there was a reasonable possibility of needing a blood transfusion, the patient (or the patient's legal inbound sales representative) was given the [facility] standardized written summary, pursuant to the [place] Blood Safety Act ([place] Health and Safety Code # 1645, as amended). I attest that I re-evaluated the patient just prior to the surgery and that there has been no change in the patient's H&P, except as documented below: Miko Causey MD Jun 26, 2020 13:13
[2020-06-26] MEDS ORDERED: fentaNYL 100 mcg/2 mL IV PRN (13:45)
[2020-06-26] MEDS ORDERED: LR 1000ml 1,000 ML IVLG SCH (13:45)
--- NOTE | 2020-06-26 14:19 | Cardiac Electrophysiology PN ---
Assessment/Plan Assessment/Plan 1. SSS and Sinus bradycardia with heart rate down to 40 as well as underlying bifascicular block. Ruled out for LA. He is not on any sinus or AV lavinia blocking agents. Not hypothyroid DW patient the Risks and benefits of permanent pacemaker placement and he agreed to proceed. S/P DDD [facility] pacer implantation today 2. Hypertension. Blood pressure was in the 160s. Better on lisinopril 10 mg b.i.d. 3. Right inguinal hernia. Further evaluation by Dr. Li. 4. History of hypothyroidism, thyroid replacement per Dr Hernandez. Repeat TSH and T4 within normal limits. Not the cause of patient bradycardia per Dr Hernandez 5. S/P Covid in 12/2019 at [facility] [facility] 6. S/P CVA at [facility] >15 years ago with Left hemipareis DW patients sister Ms. Adore Richardson at [phone] today after the Pacer as well Their brother Star also had a pacer. Subjective Subjective Underwent successful dual chamber pacer implantation. Objective Last 24 Hour Vital Signs Date Time Temp Pulse Resp B/P (MAP) Pulse Ox O2 Delivery O2 Flow Rate FiO2 06/26/20 12:00 97.2 82 19 109/72 (84) 97 06/26/20 12:00 58 06/26/20 08:08 Room Air 06/26/20 08:00 54 06/26/20 08:00 97.1 73 18 120/73 (89) 97 06/26/20 04:00 49 06/26/20 04:00 97.7 59 20 118/68 (85) 96 06/26/20 00:00 98.5 55 20 140/61 (87) 96 06/26/20 00:00 55 06/25/20 21:00 Room Air 06/25/20 20:00 97.9 53 20 110/60 (77) 95 06/25/20 20:00 54 06/25/20 16:00 97.7 51 20 105/59 (74) 96 06/25/20 16:00 54 Intake and Output 06/25/20 06/26/20 18:59 06:59 Intake Total 920 ml 840 ml Output Total 800 ml 600 ml Balance 120 ml 240 ml Intake Oral 920 ml 240 ml IV Total 600 ml Output Urine Total 800 ml 600 ml Laboratory Tests Test 06/26/20 06:55 White Blood Count 6.7 K/UL (4.8-10.8) Red Blood Count 4.83 M/UL (4.70-6.10) Hemoglobin 14.0 G/DL (14.2-18.0) L Hematocrit 42.5 % (42.0-52.0) Mean Corpuscular Volume 88 FL (80-99) Mean Corpuscular Hemoglobin 29.0 PG (27.0-31.0) Mean Corpuscular Hemoglobin Concent 32.9 G/DL (32.0-36.0) Red Cell Distribution Width 14.1 % (11.6-14.8) Platelet Count 218 K/UL (150-450) Mean Platelet Volume 8.3 FL (6.5-10.1) Neutrophils (%) (Auto) 68.1 % (45.0-75.0) Lymphocytes (%) (Auto) 15.2 % (20.0-45.0) L Monocytes (%) (Auto) 10.7 % (1.0-10.0) H Eosinophils (%) (Auto) 4.3 % (0.0-3.0) H Basophils (%) (Auto) 1.7 % (0.0-2.0) Sodium Level 142 MMOL/L (136-145) Potassium Level 3.8 MMOL/L (3.5-5.1) Chloride Level 108 MMOL/L (98-107) H Carbon Dioxide Level 26 MMOL/L (21-32) Anion Gap 8 mmol/L (5-15) Blood Urea Nitrogen 10 mg/dL (7-18) Creatinine 0.9 MG/DL (0.55-1.30) Estimat Glomerular Filtration Rate > 60 mL/min (>60) Glucose Level 87 MG/DL (74-106) Calcium Level 8.3 MG/DL (8.5-10.1) L Microbiology Date/Time Source Procedure Growth Status 06/25/20 06:30 Nasopharynx - Final Complete 06/25/20 06:30 Nasopharynx - Final Complete Objective HEAD AND NECK: no JVD or carotid bruits. LUNGS: Clear. CARDIOVASCULAR: Regular S1 and S2 with no gallop or murmur. Pacer in left subclavian area ABDOMEN: Soft. EXTREMITIES: No pitting edema. He has right groin inguinal hernia. Miko Causey MD Jun 26, 2020 14:19
--- NOTE | 2020-06-26 14:24 | Immediate Post-Op Evaluation ---
Immediate Post-Op Evalulation Immediate Post-Op Evalulation Procedure: Permanent pacemaker placement Date of Evaluation: Jun 26, 2020 Time of Evaluation: 14:23 IV Fluids: 200 Blood Products: none Estimated Blood Loss: min Urinary Output: none Blood Pressure Systolic: 129 Blood Pressure Diastolic: 76 Pulse Rate: 60 Respiratory Rate: 20 O2 Sat by Pulse Oximetry: 99 Temperature (Fahrenheit): 97.6 Pain Score (1-10): 1 Nausea: No Vomiting: No Complications none Patient Status: awake, patent, none Hydration Status: adequate Clyde Mendoza MD Jun 26, 2020 14:24
--- NOTE | 2020-06-26 14:25 | Brief Operative Note ---
Immediate Post Operative Note Operative Note Pre-op Diagnosis: SSS. Heart block Procedure: Successful [facility] DDD pacer implant dictated [id number] Post-op Diagnosis: same as pre-op Surgeon: YENI CAUSEY Anesthesia: MAC Specimen: none Complications: none Condition: stable Fluids: nONE Estimated Blood Loss: minimal Drains: none Implant(s) used?: Yes Yeni Causey MD Jun 26, 2020 14:25
[2020-06-26] MEDS ORDERED: Morphine Sulfate 2mg/ml Inj(IV/IM USE ONLY) IVP PRN (14:30)
--- NOTE | 2020-06-26 16:27 | Diagnostic Imaging Report ---
INDICATION: Pain, intraoperative TECHNIQUE: Intraoperative imaging Fluoroscopy time: 63.1 seconds Total dose: 0.99396 mGym2 Total number of images: One COMPARISON: None FINDINGS: Intraoperative images document pacemaker leads within the right atrium and right ventricle. IMPRESSION: Intraoperative imaging, as described
[2020-06-26] MEDS: Tylenol #3 tab (300mg/30mg) ORAL PRN ×2 (16:46→20:46)
--- NOTE | 2020-06-26 16:47 | NUR ---
NURSE NOTES: Patient weaned off of oxygen. Saturating 96%. Respirations unlabored. Patient urinated 100 mL.
--- NOTE | 2020-06-26 17:30 | Operative Note - Dictated ---
DATE OF OPERATION: 06/26/2020 DUAL-CHAMBER PERMANENT PACEMAKER IMPLANTATION SURGEON: Miko Causey MD INDICATION FOR PROCEDURE: Sick sinus syndrome and bradycardia in a patient who also has underlying bifascicular block. PROCEDURES PERFORMED: 1. Dual-chamber permanent pacemaker implantation. 2. Fluoroscopic supervision and interpretation. 3. Pacemaker programming during initial implant. OPERATIVE REPORT: Patient was brought into operating room in a fasting state and after informed consent was obtained. Patient was prepped and draped in usual fashion. Conscious sedation was provided by the anesthesiologist. After prep and drape under sterile condition and after patient received IV antibiotics, a total of 30 mL lidocaine was given to left prepectoralis area. An incision was made along the left deltopectoral groove. Sharp and blunt dissection was made to the level of pectoralis fascia. The cephalic vein was isolated and cutdown was performed. The right atrial and right ventricular lead was placed through this access and was placed in right atrial appendage. Right ventricular apex with excellent sensing and pacing parameters. Both these were affixed to underlying pectoralis fascia. The pocket was made close to the venous access site and was irrigated with antibiotic solution. The pacemaker was then connected to the leads and was left in the pocket. The pocket was closed in three layers using 2-0 Vicryl and Dermabond. Patient suffered no immediate complications from the procedure and was transferred to recovery room in stable condition. FINDINGS: The pacemaker is from [employer]. Its model number [id number], serial number #[id number]. The atrial lead is from [employer]. It is 2088TC, 52 centimeter, serial number #[id number]. Right ventricular lead is from [employer]. It is 2088TC 58 centimeter, serial number #[id number]. The P-wave amplitude is more than 5 millivolts. Threshold is 0.75 volts at 0.4 milliseconds, impedance of 430 ohms. R-wave is 5.4 millivolts, threshold is 1 volt at 0.4 milliseconds, impedance of 730 ohms. IMPRESSION: 1. Successful dual-chamber permanent pacemaker implantation. 2. Pacemaker was programmed, lower rate 60, upper rate of 120. 3. No immediate complications from the procedure. Miko Causey M.D. DR: BIANCA JOB#: [id number] CC:
[2020-06-26] MEDS ORDERED: NS 55ml IV ONE (18:10)
[2020-06-26] MEDS ORDERED: Sterile Water Irrig 1000ml IRRIG ONE (18:10)
--- NOTE | 2020-06-26 18:56 | NUR ---
NURSE HAND-OFF REPORT: Important Events on Shift:[pacemaker placement] Patient Status: [ FULL CODE] Diet: [cardiac] Pending Orders: [] Pending Results/Labs:[] Pending MD notification:[] Latest Vital Signs: Temperature 98.7 , Pulse 61 , B/P 121 /78 , Respiratory Rate 20 , O2 SAT 99 , Nasal Cannula, O2 Flow Rate 3.0 . Vital Sign Comment: [] EKG Rhythm: Sinus Rhythm Rhythm change?: N MD Notified?: N - MD Response: Latest Adkins Fall Score: 60 Fall Risk: High Risk Safety Measures: Call light Within Reach, Bed Alarm Zone 1, Side Rails Side Rails x2, Bed position Low and Locked. Fall Precautions: Yellow Socks Door Sign Patient Fall Education Report given to [Jeancarlos RN].
--- NOTE | 2020-06-26 19:45 | NUR ---
Pt received from WALTER Love. Pt is resting comfortably in bed and denies pain. Pt is A/O x4 and on bedrest for general weakness and fall risk. Pt is post permanent pacemaker status and SR/A-Paced and asymptomatic. Pt uses urinal at bedside. Pt is breathing unlabored on RA and asymptomatic. Pt has LH 22G running NS 50 ml/hr patent with skin dry and intact. Bed is locked in lowest position with call light within reach. Will continue to monitor.
--- NOTE | 2020-06-26 20:22 | Diagnostic Imaging Report ---
Indication: Status post pacemaker placement Technique: One view of the chest Comparison: 06/13/2019 Findings: Interim placement left chest pacemaker, lead tips in the expected level of the right atrium and right ventricular apex. There is some pleural thickening on the left. There is basilar atelectasis or scarring on the left. These findings are unchanged. The heart size is normal. There is no pneumothorax Impression: Satisfactory pacemaker placement. No radiographically evident complication
[2020-06-26] MEDS: ceFAZolin sod 1 GM in D5W 55 ML IVP SCH (20:46)
--- NOTE | 2020-06-26 22:47 | Psychiatric Progress Note ---
Psychiatry Progress Note Psychiatry Progress Note Medications Current Medications Medications (Trade) Dose Ordered Sig/Vadim Route PRN Reason Start Time Stop Time Status Last Admin Dose Admin Acetaminophen (Tylenol) 650 mg Q6H PRN ORAL Temp >100.5 06/26/20 14:30 07/26/20 14:29 Acetaminophen (Tylenol) 650 mg Q6H PRN ORAL Mild Pain (Pain Scale 1-3) 06/26/20 15:00 07/26/20 14:59 Acetaminophen/ Codeine Phosphate (Tylenol #3) 1 tab Q4H PRN ORAL Moderate Pain (Pain Scale 4-6) 06/26/20 14:30 07/03/20 14:29 06/26/20 20:46 Al Hydroxide/Mg Hydroxide (Mylanta II) 30 ml Q6H PRN ORAL dyspepsia 06/22/20 20:15 07/22/20 20:14 Cefazolin Sodium 1 gm/Dextrose 55 ml @ 110 mls/hr Q8HR IVP 06/26/20 22:00 07/03/20 21:59 06/26/20 20:46 Dextrose (Dextrose 50%) 25 ml Q30M PRN IV Hypoglycemia 06/22/20 20:15 09/20/20 20:14 Dextrose (Dextrose 50%) 50 ml Q30M PRN IV Hypoglycemia 06/22/20 20:15 09/20/20 20:14 Diphenhydramine HCl (Benadryl) 25 mg Q6H PRN ORAL Itching/Pruritis 06/22/20 20:15 07/22/20 20:14 Docusate Sodium (Colace) 100 mg EVERY 12 HOURS ORAL 06/22/20 21:00 07/22/20 20:59 06/25/20 20:54 Escitalopram Oxalate (Lexapro) 20 mg DAILY ORAL 06/26/20 09:00 07/26/20 08:59 06/26/20 09:12 Famotidine (Pepcid I.v.) 20 mg Q12HR IVP 06/22/20 21:00 07/22/20 20:59 06/26/20 20:46 Heparin Sodium (Porcine) (Heparin 5000 units/ml) 5,000 units EVERY 12 HOURS SUBQ 06/22/20 21:00 08/06/20 20:59 06/25/20 08:14 Lorazepam (Ativan) 1 mg Q4H PRN ORAL For Anxiety 06/22/20 20:15 06/29/20 20:14 Magnesium Hydroxide (Mom) 30 ml HSPRN PRN ORAL Constipation 06/22/20 20:15 07/22/20 20:14 Morphine Sulfate (Morphine Sulfate) 2 mg Q1H PRN IVP Severe Pain (Pain Scale 7-10) 06/26/20 14:30 07/03/20 14:29 Morphine Sulfate (Morphine Sulfate) 2 mg Q3H PRN IVP Moderate Pain (Pain Scale 4-6) 06/22/20 20:15 06/29/20 20:14 Nitroglycerin (Ntg) 0.4 mg Q5M PRN SL Prn Chest Pain 06/22/20 20:15 07/22/20 20:14 Ondansetron HCl (Zofran) 4 mg Q6H PRN IVP Nausea & Vomiting 06/26/20 14:30 07/26/20 14:29 Sodium Chloride 1,000 ml @ 50 mls/hr Q20H IVLG 06/22/20 21:30 07/22/20 21:29 06/26/20 01:10 Temazepam (Restoril) 15 mg DAILYPRN PRN ORAL Insomnia 06/22/20 20:15 06/29/20 20:14 06/26/20 20:45 Neurological/Psychiatric: Reports: anxiety, depressed, emotional problems Allergies: Coded Allergies: COCONUT (Unverified Allergy, Unknown, 06/13/19) Uncoded Allergies: Coconut (Allergy, Intermediate, Hives, 08/07/15) Objective Data Height (Feet): 6 Height (Inches): 0.00 Weight (Pounds): 170 General Appearance: lethargic Additional Comments: Alert, oriented times self, place, situation. Mood is depressed. Affect is blunted, congruent with mood. Thought process is concrete. Thought content, no suicidal or homicidal ideation. Cognition is intact. Insight and judgment is fair. Assessment/Plan Status: unchanged Assessment/Plan: ASSESSMENT: Parlin I Major depressive disorder. Anxiety disorder. Parlin II Deferred. Parlin III As above. Parlin IV Parlin V PLAN: 1. We will start the patient on psychotropic medication. 2. Provide the patient with reality orientation and supportive therapy. Malena Viera MD Jun 26, 2020 22:47
[2020-06-27] VITALS: BP 110/71
[2020-06-27 04:00] VITALS: BP 138/85
[2020-06-27] MEDS: ceFAZolin sod 1 GM in D5W 55 ML IVP SCH ×2 (05:37→13:57)
[2020-06-27] MEDS: Tylenol #3 tab (300mg/30mg) ORAL PRN ×2 (05:38→11:42)
--- NOTE | 2020-06-27 06:53 | NUR ---
NURSE HAND-OFF REPORT: Important Events on Shift:pt is post-pacemaker placement Patient Status: Stable Diet: Cardiac Diet Pending Orders: Pending Results/Labs:AM Labs Pending MD notification: Latest Vital Signs: Temperature 97.2 , Pulse 60 , B/P 138 /85 , Respiratory Rate 18 , O2 SAT 94 , Room Air, O2 Flow Rate 3.0 . Vital Sign Comment: VSS EKG Rhythm: A-Paced Rhythm change?: N MD Notified?: N - MD Response: Latest Adkins Fall Score: 60 Fall Risk: High Risk Safety Measures: Call light Within Reach, Bed Alarm Zone 1, Side Rails Side Rails x2, Bed position Low and Locked. Fall Precautions: Yellow Socks Door Sign Patient Fall Education Report given to WALTER Love.
[2020-06-27 07:29] LABS: BASOPHILS % (AUTO) 2.5 % (0.0-2.0); EOSINOPHILS % (AUTO) 3.5 % (0.0-3.0); HEMATOCRIT 41.5 % (42.0-52.0); HEMOGLOBIN 13.6 G/DL (14.2-18.0); MEAN CORPUSCULAR VOLUME 89 FL (80-99); MONOCYTES % (AUTO) 11.3 % (1.0-10.0); NEUTROPHILS % (AUTO) 68.8 % (45.0-75.0); PLATELET COUNT 183 K/UL (150-450); RED BLOOD COUNT 4.64 M/UL (4.70-6.10); WHITE BLOOD COUNT 6.7 K/UL (4.8-10.8)
--- NOTE | 2020-06-27 07:30 | NUR ---
NURSE NOTES: Received patient in bed. Awake, A/O x4. On room air, respirations unlabored. Patient denies pain. IV in the Left hand. Patient is a high fall risk d/t Adkins fall score of 60. Patient placed close to the nurse's station for safety and close monitoring. Yellow socks on, yellow gown on, bed at the lowest position, bed locked, bed alarm on high sensitivity, side rails up x2, call light within reach with return demonstration. CN and CONTRACT ADMINISTRATOR made aware.
[2020-06-27 07:48] LABS: ANION GAP 7 mmol/L (5-15); BLOOD UREA NITROGEN 12 mg/dL (7-18); CALCIUM 8.2 MG/DL (8.5-10.1); CARBON DIOXIDE 28 MMOL/L (21-32); CHLORIDE 105 MMOL/L (98-107); CREATININE 0.9 MG/DL (0.55-1.30); POTASSIUM 3.6 MMOL/L (3.5-5.1); SODIUM 140 MMOL/L (136-145)
[2020-06-27 08:00] VITALS: BP 124/79
[2020-06-27] MEDS: Docusate 100mg cap ORAL SCH ×2 (08:39→20:58)
[2020-06-27] MEDS: Heparin 5000 units/ml inj SUBQ SCH ×2 (08:40→21:07)
--- NOTE | 2020-06-27 08:46 | 48 Hour Post Anesthesia Eval ---
Post Anesthesia Evaluation Procedure: Permanent pacemaker placement Date of Evaluation: Jun 27, 2020 Time of Evaluation: 08:45 Blood Pressure Systolic: 136 0: 72 Pulse Rate: 64 Respiratory Rate: 20 Temperature (Fahrenheit): 97.6 O2 Sat by Pulse Oximetry: 98 Airway: patent Nausea: No Vomiting: No Pain Intensity: 2 Hydration Status: adequate Cardiopulmonary Status: stable Mental Status/LOC: patient returned to baseline Follow-up Care/Observations: n/a Post-Anesthesia Complications: none Follow-up care needed: N/A Clyde Mendoza MD Jun 27, 2020 08:46
--- NOTE | 2020-06-27 10:00 | Consultation ---
DATE OF CONSULTATION: 06/26/2020 PSYCHOTHERAPY CONSULTATION PROGRESS NOTE CONSULTING PHYSICIAN: Reji Ricardo PsyD TREATING ATTENDING: Jaime Mackenzie D.O. HISTORY OF PRESENT ILLNESS: This patient is a male patient, 74 years old, brought into the hospital from [facility]. The patient was referred for psychotherapy services for depression and anxiety. He was brought into the hospital for inguinal hernia and bradycardia. I assessed this patient today. The patient states that he is feeling well. He reports 00:46 depression or anxiety. He states that he has been feeling more hopeful. He states that he has been eating, he has been sleeping well. He denies any severe depression, denies any severe anxiety. The patient is cooperative now. Denies suicidal or homicidal thoughts or ideation. The patient states that he has had anxiety because of his pain; however, now he is feeling better. PAST MEDICAL HISTORY: History of CVA, extremity weakness, GERD, hypertension. ALLERGIES: The patient has no known drug allergies. SUBSTANCE ABUSE HISTORY: There is no indication of alcohol use, illicit substance use, or smoking cigarette. PSYCHIATRIC HISTORY: The patient has a history of depression and history of anxiety. He has been treated with psychotropic medications in the past. SOCIAL HISTORY: The patient is a 74-year-old male patient. He is from [facility], financially sustained through [facility]. MENTAL STATUS EXAMINATION: He is alert and oriented to person, place, time, and situation. His mood is dysphoric. Affect is 01:55. Thought process is disorganized. Thought content linear. He has poor attention and concentration. Fair insight, judgment, impulse control. I ASSESSED THIS PATIENT AND PROVIDED THE PATIENT WITH: 1. Reality orientation, orientating to person, place, time and situation. 2. Provided the patient with supportive psychotherapy and encouraged the patient to communicate and articulate thoughts utilizing positive communication skills, working on increasing insight into mental illness, provided the patient with psychoeducation on mental health symptoms, encouraged the patient to communicate and articulate thoughts utilizing positive communication skills. Plan is to maintain medication compliance with positive coping skills and stabilizing thoughts and behavior 02:34 anxiety, depression, 02:37. Psychotherapy services for this patient was 45 minutes. DIAGNOSES: 1. Generalized anxiety disorder. 2. Major depressive disorder, recurrent, moderate without psychotic features. 3. 02:56. 4. GERD. 5. Hypertension. 6. Psychosocial stressors are moderate. PLAN: Plan is to maintain medication compliance with positive coping skills to stabilize thought and behavior. Psychotherapy services for this patient was 45 minutes. This clinician has reviewed the patient's chart and discussed treatment with treatment team. Reji Ricardo PsyD. DR: Joseline JOB#: [id number] CC:
--- NOTE | 2020-06-27 10:22 | NUR ---
DISCHARGE PLANNING PATIENT WAS REFERRED TO [facility] AND WAS DECLINED. HE IS FROM [facility] AND IS ABLE TO RETURN NEED CARDIAC CLEARANCE FOR DISCHARGE NO DISCHARGE ORDER AT THIS TIME
--- NOTE | 2020-06-27 10:22 | NUR ---
*-*DISCHARGE PLANNING*-* PATIENT HAS BEEN REFERRED TO: [facility] P: [phone] PATIENT REFUSING PHYSICAL THERAPY, PATIENT DOES NOT MEET ARU CRITERIA.
--- NOTE | 2020-06-27 10:44 | NUR ---
NURSE NOTES: Dr. Causey contacted for cardio clearance. No new orders at this time. Addendum: 06/27/20 at 1045 by Ivan Barakat RN Dr. Causey will see the patient first.
[2020-06-27 12:00] VITALS: BP 107/60
--- NOTE | 2020-06-27 13:49 | Infectious Diseases Prog Note ---
Assessment/Plan Assessment: COVID19 neg -06/22 rapid covid pcr neg Afebrile No leukocytosis -u/a neg -influenza sc neg Abd pain/inguinal pain- no evidence of strangulation or infection -06/22 CT abd/p w/: Right inguinal hernia with small bowel contents. No evidence of strangulation. A few colonic diverticula without evidence of diverticulitis. Small left pleural effusion and mild bibasilar atelectasis. Subtle layering density within the gallbladder may represent gallbladder sludge versus small layering stones. Bradycardia -sp PPM 06/26 HTN GERD hypothyroidism BPH anxiety disorder CVA 1994 SNF resident ([facility]) Plan: -Periop Ancef -f/u cx -Monitor CBC/CMP, temperatures Thank you for consulting [facility]. Will continue to follow along with you. Discussed with RN. Subjective Allergies: Coded Allergies: COCONUT (Unverified Allergy, Unknown, 06/13/19) Uncoded Allergies: Coconut (Allergy, Intermediate, Hives, 08/07/15) afebrile sp PPM placement yesterday Objective Last 24 Hour Vital Signs Date Time Temp Pulse Resp B/P (MAP) Pulse Ox O2 Delivery O2 Flow Rate FiO2 06/27/20 08:46 64 20 98 06/27/20 08:25 Room Air 06/27/20 08:00 61 06/27/20 08:00 97.9 60 20 124/79 (94) 96 06/27/20 06:08 97.2 06/27/20 04:00 60 06/27/20 04:00 97.2 61 18 138/85 (102) 94 06/27/20 00:00 61 06/27/20 00:00 97.2 64 18 110/71 (84) 94 06/26/20 21:00 Room Air 06/26/20 20:00 61 06/26/20 20:00 97.9 60 20 123/64 (83) 95 06/26/20 16:00 61 06/26/20 16:00 98.7 60 20 121/78 (92) 99 06/26/20 15:25 98.6 60 19 120/70 99 Nasal Cannula 3.0 06/26/20 15:15 61 20 122/69 98 Nasal Cannula 3.0 06/26/20 15:00 60 19 119/72 97 Nasal Cannula 3.0 06/26/20 14:48 61 20 118/70 98 Nasal Cannula 3.0 06/26/20 14:38 60 19 121/71 99 Simple Mask 6.0 06/26/20 14:28 60 18 120/71 98 Simple Mask 6.0 06/26/20 14:24 60 20 99 06/26/20 14:23 64 19 120/70 99 Simple Mask 6.0 06/26/20 14:18 98.6 70 20 116/72 99 Simple Mask 6.0 Height (Feet): 6 Height (Inches): 0.00 Weight (Pounds): 170 GENERAL: no acute distress. CARDIOVASCULAR: No murmur. new PPM in place LUNGS: Distant and clear. ABDOMEN: Bowel sounds positive. Nontender. Nondistended. EXTREMITIES: No cyanosis, clubbing, or edema. NEUROLOGIC: The patient moves all extremities, slightly weak. Microbiology Date/Time Source Procedure Growth Status 06/25/20 06:30 Nasopharynx - Final Complete 06/25/20 06:30 Nasopharynx - Final Complete Laboratory Tests Test 06/27/20 06:54 White Blood Count 6.7 K/UL (4.8-10.8) Red Blood Count 4.64 M/UL (4.70-6.10) L Hemoglobin 13.6 G/DL (14.2-18.0) L Hematocrit 41.5 % (42.0-52.0) L Mean Corpuscular Volume 89 FL (80-99) Mean Corpuscular Hemoglobin 29.3 PG (27.0-31.0) Mean Corpuscular Hemoglobin Concent 32.8 G/DL (32.0-36.0) Red Cell Distribution Width 14.0 % (11.6-14.8) Platelet Count 183 K/UL (150-450) Mean Platelet Volume 8.5 FL (6.5-10.1) Neutrophils (%) (Auto) 68.8 % (45.0-75.0) Lymphocytes (%) (Auto) 14.0 % (20.0-45.0) L Monocytes (%) (Auto) 11.3 % (1.0-10.0) H Eosinophils (%) (Auto) 3.5 % (0.0-3.0) H Basophils (%) (Auto) 2.5 % (0.0-2.0) H Sodium Level 140 MMOL/L (136-145) Potassium Level 3.6 MMOL/L (3.5-5.1) Chloride Level 105 MMOL/L (98-107) Carbon Dioxide Level 28 MMOL/L (21-32) Anion Gap 7 mmol/L (5-15) Blood Urea Nitrogen 12 mg/dL (7-18) Creatinine 0.9 MG/DL (0.55-1.30) Estimat Glomerular Filtration Rate > 60 mL/min (>60) Glucose Level 85 MG/DL (74-106) Calcium Level 8.2 MG/DL (8.5-10.1) L Current Medications Medications (Trade) Dose Ordered Sig/Vadim Route PRN Reason Start Time Stop Time Status Last Admin Dose Admin Acetaminophen (Tylenol) 650 mg Q6H PRN ORAL Temp >100.5 06/26/20 14:30 07/26/20 14:29 Acetaminophen (Tylenol) 650 mg Q6H PRN ORAL Mild Pain (Pain Scale 1-3) 06/26/20 15:00 07/26/20 14:59 Acetaminophen/ Codeine Phosphate (Tylenol #3) 1 tab Q4H PRN ORAL Moderate Pain (Pain Scale 4-6) 06/26/20 14:30 07/03/20 14:29 06/27/20 11:42 Al Hydroxide/Mg Hydroxide (Mylanta II) 30 ml Q6H PRN ORAL dyspepsia 06/22/20 20:15 07/22/20 20:14 Cefazolin Sodium 1 gm/Dextrose 55 ml @ 110 mls/hr Q8HR IVP 06/26/20 22:00 07/03/20 21:59 06/27/20 05:37 Dextrose (Dextrose 50%) 25 ml Q30M PRN IV Hypoglycemia 06/22/20 20:15 09/20/20 20:14 Dextrose (Dextrose 50%) 50 ml Q30M PRN IV Hypoglycemia 06/22/20 20:15 09/20/20 20:14 Diphenhydramine HCl (Benadryl) 25 mg Q6H PRN ORAL Itching/Pruritis 06/22/20 20:15 07/22/20 20:14 Docusate Sodium (Colace) 100 mg EVERY 12 HOURS ORAL 06/22/20 21:00 07/22/20 20:59 06/27/20 08:39 Escitalopram Oxalate (Lexapro) 20 mg DAILY ORAL 06/26/20 09:00 07/26/20 08:59 06/27/20 08:40 Famotidine (Pepcid I.v.) 20 mg Q12HR IVP 06/22/20 21:00 07/22/20 20:59 06/27/20 08:40 Heparin Sodium (Porcine) (Heparin 5000 units/ml) 5,000 units EVERY 12 HOURS SUBQ 06/22/20 21:00 08/06/20 20:59 06/27/20 08:40 Lorazepam (Ativan) 1 mg Q4H PRN ORAL For Anxiety 06/22/20 20:15 06/29/20 20:14 Magnesium Hydroxide (Mom) 30 ml HSPRN PRN ORAL Constipation 06/22/20 20:15 07/22/20 20:14 Morphine Sulfate (Morphine Sulfate) 2 mg Q1H PRN IVP Severe Pain (Pain Scale 7-10) 06/26/20 14:30 07/03/20 14:29 Morphine Sulfate (Morphine Sulfate) 2 mg Q3H PRN IVP Moderate Pain (Pain Scale 4-6) 06/22/20 20:15 06/29/20 20:14 Nitroglycerin (Ntg) 0.4 mg Q5M PRN SL Prn Chest Pain 06/22/20 20:15 07/22/20 20:14 Ondansetron HCl (Zofran) 4 mg Q6H PRN IVP Nausea & Vomiting 06/26/20 14:30 07/26/20 14:29 06/27/20 08:40 Sodium Chloride 1,000 ml @ 50 mls/hr Q20H IVLG 06/22/20 21:30 07/22/20 21:29 06/27/20 01:57 Temazepam (Restoril) 15 mg DAILYPRN PRN ORAL Insomnia 06/22/20 20:15 06/29/20 20:14 06/26/20 20:45 Reanna Sahu M.D. Jun 27, 2020 13:49
--- NOTE | 2020-06-27 14:09 | General Progress Note ---
Subjective Constitutional: Reports: weakness Allergies: Coded Allergies: COCONUT (Unverified Allergy, Unknown, 06/13/19) Uncoded Allergies: Coconut (Allergy, Intermediate, Hives, 08/07/15) All Systems: reviewed and negative except above Subjective calm in bed Objective Last 24 Hour Vital Signs Date Time Temp Pulse Resp B/P (MAP) Pulse Ox O2 Delivery O2 Flow Rate FiO2 06/27/20 12:00 96.8 60 19 107/60 (76) 98 06/27/20 08:46 64 20 98 06/27/20 08:25 Room Air 06/27/20 08:00 61 06/27/20 08:00 97.9 60 20 124/79 (94) 96 06/27/20 06:08 97.2 06/27/20 04:00 60 06/27/20 04:00 97.2 61 18 138/85 (102) 94 06/27/20 00:00 61 06/27/20 00:00 97.2 64 18 110/71 (84) 94 06/26/20 21:00 Room Air 06/26/20 20:00 61 06/26/20 20:00 97.9 60 20 123/64 (83) 95 06/26/20 16:00 61 06/26/20 16:00 98.7 60 20 121/78 (92) 99 06/26/20 15:25 98.6 60 19 120/70 99 Nasal Cannula 3.0 06/26/20 15:15 61 20 122/69 98 Nasal Cannula 3.0 06/26/20 15:00 60 19 119/72 97 Nasal Cannula 3.0 06/26/20 14:48 61 20 118/70 98 Nasal Cannula 3.0 06/26/20 14:38 60 19 121/71 99 Simple Mask 6.0 06/26/20 14:28 60 18 120/71 98 Simple Mask 6.0 06/26/20 14:24 60 20 99 06/26/20 14:23 64 19 120/70 99 Simple Mask 6.0 06/26/20 14:18 98.6 70 20 116/72 99 Simple Mask 6.0 Intake and Output 06/26/20 06/27/20 19:00 07:00 Intake Total 1130 ml Output Total 200 ml 250 ml Balance 930 ml -250 ml Intake Oral 480 ml IV Total 650 ml Output Urine Total 200 ml 250 ml # Voids 2 Laboratory Tests 06/27/20 06:54: White Blood Count 6.7, Red Blood Count 4.64L, Hemoglobin 13.6L, Hematocrit 41.5L , Mean Corpuscular Volume 89, Mean Corpuscular Hemoglobin 29.3, Mean Corpuscular Hemoglobin Concent 32.8, Red Cell Distribution Width 14.0, Platelet Count 183, Mean Platelet Volume 8.5, Neutrophils (%) (Auto) 68.8, Lymphocytes (%) (Auto) 14.0L, Monocytes (%) (Auto) 11.3H, Eosinophils (%) (Auto) 3.5H, Basophils (%) (Auto) 2.5H, Sodium Level 140, Potassium Level 3.6, Chloride Level 105, Carbon Dioxide Level 28, Anion Gap 7, Blood Urea Nitrogen 12, Creatinine 0.9, Estimat Glomerular Filtration Rate > 60, Glucose Level 85, Calcium Level 8.2L Height (Feet): 6 Height (Inches): 0.00 Weight (Pounds): 170 General Appearance: lethargic EENT: normal ENT inspection Neck: normal alignment Cardiovascular: normal peripheral pulses, normal rate, regular rhythm Respiratory/Chest: chest wall non-tender, lungs clear, normal breath sounds Abdomen: normal bowel sounds, non tender, soft Extremities: normal inspection Edema: no edema noted Arm (L), no edema noted Arm (R), no edema noted Leg (L), no edema noted Leg (R), no edema noted Pedal (L), no edema noted Pedal (R), no edema noted Generalized Neurologic: responsive, motor weakness Skin: normal pigmentation, warm/dry Assessment/Plan Problem List: (1) Hernia ICD Codes: K46.9 - Unspecified abdominal hernia without obstruction or gangrene SNOMED: 55437620 (2) Bifascicular block ICD Codes: I45.2 - Bifascicular block SNOMED: 42690121 (3) Sinus bradycardia ICD Codes: R00.1 - Bradycardia, unspecified SNOMED: 81600140 (4) Anxiety ICD Codes: F41.9 - Anxiety disorder, unspecified SNOMED: 12046871 (5) HTN (hypertension) ICD Codes: I10 - Essential (primary) hypertension SNOMED: 18198245 (6) GERD (gastroesophageal reflux disease) ICD Codes: K21.9 - Gastro-esophageal reflux disease without esophagitis SNOMED: 102128118 (7) BPH (benign prostatic hyperplasia) ICD Codes: N40.0 - Benign prostatic hyperplasia without lower urinary tract symptoms SNOMED: 219351769, 613076153 (8) Cerebrovascular accident (CVA) ICD Codes: I63.9 - Cerebral infarction, unspecified SNOMED: 712388455 Status: stable, progressing, unchanged Assessment/Plan: pt diet abx pain control cbc bmp am pending pacer maida alcantara dc if clear Jaime Mackenzie DO Jun 27, 2020 14:09
--- NOTE | 2020-06-27 14:15 | Surgery Progress Note ---
Surgery Progress Note Subjective Additional Comments doing well after pacer placement no n/v min pain Objective Last 24 Hour Vital Signs Date Time Temp Pulse Resp B/P (MAP) Pulse Ox O2 Delivery O2 Flow Rate FiO2 06/27/20 12:00 60 06/27/20 12:00 96.8 60 19 107/60 (76) 98 06/27/20 08:46 64 20 98 06/27/20 08:25 Room Air 06/27/20 08:00 61 06/27/20 08:00 97.9 60 20 124/79 (94) 96 06/27/20 06:08 97.2 06/27/20 04:00 60 06/27/20 04:00 97.2 61 18 138/85 (102) 94 06/27/20 00:00 61 06/27/20 00:00 97.2 64 18 110/71 (84) 94 06/26/20 21:00 Room Air 06/26/20 20:00 61 06/26/20 20:00 97.9 60 20 123/64 (83) 95 06/26/20 16:00 61 06/26/20 16:00 98.7 60 20 121/78 (92) 99 06/26/20 15:25 98.6 60 19 120/70 99 Nasal Cannula 3.0 06/26/20 15:15 61 20 122/69 98 Nasal Cannula 3.0 06/26/20 15:00 60 19 119/72 97 Nasal Cannula 3.0 06/26/20 14:48 61 20 118/70 98 Nasal Cannula 3.0 06/26/20 14:38 60 19 121/71 99 Simple Mask 6.0 06/26/20 14:28 60 18 120/71 98 Simple Mask 6.0 06/26/20 14:24 60 20 99 06/26/20 14:23 64 19 120/70 99 Simple Mask 6.0 06/26/20 14:18 98.6 70 20 116/72 99 Simple Mask 6.0 I&O Intake and Output 06/26/20 06/27/20 19:00 07:00 Intake Total 1130 ml Output Total 200 ml 250 ml Balance 930 ml -250 ml Intake Oral 480 ml IV Total 650 ml Output Urine Total 200 ml 250 ml # Voids 2 Dressing: dry Wound: clean, dry Cardiovascular: RSR Respiratory: clear Abdomen: soft, non-tender, present bowel sounds Extremities: no edema, no tenderness, no cyanosis Laboratory Tests Test 06/27/20 06:54 White Blood Count 6.7 K/UL (4.8-10.8) Red Blood Count 4.64 M/UL (4.70-6.10) L Hemoglobin 13.6 G/DL (14.2-18.0) L Hematocrit 41.5 % (42.0-52.0) L Mean Corpuscular Volume 89 FL (80-99) Mean Corpuscular Hemoglobin 29.3 PG (27.0-31.0) Mean Corpuscular Hemoglobin Concent 32.8 G/DL (32.0-36.0) Red Cell Distribution Width 14.0 % (11.6-14.8) Platelet Count 183 K/UL (150-450) Mean Platelet Volume 8.5 FL (6.5-10.1) Neutrophils (%) (Auto) 68.8 % (45.0-75.0) Lymphocytes (%) (Auto) 14.0 % (20.0-45.0) L Monocytes (%) (Auto) 11.3 % (1.0-10.0) H Eosinophils (%) (Auto) 3.5 % (0.0-3.0) H Basophils (%) (Auto) 2.5 % (0.0-2.0) H Sodium Level 140 MMOL/L (136-145) Potassium Level 3.6 MMOL/L (3.5-5.1) Chloride Level 105 MMOL/L (98-107) Carbon Dioxide Level 28 MMOL/L (21-32) Anion Gap 7 mmol/L (5-15) Blood Urea Nitrogen 12 mg/dL (7-18) Creatinine 0.9 MG/DL (0.55-1.30) Estimat Glomerular Filtration Rate > 60 mL/min (>60) Glucose Level 85 MG/DL (74-106) Calcium Level 8.2 MG/DL (8.5-10.1) L Plan Problems: (1) Sinus bradycardia (2) Bifascicular block (3) Incarcerated hernia Assessment & Plan: 74-year-old male with right inguinal hernia with small bowel contents identified on CT. At the bedside easily reducible small hernia noted in the right groin. No left-sided significant hernia identified. Small umbilical defect no contents. Abdomen soft nontender nondistended. Patient has had this hernia for some time now. Identified to have bradycardia and abnormal EKG on admission. Labs noted. Cardiology work-up underway. Echo EKG labs cardiology input appreciated No acute surgical intervention at this time given reducible fairly asymptomatic inguinal hernia that is not incarcerated or strangulated. Chronic appearing as he is known about it for some time without any acute events. The abdominal cramping he experiences unlikely related to this hernia and suggestive more of a cramping than related to hernia. Do recommend repair of inguinal hernia can be done electively. Continue with cardiology work-up for the meantime. Will monitor hernia and if necessary intervene in the inpatient setting versus scheduling outpatient elective. Thank you for allowing me to participate in patient's care will follow with recommendations case discussed with cardiology patient to have pacemaker soon. will await recover prior to hernia repair if remains stable no pain no n/v/f/c no pain +flatus tolerating bm s/p pacermaker placement cardiology input appreciated plan IHR elective now that reduced ABDOMEN: Liver: Stable hypoenhancing subcentimeter focus within the left hepatic lobe with subtle peripheral enhancement, may represent a hemangioma. Gallbladder and bile ducts: Layering density within the gallbladder. The gallbladder is partially decompressed. No calcified stones. No ductal dilation. Pancreas: Unremarkable. No mass. No ductal dilation. Spleen: Unremarkable. No splenomegaly. Adrenals: Unremarkable. No mass. Kidneys and ureters: Unremarkable. No solid mass. No hydronephrosis. Stomach and bowel: A few colonic diverticula. Large bilateral inguinal hernias. Right inguinal hernia contains a small portion of loop of small bowel. There is no evidence of inflammatory change associated. There is no obstruction. The left inguinal hernia as a internal fat contents. No mucosal thickening. PELVIS: Appendix: Appendix is normal. Bladder: Unremarkable. No mass. Reproductive: Unremarkable as visualized. ABDOMEN and PELVIS: Intraperitoneal space: Unremarkable. No free air. No significant fluid collection. Bones/joints: [place] right scoliosis of the lumbar spine. Degenerative disc disease of the lumbar spine. No severe canal narrowing. No acute fracture. No dislocation. Soft tissues: Unremarkable. Vasculature: Mild atherosclerotic vascular disease. No abdominal aortic aneurysm. Lymph nodes: Unremarkable. No enlarged lymph nodes. Other findings: Stable right posterior diaphragmatic hernia. IMPRESSION: 1. Right inguinal hernia with small bowel contents. No evidence of strangulation. 2. A few colonic diverticula without evidence of diverticulitis. 3. Small left pleural effusion and mild bibasilar atelectasis. 4. Subtle layering density within the gallbladder may represent gallbladder sludge versus small layering stones. 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
--- NOTE | 2020-06-27 14:33 | NUR ---
NURSE NOTES: Dr. Causey and Dr. Sahu contacted for cardio clearance and ID clearance for discharge. Awaiting call back.
--- NOTE | 2020-06-27 15:24 | NUR ---
NURSE NOTES: Per Dr. Causey patient is ok to discharge, f/u in 1-[address] Adelina lopez is ok to discharge without antibiotics.
[2020-06-27 16:00] VITALS: BP 115/67
--- NOTE | 2020-06-27 16:17 | NUR ---
DISCHARGE PLAN LATE ENTRY 143 DISCHARGE ORDER NOTED TWO MESSAGES LEFT FOR DR BRAR STATING THAT [facility] IS NOT ACCEPTING THIS PATIENT. IN THE MESSAGE ALSO REQUESTED PATIENT BE ABLE TO RETURN TO HIS CORRECTION NO RESPONSE SINCE 143
--- NOTE | 2020-06-27 17:49 | Cardiac Electrophysiology PN ---
Assessment/Plan Assessment/Plan 1. SSS and Sinus bradycardia with heart rate down to 40 as well as underlying bifascicular block. Ruled out for DC. He is not on any sinus or AV lavinia blocking agents. Not hypothyroid DW patient the Risks and benefits of permanent pacemaker placement and he agreed to proceed. S/P DDD [facility] pacer implantation 06/26/2020. CXR No Ptx. Pacer site no hematoma. Interrogation showed Nl Fx. 2. Hypertension. Blood pressure was in the 160s. Better on lisinopril 10 mg b.i.d. 3. Right inguinal hernia. Further evaluation by Dr. Li. 4. History of hypothyroidism, thyroid replacement per Dr Hernandez. Repeat TSH and T4 within normal limits. Not the cause of patient bradycardia per Dr Hernandez 5. S/P Covid in 12/2019 at [facility] 6. S/P CVA at [place] >15 years ago with Left hemipareis DW patients sister Ms. Adore Richardson at [phone] after the Pacer Ok to DC FU with me in 1-2 weeks Subjective Subjective Underwent successful dual chamber pacer implantation yesterday. Interrogated today and showed Nl Fx. Objective Last 24 Hour Vital Signs Date Time Temp Pulse Resp B/P (MAP) Pulse Ox O2 Delivery O2 Flow Rate FiO2 06/27/20 16:00 96.6 59 18 115/67 (83) 97 06/27/20 16:00 66 06/27/20 12:00 60 06/27/20 12:00 96.8 60 19 107/60 (76) 98 06/27/20 08:46 64 20 98 06/27/20 08:25 Room Air 06/27/20 08:00 61 06/27/20 08:00 97.9 60 20 124/79 (94) 96 06/27/20 06:08 97.2 06/27/20 04:00 60 06/27/20 04:00 97.2 61 18 138/85 (102) 94 06/27/20 00:00 61 06/27/20 00:00 97.2 64 18 110/71 (84) 94 06/26/20 21:00 Room Air 06/26/20 20:00 61 06/26/20 20:00 97.9 60 20 123/64 (83) 95 Intake and Output 06/26/20 06/27/20 19:00 07:00 Intake Total 1130 ml 50 ml Output Total 200 ml 250 ml Balance 930 ml -200 ml Intake Oral 480 ml IV Total 650 ml 50 ml Output Urine Total 200 ml 250 ml # Voids 2 Laboratory Tests Test 06/27/20 06:54 White Blood Count 6.7 K/UL (4.8-10.8) Red Blood Count 4.64 M/UL (4.70-6.10) L Hemoglobin 13.6 G/DL (14.2-18.0) L Hematocrit 41.5 % (42.0-52.0) L Mean Corpuscular Volume 89 FL (80-99) Mean Corpuscular Hemoglobin 29.3 PG (27.0-31.0) Mean Corpuscular Hemoglobin Concent 32.8 G/DL (32.0-36.0) Red Cell Distribution Width 14.0 % (11.6-14.8) Platelet Count 183 K/UL (150-450) Mean Platelet Volume 8.5 FL (6.5-10.1) Neutrophils (%) (Auto) 68.8 % (45.0-75.0) Lymphocytes (%) (Auto) 14.0 % (20.0-45.0) L Monocytes (%) (Auto) 11.3 % (1.0-10.0) H Eosinophils (%) (Auto) 3.5 % (0.0-3.0) H Basophils (%) (Auto) 2.5 % (0.0-2.0) H Sodium Level 140 MMOL/L (136-145) Potassium Level 3.6 MMOL/L (3.5-5.1) Chloride Level 105 MMOL/L (98-107) Carbon Dioxide Level 28 MMOL/L (21-32) Anion Gap 7 mmol/L (5-15) Blood Urea Nitrogen 12 mg/dL (7-18) Creatinine 0.9 MG/DL (0.55-1.30) Estimat Glomerular Filtration Rate > 60 mL/min (>60) Glucose Level 85 MG/DL (74-106) Calcium Level 8.2 MG/DL (8.5-10.1) L Microbiology Date/Time Source Procedure Growth Status 06/25/20 06:30 Nasopharynx - Final Complete 11/3/20 06:30 Nasopharynx - Final Complete Objective HEAD AND NECK: no JVD or carotid bruits. LUNGS: Clear. CARDIOVASCULAR: Regular S1 and S2 with no gallop or murmur. Pacer in left subclavian area ABDOMEN: Soft. EXTREMITIES: No pitting edema. He has right groin inguinal hernia. Miko Causey MD Jun 27, 2020 17:49
--- NOTE | 2020-06-27 19:13 | NUR ---
NURSE HAND-OFF REPORT: Important Events on Shift:[discharge order active] Patient Status: [FULL] Diet: [cardiac] Pending Orders: [] Pending Results/Labs:[] Pending MD notification:[] Latest Vital Signs: Temperature 96.6 , Pulse 66 , B/P 115 /67 , Respiratory Rate 18 , O2 SAT 97 , Room Air, O2 Flow Rate 3.0 . Vital Sign Comment: [] EKG Rhythm: SR w/ BBB Rhythm change?: N MD Notified?: N - MD Response: Latest Adkins Fall Score: 60 Fall Risk: High Risk Safety Measures: Call light Within Reach, Bed Alarm Zone 1, Side Rails Side Rails x2, Bed position Low and Locked. Fall Precautions: Yellow Socks Door Sign Patient Fall Education Report given to [Robert RN].
--- NOTE | 2020-06-27 19:32 | NUR ---
NURSE NOTES: The patient is alert and oriented x4 and does not seem to be in any acute distress at this time with Resp even and unlabored.The patient refused to acknowledge pain Some level of anxiety and anxiousness was also noted but a calm environment was provided as indicated.The patient has a left hand 22g that is patent and asymptomatic.The bed in low low and locked level with call lifgt within easy reach. side rails up x2. will continue to monitor
[2020-06-27 20:00] VITALS: BP 126/70
[2020-06-28] VITALS: BP 135/70
[2020-06-28 04:00] VITALS: BP 146/79
[2020-06-28 06:23] LABS: EOSINOPHILS % (AUTO) 3.9 % (0.0-3.0); HEMATOCRIT 41.2 % (42.0-52.0); HEMOGLOBIN 13.5 G/DL (14.2-18.0); LYMPHOCYTES % (AUTO) 18.2 % (20.0-45.0); MEAN CORPUSCULAR VOLUME 89 FL (80-99); MONOCYTES % (AUTO) 9.9 % (1.0-10.0); NEUTROPHILS % (AUTO) 66.9 % (45.0-75.0); PLATELET COUNT 191 K/UL (150-450); RED BLOOD COUNT 4.62 M/UL (4.70-6.10); RED CELL DISTRIBUTION WIDTH 13.8 % (11.6-14.8); WHITE BLOOD COUNT 6.5 K/UL (4.8-10.8)
[2020-06-28 06:39] LABS: ANION GAP 5 mmol/L (5-15); BLOOD UREA NITROGEN 9 mg/dL (7-18); CALCIUM 8.3 MG/DL (8.5-10.1); CARBON DIOXIDE 29 MMOL/L (21-32); CHLORIDE 105 MMOL/L (98-107); CREATININE 0.9 MG/DL (0.55-1.30); POTASSIUM 3.6 MMOL/L (3.5-5.1); SODIUM 139 MMOL/L (136-145)
--- NOTE | 2020-06-28 07:10 | NUR ---
NURSE HAND-OFF REPORT: Important Events on Shift:Anxiety and agitations was noted,He received ATivan as indicatedand was able to relaxed Patient Status: Diet: Pending Orders: Pending Results/Labs: Pending MD notification: Latest Vital Signs: Temperature 97.7 , Pulse 61 , B/P 146 /79 , Respiratory Rate 20 , O2 SAT 95 , Room Air, O2 Flow Rate 3.0 . Vital Sign Comment: EKG Rhythm: SR w/ BBB Rhythm change?: N MD Notified?: N - MD Response: Latest Adkins Fall Score: 60 Fall Risk: High Risk Safety Measures: Call light Within Reach, Bed Alarm Zone 1, Side Rails Side Rails x2, Bed position Low and Locked. Fall Precautions: Yellow Socks Yellow Gown Door Sign Patient Fall Education Report given to .
--- NOTE | 2020-06-28 07:22 | NUR ---
NURSE NOTES: Received patient in bed. Awake, A/O x4. On room air, respirations unlabored. Patient denies pain at this time. IV in the Left hand, site intact. Patient is a high fall risk d/t Adkins fall score of 60. Patient placed close to the nurse's station for safety and close monitoring. Yellow socks on, yellow gown on, bed at the lowest position, bed locked, bed alarm on high sensitivity, side rails up x2, call light within reach with return demonstration. CN and SCHEDULING REPRESENTATIVE made aware.
[2020-06-28 08:00] VITALS: BP 116/64
[2020-06-28] MEDS: Docusate 100mg cap ORAL SCH (08:57)
[2020-06-28] MEDS: Heparin 5000 units/ml inj SUBQ SCH (09:07)
--- NOTE | 2020-06-28 10:20 | NUR ---
*-*DISCHARGE PLANNED*-* PATIENT HAS BEEN ACCEPTED AND WILL BE DISCHARGED BACK TO: [facility] P: [phone] FOR NURSE TO NURSE REPORT ROOM# 125.[facility] SET FOR 11AM S/W [facility] [id number]. S/W PATIENTS SISTER HARSHA GREENE, WHO IS IN AGREEMENT WITH DISCHARGE PLAN.
--- NOTE | 2020-06-28 10:22 | General Progress Note ---
Subjective Constitutional: Reports: weakness Allergies: Coded Allergies: COCONUT (Unverified Allergy, Unknown, 06/13/19) Uncoded Allergies: Coconut (Allergy, Intermediate, Hives, 08/07/15) All Systems: reviewed and negative except above Subjective calm in bed Objective Last 24 Hour Vital Signs Date Time Temp Pulse Resp B/P (MAP) Pulse Ox O2 Delivery O2 Flow Rate FiO2 06/28/20 08:11 Room Air 06/28/20 08:00 98.1 63 19 116/64 (81) 96 06/28/20 08:00 60 06/28/20 04:00 62 06/28/20 04:00 97.7 61 20 146/79 (101) 95 06/28/20 04:00 62 06/28/20 00:00 97.8 61 19 135/70 (91) 97 06/28/20 00:00 60 06/27/20 21:00 Room Air 06/27/20 20:00 66 06/27/20 20:00 97.8 65 19 126/70 (88) 96 06/27/20 16:00 96.6 59 18 115/67 (83) 97 06/27/20 16:00 66 06/27/20 12:00 60 06/27/20 12:00 96.8 60 19 107/60 (76) 98 Intake and Output 06/27/20 06/28/20 19:00 07:00 Intake Total 690 ml 880 ml Output Total 1200 ml 900 ml Balance -510 ml -20 ml Intake Oral 140 ml 280 ml IV Total 550 ml 600 ml Output Urine Total 1200 ml 900 ml # Voids 3 4 Laboratory Tests 06/28/20 06:06: White Blood Count 6.5, Red Blood Count 4.62L, Hemoglobin 13.5L, Hematocrit 41.2L , Mean Corpuscular Volume 89, Mean Corpuscular Hemoglobin 29.3, Mean Corpuscular Hemoglobin Concent 32.9, Red Cell Distribution Width 13.8, Platelet Count 191, Mean Platelet Volume 8.0, Neutrophils (%) (Auto) 66.9, Lymphocytes (%) (Auto) 18.2L, Monocytes (%) (Auto) 9.9, Eosinophils (%) (Auto) 3.9H, Basophils (%) (Auto) 1.0, Sodium Level 139, Potassium Level 3.6, Chloride Level 105, Carbon Dioxide Level 29, Anion Gap 5, Blood Urea Nitrogen 9, Creatinine 0.9, Estimat Glomerular Filtration Rate > 60, Glucose Level 85, Calcium Level 8.3L Height (Feet): 6 Height (Inches): 0.00 Weight (Pounds): 170 General Appearance: lethargic EENT: normal ENT inspection Neck: normal alignment Cardiovascular: normal peripheral pulses, normal rate, regular rhythm Respiratory/Chest: chest wall non-tender, lungs clear, normal breath sounds Abdomen: normal bowel sounds, non tender, soft Extremities: normal inspection Edema: no edema noted Arm (L), no edema noted Arm (R), no edema noted Leg (L), no edema noted Leg (R), no edema noted Pedal (L), no edema noted Pedal (R), no edema noted Generalized Neurologic: responsive, motor weakness Skin: normal pigmentation, warm/dry Assessment/Plan Problem List: (1) Hernia ICD Codes: K46.9 - Unspecified abdominal hernia without obstruction or gangrene SNOMED: 39710733 (2) Bifascicular block ICD Codes: I45.2 - Bifascicular block SNOMED: 79707517 (3) Sinus bradycardia ICD Codes: R00.1 - Bradycardia, unspecified SNOMED: 06399416 (4) Anxiety ICD Codes: F41.9 - Anxiety disorder, unspecified SNOMED: 26132256 (5) HTN (hypertension) ICD Codes: I10 - Essential (primary) hypertension SNOMED: 89031955 (6) GERD (gastroesophageal reflux disease) ICD Codes: K21.9 - Gastro-esophageal reflux disease without esophagitis SNOMED: 093091975 (7) BPH (benign prostatic hyperplasia) ICD Codes: N40.0 - Benign prostatic hyperplasia without lower urinary tract symptoms SNOMED: 418916369, 947012306 (8) Cerebrovascular accident (CVA) ICD Codes: I63.9 - Cerebral infarction, unspecified SNOMED: 005700480 Status: stable, progressing Assessment/Plan: pt diet abx pain control dc to snf Jaime Mackenzie DO Jun 28, 2020 10:22
--- NOTE | 2020-06-28 11:29 | NUR ---
NURSE NOTES: Report given to Chandni WATSON in [facility].
--- NOTE | 2020-06-28 11:40 | NUR ---
NURSE NOTES: Patient discharged via ambulance personnel. IV removed, ID band removed, Belongings list verified. Heart monitor removed. On room air, respirations unlabored. Patietn denies pain.
--- NOTE | 2020-06-28 13:40 | Cardiac Electrophysiology PN ---
Assessment/Plan Assessment/Plan 1. SSS and Sinus bradycardia with heart rate down to 40 as well as underlying bifascicular block. Ruled out for [place]. He is not on any sinus or AV lavinia blocking agents. Not hypothyroid DW patient the Risks and benefits of permanent pacemaker placement and he agreed to proceed. S/P DDD [facility] pacer implantation 06/26/2020. CXR No Ptx. Pacer site no hematoma. Interrogation showed Nl Fx. 2. Hypertension. Blood pressure was in the 160s. Better on lisinopril 10 mg b.i.d. 3. Right inguinal hernia. Further evaluation by Dr. Li. 4. History of hypothyroidism, thyroid replacement per Dr Hernandez. Repeat TSH and T4 within normal limits. Not the cause of patient bradycardia per Dr Hernandez 5. S/P Covid in 12/2019 at [facility] 6. S/P CVA at [place] >15 years ago with Left hemipareis DW patients sister Ms. Adore Richardson at [phone] after the Pacer Ok to DC FU with me in 1-2 weeks Subjective Subjective Underwent successful dual chamber pacer implantation 06/26/20. DC planning Objective Last 24 Hour Vital Signs Date Time Temp Pulse Resp B/P (MAP) Pulse Ox O2 Delivery O2 Flow Rate FiO2 06/28/20 08:11 Room Air 06/28/20 08:00 98.1 63 19 116/64 (81) 96 06/28/20 08:00 60 06/28/20 04:00 62 06/28/20 04:00 97.7 61 20 146/79 (101) 95 06/28/20 04:00 62 06/28/20 00:00 97.8 61 19 135/70 (91) 97 06/28/20 00:00 60 06/27/20 21:00 Room Air 06/27/20 20:00 66 06/27/20 20:00 97.8 65 19 126/70 (88) 96 06/27/20 16:00 96.6 59 18 115/67 (83) 97 06/27/20 16:00 66 Intake and Output 06/27/20 06/28/20 19:00 07:00 Intake Total 690 ml 880 ml Output Total 1200 ml 900 ml Balance -510 ml -20 ml Intake Oral 140 ml 280 ml IV Total 550 ml 600 ml Output Urine Total 1200 ml 900 ml # Voids 3 4 Laboratory Tests Test 06/28/20 06:06 White Blood Count 6.5 K/UL (4.8-10.8) Red Blood Count 4.62 M/UL (4.70-6.10) L Hemoglobin 13.5 G/DL (14.2-18.0) L Hematocrit 41.2 % (42.0-52.0) L Mean Corpuscular Volume 89 FL (80-99) Mean Corpuscular Hemoglobin 29.3 PG (27.0-31.0) Mean Corpuscular Hemoglobin Concent 32.9 G/DL (32.0-36.0) Red Cell Distribution Width 13.8 % (11.6-14.8) Platelet Count 191 K/UL (150-450) Mean Platelet Volume 8.0 FL (6.5-10.1) Neutrophils (%) (Auto) 66.9 % (45.0-75.0) Lymphocytes (%) (Auto) 18.2 % (20.0-45.0) L Monocytes (%) (Auto) 9.9 % (1.0-10.0) Eosinophils (%) (Auto) 3.9 % (0.0-3.0) H Basophils (%) (Auto) 1.0 % (0.0-2.0) Sodium Level 139 MMOL/L (136-145) Potassium Level 3.6 MMOL/L (3.5-5.1) Chloride Level 105 MMOL/L (98-107) Carbon Dioxide Level 29 MMOL/L (21-32) Anion Gap 5 mmol/L (5-15) Blood Urea Nitrogen 9 mg/dL (7-18) Creatinine 0.9 MG/DL (0.55-1.30) Estimat Glomerular Filtration Rate > 60 mL/min (>60) Glucose Level 85 MG/DL (74-106) Calcium Level 8.3 MG/DL (8.5-10.1) L Objective HEAD AND NECK: no JVD or carotid bruits. LUNGS: Clear. CARDIOVASCULAR: Regular S1 and S2 with no gallop or murmur. Pacer in left subclavian area ABDOMEN: Soft. EXTREMITIES: No pitting edema. He has right groin inguinal hernia. Miko Causey MD Jun 28, 2020 13:40
--- NOTE | 2020-06-28 23:50 | Psychiatric Progress Note ---
Psychiatry Progress Note Psychiatry Progress Note Subjective 06/27/20 Neurological/Psychiatric: Reports: anxiety, depressed, emotional problems, weakness Allergies: Coded Allergies: COCONUT (Unverified Allergy, Unknown, 06/13/19) Uncoded Allergies: Coconut (Allergy, Intermediate, Hives, 08/07/15) Objective Data Height (Feet): 6 Height (Inches): 0.00 Weight (Pounds): 170 General Appearance: WD/WN, alert, alert oriented x3 Additional Comments: Alert, oriented times self, place, situation. Mood is depressed. Affect is blunted, congruent with mood. Thought process is concrete. Thought content, no suicidal or homicidal ideation. Cognition is intact. Insight and judgment is fair. Assessment/Plan Patterson I: ASSESSMENT: Patterson I Major depressive disorder. Anxiety disorder. Patterson II Deferred. Patterson III As above. Patterson IV Patterson V PLAN: 1. We will start the patient on psychotropic medication. 2. Provide the patient with reality orientation and supportive therapy. Status: stable, progressing Status Narrative ASSESSMENT: Patterson I Major depressive disorder. Anxiety disorder. Patterson II Deferred. Patterson III As above. Patterson IV Patterson V PLAN: 1. We will start the patient on psychotropic medication. 2. Provide the patient with reality orientation and supportive therapy. Assessment/Plan: ASSESSMENT: Patterson I Major depressive disorder. Anxiety disorder. Patterson II Deferred. Patterson III As above. Patterson IV Patterson V PLAN: 1. We will start the patient on psychotropic medication. 2. Provide the patient with reality orientation and supportive therapy. Malena Viera MD Jun 28, 2020 23:50
--- NOTE | 2020-06-30 14:10 | Cardiology Report ---
APPROVED REPORT EXAM: Two-dimensional and M-mode echocardiogram with Doppler and color Doppler. INDICATION Bradycardia M-Mode DIMENSIONS IVSd1.1 (0.7-1.1cm)Left Atrium (MM)4.6 (1.6-4.0cm) LVDd4.3 (3.5-5.6cm)Aortic Root3.5 (2.0-3.7cm) PWd1.1 (0.7-1.1cm)Aortic Cusp Exc.2.0 (1.5-2.0cm) IVSs1.5 cmEPSS0.4 (>1.0cm) LVDs2.1 (2.5-4.0cm) PWs1.8 cm <Conclusion> Normal left ventricular chamber size, systolic function and wall motion. Left ventricular ejection fraction estimated to be 55-60 %. No evidence of left ventricular hypertrophy. No evidence of pericardial effusion. Left atrial size at upper limits of normal. Right cardiac chamber sizes are within normal limits. Focal aortic valve sclerosis with adequate cusp excursion. Thickened mitral valve leaflets with normal excursion. Mitral annulus and aortic root calcification. Pulmonic valve not well visualized. Normal tricuspid valve structure. IVC at normal size with slight physiologic collapse suggestive of increased RA pressure. A color flow and spectral Doppler study was performed and revealed: No aortic regurgitation. Trace to mild mitral regurgitation. Mitral diastolic velocities suggest reduced left ventricular relaxation c/w mild diastolic dysfunction (Grade I). Trace tricuspid regurgitation. Tricuspid systolic velocities suggests peak right ventricular systolic pressure of 16 mmHg. Trace pulmonic regurgitation present.
--- NOTE | 2020-06-30 15:05 | Cardiology Report ---
APPROVED REPORT EKG Measurement Heart [id number] AL [id number] <Conclusion> Atrial-paced ventriocular sensed rhythm Left axis deviation Right bundle branch block Abnormal ECG
--- NOTE | 2020-07-01 09:55 | Discharge Summary ---
Discharge Summary Discharge Summary _ DATE OF ADMISSION: 06/22/2020 DATE OF DISCHARGE: 06/28/2020 DISCHARGED BY: Dr. Jaime Mackenzie CONSULTANTS: Dr. Miko Hernandez [facility] HOSPITAL COURSE: Patient is a 74-year-old male from [facility], who presented with 2 days increased right inguinal pain. There was no nausea, vomiting or diarrhea. He has past medical history of anxiety, CVA, lower extremity weakness, BPH, GERD and hyper pretension. Upon evaluation at ED, blood pressure was stable. Heart rate was 54. EKG showed sinus bradycardia with right bundle branch block, left anterior fascicular block, bifascicular block. Blood count did not show any leukocytosis. Hemoglobin and hematocrit were stable. Electrolytes were normal. Troponin was negative. Urinalysis was essentially negative. Review of old EKG showed that bradycardia was new. CT of the abdomen and pelvis showed evidence of incarcerated right inguinal hernia. No evidence of strangulation. He was passing gas. He was then admitted for evaluation of incarcerated hernia and sinus bradycardia. He was admitted to monitored floor. Patient has a heart rate down to 40s. He has underlying bifascicular block. Blood pressure was elevated and was given lisinopril and as needed clonidine. He underwent surgical evaluation. There was no acute surgical intervention needed. Patient is awake symptomatic and hernia is not incarcerated or strangulated. Abdominal cramping he experiences was unlikely related to the hernia and suggestive of more cramping rather than related to hernia. Patient was recommended repair of inguinal hernia which can be done electively. Patient has underlying anxiety, irritable mood, anhedonia, worthlessness and hopelessness. Patient was taking Lexapro daily. His medications were stopped during hospitalization. Psychiatric evaluation was done. He was restarted on meds. Patient endorsed cough and sore throat. Influenza screen was negative. Rapid Covid test was negative. He was observed off antibiotics. Patient was ruled out for [place]. He is not taking any sinus or AV lavinia blocking agents. Thyroid function was slightly elevated but not cause of arrythmia. Consent was given for pacemaker implantation. On 06/26/2020, patient underwent successful [place] dual-chamber pacer implantation. Patient tolerated procedure well with no immediate complications from this procedure. Pacemaker was programmed lower rate of 60 and upper rate of 120. Pacemaker interrogation showed normal function. There was no chest x-ray findings of pneumothorax. Pacer site did not show any hematoma. Patient was discharged home. FINAL DIAGNOSES: Sick sinus syndrome and sinus bradycardia with heart rate down to 40 as well as underlying fascicular block Status post dual-chamber [place] pacer implantation Hypertension Right inguinal hernia Status post Covid on December 2019 Old CVA with left hemiparesis Major depressive DO Anxiety DO DISPOSITION: Back to SNF. DISCHARGE MEDICATIONS: Refer to Discharge Medication List. I have been assigned to complete a discharge summary on this account, I was not involved with the patient's management.--FANNIE Tabares Jacqueline Robles NP Jul 01, 2020 09:55
== END 2020-06-28 11:40 | DRG 243 ==
LOC: EDBD 17:15 → EMR 17:44 → 2E 20:13 → EDBEDREQ 21:45 → 2E 06-23 07:59
PROC: 02H63JZ Insertion of Pacemaker Lead into Right Atrium, Percutaneous Approach (ICD-10-PCS; principal; 2020-06-26 13:00)
PROC: 0JH606Z Insertion of Pacemaker, Dual Chamber into Chest Subcutaneous Tissue and Fascia, Open Approach (ICD-10-PCS; principal; 2020-06-26 13:00)
PROC: 02HK3JZ Insertion of Pacemaker Lead into Right Ventricle, Percutaneous Approach (ICD-10-PCS; principal; 2020-06-26 13:00)
DX: I49.5 Sick sinus syndrome (principal); I45.2 Bifascicular block; N39.0 Urinary tract infection, site not specified; J98.11 Atelectasis; I69.354 Hemiplegia and hemiparesis following cerebral infarction affecting left non-dominant side; K40.90 Unilateral inguinal hernia, without obstruction or gangrene, not specified as recurrent; E03.9 Hypothyroidism, unspecified; N40.0 Benign prostatic hyperplasia without lower urinary tract symptoms; K21.9 Gastro-esophageal reflux disease without esophagitis; F41.9 Anxiety disorder, unspecified; K57.30 Diverticulosis of large intestine without perforation or abscess without bleeding; I10 Essential (primary) hypertension; Z86.19 Personal history of other infectious and parasitic diseases; F32.9 Major depressive disorder, single episode, unspecified; Z79.01 Long term (current) use of anticoagulants; Z79.82 Long term (current) use of aspirin; J44.9 Chronic obstructive pulmonary disease, unspecified
CPT/HCPCS: 36415; 71045; 74177; 76000; 80048; 80053; 80061; 81003; 83690; 83880; 84439; 84443; 84481; 84484; 85025; 85610; 85730; 86140; 86710; 87081; 93005; 93306; 94003; 94150; 96360; 99291; J2250; J2405; J7030; U0002